=== PATIENT | male | born 1950 | race Caucasian/White ===

== ENCOUNTER 2017-06-01 19:22 | Inpatient (IN) | payer OTHER ==
[2017-06-01 19:39] VITALS: BMI 30.7
--- NOTE | 2017-06-01 19:58 | PDOC ---
History of Present Illness - General Chief Complaint: Respiratory Distress Stated Complaint: PCP SENT/PNEUMONIA Time Seen by Provider: 06/01/17 19:57 Past History - Past Medical History Allergies/Adverse Reactions: Allergies Allergy/AdvReac Type Severity Reaction Status Date / Time No Known Drug Allergies Allergy Verified 06/01/17 19:33 Home Medications: Ambulatory Orders Unobtainable [Unobtainable] 11/28/16 Anemia: No Asthma: No Cancer: No Cardiac Disorders: Yes (VT 10YRS AGO, 4 STENTS) CVA: No COPD: No CHF: No Dementia: No Diabetes: Yes Dialysis: Yes (m-w-f lt arm fistula) GI Disorders: No Disorders: No HTN: Yes Hypercholesterolemia: Yes Liver Disease: No Seizures: No Thyroid Disease: No Other medical history: Gout - Surgical History Abdominal Surgery: Yes (HERNIA X 2) Appendectomy: No Cardiac Surgery: Yes (STENTS X4) Cholecystectomy: No Lung Surgery: No Neurologic Surgery: No Orthopedic Surgery: Yes (LEFT KNEE ARTHOSCOPY) - Psycho/Social/Smoking Cessation Hx Anxiety: No Suicidal Ideation: No Smoking History: Former smoker Have you smoked in the past 12 months: No If you are a former smoker, when did you quit?: 10 years ago when he had the [place] Information on smoking cessation initiated: No Hx Alcohol Use: No Drug/Substance Use Hx: No Substance Use Type: None Hx Substance Use Treatment: No *Physical Exam - Vital Signs Last Vital Signs Temp Pulse Resp BP Pulse Ox 97.5 F L 69 20 161/122 91 L 06/01/17 19:34 06/01/17 19:34 06/01/17 19:34 06/01/17 19:34 06/01/17 19:34 *DC/Admit/Observation/Transfer - Attestations Physician Attestion: 06/01/17 19:57 I, Dr. Jorge Morales, attest that this document has been prepared under my direction and personally reviewed by me in its entirety. I further attest, that it accurately reflects all work, treatment, procedures and medical decision -making performed by me.
[2017-06-01] MEDS ORDERED: FUROSEMIDE 40 MG/4 ML INJECTABLE VIAL IVPUSH ONE (21:13)
--- NOTE | 2017-06-01 21:35 | PDOC ---
Attending Attestation - HPI HPI: 06/01/17 21:50 Patient is a 67 year old male with history of DM, hypertension, hyperlipidemia, diabetes, ESRD on MWF with LUE AV fistula, who presents to the ED sent in by PCP for pneumonia. Patient reports cough and fever. He also reports SOB. Patient is a poor historian. - Physicial Exam PE: 06/01/17 21:51 GENERAL: Awake, alert, and fully oriented, in no acute distress HEAD: No signs of trauma EYES: PERRLA, EOMI, sclera anicteric, conjunctiva clear ENT: Auricles normal inspection, hearing grossly normal, nares patent, oropharynx clear without exudates. Moist mucosa NECK: (+)JVD Normal ROM, supple, no lymphadenopathy, or masses LUNGS: (+)Rales. Breath sounds equal. No wheezes, and no crackles HEART: Regular rate and rhythm, normal S1 and S2, no murmurs, rubs or gallops ABDOMEN: Soft, nontender, normoactive bowel sounds. No guarding, no rebound. No masses EXTREMITIES: Normal range of motion, no edema. No clubbing or cyanosis. No cords, erythema, or tenderness NEUROLOGICAL: Cranial nerves II through XII grossly intact. Normal speech SKIN: Warm, Dry, normal turgor, no rashes or lesions noted. - Medical Decision Making 06/01/17 21:52 Plan -Labs -CXR -ECG -VS 06/02/17 00:[address] Bender's service was told that Dr. Vazquez is on called. Three pages were placed to Dr. Vazquez with 15 minute intervals for first two calls and last call was with a 30 minute interval. No call back received from Dr. Vazquez or anyone else in the group. Patient will be admitted under the Hospitalist service. Documentation prepared by ROBERT Vallejo, acting as medical technologist chemistry for Jorge Morales DO.
--- NOTE | 2017-06-01 21:35 | PDOC ---
History of Present Illness - General Chief Complaint: Respiratory Distress Stated Complaint: PCP SENT/PNEUMONIA Time Seen by Provider: 06/01/17 19:57 Past History - Past Medical History Allergies/Adverse Reactions: Allergies Allergy/AdvReac Type Severity Reaction Status Date / Time No Known Drug Allergies Allergy Verified 06/01/17 19:33 Home Medications: Ambulatory Orders Unobtainable [Unobtainable] 11/28/16 Anemia: No Asthma: No Cancer: No Cardiac Disorders: Yes (CT 10YRS AGO, 4 STENTS) CVA: No COPD: No CHF: No Dementia: No Diabetes: Yes Dialysis: Yes (m-w-f lt arm fistula) GI Disorders: No Disorders: No HTN: Yes Hypercholesterolemia: Yes Liver Disease: No Seizures: No Thyroid Disease: No Other medical history: Gout - Surgical History Abdominal Surgery: Yes (HERNIA X 2) Appendectomy: No Cardiac Surgery: Yes (STENTS X4) Cholecystectomy: No Lung Surgery: No Neurologic Surgery: No Orthopedic Surgery: Yes (LEFT KNEE ARTHOSCOPY) - Psycho/Social/Smoking Cessation Hx Anxiety: No Suicidal Ideation: No Smoking History: Former smoker Have you smoked in the past 12 months: No If you are a former smoker, when did you quit?: 10 years ago when he had the CT Information on smoking cessation initiated: No Hx Alcohol Use: No Drug/Substance Use Hx: No Substance Use Type: None Hx Substance Use Treatment: No *Physical Exam - Vital Signs Last Vital Signs Temp Pulse Resp BP Pulse Ox 97.5 F L 69 20 161/122 91 L 06/01/17 19:34 06/01/17 19:34 06/01/17 19:34 06/01/17 19:34 06/01/17 19:34
--- NOTE | 2017-06-01 21:38 | PDOC ---
History of Present Illness - General Chief Complaint: Respiratory Distress Stated Complaint: PCP SENT/PNEUMONIA Time Seen by Provider: 06/01/17 19:57 History Source: Patient Exam Limitations: Language Barrier (Automatic Clipper And Stripper used) - History of Present Illness Initial Comments: 06/01/17 21:29 67M with history of CKD on MWF dialysis, insulin dependant diabetes mellitus and TN 10 years ago s/p stents here today complaining of respiratory distress. He was sent to the ED today by his PCP for pneumonia. He states that he's been feeling unwell for the past month. He states that he's had a cough, shortness of breath, fevers, headaches, and decreased activity level. He also states that he's had orthopnea and chest pain. The chest pain is located substernally with no radiation. He's unsure of what makes it worse or better. Patient states that he does not remember what medications he takes, but has been taking them. He states that he's been able to go to his regular dialysis and that they take ~1L off per session. Past History - Past Medical History Allergies/Adverse Reactions: Allergies Allergy/AdvReac Type Severity Reaction Status Date / Time No Known Drug Allergies Allergy Verified 06/01/17 19:33 Home Medications: Ambulatory Orders Unobtainable [Unobtainable] 11/28/16 Anemia: No Asthma: No Cancer: No Cardiac Disorders: Yes (TN 10YRS AGO, 4 STENTS) CVA: No COPD: No CHF: No Dementia: No Diabetes: Yes Dialysis: Yes (m-w-f lt arm fistula) GI Disorders: No Disorders: No HTN: Yes Hypercholesterolemia: Yes Liver Disease: No Seizures: No Thyroid Disease: No Other medical history: Gout - Surgical History Abdominal Surgery: Yes (HERNIA X 2) Appendectomy: No Cardiac Surgery: Yes (STENTS X4) Cholecystectomy: No Lung Surgery: No Neurologic Surgery: No Orthopedic Surgery: Yes (LEFT KNEE ARTHOSCOPY) - Psycho/Social/Smoking Cessation Hx Anxiety: No Suicidal Ideation: No Smoking History: Former smoker Have you smoked in the past 12 months: No If you are a former smoker, when did you quit?: 10 years ago when he had the [place] Information on smoking cessation initiated: No Hx Alcohol Use: No Drug/Substance Use Hx: No Substance Use Type: None Hx Substance Use Treatment: No Review of Systems - Review of Systems Constitutional: Yes: Fever, Weakness. No: Chills HEENTM: Yes: Blurred Vision, Hearing Loss. No: Eye Pain, Recent change in vision Respiratory: Yes: Cough, Orthopnea, Shortness of Breath, SOB with Exertion, Productive cough Cardiac (ROS): Yes: Chest Pain. No: Edema ABD/GI: Yes: Constipated. No: Diarrhea, Nausea, Vomiting : No: Burning, Dysuria Musculoskeletal: Yes: Back Pain, Joint Pain Neurological: Yes: Headache. No: Weakness Endocrine: No: Increased Thirst, Increased Urine Hematologic/Lymphatic: No: Blood Clots, Easy Bleeding *Physical Exam - Vital Signs Last Vital Signs Temp Pulse Resp BP Pulse Ox 97.5 F L 69 20 161/122 91 L 06/01/17 19:34 06/01/17 19:34 06/01/17 19:34 06/01/17 19:34 06/01/17 19:34 - Physical Exam Comments: 06/01/17 21:40 Gen: Well nourished, obese, man in moderate distress HEENT: Atraumatic normocephalic CV: Regular rate and rhythm, no murmurs rubs or gallops, exam limited by rales from lung exam Lungs: Diffuse rales throughout both lung velasquez, coughing, tachypneic Abdomen: Soft, nontender, normal bowel sounds Ext: 1+ pitting edema to mid [place], 1+ pulses in lower extremities, dialysis site in left arm with thrill, nonerythematous, nontender Neuro: Alert, oriented, no focal neuro deficits Neck: Could not assess JVD secondary to patients neck girth ED Treatment Course - LABORATORY CBC & Chemistry Diagram: 06/01/17 21:41 06/01/17 21:41 - RADIOLOGY Radiology Studies Ordered: Category Date Time Status CHEST X-RAY PORTABLE* [RAD] Stat Radiology 06/01/17 20:51 Ordered Medical Decision Making - Medical Decision Making 06/01/17 21:50 Patient is a 67M with history of CKD on dialysis MWF, [place] 10 years ago s/p stents , and IDDM here today complaining of respiratory distress. Patient is hypertensive, other vital signs normal. PCP was concerned about pneumonia, phone call is out to Dr Vazquez ([phone]) to collect more patient history. Exam shows diffuse rales through out lung velasquez. Differential diagnosis includes, but is not limited to: CHF exacerbation, pneumonia, and ACS. Labs ordered, CBC, CMP, Lactate, Blood Cultures, BNP, Troponin, and CXR. Vanc/ zosyn, renally dosed, started empirically due to dialysis status. 06/01/17 22:16 CXR read as PNA vs CHF 06/02/17 00:35 CBC shows no white count, lactate normal. BNP at 20k, Troponin to 0.04. Dr Vazquez contacted three times over an hour plus with no response, looking for admission, but never heard back. Clonidine .2 mg given for HTN. Lasix 40 given to take off fluid, as patient reports making a small amount of urine. [facility]. *DC/Admit/Observation/Transfer Diagnosis at time of Disposition: CHF exacerbation Qualifiers: Congestive heart failure type: unspecified congestive heart failure type Qualified Code(s): I50.9 - Heart failure, unspecified - Discharge Dispostion Condition at time of disposition: Guarded Admit: Yes - Referrals Referrals: Brittany Bender MD [Primary Care Provider] - - Attestations Physician Attestion: 06/02/17 00:58 I, Dr. Zaheer Iniguez, attest that this document has been prepared under my direction and personally reviewed by me in its entirety. I further attest, that it accurately reflects all work, treatment, procedures and medical decision -making performed by me.
[2017-06-01 21:59] LABS: EOSINOPHIL 7.1 % (0-4.5); MCHC 32.4 g/dl (32.0-35.9); MEAN CELL VOLUME 89.6 fl (80-96); MEAN PLT VOLUME 6.9 fl (7.5-11.1); NEUTROPHILS 68.4 % (42.8-82.8); PLATELET COUNT 261 K/MM3 (134-434); RDW 15.3 % (11.9-15.9); WHITE BLOOD COUNT 5.5 K/mm3 (4.0-10.0)
[2017-06-01] MEDS ORDERED: PIPERACILLIN/TAZOB 2.25 GM 2.25 GM in DEXTROSE 5%-WATER - 50 ML IVPB SCH (22:00)
[2017-06-01] MEDS ORDERED: FUROSEMIDE 40 MG/4 ML INJECTABLE VIAL ONE (22:05)
[2017-06-01 22:12] LABS: INR 1.03 (0.82-1.09); PROTHROMBIN TIME (PATIENT) 11.3 SEC (9.98-11.88)
[2017-06-01 22:15] LABS: ACTIVATED PTT 28.8 SECONDS (26.9-34.4)
[2017-06-01 22:30] LABS: ALBUMIN 2.6 g/dl (3.4-5.0); ANION GAP 12 (8-16); BILIRUBIN,TOTAL 0.3 mg/dL (0.2-1.0); CALCIUM 9.1 mg/dL (8.5-10.1); CO2 25 mmol/L (21-32); GLUCOSE,RANDOM 139 mg/dL (74-106); SGOT/AST 16 U/L (15-37); SGPT/ALT 13 U/L (12-78); TOT PROT 5.7 g/dl (6.4-8.2)
[2017-06-01 22:36] LABS: ALK PHOS 124 U/L (45-117); TROPONIN I 0.04 ng/ml (0.00-0.05)
[2017-06-01 22:39] LABS: CREATININE 9.8 mg/dL (0.7-1.3)
[2017-06-01] MEDS ORDERED: cloNIDine HCL 0.1 MG TABLET PO ONE (22:57)
[2017-06-01] MEDS ORDERED: cloNIDine HCL 0.1 MG TABLET ONE (23:03)
[2017-06-02] MEDS ORDERED: hydrALAZINE HCL 20 MG/ML VIAL ONE (01:06)
[2017-06-02] MEDS ORDERED: ALBUTEROL SO4 2.5/IPRATROPIUM 0.5 INH SOL 3 ML VIAL.NEB. NEB ONE ×2 (01:07→01:16)
[2017-06-02] MEDS ORDERED: hydrALAZINE HCL 10 MG TABLET PO ONE (01:16)
--- NOTE | 2017-06-02 01:19 | HP ---
CHIEF COMPLAINT: SOB PCP: George-ED attempted to call, no response, so hospitalist service taking over admission Renal: Winter, Cardio: @ [facility] Endo: Jay HISTORY OF PRESENT ILLNESS: THis is a 67 year old male with a past medical history of HTN, DM, ESRD, HLD, [place] , gout who presented to the ED from his PCP office with report of SOB. PCP sent him to r/o pneumonia. Pt reports he has been sick for " a while." He reports cough, SOB, chest pain, fevers, headaches, and decreased exercise intolerance. Upon exam he was complaining of fluid leaking from his ear "again." He states taht this has been a problem for "years" ever since he had surgery on his ear. ER course was notable for: (1) BNP 20,732 PAST MEDICAL HISTORY: HTN CAD s/p OH in 2003 or 2004 HLD DM ESRD gout asthma PAST SURGICAL HISTORY: pt reports 5 stents at the time of his OH, prior chart documented 4 LUE fistula 06/04/15 L knee arthroscopy Social History: Smoking: Pt quit when he had OH, Prior smoker x 45 years Alcohol: pt denies Drugs: pt denies Family History: [place] Allergies No Known Drug Allergies Allergy (Verified 06/01/17 19:33) HOME MEDICATIONS: 3 Medication Instructions Recorded Unobtainable [Unobtainable] 11/28/16 REVIEW OF SYSTEMS CONSTITUTIONAL: Present: fever, chills Absent: diaphoresis, generalized weakness, malaise, loss of appetite, weight change HEENT: Absent: rhinorrhea, nasal congestion, throat pain, throat swelling, difficulty swallowing, mouth swelling, ear pain, eye pain, visual changes CARDIOVASCULAR: Present: chest pain Absent: syncope, palpitations, irregular heart rate, lightheadedness, peripheral edema RESPIRATORY: Present: cough, shortness of breath, dyspnea with exertion, orthopnea Absent: wheezing, stridor, hemoptysis GASTROINTESTINAL: Absent: abdominal pain, abdominal distension, nausea, vomiting, diarrhea, constipation, melena, hematochezia GENITOURINARY: Absent: dysuria, frequency, urgency, hesitancy, hematuria, flank pain, genital pain MUSCULOSKELETAL: Absent: myalgia, arthralgia, joint swelling, back pain, neck pain SKIN: Absent: rash, itching, pallor HEMATOLOGIC/IMMUNOLOGIC: Absent: easy bleeding, easy bruising, lymphadenopathy, frequent infections ENDOCRINE: Absent: unexplained weight gain, unexplained weight loss, heat intolerance, cold intolerance NEUROLOGIC: Absent: headache, focal weakness or paresthesias, dizziness, unsteady gait, seizure, mental status changes, bladder or bowel incontinence PSYCHIATRIC: Absent: anxiety, depression, suicidal or homicidal ideation, hallucinations. PHYSICAL EXAMINATION Vital Signs - 24 hr 3 06/01/17 06/01/17 06/01/17 06/02/17 19:34 22:00 23:07 01:08 Temperature 97.5 F L Pulse Rate 69 Pulse Rate [ 80 81 Apical] Respiratory 20 20 18 Rate Blood Pressure 161/122 Blood Pressure 194/86 195/93 [Right Arm] O2 Sat by Pulse 91 L 97 97 97 Oximetry (%) GENERAL: Awake, alert, and fully oriented, in no acute distress. HEAD: Normal with no signs of trauma. EYES: Pupils equal, round and reactive to light, extraocular movements intact, sclera anicteric, conjunctiva clear. No lid lag. EARS, NOSE, THROAT: Ears normal, nares patent, oropharynx clear without exudates. Moist mucous membranes. NECK: Normal range of motion, supple without lymphadenopathy, JVD, or masses. LUNGS: No accessory muscle use. + mild diffuse exp wheezing bilat, crackles bilat bases HEART: Regular rate and rhythm, normal S1 and S2 without murmur, rub or gallop. ABDOMEN: Soft, nontender, not distended, normoactive bowel sounds, no guarding, no rebound, no masses. No hepatomegaly or splenomegaly. MUSCULOSKELETAL: Normal range of motion at all joints. No bony deformities or tenderness. No CVA tenderness. UPPER EXTREMITIES: 2+ pulses, warm, well-perfused. No cyanosis. No clubbing. No peripheral edema. LOWER EXTREMITIES: 2+ pulses, warm, well-perfused. No calf tenderness. No peripheral edema. NEUROLOGICAL: Cranial nerves II-XII intact. Normal speech. Normal gait. PSYCHIATRIC: Cooperative. Good eye contact. Appropriate mood and affect. SKIN: Warm, dry, normal turgor, no rashes or lesions noted, normal capillary refill. Laboratory Results - last 24 hr 3 06/01/17 06/01/17 06/01/17 21:41 21:41 21:41 WBC 5.5 RBC 3.43 L Hgb 10.0 L Hct 30.7 L MCV 89.6 MCH 29.0 MCHC 32.4 RDW 15.3 Plt Count 261 D MPV 6.9 L Neutrophils % 68.4 Lymphocytes % 14.9 D Monocytes % 8.6 Eosinophils % 7.1 H Basophils % 1.0 INR 1.03 PTT (Actin FS) 28.8 Sodium 138 Potassium 4.9 Chloride 101 Carbon Dioxide 25 Anion Gap 12 BUN 60 H Creatinine 9.8 H* D Creat Clearance w eGFR 5.38 Random Glucose 139 H D Lactic Acid 1.2 Calcium 9.1 Total Bilirubin 0.3 AST 16 D ALT 13 Alkaline Phosphatase 124 H Creatine Kinase 58 Troponin I 0.04 D B-Natriuretic Peptide 69741.94 H Total Protein 5.7 L Albumin 2.6 L D ECG: NSR, vent rate 82, APCs QTC [address]/T wave changes Radiology Results: CHEST X-RAY PORTABLE* Chest pain. Rule out infiltrate. Portable chest x-ray AP sitting. Since prior chest x-ray dated 05/10/2015, the cardiac silhouette remains slightly to moderately enlarged with unfolding of the aortic arch. There is interval increased bilateral interstitial and patchy airspace opacities suggestive of pneumonic infiltrates versus pulmonary venous congestion. There is also likely small bilateral pleural effusion, left more the right. Mediastinum and visualized osseous structures appear intact Right internal jugular central line has been removed. Impression: [id number] cardiomegaly with bilateral interstitial and airspace opacities suggestive of pneumonia versus pulmonary venous congestion. Correlate clinically. Reported By: Salomon Carver MD 06/01/17 2200 ASSESSMENT/PLAN: 67yM with PMH HTN, [place], HLD, DM, ESRD, asthma, gout presented to the ED from his PCP office with SOB. He is being admitted for further management and treatment. Cardio 1. CHF - xray c/w CHF vs PNA, lasix 40 given IVP in ED, pt does make some urine - renal consult for dialysis in am - echo in am - BNP 20,732, likely so high due to renal disease 2. Chest pain - trend troponins but unlikely ACS as no ECG changes 3. HTN - will need to obtain medication list, pt goes to [facility], but is closed now - given clonidine 0.2 in ED but BP rising, will add hydralazine 10mg now 4. CAD/OH - was on imdur in 2014, will verify meds Pulm 1. Asthma - duoneb QID PRN - ox sat 88 with pat laying flat with neck in flexed position. Pt sat up and sat promptly to 97. ? sleep apnea component as well 2. Abnl CXR - ? PNA on xray, pt afebrile in ED, WBC 5.5, will hold on furhter ABT for now as SOB likely more R/T CHF Endo 1. DM - will need to obtain medications. Was on insulin pump in 2014, no pump noted - restart meds when known - BGM AC/HS with novolog SS - A1C Renal 1. ESRD - dialysis in AM - dr. Winter consulted DVT PPX - heparin 5000u SC TID FEN - defer IVF, pt overloaded - BMP in am - renal, diabetic, low sodium diet Dispo: Pt currently requires inpatient management of emergent medical conditions. Visit type - Emergency Visit Emergency Visit: Yes ED Registration Date: 06/01/17 Care time: The patient presented to the Emergency Department on the above date and was hospitalized for further evaluation of their emergent condition. - New Patient This patient is new to me today: Yes Date on this admission: 06/02/17 - Critical Care Critical Care patient: No
[2017-06-02] MEDS: HEPARIN NA (PORCINE) 5,000 UNITS/ML 1ML VIAL SQ SCH ×3 (06:27→21:47)
[2017-06-02] MEDS ORDERED: INSULIN SLIDING SCALE (NOVOLOG) 1 VIAL SQ SCH ×2 (07:00→22:00)
[2017-06-02 08:34] LABS: TROPONIN I 0.04 ng/ml (0.00-0.05)
--- NOTE | 2017-06-02 09:45 | PN ---
Progress Note (short form) - Note Progress Note: 3 week history of dypnea, cough nad congestion, reports occasional chills. Non smoker, no reported history of COPD no recent travel history denies chest pressure CBC, BMP 06/01/17 21:41 06/01/17 21:41 Vital Signs Period Temp Pulse Resp BP Sys/Blanca Pulse Ox Last 24 Hr 97.4 F-98.2 F 69-93 20-21 135-195/68-122 91-98 S1S2 RRR Lungs diffuse exp wheezing and rhonchi abd soft NT no edema aa0x3 nonfocal Imp 67 yo M admitted for CHF +- pneumonia ESRD on HD since 2014 IDDM CAD with stents-sees cardiology at [facility] HTN Gout OA Plan iv abx iv lasix HD nebulizer treatment cultures requested echo ordered continue home meds
[2017-06-02] MEDS ORDERED: VANCOMYCIN 2,000 MG in DEXTROSE 5%-WATER - 500 ML IVPB SCH (10:00)
[2017-06-02] MEDS ORDERED: PIPERACILLIN/TAZOB 2.25 GM/50 ML PRE-DOCKED BAG IVPB ONE (10:00)
[2017-06-02] MEDS ORDERED: PIPERACILLIN/TAZOB 2.25 GM 2.25 GM in DEXTROSE 5%-WATER - 50 ML IVPB SCH (10:00)
[2017-06-02] MEDS: CARVEDILOL 12.5 MG TABLET (FP) PO SCH ×2 (10:14→21:47)
[2017-06-02] MEDS: ASPIRIN COATED 81 MG TABLET.EC PO SCH (10:14)
[2017-06-02] MEDS: ISOSORBIDE MONONITRATE 30 MG TAB.SR.24H (FP) PO SCH (10:14)
[2017-06-02] MEDS: LISINOPRIL 20 MG TABLET (FP) PO SCH (10:14)
[2017-06-02] MEDS: CLOPIDOGREL BISULFATE 75 MG TABLET (FP) PO SCH (10:14)
--- NOTE | 2017-06-02 10:17 | EKG ---
Test Reason : Blood Pressure : / mmHG Vent. Rate : 082 BPM Atrial Rate : 082 BPM P-R Int : 168 ms QRS Dur : 088 ms QT Int : 370 ms P-R-T Axes : 025 024 051 degrees QTc Int : 432 ms SINUS RHYTHM WITH PREMATURE ATRIAL COMPLEXES IN A PATTERN OF BIGEMINY NONSPECIFIC ST ABNORMALITY OTHERWISE NORMAL ECG Confirmed by MD CHRIS, CARLA ([id number]) on 06/02/2017 10:17:09 AM Referred By: Confirmed By:CARLA PEREZ MD
--- NOTE | 2017-06-02 10:35 | CON.CARD ---
Cardiology Consult (text) - Consultation Consultation Note: cc: sent by pmd for pna hpi: 67 m hx esrd on hd, dm, cad s/p remote mi/pci (10+yrs ago), sent by pmd for possible pna. Pt has been having cough, sob, fevers at home past few days. Occasional cp with coughing. No anginal sxs. 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 Currently on abx for pna. pmh: per hpi psh: hernia repair, knee surgery social: ex tob fam: no premature cad ros: per hpi; no nvd, mejias, vision changes, gib, hematuria, dysuria, muscle pain meds: Home Medications Medication Instructions Recorded Unobtainable [Unobtainable] 11/28/16 pe: Vital Signs Period Temp Pulse Resp BP Sys/Blanca Pulse Ox Last 24 Hr 97 F-98.2 F 59-93 18-21 135-195/68-122 91-98 nad no jvd rrr s1s2 no mrg cta bl nl eff aaox3 no le e/c/c abd nt nd pos bs no jaundice diaphoresis pos dp pt no carotid bruits Laboratory Last Values WBC 5.5 K/mm3 (4.0-10.0) 06/01/17 21:41 RBC 3.43 M/mm3 (4.00-5.60) L 06/01/17 21:41 Hgb 10.0 GM/dL (11.7-16.9) L 06/01/17 21:41 Hct 30.7 % (35.4-49) L 06/01/17 21:41 MCV 89.6 fl (80-96) 06/01/17 21:41 MCH 29.0 pg (25.7-33.7) 06/01/17 21:41 MCHC 32.4 g/dl (32.0-35.9) 06/01/17 21:41 RDW 15.3 % (11.9-15.9) 06/01/17 21:41 Plt Count 261 K/MM3 (134-434) D 06/01/17 21:41 MPV 6.9 fl (7.5-11.1) L 06/01/17 21:41 Neutrophils % 68.4 % (42.8-82.8) 06/01/17 21:41 Lymphocytes % 14.9 % (8-40) D 06/01/17 21:41 Monocytes % 8.6 % (3.8-10.2) 06/01/17 21:41 Eosinophils % 7.1 % (0-4.5) H 06/01/17 21:41 Basophils % 1.0 % (0-2.0) 06/01/17 21:41 INR 1.03 (0.82-1.09) 06/01/17 21:41 PTT (Actin FS) 28.8 SECONDS (26.9-34.4) 06/01/17 21:41 Sodium 138 mmol/L (136-145) 06/01/17 21:41 Potassium 4.9 mmol/L (3.5-5.1) 06/01/17 21:41 Chloride 101 mmol/L (98-107) 06/01/17 21:41 Carbon Dioxide 25 mmol/L (21-32) 06/01/17 21:41 Anion Gap 12 (8-16) 06/01/17 21:41 BUN 60 mg/dL (7-18) H 06/01/17 21:41 Creatinine 9.8 mg/dL (0.7-1.3) H* D 06/01/17 21:41 Creat Clearance w eGFR 5.38 (>60) 06/01/17 21:41 POC Glucometer 126 UNITS (()) 06/02/17 06:23 Random Glucose 139 mg/dL (74-106) H D 06/01/17 21:41 Lactic Acid 1.2 mmol/L (0.4-2.0) 06/01/17 21:41 Calcium 9.1 mg/dL (8.5-10.1) 06/01/17 21:41 Total Bilirubin 0.3 mg/dL (0.2-1.0) 06/01/17 21:41 AST 16 U/L (15-37) D 06/01/17 21:41 ALT 13 U/L (12-78) 06/01/17 21:41 Alkaline Phosphatase 124 U/L (45-117) H 06/01/17 21:41 Creatine Kinase 47 IU/L (39-308) 06/02/17 06:36 Troponin I 0.04 ng/ml (0.00-0.05) 06/02/17 06:36 B-Natriuretic Peptide 96064.94 pg/ml (5-125) H 06/01/17 21:41 Total Protein 5.7 g/dl (6.4-8.2) L 06/01/17 21:41 Albumin 2.6 g/dl (3.4-5.0) L D 06/01/17 21:41 tele: sr, pacs mibi 10/2012: nl mpi cxr: pna vs chf ecg 06/01/17: sr, pacs, nl intervals, no ischemic changes a/p: 67 m hx esrd on hd, dm, cad s/p remote mi/pci (10+yrs ago), sent by pmd for possible pna. sob, cough, pna: -no signs acs or chf -check echo -cont abx per pmd/ID esrd: -cont HD per renal cp, cad s/p remote mi/pci: -cp atypical, possibly related to pna -no signs acs, ce's negx2, ecg w/o ischemic changes -prior mibi w/o ischemia -monitor cp while treating pna to see if resolves -cont home kylah, bb, imdur, dapt -check echo to see lvef
--- NOTE | 2017-06-02 10:51 | CON.NEP ---
Consult Consult Specialty:: Nephrology Reason for Consultation:: esrd - History of Present Illness Chief Complaint: dyspnea History of Present Illness: This is a 67 year old diabetic hypertensive man with a history of CAD and ESRD who presents with dyspnea on minimal exertion. He has had this for at least a month but has been getting worse. He has GARCIA on minimal exertion. Thjoughtit was asthma. Because of his strong cardiac history, he is here to evaluate his heart condition. He has not had chest pain or fever. But has been very uncomfortable and had a cough. No recent travel. Usually compliant with medical regimen - History Source History Provided By: Patient, Medical Record - Past Medical History Cardio/Vascular: Yes: CAD, HTN, SC Renal/: Yes: Renal Failure, Hemodialysis Rheumatology: Yes: Gout Endocrine: Yes: Diabetes Mellitus - Past Surgical History Past Surgical History: Yes: Arthrosocopy - Alcohol/Substance Use Hx Alcohol Use: No - Smoking History Smoking history: Former smoker Have you smoked in the past 12 months: No If you are a former smoker, when did you quit?: 10 years ago when he had the SC - Social History ADL: Independent Home Medications - Allergies Allergies/Adverse Reactions: Allergies Allergy/AdvReac Type Severity Reaction Status Date / Time No Known Drug Allergies Allergy Verified 06/01/17 19:33 - Home Medications Home Medications: Ambulatory Orders Unobtainable [Unobtainable] 11/28/16 Review of Systems - Review of Systems Constitutional: reports: Weakness Eyes: reports: No Symptoms HENT: reports: No Symptoms Neck: reports: No Symptoms Cardiovascular: reports: Shortness of Breath Respiratory: reports: Cough, SOB Gastrointestinal: reports: No Symptoms Genitourinary: reports: No Symptoms Breasts: reports: No Symptoms Reported Musculoskeletal: reports: No Symptoms Integumentary: reports: No Symptoms Neurological: reports: No Symptoms Endocrine: reports: No Symptoms Hematology/Lymphatic: reports: No Symptoms Psychiatric: reports: No Symptoms Nephrology Consult - Height Height: 5 ft 5 in - Weight Weight: 184 lb 9.6 oz - BMI Body Mass Index (BMI): 30.7 - Lab Results Anion Gap: Anion Gap Anion Gap 12 (8-16) 06/01/17 21:41 - Imaging Chest X-ray: Report Reviewed, Image Reviewed (bilateral interstitial markings , fluid in fissure) - Physical Examination Vital Signs: Vital Signs Temperature 97 F L 06/02/17 08:55 Pulse Rate 96 H 06/02/17 10:30 Respiratory Rate 18 06/02/17 10:30 Blood Pressure 174/100 06/02/17 10:30 O2 Sat by Pulse Oximetry (%) 98 06/02/17 03:22 Constitutional: Yes: Well Nourished, Moderate Distress Eyes: Yes: Conjunctiva Clear HENT: Yes: Atraumatic, Normocephalic Neck: Yes: Supple, Trachea Midline Cardiovascular: Yes: Regular Rate and Rhythm, Murmur Respiratory: Yes: Regular, CTA Bilaterally, Wheezes. No: Stridor Gastrointestinal: Yes: Normal Bowel Sounds Access for Hemodialysis: AV Graft Edema: Yes Edema: LLE: 1+, RLE: 1+ Neurological: Yes: Alert, Oriented Psychiatric: Yes: Alert, Oriented Assessment/Plan IMPRESSION esrd htn uncontrolled dm r/o ACS- troponins are normal r/o cardiac asthma BNP is elevated but it will likely always be elevated PLAN will dialyze. ALready spoke to nurse and dialysis was being initiated ECHO result reviewed- low normal EF no pericardial effusion, no significant cardiology eval would give steroids and antibiotics check phosphorus level ask pulmonary to see pt MV
--- NOTE | 2017-06-02 11:51 | PN ---
Progress Note (short form) - Note Progress Note: ID consult dictated 67 year old man esrd/HD on dialysis for last several years with one month history of SOB cough, subjective fevers he went to [facility] for a vacation for 20 days, was sick before he left- has white sputum production over 30 pound weight loss over the last several years no history of TB HIV status unknown +hypoxia currently on HD, able to lay flat pmh of DM, CAD s/p stents cxray cardiomegaly with bilateral interstitial/airspace opacities imp/reccd pneumonia versus chf ?infectious chest ct cultures-blood and sputum urinary antigens quant gold rocephin/zithromax LDH HIV esr/crp he has been using a supplement for the last 3 months to lose weight- ?pulmonary drug toxicity Problem List - Problems (1) Pneumonia Code(s): J18.9 - PNEUMONIA, UNSPECIFIED ORGANISM (2) CHF exacerbation Code(s): I50.9 - HEART FAILURE, UNSPECIFIED Qualifiers: Congestive heart failure type: unspecified congestive heart failure type Qualified Code(s): I50.9 - Heart failure, unspecified (3) ESRD (end stage renal disease) on dialysis Code(s): N18.6 - END STAGE RENAL DISEASE Z99.2 - DEPENDENCE ON RENAL DIALYSIS (4) Diabetes Code(s): E11.9 - TYPE 2 DIABETES MELLITUS WITHOUT COMPLICATIONS
[2017-06-02] MEDS ORDERED: AZITHROMYCIN IVPB 500 MG in DEXTROSE 5%-WATER - 250 ML IVPB SCH (12:00)
[2017-06-02] MEDS ORDERED: AZITHROMYCIN IVPB 250 ML IVPB ONE (12:15)
[2017-06-02 12:44] LABS: TROPONIN I 0.04 ng/ml (0.00-0.05)
[2017-06-02] MEDS: INSULIN (NOVOLOG) ASPART 100 UNITS/ML 10ML VIAL SQ SCH ×3 (13:18→21:48)
[2017-06-02] MEDS: SEVELAMER CARBONATE 800 MG TAB (FP) PO SCH ×2 (13:22→16:59)
[2017-06-02] MEDS: GABAPENTIN 100 MG CAPSULE (FP) PO SCH ×2 (13:22→21:47)
[2017-06-02] MEDS: cefTRIAXone 1 GM/50 ML BAG (PRE-DOCKED) IVPB SCH (13:23)
--- NOTE | 2017-06-02 17:25 | CONS ---
INFECTIOUS DISEASE CONSULTATION DATE OF CONSULTATION: 06/02/2017 REQUESTING PHYSICIAN: Brittany Bender MD HISTORY OF PRESENT ILLNESS: This is a 67-year-old man with a past medical history of end-stage renal disease and diabetes. He is on dialysis for the last 4-5 years. He was sent to the hospital from his PCP with complaints of shortness of breath and cough. The patient reports 1 month of cough, intermittently productive with white sputum. There is no hemoptysis. He has had subjective fever as well and shortness of breath. These symptoms all started about a month ago while he was here [place] the [place] He subsequently got on an airplane and went to [facility] where he was there for 20 days. He had 9 dialysis sessions there. His symptoms persisted, and after return here, he went to see his doctor who then sent him to the emergency room. He also notes he has had a weight loss he says of over 30 pounds, and he says this has been over the last several years. It is unclear why. He denies any diarrhea. He denies any nausea or vomiting. He has some chest discomfort with cough but otherwise has no chest complaints. PAST MEDICAL HISTORY: Notable for hypertension, coronary artery disease status post [place]. He has stents in place. He has a history of hyperlipidemia, diabetes, end-stage renal disease on dialysis, gout, and asthma. SURGICAL HISTORY: Notable for his left AV fistula done in 2014, and he has had left knee arthroscopy. FAMILY HISTORY: Noncontributory. SOCIAL HISTORY: He just recently returned from [facility] he reports 3 days ago. He was a former smoker, and he quit smoking in 2004. There is no history of any drug use. ALLERGIES: He has no known drug allergies. MEDICATIONS: His home medication list was not obtainable. REVIEW OF SYSTEMS: Notable for 1-month subjective complaints of shortness of breath, intermittent sputum production that is white, and subjective sensation of fevers and chills (he has not taken his temperature), and weight loss which has been, he reports, over several years. PHYSICAL EXAMINATION: Vital Signs: He has no fever. Temperature is 97.7. Pulse of 60, blood pressure 158/89, respiratory rate is 18. He is on 3 L nasal cannula, saturating 98%. On admission, his room air O2 saturation was 91%. HEENT: He is normocephalic. His eyes are anicteric. He has no thrush. Neck: Supple. Lungs: Have bibasilar crackles. Heart: Regular rate and rhythm. Abdomen: Soft, nontender. He has no palpable lymphadenopathy. Extremities: He has a left AV fistula, and his extremities are without edema. DIAGNOSTIC DATA: White count is 5.5, hemoglobin is 10, platelets are 261. His BUN and creatinine are 60 and 9.8 with an alkaline phosphatase of 124. His BNP was 20,000. Blood cultures have been sent. His chest x-ray is notable for cardiomegaly with bilateral interstitial and air-space opacities. He had an echocardiogram done that shows LV is mildly dilated, LV function is low normal, and he has no hemodynamically significant valvular disease. In summary, this is a 67-year-old man with a 1-month history of pulmonary symptoms, possible pneumonia, but unusual given the duration of illness, versus congestive heart failure. Not sure of the role of his trip as he reports having these symptoms prior to traveling. Could have been exacerbated by a recent pneumonia. Would obtain a chest CT for clarification. He has just completed dialysis. Would obtain a sputum culture. Blood cultures have been sent. Urinary antigens. He reports he still urinates. A QuantiFERON Gold, although he denies any history of TB whatsoever. We will treat him for community-acquired pneumonia with Rocephin and Zithromax. Would obtain an LDH and HIV test, a sedimentation rate, and a CRP, and further recommendations to follow based on these results. Elsie [id number]
[2017-06-03] MEDS: INSULIN (NOVOLOG) ASPART 100 UNITS/ML 10ML VIAL SQ SCH ×3 (06:17→16:46)
[2017-06-03] MEDS: HEPARIN NA (PORCINE) 5,000 UNITS/ML 1ML VIAL SQ SCH ×3 (06:17→21:36)
[2017-06-03] MEDS: GABAPENTIN 100 MG CAPSULE (FP) PO SCH ×3 (06:18→21:36)
[2017-06-03] MEDS: CLOPIDOGREL BISULFATE 75 MG TABLET (FP) PO SCH (09:34)
[2017-06-03] MEDS: SEVELAMER CARBONATE 800 MG TAB (FP) PO SCH ×3 (09:34→16:47)
[2017-06-03] MEDS: ASPIRIN COATED 81 MG TABLET.EC PO SCH (09:34)
[2017-06-03] MEDS: LISINOPRIL 20 MG TABLET (FP) PO SCH (09:34)
[2017-06-03] MEDS: CARVEDILOL 12.5 MG TABLET (FP) PO SCH ×2 (09:34→21:36)
[2017-06-03] MEDS: AZITHROMYCIN 250 MG TABLET (FP) PO SCH (09:34)
[2017-06-03] MEDS: ISOSORBIDE MONONITRATE 30 MG TAB.SR.24H (FP) PO SCH (09:34)
[2017-06-03 09:58] LABS: EOSINOPHIL 6.9 % (0-4.5); MCH 29.2 pg (25.7-33.7); MCHC 32.2 g/dl (32.0-35.9); MEAN CELL VOLUME 90.5 fl (80-96); MEAN PLT VOLUME 6.7 fl (7.5-11.1); NEUTROPHILS 70.6 % (42.8-82.8); PLATELET COUNT 216 K/MM3 (134-434); WHITE BLOOD COUNT 5.1 K/mm3 (4.0-10.0)
[2017-06-03 10:13] LABS: ANION GAP 10 (8-16); CALCIUM 7.7 mg/dL (8.5-10.1); CO2 29 mmol/L (21-32); GLUCOSE,RANDOM 168 mg/dL (74-106); MAGNESIUM 2.4 mg/dL (1.8-2.4); PHOSPHOROUS 6.2 mg/dL (2.5-4.9)
--- NOTE | 2017-06-03 10:16 | PN ---
Progress Note (short form) - Note Progress Note: RENAL Feels much better today Breathing better Last Vital Signs Temp Pulse Resp BP Pulse Ox 97.9 F 72 20 136/85 95 06/03/17 02:00 06/03/17 06:00 06/03/17 06:00 06/03/17 06:00 06/02/17 21:00 lungs crackles at bases cvs s1s2 rr abd soft ext no edema neuro a+ox3 CBC, BMP 06/03/17 09:25 Current Medications Generic Name Dose Route Start Last Admin Trade Name Freq PRN Reason Stop Dose Admin Albuterol/Ipratropium 1 amp 06/02/17 01:50 Duoneb - NEB Q6H PRN WHEEZING Aspirin 81 mg 06/02/17 10:00 06/03/17 09:34 Ecotrin - PO 81 mg DAILY SUNDEEP Administration Azithromycin 250 mg 06/03/17 10:00 06/03/17 09:34 Zithromax - PO 06/06/17 10:01 250 mg DAILY [facility]EP Administration Carvedilol 12.5 mg 06/02/17 10:00 06/03/17 09:34 Coreg - PO 12.5 mg BID SUNDEEP Administration Ceftriaxone Sodium 1 gm 06/02/17 13:00 06/02/17 13:23 Rocephin 1gm Ivpb (Pre-Docked) IVPB 1 gm DAILY [facility]DEEP Administration Protocol Clopidogrel Bisulfate 75 mg 06/02/17 10:00 06/03/17 09:34 Plavix - PO 75 mg DAILY [facility]EP Administration Gabapentin 100 mg 06/02/17 14:00 06/03/17 06:18 Neurontin - PO 100 mg TID SUNDEEP Administration Heparin Sodium (Porcine) 5,000 unit 06/02/17 06:00 06/03/17 06:17 Heparin - SQ 5,000 unit TID SUNDEEP Administration Insulin Aspart 1 units 06/02/17 11:00 06/03/17 06:17 Novolog Vial SQ Not Given ACHS [facility] Protocol Isosorbide Mononitrate 30 mg 06/02/17 10:00 06/03/17 09:34 Imdur - PO 30 mg DAILY [facility] Administration Lisinopril 20 mg 06/02/17 10:00 06/03/17 09:34 Prinivil PO 20 mg DAILY [facility] Administration Sevelamer Carbonate 1,600 mg 06/02/17 12:00 06/03/17 09:34 Renvela - PO 1,600 mg TIDCM [facility]DEEP Administration IMPRESSION ESRD stable Weight loss appears to be intentional since he is taking a supplement to lose weight pretransplant as he was told he needed to lose 170 lbs Pt was sick prior to travel to [facility] has a high ESR and high eosinophils- but did not get steroids and has improved PLAN would continue current plan would redialyze in two days can try lasix for now await work up MV
[2017-06-03 10:23] LABS: CREATININE 8.5 mg/dL (0.7-1.3)
[2017-06-03] MEDS: cefTRIAXone 1 GM/50 ML BAG (PRE-DOCKED) IVPB SCH (10:32)
--- NOTE | 2017-06-03 11:04 | PN ---
Progress Note, Physician History of Present Illness: No complaints No events - Current Medication List Current Medications: Active Medications Albuterol/Ipratropium (Duoneb -) 1 amp NEB Q6H PRN PRN Reason: WHEEZING Aspirin (Ecotrin -) 81 mg PO DAILY [facility] Last Admin: 06/03/17 09:34 Dose: 81 mg Azithromycin (Zithromax -) 250 mg PO DAILY [facility] Stop: 06/06/17 10:01 Last Admin: 06/03/17 09:34 Dose: 250 mg Carvedilol (Coreg -) 12.5 mg PO BID [facility] Last Admin: 06/03/17 09:34 Dose: 12.5 mg Ceftriaxone Sodium (Rocephin 1gm Ivpb (Pre-Docked)) 1 gm IVPB DAILY [facility] PRN Reason: Protocol Last Admin: 06/03/17 10:32 Dose: 1 gm Clopidogrel Bisulfate (Plavix -) 75 mg PO DAILY [facility] Last Admin: 06/03/17 09:34 Dose: 75 mg Gabapentin (Neurontin -) 100 mg PO TID [facility] Last Admin: 06/03/17 06:18 Dose: 100 mg Heparin Sodium (Porcine) (Heparin -) 5,000 unit SQ TID [facility] Last Admin: 06/03/17 06:17 Dose: 5,000 unit Insulin Aspart (Novolog Vial) 1 units SQ ACHS [facility] PRN Reason: Protocol Last Admin: 06/03/17 06:17 Dose: Not Given Isosorbide Mononitrate (Imdur -) 30 mg PO DAILY [facility] Last Admin: 06/03/17 09:34 Dose: 30 mg Lisinopril (Prinivil) 20 mg PO DAILY [facility] Last Admin: 06/03/17 09:34 Dose: 20 mg Sevelamer Carbonate (Renvela -) 1,600 mg PO TIDCM [facility] Last Admin: 06/03/17 09:34 Dose: 1,600 mg - Objective Vital Signs: Vital Signs Temperature 97.8 F 06/03/17 11:01 Pulse Rate 75 06/03/17 11:01 Respiratory Rate 20 06/03/17 11:01 Blood Pressure 150/66 06/03/17 11:01 O2 Sat by Pulse Oximetry (%) 95 06/02/17 21:00 Constitutional: Yes: No Distress, Calm Eyes: Yes: WNL HENT: Yes: WNL Neck: Yes: WNL Cardiovascular: Yes: Regular Rate and Rhythm, Murmur Respiratory: Yes: Other (Coarse breath sounds) Gastrointestinal: Yes: WNL, Normal Bowel Sounds Musculoskeletal: Yes: WNL Extremities: Yes: WNL Edema: No Labs: CBC, BMP 06/03/17 09:25 06/03/17 09:25 INR, PTT INR 1.03 (0.82-1.09) 06/01/17 21:41 Assessment/Plan a/p: 67 m hx esrd on hd, dm, cad s/p remote mi/pci (10+yrs ago), sent by pmd for possible pna. sob, cough, pna: -no signs acs or chf -check echo -cont abx per pmd/ID esrd: -cont HD per renal cp, cad s/p remote mi/pci: -cp atypical, possibly related to pna -no signs acs, ce's negx2, ecg w/o ischemic changes -prior mibi w/o ischemia -monitor cp while treating pna to see if resolves -cont home kylah, bb, imdur, dapt -Echo done 06/02 with normal LVEF (dilated LV), noted calcified AV (focal) without significant stenosis.
[2017-06-03 11:39] LABS: HIV 1 & 2 AB NEGATIVE; HIV 1 AGp24 NEGATIVE
--- NOTE | 2017-06-03 12:22 | PN ---
Progress Note, Physician History of Present Illness: Awake, alert No acute distress Breathing non -labored Afebrile - Current Medication List Current Medications: Active Medications Albuterol/Ipratropium (Duoneb -) 1 amp NEB Q6H PRN PRN Reason: WHEEZING Aspirin (Ecotrin -) 81 mg PO DAILY [facility] Last Admin: 06/03/17 09:34 Dose: 81 mg Azithromycin (Zithromax -) 250 mg PO DAILY [facility] Stop: 06/06/17 10:01 Last Admin: 06/03/17 09:34 Dose: 250 mg Carvedilol (Coreg -) 12.5 mg PO BID [facility] Last Admin: 06/03/17 09:34 Dose: 12.5 mg Ceftriaxone Sodium (Rocephin 1gm Ivpb (Pre-Docked)) 1 gm IVPB DAILY [facility] PRN Reason: Protocol Last Admin: 06/03/17 10:32 Dose: 1 gm Clopidogrel Bisulfate (Plavix -) 75 mg PO DAILY [facility] Last Admin: 06/03/17 09:34 Dose: 75 mg Gabapentin (Neurontin -) 100 mg PO TID [facility] Last Admin: 06/03/17 06:18 Dose: 100 mg Heparin Sodium (Porcine) (Heparin -) 5,000 unit SQ TID [facility] Last Admin: 06/03/17 06:17 Dose: 5,000 unit Insulin Aspart (Novolog Vial) 1 units SQ ACHS [facility] PRN Reason: Protocol Last Admin: 06/03/17 06:17 Dose: Not Given Isosorbide Mononitrate (Imdur -) 30 mg PO DAILY [facility] Last Admin: 06/03/17 09:34 Dose: 30 mg Lisinopril (Prinivil) 20 mg PO DAILY [facility] Last Admin: 06/03/17 09:34 Dose: 20 mg Sevelamer Carbonate (Renvela -) 1,600 mg PO TIDCM [facility] Last Admin: 06/03/17 09:34 Dose: 1,600 mg - Objective Vital Signs: Vital Signs Temperature 97.8 F 06/03/17 11:01 Pulse Rate 75 06/03/17 11:01 Respiratory Rate 20 06/03/17 11:01 Blood Pressure 150/66 06/03/17 11:01 O2 Sat by Pulse Oximetry (%) 95 06/02/17 21:00 Constitutional: Yes: No Distress Eyes: Yes: Conjunctiva Clear Cardiovascular: Yes: Regular Rate and Rhythm Respiratory: Yes: Diminished Gastrointestinal: Yes: Normal Bowel Sounds, Soft. No: Tenderness Labs: CBC, BMP 06/03/17 09:25 06/03/17 09:25 INR, PTT INR 1.03 (0.82-1.09) 06/01/17 21:41 Assessment/Plan CHF/pneumonia ESRD CT chest ordered Await c/s Continue zithromax/ ceftriaxone
--- NOTE | 2017-06-03 21:04 | PN ---
Progress Note (short form) - Note Progress Note: better seen by id nad nephro no fever or chills no fever or chills vs stable heent nad neck supple lungs daphne rales hear no chage \ pneumonia chf crf plan contiunue abx blood c/s neg oob
[2017-06-03] MEDS: INSULIN SLIDING SCALE (NOVOLOG) 1 VIAL SQ SCH (22:00)
[2017-06-04] MEDS: GABAPENTIN 100 MG CAPSULE (FP) PO SCH ×3 (05:58→22:09)
[2017-06-04] MEDS: HEPARIN NA (PORCINE) 5,000 UNITS/ML 1ML VIAL SQ SCH ×3 (05:58→22:09)
[2017-06-04] MEDS: INSULIN SLIDING SCALE (NOVOLOG) 1 VIAL SQ SCH ×4 (06:01→22:10)
[2017-06-04 07:12] LABS: HEP B SURFACE AB Reactive (.)
[2017-06-04] MEDS: CARVEDILOL 12.5 MG TABLET (FP) PO SCH ×2 (10:00→22:09)
[2017-06-04] MEDS: ISOSORBIDE MONONITRATE 30 MG TAB.SR.24H (FP) PO SCH (10:00)
[2017-06-04] MEDS: AZITHROMYCIN 250 MG TABLET (FP) PO SCH (10:00)
[2017-06-04] MEDS: ASPIRIN COATED 81 MG TABLET.EC PO SCH (10:00)
[2017-06-04] MEDS: cefTRIAXone 1 GM/50 ML BAG (PRE-DOCKED) IVPB SCH (10:00)
[2017-06-04] MEDS: CLOPIDOGREL BISULFATE 75 MG TABLET (FP) PO SCH (10:00)
[2017-06-04] MEDS: SEVELAMER CARBONATE 800 MG TAB (FP) PO SCH (10:00)
[2017-06-04] MEDS: LISINOPRIL 20 MG TABLET (FP) PO SCH (10:00)
--- NOTE | 2017-06-04 10:21 | PN ---
Progress Note (short form) - Note Progress Note: RENAL Feels much better today Breathing better Last Vital Signs Temp Pulse Resp BP Pulse Ox 98.3 F 81 18 153/84 92 L 06/04/17 05:30 06/04/17 05:30 06/04/17 05:30 06/04/17 05:30 06/03/17 22:00 lungs crackles at bases cvs s1s2 rr abd soft ext no edema neuro a+ox3 CBC, BMP 06/03/17 09:25 06/03/17 09:25 Current Medications Generic Name Dose Route Start Last Admin Trade Name Freq PRN Reason Stop Dose Admin Albuterol/Ipratropium 1 amp 06/02/17 01:50 Duoneb - NEB Q6H PRN WHEEZING Aspirin 81 mg 06/02/17 10:00 06/04/17 10:00 Ecotrin - PO 81 mg DAILY [facility] Administration Azithromycin 250 mg 06/03/17 10:00 06/04/17 10:00 Zithromax - PO 06/06/17 10:01 250 mg DAILY [facility] Administration Calcium Acetate 1,334 mg 06/04/17 12:00 Phoslo - PO TIDCM [facility] Carvedilol 12.5 mg 06/02/17 10:00 06/04/17 10:00 Coreg - PO 12.5 mg BID [facility] Administration Ceftriaxone Sodium 1 gm 06/02/17 13:00 06/04/17 10:00 Rocephin 1gm Ivpb (Pre-Docked) IVPB 1 gm DAILY [facility] Administration Protocol Clopidogrel Bisulfate 75 mg 06/02/17 10:00 06/04/17 10:00 Plavix - PO 75 mg DAILY [facility] Administration Gabapentin 100 mg 06/02/17 14:00 06/04/17 05:58 Neurontin - PO 100 mg TID [facility] Administration Heparin Sodium (Porcine) 5,000 unit 06/02/17 06:00 06/04/17 05:58 Heparin - SQ 5,000 unit TID [facility] Administration Insulin Aspart 1 vial 06/03/17 22:54 06/04/17 06:01 Novolog Vial Sliding Scale - SQ Not Given ACHS [facility] Protocol Isosorbide Mononitrate 30 mg 06/02/17 10:00 06/04/17 10:00 Imdur - PO 30 mg DAILY [facility] Administration Lisinopril 20 mg 06/02/17 10:00 06/04/17 10:00 Prinivil PO 20 mg DAILY [facility] Administration IMPRESSION ESRD stable Weight loss appears to be intentional since he is taking a supplement to lose weight pretransplant as he was told he needed to lose 170 lbs Pt was sick prior to travel to [facility] has a high ESR and high eosinophils- but did not get steroids and has improved has fluid overload hypocalcemia on renvela PLAN change renvela to calcium acetate would redialyze tomorrow will give lasix today await work up MV
--- NOTE | 2017-06-04 10:26 | PN ---
Progress Note, Physician History of Present Illness: Awake, alert Reports cough productive of whitish sputum No c/o chest pain/ dyspnea No c/o fever/ chills - Current Medication List Current Medications: Active Medications Albuterol/Ipratropium (Duoneb -) 1 amp NEB Q6H PRN PRN Reason: WHEEZING Aspirin (Ecotrin -) 81 mg PO DAILY [facility] Last Admin: 06/04/17 10:00 Dose: 81 mg Azithromycin (Zithromax -) 250 mg PO DAILY [facility] Stop: 06/06/17 10:01 Last Admin: 06/04/17 10:00 Dose: 250 mg Calcium Acetate (Phoslo -) 1,334 mg PO TIDCM [facility] Carvedilol (Coreg -) 12.5 mg PO BID [facility] Last Admin: 06/04/17 10:00 Dose: 12.5 mg Ceftriaxone Sodium (Rocephin 1gm Ivpb (Pre-Docked)) 1 gm IVPB DAILY [facility] [facility] PRN Reason: Protocol Last Admin: 06/04/17 10:00 Dose: 1 gm Clopidogrel Bisulfate (Plavix -) 75 mg PO DAILY [facility] Last Admin: 06/04/17 10:00 Dose: 75 mg Gabapentin (Neurontin -) 100 mg PO TID [facility] Last Admin: 06/04/17 05:58 Dose: 100 mg Heparin Sodium (Porcine) (Heparin -) 5,000 unit SQ TID [facility] Last Admin: 06/04/17 05:58 Dose: 5,000 unit Insulin Aspart (Novolog Vial Sliding Scale -) 1 vial SQ ACHS [facility] PRN Reason: Protocol Last Admin: 06/04/17 06:01 Dose: Not Given Isosorbide Mononitrate (Imdur -) 30 mg PO DAILY [facility] Last Admin: 06/04/17 10:00 Dose: 30 mg Lisinopril (Prinivil) 20 mg PO DAILY [facility] Last Admin: 06/04/17 10:00 Dose: 20 mg - Objective Vital Signs: Vital Signs Temperature 98.3 F 06/04/17 05:30 Pulse Rate 81 06/04/17 05:30 Respiratory Rate 18 06/04/17 05:30 Blood Pressure 153/84 06/04/17 05:30 O2 Sat by Pulse Oximetry (%) 92 L 06/03/17 22:00 Constitutional: Yes: No Distress Eyes: Yes: Conjunctiva Clear Cardiovascular: Yes: Regular Rate and Rhythm, S1, S2 Respiratory: Yes: Rhonchi Gastrointestinal: Yes: Normal Bowel Sounds, Soft. No: Tenderness Edema: Yes Labs: CBC, BMP 06/03/17 09:25 06/03/17 09:25 INR, PTT INR 1.03 (0.82-1.09) 06/01/17 21:41 Assessment/Plan CHF/pneumonia ESRD CT chest ordered Await c/s Continue zithromax/ ceftriaxone
--- NOTE | 2017-06-04 10:29 | PN ---
Progress Note (short form) - Note Progress Note: better seen by id nad nephro no fever or chills no fever or chills vs stable Vital Signs Period Temp Pulse Resp BP Sys/Blanca Pulse Ox Last 24 Hr 97.8 F-98.7 F 65-81 18-20 140-168/66-103 92-95 heent nad neck supple lungs daphne rales hear no chage \ CBC, BMP 06/03/17 09:25 06/03/17 09:25 pneumonia chf crf plan contiunue abx blood c/s neg oob
--- NOTE | 2017-06-04 12:27 | PN ---
Progress Note, Physician History of Present Illness: No complaints Tele NSR in 70s - Current Medication List Current Medications: Active Medications Albuterol/Ipratropium (Duoneb -) 1 amp NEB Q6H PRN PRN Reason: WHEEZING Aspirin (Ecotrin -) 81 mg PO DAILY [facility] Last Admin: 06/04/17 10:00 Dose: 81 mg Azithromycin (Zithromax -) 250 mg PO DAILY [facility] Stop: 06/06/17 10:01 Last Admin: 06/04/17 10:00 Dose: 250 mg Calcium Acetate (Phoslo -) 1,334 mg PO TIDCM [facility] Carvedilol (Coreg -) 12.5 mg PO BID [facility] Last Admin: 06/04/17 10:00 Dose: 12.5 mg Ceftriaxone Sodium (Rocephin 1gm Ivpb (Pre-Docked)) 1 gm IVPB DAILY [facility] PRN Reason: Protocol Last Admin: 06/04/17 10:00 Dose: 1 gm Clopidogrel Bisulfate (Plavix -) 75 mg PO DAILY [facility] Last Admin: 06/04/17 10:00 Dose: 75 mg Epoetin Ishan (Procrit -) 4,000 unit SQ ONCE ONE Stop: 06/04/17 10:24 Gabapentin (Neurontin -) 100 mg PO TID [facility] Last Admin: 06/04/17 05:58 Dose: 100 mg Heparin Sodium (Porcine) (Heparin -) 5,000 unit SQ TID [facility] Last Admin: 06/04/17 05:58 Dose: 5,000 unit Heparin Sodium (Porcine) (Heparin -) 1,000 unit IVPUSH ONCE ONE Stop: 06/04/17 10:24 Heparin Sodium (Porcine) (Heparin -) 500 unit IVPUSH Q1H [facility] Stop: 06/04/17 12:31 Insulin Aspart (Novolog Vial Sliding Scale -) 1 vial SQ ACHS [facility] PRN Reason: Protocol Last Admin: 06/04/17 11:21 Dose: Not Given Isosorbide Mononitrate (Imdur -) 30 mg PO DAILY [facility] Last Admin: 06/04/17 10:00 Dose: 30 mg Lisinopril (Prinivil) 20 mg PO DAILY [facility] Last Admin: 06/04/17 10:00 Dose: 20 mg - Objective Vital Signs: Vital Signs Temperature 97.4 F L 06/04/17 11:10 Pulse Rate 70 06/04/17 11:10 Respiratory Rate 20 06/04/17 11:10 Blood Pressure 176/95 06/04/17 11:10 O2 Sat by Pulse Oximetry (%) 97 06/04/17 09:00 Constitutional: Yes: Well Nourished, No Distress, Calm Eyes: Yes: WNL, Ptosis HENT: Yes: Atraumatic Neck: Yes: WNL, Supple Cardiovascular: Yes: Regular Rate and Rhythm, Murmur Respiratory: Yes: Rales, Rhonchi Gastrointestinal: Yes: Normal Bowel Sounds Extremities: Yes: WNL Edema: LLE: 1+, RLE: 1+ Labs: CBC, BMP 06/03/17 09:25 06/03/17 09:25 INR, PTT INR 1.03 (0.82-1.09) 06/01/17 21:41 Assessment/Plan a/p: 67 m hx esrd on hd, dm, cad s/p remote mi/pci (10+yrs ago), sent by pmd for possible pna. sob, cough, pna: -no signs acs or chf -check echo -cont abx per pmd/ID esrd: -cont fluid removal with HD cp, cad s/p remote mi/pci: -cp atypical, possibly related to pna -no signs acs, ce's negx2, ecg w/o ischemic changes -prior mibi w/o ischemia -monitor cp while treating pna to see if resolves -cont home kylah, bb, imdur, dapt -Echo done 06/02 with normal LVEF (dilated LV), noted calcified AV (focal) without significant stenosis.
[2017-06-04] MEDS: CALCIUM ACETATE 667 MG CAPSULE (FP) PO SCH ×2 (12:34→16:50)
[2017-06-05] MEDS: HEPARIN NA (PORCINE) 5,000 UNITS/ML 1ML VIAL SQ SCH ×3 (06:20→21:26)
[2017-06-05] MEDS: GABAPENTIN 100 MG CAPSULE (FP) PO SCH ×3 (06:21→21:26)
[2017-06-05] MEDS: INSULIN SLIDING SCALE (NOVOLOG) 1 VIAL SQ SCH ×4 (06:22→21:27)
[2017-06-05] MEDS: ALBUTEROL SO4 2.5/IPRATROPIUM 0.5 INH SOL 3 ML VIAL.NEB. NEB PRN (06:22)
[2017-06-05] MEDS ORDERED: HEPARIN NA (PORCINE) 5,000 UNITS/ML 1ML VIAL IVPUSH ONE (08:00)
[2017-06-05] MEDS ORDERED: EPOETIN ALFA 2,000 UNITS/1 ML VIAL SQ ONE (08:00)
--- NOTE | 2017-06-05 11:07 | PN ---
Progress Note, Physician History of Present Illness: Receiving hemodialysis + Cough; reports blood- streaked sputum No c/o chest pain/ dyspnea No fever/ chills Sputum c/s normal frankie Quantiferon pending - Current Medication List Current Medications: Active Medications Albuterol/Ipratropium (Duoneb -) 1 amp NEB Q6H PRN PRN Reason: WHEEZING Last Admin: 06/05/17 06:22 Dose: 1 amp Aspirin (Ecotrin -) 81 mg PO DAILY [facility] Last Admin: 06/04/17 10:00 Dose: 81 mg Azithromycin (Zithromax -) 250 mg PO DAILY [facility] Stop: 06/06/17 10:01 Last Admin: 06/04/17 10:00 Dose: 250 mg Calcium Acetate (Phoslo -) 1,334 mg PO TIDCM [facility] Last Admin: 06/04/17 16:50 Dose: 1,334 mg Carvedilol (Coreg -) 12.5 mg PO BID [facility] Last Admin: 06/04/17 22:09 Dose: 12.5 mg Ceftriaxone Sodium (Rocephin 1gm Ivpb (Pre-Docked)) 1 gm IVPB DAILY [facility] PRN Reason: Protocol Last Admin: 06/04/17 10:00 Dose: 1 gm Clopidogrel Bisulfate (Plavix -) 75 mg PO DAILY [facility] Last Admin: 06/04/17 10:00 Dose: 75 mg Gabapentin (Neurontin -) 100 mg PO TID [facility] Last Admin: 06/05/17 06:21 Dose: Not Given Heparin Sodium (Porcine) (Heparin -) 5,000 unit SQ TID [facility] Last Admin: 06/05/17 06:20 Dose: Not Given Insulin Aspart (Novolog Vial Sliding Scale -) 1 vial SQ ACHS [facility] PRN Reason: Protocol Last Admin: 06/05/17 06:22 Dose: Not Given Isosorbide Mononitrate (Imdur -) 30 mg PO DAILY [facility] Last Admin: 06/04/17 10:00 Dose: 30 mg Lisinopril (Prinivil) 20 mg PO DAILY [facility] Last Admin: 06/04/17 10:00 Dose: 20 mg - Objective Vital Signs: Vital Signs Temperature 98.4 F 06/05/17 06:55 Pulse Rate 62 06/05/17 10:53 Respiratory Rate 18 06/05/17 10:53 Blood Pressure 148/82 06/05/17 10:53 O2 Sat by Pulse Oximetry (%) 94 L 06/05/17 05:37 Constitutional: Yes: No Distress Eyes: Yes: Conjunctiva Clear Cardiovascular: Yes: Regular Rate and Rhythm, S1, S2 Respiratory: Yes: Rhonchi Gastrointestinal: Yes: Normal Bowel Sounds, Abdomen, Obese. No: Tenderness Labs: CBC, BMP 06/03/17 09:25 06/03/17 09:25 INR, PTT INR 1.03 (0.82-1.09) 06/01/17 21:41 Assessment/Plan CHF/pneumonia ESRD CT chest shows bilateral alevolar/ interstitial infiltrates Sputum c/s normal frankie Will isolate, collect sputum AFB Pulmonary evaluation Continue zithromax/ ceftriaxone Discussed with primary
[2017-06-05] MEDS: CALCIUM ACETATE 667 MG CAPSULE (FP) PO SCH ×3 (11:53→17:39)
[2017-06-05] MEDS: ISOSORBIDE MONONITRATE 30 MG TAB.SR.24H (FP) PO SCH (12:13)
[2017-06-05] MEDS: CLOPIDOGREL BISULFATE 75 MG TABLET (FP) PO SCH (12:13)
[2017-06-05] MEDS: AZITHROMYCIN 250 MG TABLET (FP) PO SCH (12:13)
[2017-06-05] MEDS: CARVEDILOL 12.5 MG TABLET (FP) PO SCH ×2 (12:14→21:26)
[2017-06-05] MEDS: LISINOPRIL 20 MG TABLET (FP) PO SCH (12:14)
[2017-06-05] MEDS: ASPIRIN COATED 81 MG TABLET.EC PO SCH (12:14)
[2017-06-05] MEDS: cefTRIAXone 1 GM/50 ML BAG (PRE-DOCKED) IVPB SCH (12:15)
--- NOTE | 2017-06-05 12:24 | PN ---
Progress Note, Physician History of Present Illness: Pt seen and examined at bedside. He is awake and alert. He tolerated HD this morning. He feels that his breathing is improving. - Current Medication List Current Medications: Active Medications Albuterol/Ipratropium (Duoneb -) 1 amp NEB Q6H PRN PRN Reason: WHEEZING Last Admin: 06/05/17 06:22 Dose: 1 amp Aspirin (Ecotrin -) 81 mg PO DAILY [facility] Last Admin: 06/05/17 12:14 Dose: 81 mg Azithromycin (Zithromax -) 250 mg PO DAILY [facility] Stop: 06/06/17 10:01 Last Admin: 06/05/17 12:13 Dose: 250 mg Calcium Acetate (Phoslo -) 1,334 mg PO TIDCM [facility] Last Admin: 06/05/17 12:14 Dose: 1,334 mg Carvedilol (Coreg -) 12.5 mg PO BID [facility] Last Admin: 06/05/17 12:14 Dose: 12.5 mg Ceftriaxone Sodium (Rocephin 1gm Ivpb (Pre-Docked)) 1 gm IVPB DAILY [facility] PRN Reason: Protocol Last Admin: 06/05/17 12:15 Dose: 1 gm Clopidogrel Bisulfate (Plavix -) 75 mg PO DAILY [facility] Last Admin: 06/05/17 12:13 Dose: 75 mg Gabapentin (Neurontin -) 100 mg PO TID [facility] Last Admin: 06/05/17 06:21 Dose: Not Given Heparin Sodium (Porcine) (Heparin -) 5,000 unit SQ TID [facility] Last Admin: 06/05/17 06:20 Dose: Not Given Insulin Aspart (Novolog Vial Sliding Scale -) 1 vial SQ ACHS [facility] PRN Reason: Protocol Last Admin: 06/05/17 12:14 Dose: 6 units Isosorbide Mononitrate (Imdur -) 30 mg PO DAILY [facility] Last Admin: 06/05/17 12:13 Dose: 30 mg Lisinopril (Prinivil) 20 mg PO DAILY [facility] Last Admin: 06/05/17 12:14 Dose: 20 mg - Objective Vital Signs: Vital Signs Temperature 98 F 06/05/17 12:11 Pulse Rate 88 06/05/17 12:11 Respiratory Rate 20 06/05/17 12:11 Blood Pressure 143/80 06/05/17 12:11 O2 Sat by Pulse Oximetry (%) 94 L 06/05/17 05:37 Constitutional: Yes: Calm Eyes: Yes: Conjunctiva Clear HENT: Yes: Atraumatic Neck: Yes: Supple Cardiovascular: Yes: S1, S2 Respiratory: Yes: On Nasal O2 Gastrointestinal: Yes: Soft, Abdomen, Obese Genitourinary: Yes: WNL Edema: Yes Edema: LLE: 1+, RLE: 1+ Neurological: Yes: Oriented Psychiatric: Yes: Oriented Labs: CBC, BMP 06/03/17 09:25 06/03/17 09:25 INR, PTT INR 1.03 (0.82-1.09) 06/01/17 21:41 Problem List - Problems (1) ESRD (end stage renal disease) on dialysis Code(s): N18.6 - END STAGE RENAL DISEASE Z99.2 - DEPENDENCE ON RENAL DIALYSIS Assessment/Plan Current Medications Generic Name Dose Route Start Last Admin Trade Name Freq PRN Reason Stop Dose Admin Albuterol/Ipratropium 1 amp 06/02/17 01:50 06/05/17 06:22 Duoneb - NEB 1 amp Q6H PRN Administration WHEEZING Aspirin 81 mg 06/02/17 10:00 06/05/17 12:14 Ecotrin - PO 81 mg DAILY [facility] Administration Azithromycin 250 mg 06/03/17 10:00 06/05/17 12:13 Zithromax - PO 06/06/17 10:01 250 mg DAILY [facility] Administration Calcium Acetate 1,334 mg 06/04/17 12:00 06/05/17 12:14 Phoslo - PO 1,334 mg TIDCM [facility] Administration Carvedilol 12.5 mg 06/02/17 10:00 06/05/17 12:14 Coreg - PO 12.5 mg BID [facility] Administration Ceftriaxone Sodium 1 gm 06/02/17 13:00 06/05/17 12:15 Rocephin 1gm Ivpb (Pre-Docked) IVPB 1 gm DAILY [facility] Administration Protocol Clopidogrel Bisulfate 75 mg 06/02/17 10:00 06/05/17 12:13 Plavix - PO 75 mg DAILY [facility] Administration Gabapentin 100 mg 06/02/17 14:00 06/05/17 06:21 Neurontin - PO Not Given TID [facility] Heparin Sodium (Porcine) 5,000 unit 06/02/17 06:00 06/05/17 06:20 Heparin - SQ Not Given TID [facility] Insulin Aspart 1 vial 06/03/17 22:54 06/05/17 12:14 Novolog Vial Sliding Scale - SQ 6 units ACHS [facility] Administration Protocol Isosorbide Mononitrate 30 mg 06/02/17 10:00 06/05/17 12:13 Imdur - PO 30 mg DAILY [facility] Administration Lisinopril 20 mg 06/02/17 10:00 06/05/17 12:14 Prinivil PO 20 mg DAILY [facility] Administration Impression 1. ESRD 2. fluid overload 3. HTN 4. DM Plan - HD today - check phos level - repeat cbc with diff - cont current meds - will hold off lasix today - will follow Dr Barbosa
--- NOTE | 2017-06-05 12:30 | PN ---
Progress Note, Physician Chief Complaint: sob History of Present Illness: +sob no palp, swelling, syncope - Current Medication List Current Medications: Active Medications Albuterol/Ipratropium (Duoneb -) 1 amp NEB Q6H PRN PRN Reason: WHEEZING Last Admin: 06/05/17 06:22 Dose: 1 amp Aspirin (Ecotrin -) 81 mg PO DAILY [facility] Last Admin: 06/05/17 12:14 Dose: 81 mg Azithromycin (Zithromax -) 250 mg PO DAILY [facility] Stop: 06/06/17 10:01 Last Admin: 06/05/17 12:13 Dose: 250 mg Calcium Acetate (Phoslo -) 1,334 mg PO TIDCM [facility] Last Admin: 06/05/17 12:14 Dose: 1,334 mg Carvedilol (Coreg -) 12.5 mg PO BID [facility] Last Admin: 06/05/17 12:14 Dose: 12.5 mg Ceftriaxone Sodium (Rocephin 1gm Ivpb (Pre-Docked)) 1 gm IVPB DAILY [facility] PRN Reason: Protocol Last Admin: 06/05/17 12:15 Dose: 1 gm Clopidogrel Bisulfate (Plavix -) 75 mg PO DAILY [facility] Last Admin: 06/05/17 12:13 Dose: 75 mg Gabapentin (Neurontin -) 100 mg PO TID [facility] Last Admin: 06/05/17 06:21 Dose: Not Given Heparin Sodium (Porcine) (Heparin -) 5,000 unit SQ TID [facility] Last Admin: 06/05/17 06:20 Dose: Not Given Insulin Aspart (Novolog Vial Sliding Scale -) 1 vial SQ ACHS [facility] PRN Reason: Protocol Last Admin: 06/05/17 12:14 Dose: 6 units Isosorbide Mononitrate (Imdur -) 30 mg PO DAILY [facility] Last Admin: 06/05/17 12:13 Dose: 30 mg Lisinopril (Prinivil) 20 mg PO DAILY [facility] Last Admin: 06/05/17 12:14 Dose: 20 mg - Objective Vital Signs: Vital Signs Temperature 98 F 06/05/17 12:11 Pulse Rate 88 06/05/17 12:11 Respiratory Rate 20 06/05/17 12:11 Blood Pressure 143/80 06/05/17 12:11 O2 Sat by Pulse Oximetry (%) 94 L 06/05/17 05:37 Constitutional: Yes: Well Nourished, No Distress, Calm Cardiovascular: Yes: Regular Rate and Rhythm, JVD (probable), S1, S2. No: Gallop, Murmur Respiratory: Yes: Regular, Diminished (L base). No: Accessory Muscle Use, Rales , Wheezes Extremities: No: Cold Edema: No Neurological: Yes: Alert, Oriented Psychiatric: No: Agitated Labs: CBC, BMP 06/03/17 09:25 06/03/17 09:25 INR, PTT INR 1.03 (0.82-1.09) 06/01/17 21:41 - ....Imaging EKG: Other (tele: NSR) Assessment/Plan Echo 05/29 (here): mild LVE, low-nl LVEF; nl RV; mild AI/MR/TR mibi 10/2012: nl mpi cxr: pna vs chf ecg 06/01/17: no ischemic changes a/p: 67 m hx esrd on hd, dm, cad s/p remote mi/pci (10+yrs ago), sent by pmd for possible pna. sob, pna, component of acute diast chf: -pt c/o sob, suspect vol overload (suspect JVD) -vol mgmt per renal (d/w'd dr ya today) -cont abx per pmd/ID esrd: -cont HD per renal cp, cad s/p remote mi/pci: -cp atypical, possibly related to pna -no signs acs, ce's negx2, ecg w/o ischemic changes -prior mibi w/o ischemia -monitor cp while treating pna to see if resolves -cont home kylah, bb, imdur, dapt
--- NOTE | 2017-06-05 15:30 | PN ---
Progress Note (short form) - Note Progress Note: developed bloody sputum over the weekend, appears more dyspneic CBC, BMP 06/03/17 09:25 06/03/17 09:25 Vital Signs Period Temp Pulse Resp BP Sys/Blanca Pulse Ox Last 24 Hr 98 F-99.4 F 60-88 18-20 130-185/70-118 94-98 S1S2 RRR Lungs decreased BS at bases with coarse crackles abd soft NT no edema aa0x3 nonfocal Imp 67 yo M admitted for dyspnea and cough chest CT reviewed with ILD vs. pna vs. TB ESRD on HD since 2014 IDDM CAD with stents-sees cardiology at [facility] HTN Gout OA Plan isolation pulmonary evaluation sputum AFBx3 iv abx HD nebulizer treatment cultures requested d/w pt via [facility]rac[facility]
[2017-06-05] MEDS: HEPARIN NA (PORCINE) 5,000 UNITS/ML 1ML VIAL IVPUSH SCH ×2 (16:48→16:49)
[2017-06-05] MEDS ORDERED: INSULIN (NOVOLOG) ASPART 100 UNITS/ML 10ML VIAL ONE (20:36)
[2017-06-06] MEDS: INSULIN SLIDING SCALE (NOVOLOG) 1 VIAL SQ SCH ×4 (06:17→21:17)
[2017-06-06] MEDS: HEPARIN NA (PORCINE) 5,000 UNITS/ML 1ML VIAL SQ SCH ×3 (06:17→21:16)
[2017-06-06] MEDS: GABAPENTIN 100 MG CAPSULE (FP) PO SCH ×3 (06:17→21:16)
--- NOTE | 2017-06-06 07:05 | PN ---
Progress Note (short form) - Note Progress Note: developed bloody sputum over the weekend, appears more dyspneic. Vital Signs Period Temp Pulse Resp BP Sys/Blanca Pulse Ox Last 24 Hr 97.2 F-99.4 F 60-88 18-20 130-185/70-118 94 S1S2 RRR Lungs decreased BS at bases with coarse crackles abd soft NT no edema aaox3 nonfocal Imp 67 yo M admitted for dyspnea and cough chest CT reviewed with ILD vs. pna vs. TB ESRD on HD since 2014 IDDM CAD with stents-sees cardiology at [facility] HTN Gout OA Plan isolation pulmonary evaluation sputum AFBx3 iv abx HD nebulizer treatment cultures requested d/w pt
[2017-06-06 07:56] LABS: ALBUMIN 2.4 g/dl (3.4-5.0); ANION GAP 13 (8-16); CO2 28 mmol/L (21-32); GLUCOSE,RANDOM 101 mg/dL (74-106)
[2017-06-06] MEDS: CALCIUM ACETATE 667 MG CAPSULE (FP) PO SCH ×3 (07:57→17:36)
[2017-06-06 08:05] LABS: BASOPHIL 0.8 % (0-2.0); MCH 29.7 pg (25.7-33.7); MCHC 33.2 g/dl (32.0-35.9); MEAN CELL VOLUME 89.6 fl (80-96); MEAN PLT VOLUME 7.4 fl (7.5-11.1); NEUTROPHILS 80.2 % (42.8-82.8); PLATELET COUNT 210 K/MM3 (134-434); RDW 15.3 % (11.9-15.9); WHITE BLOOD COUNT 7.7 K/mm3 (4.0-10.0)
[2017-06-06 08:10] LABS: ALK PHOS 97 U/L (45-117); BILIRUBIN,TOTAL 0.3 mg/dL (0.2-1.0); PHOSPHOROUS 6.4 mg/dL (2.5-4.9); SGOT/AST 19 U/L (15-37); SGPT/ALT 12 U/L (12-78); TOT PROT 5.6 g/dl (6.4-8.2)
[2017-06-06 08:45] LABS: CREATININE 8.9 mg/dL (0.7-1.3)
[2017-06-06] MEDS: cefTRIAXone 1 GM/50 ML BAG (PRE-DOCKED) IVPB SCH (09:56)
[2017-06-06] MEDS: ISOSORBIDE MONONITRATE 30 MG TAB.SR.24H (FP) PO SCH (09:57)
[2017-06-06] MEDS: CARVEDILOL 12.5 MG TABLET (FP) PO SCH ×2 (09:57→21:16)
[2017-06-06] MEDS: LISINOPRIL 20 MG TABLET (FP) PO SCH (09:57)
[2017-06-06] MEDS: ASPIRIN COATED 81 MG TABLET.EC PO SCH (09:57)
[2017-06-06] MEDS: AZITHROMYCIN 250 MG TABLET (FP) PO SCH (09:57)
[2017-06-06] MEDS: CLOPIDOGREL BISULFATE 75 MG TABLET (FP) PO SCH (09:57)
[2017-06-06] MEDS ORDERED: INSULIN (NOVOLOG) ASPART 100 UNITS/ML 10ML VIAL ONE ×2 (11:42→20:50)
--- NOTE | 2017-06-06 12:13 | PN ---
Progress Note (short form) - Note Progress Note: Progress Note, Physician Chief Complaint: sob History of Present Illness: +sob/productive cough no palp, swelling, syncope, cp - Current Medication List Current Medications Generic Name Dose Route Start Last Admin Trade Name Freq PRN Reason Stop Dose Admin Albuterol/Ipratropium 1 amp 06/02/17 01:50 06/05/17 06:22 Duoneb - NEB 1 amp Q6H PRN Administration WHEEZING Aspirin 81 mg 06/02/17 10:00 06/06/17 09:57 Ecotrin - PO 81 mg DAILY [facility] Administration Calcium Acetate 1,334 mg 06/04/17 12:00 06/06/17 11:37 Phoslo - PO 1,334 mg TIDCM [facility] Administration Carvedilol 12.5 mg 06/02/17 10:00 06/06/17 09:57 Coreg - PO 12.5 mg BID [facility] Administration Ceftriaxone Sodium 1 gm 06/02/17 13:00 06/06/17 09:56 Rocephin 1gm Ivpb (Pre-Docked) IVPB 1 gm DAILY [facility] Administration Protocol Clopidogrel Bisulfate 75 mg 06/02/17 10:00 06/06/17 09:57 Plavix - PO 75 mg DAILY [facility] Administration Gabapentin 100 mg 06/02/17 14:00 06/06/17 06:17 Neurontin - PO 100 mg TID [facility] Administration Heparin Sodium (Porcine) 5,000 unit 06/02/17 06:00 06/06/17 06:17 Heparin - SQ 5,000 unit TID [facility] Administration Insulin Aspart 1 vial 06/03/17 22:54 06/06/17 11:43 Novolog Vial Sliding Scale - SQ 6 units ACHS [facility] Administration Protocol Isosorbide Mononitrate 30 mg 06/02/17 10:00 06/06/17 09:57 Imdur - PO 30 mg DAILY [facility] Administration Lisinopril 20 mg 06/02/17 10:00 06/06/17 09:57 Prinivil PO 20 mg DAILY [facility] Administration - Objective Vital Signs: Vital Signs Period Temp Pulse Resp BP Sys/Blanca Pulse Ox Last 24 Hr 97.2 F-99.4 F 74-88 18-20 130-150/70-88 94-95 Constitutional: Yes: Well Nourished, No Distress, Calm Cardiovascular: Yes: Regular Rate and Rhythm, JVD (probable), S1, S2. No: Gallop, Murmur Respiratory: Yes: Regular, Diminished (L base). No: Accessory Muscle Use, Rales , Wheezes Extremities: No: Cold Edema: No Neurological: Yes: Alert, Oriented Psychiatric: No: Agitated no jaundice diaphoresis Labs: CBC, BMP 06/06/17 05:35 06/06/17 05:35 Echo 05/29 (here): mild LVE, low-nl LVEF; nl RV; mild AI/MR/TR mibi 10/2012: nl mpi cxr: pna vs chf ecg 06/01/17: no ischemic changes a/p: 67 m hx esrd on hd, dm, cad s/p remote mi/pci (10+yrs ago), sent by pmd for possible pna. 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
--- NOTE | 2017-06-06 14:05 | CON.PULM ---
Consult Consult Specialty:: PULM/CCM Referred by:: JOSE Reason for Consultation:: SOB / hemoptysis - History of Present Illness Chief Complaint: SOB History of Present Illness: 67 M, HTN, DM, ESRD on HD, HLD, GA, and gout. Admitted via the ER due to SOB. He presented to his PCPs office and was to r/o pneumonia. Patient reports generalized fatigue and malaise for weeks (?). Symptoms included cough, SOB, pleuritic type chest discomfort, and fevers. He denies significant travel history or sick contacts. Over the past few days has developed hemoptysis. CT : diffuse interstitial and alveolar infiltrates with associated bilateral effusions Right > Left. 1.5 cm subpleural nodule with non-specific mild mediastinal adenopathy. CXR from [address] [facility] was relatively normal - History Source History Provided By: Patient, Medical Record Limitations to Obtaining History: Language Barrier - Past Medical History Cardio/Vascular: Yes: CAD, HTN, GA Renal/: Yes: Renal Failure, Hemodialysis Rheumatology: Yes: Gout Endocrine: Yes: Diabetes Mellitus - Past Surgical History Past Surgical History: Yes: Arthrosocopy - Alcohol/Substance Use Hx Alcohol Use: No - Smoking History Smoking history: Former smoker Have you smoked in the past 12 months: No If you are a former smoker, when did you quit?: 10 years ago when he had the GA - Social History ADL: Independent Home Medications - Allergies Allergies/Adverse Reactions: Allergies Allergy/AdvReac Type Severity Reaction Status Date / Time No Known Drug Allergies Allergy Verified 06/01/17 19:33 - Home Medications Home Medications: Ambulatory Orders Unobtainable [Unobtainable] 11/28/16 Review of Systems - Review of Systems Constitutional: reports: Chills, Diaphoresis, Fever, Lethargy, Malaise, Weakness. denies: Night Sweats Eyes: reports: No Symptoms HENT: reports: No Symptoms Neck: reports: No Symptoms Cardiovascular: reports: Chest Pain, Shortness of Breath. denies: Edema, Palpitations Respiratory: reports: Cough, Exercise Intolerance, Hemoptysis, SOB, SOB on Exertion, Wheezing Gastrointestinal: reports: No Symptoms Genitourinary: reports: No Symptoms Breasts: reports: No Symptoms Reported Musculoskeletal: reports: No Symptoms Integumentary: reports: No Symptoms Neurological: reports: No Symptoms Endocrine: reports: No Symptoms Hematology/Lymphatic: reports: No Symptoms Psychiatric: reports: No Symptoms Physical Exam Vital Sings: Vital Signs Temperature 98.0 F 06/06/17 08:15 Pulse Rate 74 06/06/17 08:15 Respiratory Rate 18 06/06/17 08:17 Blood Pressure 147/80 06/06/17 08:15 O2 Sat by Pulse Oximetry (%) 95 06/06/17 08:17 Constitutional: Yes: No Distress Eyes: Yes: Conjunctiva Clear, EOM Intact HENT: Yes: Atraumatic, Normocephalic Neck: Yes: Supple, Trachea Midline Cardiovascular: Yes: Regular Rate and Rhythm Respiratory: Yes: Cough, Diminished, On Nasal O2, Rhonchi, SOB, Tachypnea, Wheezes. No: Accessory Muscle Use, Stridor ...Inspection: Yes: WNL ...Clubbing: No Gastrointestinal: Yes: Normal Bowel Sounds, Soft, Abdomen, Obese Musculoskeletal: Yes: WNL Extremities: Yes: WNL Edema: No Peripheral Pulses WNL: Yes Integumentary: Yes: WNL Neurological: Yes: WNL, Alert, Oriented ...Motor Strength: WNL Psychiatric: Yes: WNL, Alert, Oriented Labs: CBC, BMP 06/06/17 05:35 06/06/17 05:35 Imaging - Results Chest X-ray: Report Reviewed, Image Reviewed Cat Scan: Report Reviewed, Image Reviewed Problem List - Problems (1) CHF exacerbation Code(s): I50.9 - HEART FAILURE, UNSPECIFIED Qualifiers: Congestive heart failure type: unspecified congestive heart failure type Qualified Code(s): I50.9 - Heart failure, unspecified (2) Diabetes Code(s): E11.9 - TYPE 2 DIABETES MELLITUS WITHOUT COMPLICATIONS (3) Pneumonia Code(s): J18.9 - PNEUMONIA, UNSPECIFIED ORGANISM (4) ESRD (end stage renal disease) on dialysis Code(s): N18.6 - END STAGE RENAL DISEASE Z99.2 - DEPENDENCE ON RENAL DIALYSIS (5) Hypertension Code(s): I10 - ESSENTIAL (PRIMARY) HYPERTENSION (6) Hemoptysis Code(s): R04.2 - HEMOPTYSIS Assessment/Plan Agree with ID to isolate and check AFB O2 as needed Daily Medrol for CAP BD TX Check sputum culture Change SQ Heparin to BID Will likely need repeat imaging after discharge No smoking counseled HD per Renal -> may be a component of Pulmonary vascular congestion Will follow Thank you Dr Lucero
[2017-06-06] MEDS: methylPREDNISolone NA SUCC 40 MG/1 ML VIAL IVPB SCH (14:37)
--- NOTE | 2017-06-06 15:05 | PN ---
Progress Note, Physician History of Present Illness: Pt seen and examined at bedside. He is awake and alert. He feels that his breathing is improved today compare to yesterday. - Current Medication List Current Medications: Active Medications Albuterol/Ipratropium (Duoneb -) 1 amp NEB Q6H PRN PRN Reason: WHEEZING Last Admin: 06/05/17 06:22 Dose: 1 amp Arformoterol Tartrate (Brovana (Restricted To Pulmonology/Resp) -) 1 amp NEB BID [facility] Aspirin (Ecotrin -) 81 mg PO DAILY [facility] Last Admin: 06/06/17 09:57 Dose: 81 mg Calcium Acetate (Phoslo -) 1,334 mg PO TIDCM [facility] Last Admin: 06/06/17 11:37 Dose: 1,334 mg Carvedilol (Coreg -) 12.5 mg PO BID [facility] Last Admin: 06/06/17 09:57 Dose: 12.5 mg Ceftriaxone Sodium (Rocephin 1gm Ivpb (Pre-Docked)) 1 gm IVPB DAILY [facility] PRN Reason: Protocol Last Admin: 06/06/17 09:56 Dose: 1 gm Clopidogrel Bisulfate (Plavix -) 75 mg PO DAILY [facility] Last Admin: 06/06/17 09:57 Dose: 75 mg Gabapentin (Neurontin -) 100 mg PO TID [facility] Last Admin: 06/06/17 13:51 Dose: 100 mg Heparin Sodium (Porcine) (Heparin -) 5,000 unit SQ TID [facility] Last Admin: 06/06/17 13:51 Dose: 5,000 unit Insulin Aspart (Novolog Vial Sliding Scale -) 1 vial SQ ACHS [facility] PRN Reason: Protocol Last Admin: 06/06/17 11:43 Dose: 6 units Isosorbide Mononitrate (Imdur -) 30 mg PO DAILY [facility] Last Admin: 06/06/17 09:57 Dose: 30 mg Lisinopril (Prinivil) 20 mg PO DAILY [facility] Last Admin: 06/06/17 09:57 Dose: 20 mg Methylprednisolone Sodium Succinate (Solu-Medrol -) 40 mg IVPB DAILY [facility] - Objective Vital Signs: Vital Signs Temperature 99.8 F H 06/06/17 14:35 Pulse Rate 92 H 06/06/17 14:35 Respiratory Rate 18 06/06/17 14:35 Blood Pressure 153/65 06/06/17 14:35 O2 Sat by Pulse Oximetry (%) 95 06/06/17 08:17 Constitutional: Yes: Calm Eyes: Yes: Conjunctiva Clear HENT: Yes: Atraumatic Cardiovascular: Yes: S1, S2 Respiratory: Yes: On Nasal O2, Rhonchi Gastrointestinal: Yes: Soft Genitourinary: Yes: WNL Musculoskeletal: Yes: WNL Edema: No Neurological: Yes: Oriented Psychiatric: Yes: Oriented Labs: CBC, BMP 06/06/17 05:35 06/06/17 05:35 INR, PTT INR 1.03 (0.82-1.09) 06/01/17 21:41 Problem List - Problems (1) ESRD (end stage renal disease) on dialysis Code(s): N18.6 - END STAGE RENAL DISEASE Z99.2 - DEPENDENCE ON RENAL DIALYSIS Assessment/Plan Current Medications Generic Name Dose Route Start Last Admin Trade Name Freq PRN Reason Stop Dose Admin Albuterol/Ipratropium 1 amp 06/02/17 01:50 06/05/17 06:22 Duoneb - NEB 1 amp Q6H PRN Administration WHEEZING Arformoterol Tartrate 1 amp 06/06/17 22:00 Brovana (Restricted To Pulmonology/Resp) - NEB BID [facility] Aspirin 81 mg 06/02/17 10:00 06/06/17 09:57 Ecotrin - PO 81 mg DAILY [facility] Administration Calcium Acetate 1,334 mg 06/04/17 12:00 06/06/17 11:37 Phoslo - PO 1,334 mg TIDCM [facility] Administration Carvedilol 12.5 mg 06/02/17 10:00 06/06/17 09:57 Coreg - PO 12.5 mg BID [facility] Administration Ceftriaxone Sodium 1 gm 06/02/17 13:00 06/06/17 09:56 Rocephin 1gm Ivpb (Pre-Docked) IVPB 1 gm DAILY [facility] Administration Protocol Clopidogrel Bisulfate 75 mg 06/02/17 10:00 06/06/17 09:57 Plavix - PO 75 mg DAILY [facility] Administration Gabapentin 100 mg 06/02/17 14:00 06/06/17 13:51 Neurontin - PO 100 mg TID [facility] Administration Heparin Sodium (Porcine) 5,000 unit 06/02/17 06:00 06/06/17 13:51 Heparin - SQ 5,000 unit TID [facility] Administration Insulin Aspart 1 vial 06/03/17 22:54 06/06/17 11:43 Novolog Vial Sliding Scale - SQ 6 units ACHS [facility] Administration Protocol Isosorbide Mononitrate 30 mg 06/02/17 10:00 06/06/17 09:57 Imdur - PO 30 mg DAILY [facility] Administration Lisinopril 20 mg 06/02/17 10:00 06/06/17 09:57 Prinivil PO 20 mg DAILY [facility] Administration Methylprednisolone Sodium Succinate 40 mg 06/06/17 14:15 Solu-Medrol - IVPB DAILY [facility] Laboratory Tests 06/02/17 06/03/17 06/06/17 12:15 07:40 05:35 Phosphorus 6.4 H Hep Bs Antigen Negative Hep Bs Antibody Reactive Hep B Core Total Ab Negative Hepatitis C Antibody <0.1 HIV 1&2 Antibody Screen Negative HIV P24 Antigen Negative Laboratory Tests 06/06/17 05:35 Hgb 9.6 L Basophils % 0.8 Impression 1. ESRD 2. fluid overload 3. HTN 4. DM 5. anemia Plan - will give a dose of lasix today - will arrange for HD in am - will add sevelemer - labs reviewed - will UF more volume tomorrow - pulmonary input appreciated - will follow Dr Barbosa
[2017-06-06] MEDS ORDERED: FUROSEMIDE 40 MG/4 ML INJECTABLE VIAL IVPB ONE (15:07)
--- NOTE | 2017-06-06 15:45 | PN ---
Physical Exam: SUBJECTIVE: Patient seen and examined by me this PM - Denies any further episode of hemoptysis. - Endorses continual productive cough and mild fever/chills. States his breathing is moderately improved. - No WBC elevation. Afebrile overnight. - Endorse recent trip to [facility] this month, where he received multiple rounds of dialysis. No other trips. Denies any contact w/ other health care centers or prisons. Other updates: - Hep A Ab + - Quant gold pending - Sputum sample obtained. Mycobacteria PCR pending - blood cultures neg, urine pneumo/legionella Ag neg - Vasculitis panel pending OBJECTIVE: Vital Signs Period Temp Pulse Resp BP Sys/Blanca Pulse Ox Last 24 Hr 97.2 F-99.8 F 74-92 18-18 141-153/65-88 94-95 GENERAL: The patient is awake, alert, and fully oriented, in no acute distress. HEAD: Normal with no signs of trauma. EYES: PERRL, sclera anicteric, conjunctiva clear. No ptosis. ENT: Ears normal, nares patent, oropharynx clear without exudates, moist mucous membranes. NECK: Trachea midline, full range of motion, supple. LUNGS: Diffuse crackles BL across all lung velasquez with scattered rhonchi. Mild expiratory wheeze. Cough with mild tachypnea on exam. HEART: Regular rate and rhythm, S1, S2 without murmur, rub or gallop. ABDOMEN: Soft, nontender, nondistended, normoactive bowel sounds, no guarding, no rebound, no hepatosplenomegaly, no masses. EXTREMITIES: 2+ pulses, warm, well-perfused, no edema. NEUROLOGICAL: Cranial nerves II through XII grossly intact. Normal speech, gait not observed. PSYCH: Normal mood, normal affect. SKIN: Warm, dry, normal turgor, no rashes or lesions noted Laboratory Results - last 24 hr CBC, BMP 06/06/17 05:35 06/06/17 05:35 06/05/17 06/05/17 06/06/17 16:42 20:47 05:35 WBC 7.7 D RBC 3.22 L Hgb 9.6 L Hct 28.9 L MCV 89.6 MCH 29.7 MCHC 33.2 RDW 15.3 Plt Count 210 MPV 7.4 L D Neutrophils % 80.2 Lymphocytes % 11.3 D Monocytes % 5.7 Eosinophils % 2.0 Basophils % 0.8 Sodium Potassium Chloride Carbon Dioxide Anion Gap BUN Creatinine Creat Clearance w eGFR POC Glucometer 186 247 Random Glucose Calcium Phosphorus Total Bilirubin AST ALT Alkaline Phosphatase Total Protein Albumin 06/06/17 06/06/17 06/06/17 05:35 05:57 11:39 WBC RBC Hgb Hct MCV MCH MCHC RDW Plt Count MPV Neutrophils % Lymphocytes % Monocytes % Eosinophils % Basophils % Sodium 140 Potassium 4.3 Chloride 99 Carbon Dioxide 28 Anion Gap 13 BUN 53 H Creatinine 8.9 H* Creat Clearance w eGFR 6.10 POC Glucometer 106 216 Random Glucose 101 D Calcium 8.0 L Phosphorus 6.4 H Total Bilirubin 0.3 AST 19 ALT 12 Alkaline Phosphatase 97 D Total Protein 5.6 L Albumin 2.4 L Microbiology 06/01/17 21:43 Blood - Peripheral Venous Blood Culture - Preliminary NO GROWTH OBTAINED AFTER 96 HOURS, INCUBATION TO CONTINUE FOR 1 DAYS. 06/01/17 21:41 Blood - Peripheral Venous Blood Culture - Preliminary NO GROWTH OBTAINED AFTER 96 HOURS, INCUBATION TO CONTINUE FOR 1 DAYS. 06/03/17 07:40 Blood - Peripheral Venous TB Test (QFT) (VASILE) - Preliminary 06/02/17 22:10 Sputum - Expectorated Gram Stain - Final 06/02/17 22:10 Sputum - Expectorated Sputum Culture - Final NORMAL RESPIRATORY KATHARINE 06/02/17 22:10 Urine For Antigen Detection Legionella Antigen - Final 06/02/17 22:10 Urine For Antigen Detection Streptococcus pneumoniae Antigen (M - Final Active Medications Generic Name Dose Route Start Last Admin Trade Name Freq PRN Reason Stop Dose Admin Albuterol/Ipratropium 1 amp 06/02/17 01:50 06/05/17 06:22 Duoneb - NEB 1 amp Q6H PRN Administration WHEEZING Arformoterol Tartrate 1 amp 06/06/17 22:00 Brovana (Restricted To Pulmonology/Resp) - NEB BID SUNDEEP Aspirin 81 mg 06/02/17 10:00 06/06/17 09:57 Ecotrin - PO 81 mg DAILY SUNDEEP Administration Calcium Acetate 1,334 mg 06/04/17 12:00 06/06/17 11:37 Phoslo - PO 1,334 mg TIDCM SUNDEEP Administration Carvedilol 12.5 mg 06/02/17 10:00 06/06/17 09:57 Coreg - PO 12.5 mg BID SUNDEEP Administration Ceftriaxone Sodium 1 gm 06/02/17 13:00 06/06/17 09:56 Rocephin 1gm Ivpb (Pre-Docked) IVPB 1 gm DAILY SUNDEEP Administration Protocol Clopidogrel Bisulfate 75 mg 06/02/17 10:00 06/06/17 09:57 Plavix - PO 75 mg DAILY SUNDEEP Administration Epoetin Ishan 4,000 units 06/07/17 15:05 Epogen - IVPUSH 06/07/17 15:06 ONCE ONE Furosemide 40 mg 06/06/17 15:07 Lasix Injection - IVPB 06/06/17 15:08 ONCE ONE Gabapentin 100 mg 06/02/17 14:00 06/06/17 13:51 Neurontin - PO 100 mg TID SUNDEEP Administration Heparin Sodium (Porcine) 5,000 unit 06/02/17 06:00 06/06/17 13:51 Heparin - SQ 5,000 unit TID SUNDEEP Administration Heparin Sodium (Porcine) 1,000 unit 06/07/17 15:05 Heparin - IVPUSH 06/07/17 15:06 ONCE ONE Insulin Aspart 1 vial 06/03/17 22:54 06/06/17 11:43 Novolog Vial Sliding Scale - SQ 6 units ACHS SUNDEEP Administration Protocol Isosorbide Mononitrate 30 mg 06/02/17 10:00 06/06/17 09:57 Imdur - PO 30 mg DAILY SUNDEEP Administration Lisinopril 20 mg 06/02/17 10:00 06/06/17 09:57 Prinivil PO 20 mg DAILY SUNDEEP Administration Methylprednisolone Sodium Succinate 40 mg 06/06/17 14:15 Solu-Medrol - IVPB DAILY SUNDEEP Sevelamer Carbonate 800 mg 06/06/17 17:30 Renvela - PO TIDCM SUNDEEP ASSESSMENT/PLAN: Assessment: 67 yo man w/ pmh of ESRD on HD, HTN, CAD and gout who was admitted in the ED due to acute SOB, currently being followed by the ID team for r/o unspecified PNA/TB, now with multiple episodes of hemoptysis. Pt is currently afebrile, w/ no WBC or shift, improving slowly w/ recent episode of hemoptysis. Given travel hx, imaging findings and clinical presentation, will require r/o TB. Pt currently on airborne isolation. Recent chest CT significant for BL upper and lower lobe opacities w/ suspicion for infiltrates vs. vascular congestion, in addition to multiple BL apical cavitations/emphysema. PE notable for diffuse lung crackles and recent BNP (06/01) significant for ~20,000. Respiratory status likely due to vascular congestion from acute CHF and/or underlying active infectious/inflammatory pulmonary process. Recommend workup for TB and pulmonary vasculidities, in addition to PNA vs. CHF. Quant gold, sputum AFB PCR pending. Current tx plan includes CAP coverage w/ Rocephin/zithromax. Plan: #Acute respiratory failure - F/u vasculitis panel - Consider ECHO - BNP ~20,000 (06/01) - F/u CT-chest on d/c - O2 support as needed #Suspected PNA - Airbone isolation for suspected TB - f/u quant gold, AFB sputum PCR - Abx for CAP coverage - Rocephin 1g IV BID - Zithromax 250mg IV daily - Serial CXRs - Daily Wts, CBCs - Trend fever curve, WBC - Monitor respiratory status - Pulm consult appreciated - Consider fungal source if TB negative Tommy Vasquez MD, PGY1 Plan discussed with attending, Dr. Horner Problem List - Problems (1) CHF exacerbation Code(s): I50.9 - HEART FAILURE, UNSPECIFIED Qualifiers: Congestive heart failure type: unspecified congestive heart failure type Qualified Code(s): I50.9 - Heart failure, unspecified (2) Hemoptysis Code(s): R04.2 - HEMOPTYSIS (3) Pneumonia Code(s): J18.9 - PNEUMONIA, UNSPECIFIED ORGANISM (4) ESRD (end stage renal disease) on dialysis Code(s): N18.6 - END STAGE RENAL DISEASE Z99.2 - DEPENDENCE ON RENAL DIALYSIS Visit type - Emergency Visit Emergency Visit: No - New Patient This patient is new to me today: Yes Date on this admission: 06/06/17 - Critical Care Critical Care patient: No
--- NOTE | 2017-06-06 17:18 | PN ---
Teaching Attending Note Name of Resident: Tommy Vasquez ATTENDING PHYSICIAN STATEMENT I saw and evaluated the patient. I reviewed the resident's note and discussed the case with the resident. I agree with the resident's findings and plan as documented. SUBJECTIVE: Feeling better Still with cough No further hemoptysis No c/o chest pain/ dyspnea OBJECTIVE: Cor S1S2 + rhonchi/ crepitations bilaterally abdo soft, non tender no edema ASSESSMENT AND PLAN: Bilateral pneumonia ? etiology CHF ESRD Await sputum AFB, Quantiferon, serologies Continue zithromax/ ceftriaxone
[2017-06-06] MEDS: SEVELAMER CARBONATE 800 MG TAB (FP) PO SCH (17:37)
[2017-06-06] MEDS: ALBUTEROL SO4 2.5/IPRATROPIUM 0.5 INH SOL 3 ML VIAL.NEB. NEB PRN (22:00)
[2017-06-06] MEDS: ARFORMOTEROL TARTRATE 15 MCG/2 ML VIAL NEB SCH (23:00)
[2017-06-07] MEDS: GABAPENTIN 100 MG CAPSULE (FP) PO SCH ×3 (06:17→21:57)
[2017-06-07] MEDS: HEPARIN NA (PORCINE) 5,000 UNITS/ML 1ML VIAL SQ SCH ×3 (06:17→21:57)
[2017-06-07] MEDS: INSULIN SLIDING SCALE (NOVOLOG) 1 VIAL SQ SCH ×4 (06:18→22:05)
--- NOTE | 2017-06-07 07:07 | PN ---
Progress Note (short form) - Note Progress Note: CBC, BMP 06/06/17 05:35 06/06/17 05:35 Vital Signs Period Temp Pulse Resp BP Sys/Blanca Pulse Ox Last 24 Hr 97.9 F-99.8 F 69-92 18-18 147-158/65-94 93-95 No new complaints, no further hemoptysis, thick yellow sputum S1S2 RRR Lungs scattered rhonchi abd soft NT no edema aaox3 nonfocal Imp 67 yo M admitted for dyspnea and cough Pneumonia ESRD on HD since 2014 IDDM CAD with stents HTN Gout OA Plan isolation pulmonary evaluation sputum AFBx3 iv abx HD nebulizer treatment d/w pt
[2017-06-07] MEDS ORDERED: ALBUTEROL SO4 0.083% IH SOL 2.5 MG/3 ML VIAL.NEB. NEB PRN (07:10)
[2017-06-07] MEDS ORDERED: guaiFENesin/D-M SUGAR-FREE/ACLHOL-FREE 118 ML BOTTLE PO PRN (07:11)
[2017-06-07 08:17] LABS: BASOPHIL 0.2 % (0-2.0); MCH 29.6 pg (25.7-33.7); MCHC 33.1 g/dl (32.0-35.9); MEAN CELL VOLUME 89.6 fl (80-96); MEAN PLT VOLUME 7.6 fl (7.5-11.1); NEUTROPHILS 90.6 % (42.8-82.8); PLATELET COUNT 210 K/MM3 (134-434); RDW 15.4 % (11.9-15.9); WHITE BLOOD COUNT 6.4 K/mm3 (4.0-10.0)
[2017-06-07] MEDS: CALCIUM ACETATE 667 MG CAPSULE (FP) PO SCH ×3 (08:23→16:58)
[2017-06-07] MEDS: SEVELAMER CARBONATE 800 MG TAB (FP) PO SCH ×3 (08:23→16:58)
[2017-06-07 09:14] LABS: ANION GAP 14 (8-16); CALCIUM 8.4 mg/dL (8.5-10.1); CO2 26 mmol/L (21-32); GLUCOSE,RANDOM 229 mg/dL (74-106); PHOSPHOROUS 6.1 mg/dL (2.5-4.9)
[2017-06-07] MEDS: methylPREDNISolone NA SUCC 40 MG/1 ML VIAL IVPB SCH (09:48)
[2017-06-07] MEDS: ISOSORBIDE MONONITRATE 30 MG TAB.SR.24H (FP) PO SCH (09:49)
[2017-06-07] MEDS: ASPIRIN COATED 81 MG TABLET.EC PO SCH (09:49)
[2017-06-07] MEDS: CLOPIDOGREL BISULFATE 75 MG TABLET (FP) PO SCH (09:49)
[2017-06-07] MEDS: LISINOPRIL 20 MG TABLET (FP) PO SCH (09:49)
[2017-06-07] MEDS: CARVEDILOL 12.5 MG TABLET (FP) PO SCH ×2 (09:49→21:57)
[2017-06-07] MEDS: cefTRIAXone 1 GM/50 ML BAG (PRE-DOCKED) IVPB SCH (09:49)
[2017-06-07] MEDS: INSULIN DETEMIR 100 UNITS/ML MDV SQ SCH (09:54)
[2017-06-07] MEDS: ARFORMOTEROL TARTRATE 15 MCG/2 ML VIAL NEB SCH ×2 (10:05→22:38)
[2017-06-07 10:19] LABS: CREATININE 10.5 mg/dL (0.7-1.3)
--- NOTE | 2017-06-07 11:37 | PN ---
Progress Note (short form) - Note Progress Note: Progress Note, Physician Chief Complaint: sob History of Present Illness: +productive cough, no sob no palp, swelling, syncope, cp - Current Medication List Current Medications Generic Name Dose Route Start Last Admin Trade Name Freq PRN Reason Stop Dose Admin Albuterol Sulfate 1 amp 06/07/17 07:10 Ventolin 0.083% Nebulizer Soln - NEB Q6H PRN SHORT OF BREATH/WHEEZING Arformoterol Tartrate 1 amp 06/06/17 22:00 06/07/17 10:05 Brovana (Restricted To Pulmonology/Resp) - NEB 1 amp BID SUNDEEP Administration Aspirin 81 mg 06/02/17 10:00 06/07/17 09:49 Ecotrin - PO 81 mg DAILY SUNDEEP Administration Calcium Acetate 1,334 mg 06/04/17 12:00 06/07/17 08:23 Phoslo - PO 1,334 mg TIDCM SUNDEEP Administration Carvedilol 12.5 mg 06/02/17 10:00 06/07/17 09:49 Coreg - PO 12.5 mg BID SUNDEEP Administration Ceftriaxone Sodium 1 gm 06/02/17 13:00 06/07/17 09:49 Rocephin 1gm Ivpb (Pre-Docked) IVPB 1 gm DAILY SUNDEEP Administration Protocol Clopidogrel Bisulfate 75 mg 06/02/17 10:00 06/07/17 09:49 Plavix - PO 75 mg DAILY SUNDEEP Administration Gabapentin 100 mg 06/02/17 14:00 06/07/17 06:17 Neurontin - PO 100 mg TID SUNDEEP Administration Guaifenesin 10 ml 06/07/17 07:11 Diabetic Tussin Dm - PO Q6H PRN COUGH Heparin Sodium (Porcine) 5,000 unit 06/07/17 10:00 06/07/17 09:55 Heparin - SQ Not Given BID [facility] Insulin Aspart 1 vial 06/07/17 07:10 Novolog Vial Sliding Scale - SQ ACHS [facility] Protocol Insulin Detemir 10 units 06/07/17 10:00 06/07/17 09:54 Levemir Vial SQ 10 units DAILY SUNDEEP Administration Isosorbide Mononitrate 30 mg 06/02/17 10:00 06/07/17 09:49 Imdur - PO 30 mg DAILY SUNDEEP Administration Lisinopril 20 mg 06/02/17 10:00 06/07/17 09:49 Prinivil PO 20 mg DAILY SUNDEEP Administration Methylprednisolone Sodium Succinate 40 mg 06/06/17 14:15 06/07/17 09:48 Solu-Medrol - IVPB 40 mg DAILY SUNDEEP Administration Sevelamer Carbonate 800 mg 06/06/17 17:30 06/07/17 08:23 Renvela - PO 800 mg TIDCM SUNDEEP Administration - Objective Vital Signs: Vital Signs Period Temp Pulse Resp BP Sys/Blanca Pulse Ox Last 24 Hr 97.9 F-99.8 F 69-92 18-18 149-183/65-108 89-94 Constitutional: Yes: Well Nourished, No Distress, Calm Cardiovascular: Yes: Regular Rate and Rhythm, JVD (probable), S1, S2. No: Gallop, Murmur Respiratory: Yes: Regular, Diminished (L base). No: Accessory Muscle Use, Rales , Wheezes Extremities: No: Cold Edema: No Neurological: Yes: Alert, Oriented Psychiatric: No: Agitated no jaundice diaphoresis Labs: CBC, BMP 06/07/17 05:40 06/07/17 05:40 Echo 05/29 (here): mild LVE, low-nl LVEF; nl RV; mild AI/MR/TR mibi 10/2012: nl mpi cxr: pna vs chf ecg 06/01/17: no ischemic changes a/p: 67 m hx esrd on hd, dm, cad s/p remote mi/pci (10+yrs ago), sent by pmd for possible pna. sob, pna, component of acute diast chf: -pt c/o sob, possible chf component -vol mgmt per renal with HD -cont abx per pmd/ID -sob improving esrd: -cont HD per renal cp, cad s/p remote mi/pci: -cp atypical, possibly related to pna/coughing -no signs acs, ce's negx2, ecg w/o ischemic changes -prior mibi w/o ischemia -monitor cp while treating pna to see if resolves, improving so far -cont home kylah, bb, imdur, dapt -not on statin, h/o CAD--defer to outpt recreation coordinator
--- NOTE | 2017-06-07 11:38 | PN ---
Progress Note (short form) - Note Progress Note: PULMONARY AWAKE/HD UNDERWAY AFEBRILE/183/108 NO FURTHER BLOOD STREAKED SPUTUM OR CP SPO2 89% ON 4L/M O2 ANICTERIC RHONCHI B/L S1S2 RSR BS+ LESS EDEMA LOWER EXT LABS/MEDS/NOTES/IMAGING/MEDS/MICRO REVIEWED (1) CHF exacerbation Code(s): I50.9 - HEART FAILURE, UNSPECIFIED Qualifiers: Congestive heart failure type: unspecified congestive heart failure type Qualified Code(s): I50.9 - Heart failure, unspecified (2) Diabetes Code(s): E11.9 - TYPE 2 DIABETES MELLITUS WITHOUT COMPLICATIONS (3) Pneumonia Code(s): J18.9 - PNEUMONIA, UNSPECIFIED ORGANISM (4) ESRD (end stage renal disease) on dialysis Code(s): N18.6 - END STAGE RENAL DISEASE Z99.2 - DEPENDENCE ON RENAL DIALYSIS (5) Hypertension Code(s): I10 - ESSENTIAL (PRIMARY) HYPERTENSION (6) Hemoptysis Code(s): R04.2 - HEMOPTYSIS Assessment/Plan Agree with ID to isolate and check AFB O2 to keep sat greater than 90% Daily Medrol for CAP BD TX Change SQ Heparin to BID Will likely need repeat imaging after discharge No smoking counseled HD per Renal -> may be a component of Pulmonary vascular congestion Will follow Yoni GALLEGO MD
--- NOTE | 2017-06-07 11:50 | PN ---
Physical Exam: SUBJECTIVE: Patient seen by me this AM - HTN episode this AM - Improving cough, no further hemoptysis Other updates: - Afb smear negative - mycoplasma, legionella serum ag pending - No WBC elevation. Left shift (90%). OBJECTIVE: Vital Signs Period Temp Pulse Resp BP Sys/Blanca Pulse Ox Last 24 Hr 97.9 F-99.8 F 69-92 18-18 149-183/65-108 89-94 GENERAL: The patient is awake, alert, and fully oriented, in no acute distress. HEAD: Normal with no signs of trauma. EYES: PERRL, sclera anicteric, conjunctiva clear. No ptosis. ENT: Ears normal, nares patent, oropharynx clear without exudates, moist mucous membranes. NECK: Trachea midline, full range of motion, supple. LUNGS: Diffuse crackles BL across all lung velasquez with scattered rhonchi. Mild expiratory wheeze. Cough with mild tachypnea on exam. HEART: Regular rate and rhythm, S1, S2 without murmur, rub or gallop. ABDOMEN: Soft, nontender, nondistended, normoactive bowel sounds, no guarding, no rebound, no hepatosplenomegaly, no masses. EXTREMITIES: 2+ pulses, warm, well-perfused, no edema. NEUROLOGICAL: Cranial nerves II through XII grossly intact. Normal speech, gait not observed. PSYCH: Normal mood, normal affect. SKIN: Warm, dry, normal turgor, no rashes or lesions noted Laboratory Results - last 24 hr CBC, BMP 06/07/17 05:40 06/07/17 05:40 06/06/17 06/06/17 06/06/17 11:39 16:53 20:46 WBC RBC Hgb Hct MCV MCH MCHC RDW Plt Count MPV Neutrophils % Lymphocytes % Monocytes % Eosinophils % Basophils % Sodium Potassium Chloride Carbon Dioxide Anion Gap BUN Creatinine POC Glucometer 216 124 375 Random Glucose Calcium Phosphorus 06/07/17 06/07/17 06/07/17 05:20 05:40 05:40 WBC 6.4 RBC 3.19 L Hgb 9.5 L Hct 28.6 L MCV 89.6 MCH 29.6 MCHC 33.1 RDW 15.4 Plt Count 210 MPV 7.6 Neutrophils % 90.6 H Lymphocytes % 6.7 L D Monocytes % 2.5 L Eosinophils % 0.0 D Basophils % 0.2 Sodium 134 L Potassium 5.5 H D Chloride 94 L Carbon Dioxide 26 Anion Gap 14 BUN 78 H D Creatinine 10.5 H* POC Glucometer 218 Random Glucose 229 H D Calcium 8.4 L Phosphorus 6.1 H Microbiology 06/06/17 15:42 Sputum - Expectorated AFB Smear Concentration - Preliminary 06/06/17 15:42 Sputum - Expectorated Mycobacterial Culture - Preliminary 06/01/17 21:43 Blood - Peripheral Venous Blood Culture - Final NO GROWTH AFTER 5 DAYS INCUBATION 06/01/17 21:41 Blood - Peripheral Venous Blood Culture - Final NO GROWTH AFTER 5 DAYS INCUBATION 06/03/17 07:40 Blood - Peripheral Venous TB Test (QFT) (VASILE) - Preliminary 06/02/17 22:10 Sputum - Expectorated Gram Stain - Final 06/02/17 22:10 Sputum - Expectorated Sputum Culture - Final NORMAL RESPIRATORY KATHARINE 06/02/17 22:10 Urine For Antigen Detection Legionella Antigen - Final 06/02/17 22:10 Urine For Antigen Detection Streptococcus pneumoniae Antigen (M - Final Active Medications Generic Name Dose Route Start Last Admin Trade Name Freq PRN Reason Stop Dose Admin Albuterol Sulfate 1 amp 06/07/17 07:10 Ventolin 0.083% Nebulizer Soln - NEB Q6H PRN SHORT OF BREATH/WHEEZING Arformoterol Tartrate 1 amp 06/06/17 22:00 06/07/17 10:05 Brovana (Restricted To Pulmonology/Resp) - NEB 1 amp BID SUNDEEP Administration Aspirin 81 mg 06/02/17 10:00 06/07/17 09:49 Ecotrin - PO 81 mg DAILY SUNDEEP Administration Calcium Acetate 1,334 mg 06/04/17 12:00 06/07/17 08:23 Phoslo - PO 1,334 mg TIDCM SUNDEEP Administration Carvedilol 12.5 mg 06/02/17 10:00 06/07/17 09:49 Coreg - PO 12.5 mg BID SUNDEEP Administration Ceftriaxone Sodium 1 gm 06/02/17 13:00 06/07/17 09:49 Rocephin 1gm Ivpb (Pre-Docked) IVPB 1 gm DAILY SUNDEEP Administration Protocol Clopidogrel Bisulfate 75 mg 06/02/17 10:00 06/07/17 09:49 Plavix - PO 75 mg DAILY SUNDEEP Administration Gabapentin 100 mg 06/02/17 14:00 06/07/17 06:17 Neurontin - PO 100 mg TID SUNDEEP Administration Guaifenesin 10 ml 06/07/17 07:11 Diabetic Tussin Dm - PO Q6H PRN COUGH Heparin Sodium (Porcine) 5,000 unit 06/07/17 10:00 06/07/17 09:55 Heparin - SQ Not Given BID SUNDEEP Insulin Aspart 1 vial 06/07/17 07:10 Novolog Vial Sliding Scale - SQ ACHS [facility] Protocol Insulin Detemir 10 units 06/07/17 10:00 06/07/17 09:54 Levemir Vial SQ 10 units DAILY SUNDEEP Administration Isosorbide Mononitrate 30 mg 06/02/17 10:00 06/07/17 09:49 Imdur - PO 30 mg DAILY SUNDEEP Administration Lisinopril 20 mg 06/02/17 10:00 06/07/17 09:49 Prinivil PO 20 mg DAILY SUNDEEP Administration Methylprednisolone Sodium Succinate 40 mg 06/06/17 14:15 06/07/17 09:48 Solu-Medrol - IVPB 40 mg DAILY SUNDEEP Administration Sevelamer Carbonate 800 mg 06/06/17 17:30 06/07/17 08:23 Renvela - PO 800 mg TIDCM SUNDEEP Administration ASSESSMENT/PLAN: Assessment: 67 yo man w/ pmh of ESRD on HD, HTN, CAD and gout who was admitted in the ED due to acute SOB, currently being followed by the ID team for r/o unspecified PNA/TB, now with multiple episodes of hemoptysis. Pt is currently afebrile, w/ no WBC or shift, improving slowly w/ recent episode of hemoptysis. Given travel hx, imaging findings and clinical presentation, will require r/o TB. Pt currently on airborne isolation. Recent chest CT significant for BL upper and lower lobe opacities w/ suspicion for infiltrates vs. vascular congestion, in addition to multiple BL apical cavitations/emphysema. PE notable for diffuse lung crackles and recent BNP (06/01) significant for ~20,000. Respiratory status likely due to vascular congestion from acute CHF and/or underlying active infectious/inflammatory pulmonary process. Recommend workup for TB and pulmonary vasculidities, in addition to PNA vs. CHF. Quant gold, sputum AFB PCR pending. Current tx plan includes CAP coverage w/ Rocephin/zithromax. Plan: Please see attending note for plan (Dr. Horner) #Acute respiratory failure - F/u vasculitis panel - Consider ECHO - BNP ~20,000 (06/01) - F/u CT-chest on d/c - O2 support as needed #Suspected PNA - Airbone isolation for suspected TB - f/u quant gold, AFB sputum PCR - Abx for CAP coverage - Rocephin 1g IV BID - Zithromax 250mg IV daily - Serial CXRs - Daily Wts, CBCs - Trend fever curve, WBC - Monitor respiratory status - Pulm consult appreciated - Consider fungal source if TB negative Tommy Vasquez MD, PGY1 Plan discussed with attending Problem List - Problems (1) CHF exacerbation Code(s): I50.9 - HEART FAILURE, UNSPECIFIED Qualifiers: Congestive heart failure type: unspecified congestive heart failure type Qualified Code(s): I50.9 - Heart failure, unspecified (2) Hemoptysis Code(s): R04.2 - HEMOPTYSIS (3) Pneumonia Code(s): J18.9 - PNEUMONIA, UNSPECIFIED ORGANISM (4) ESRD (end stage renal disease) on dialysis Code(s): N18.6 - END STAGE RENAL DISEASE Z99.2 - DEPENDENCE ON RENAL DIALYSIS Visit type - Emergency Visit Emergency Visit: No - New Patient This patient is new to me today: No - Critical Care Critical Care patient: No
--- NOTE | 2017-06-07 12:38 | PN ---
Progress Note, Physician History of Present Illness: Pt seen and examined at bedside. He is awake and alert. He is currently getting HD. He feels that his breathing is improving. - Current Medication List Current Medications: Active Medications Albuterol Sulfate (Ventolin 0.083% Nebulizer Soln -) 1 amp NEB Q6H PRN PRN Reason: SHORT OF BREATH/WHEEZING Arformoterol Tartrate (Brovana (Restricted To Pulmonology/Resp) -) 1 amp NEB BID [facility] Last Admin: 06/07/17 10:05 Dose: 1 amp Aspirin (Ecotrin -) 81 mg PO DAILY [facility] Last Admin: 06/07/17 09:49 Dose: 81 mg Calcium Acetate (Phoslo -) 1,334 mg PO TIDCM [facility] Last Admin: 06/07/17 12:06 Dose: 1,334 mg Carvedilol (Coreg -) 12.5 mg PO BID [facility] Last Admin: 06/07/17 09:49 Dose: 12.5 mg Ceftriaxone Sodium (Rocephin 1gm Ivpb (Pre-Docked)) 1 gm IVPB DAILY [facility] PRN Reason: Protocol Last Admin: 06/07/17 09:49 Dose: 1 gm Clopidogrel Bisulfate (Plavix -) 75 mg PO DAILY [facility] Last Admin: 06/07/17 09:49 Dose: 75 mg Gabapentin (Neurontin -) 100 mg PO TID [facility] Last Admin: 06/07/17 06:17 Dose: 100 mg Guaifenesin (Diabetic Tussin Dm -) 10 ml PO Q6H PRN PRN Reason: COUGH Heparin Sodium (Porcine) (Heparin -) 5,000 unit SQ BID [facility] Last Admin: 06/07/17 09:55 Dose: Not Given Insulin Aspart (Novolog Vial Sliding Scale -) 1 vial SQ ACHS [facility] PRN Reason: Protocol Last Admin: 06/07/17 12:04 Dose: 4 units Insulin Detemir (Levemir Vial) 10 units SQ DAILY [facility] Last Admin: 06/07/17 09:54 Dose: 10 units Isosorbide Mononitrate (Imdur -) 30 mg PO DAILY [facility] Last Admin: 06/07/17 09:49 Dose: 30 mg Lisinopril (Prinivil) 20 mg PO DAILY [facility] Last Admin: 06/07/17 09:49 Dose: 20 mg Methylprednisolone Sodium Succinate (Solu-Medrol -) 40 mg IVPB DAILY [facility] Last Admin: 06/07/17 09:48 Dose: 40 mg Sevelamer Carbonate (Renvela -) 800 mg PO TIDCM [facility] Last Admin: 06/07/17 12:06 Dose: 800 mg - Objective Vital Signs: Vital Signs Temperature 98.0 F 06/07/17 07:32 Pulse Rate 80 06/07/17 12:10 Respiratory Rate 18 06/07/17 12:10 Blood Pressure 190/107 06/07/17 12:10 O2 Sat by Pulse Oximetry (%) 89 L 06/07/17 10:00 Constitutional: Yes: Calm Eyes: Yes: Conjunctiva Clear HENT: Yes: Atraumatic Neck: Yes: Supple Cardiovascular: Yes: S1, S2 Respiratory: Yes: CTA Bilaterally, On Nasal O2 Gastrointestinal: Yes: Soft Genitourinary: Yes: WNL Musculoskeletal: Yes: WNL Edema: No Neurological: Yes: Oriented Psychiatric: Yes: Oriented Labs: CBC, BMP 06/07/17 05:40 06/07/17 05:40 INR, PTT INR 1.03 (0.82-1.09) 06/01/17 21:41 Problem List - Problems (1) ESRD (end stage renal disease) on dialysis Code(s): N18.6 - END STAGE RENAL DISEASE Z99.2 - DEPENDENCE ON RENAL DIALYSIS Assessment/Plan Current Medications Generic Name Dose Route Start Last Admin Trade Name Freq PRN Reason Stop Dose Admin Albuterol Sulfate 1 amp 06/07/17 07:10 Ventolin 0.083% Nebulizer Soln - NEB Q6H PRN SHORT OF BREATH/WHEEZING Arformoterol Tartrate 1 amp 06/06/17 22:00 06/07/17 10:05 Brovana (Restricted To Pulmonology/Resp) - NEB 1 amp BID [facility] Administration Aspirin 81 mg 06/02/17 10:00 06/07/17 09:49 Ecotrin - PO 81 mg DAILY [facility] Administration Calcium Acetate 1,334 mg 06/04/17 12:00 06/07/17 12:06 Phoslo - PO 1,334 mg TIDCM [facility] Administration Carvedilol 12.5 mg 06/02/17 10:00 06/07/17 09:49 Coreg - PO 12.5 mg BID [facility] Administration Ceftriaxone Sodium 1 gm 06/02/17 13:00 06/07/17 09:49 Rocephin 1gm Ivpb (Pre-Docked) IVPB 1 gm DAILY [facility] Administration Protocol Clopidogrel Bisulfate 75 mg 06/02/17 10:00 06/07/17 09:49 Plavix - PO 75 mg DAILY [facility] Administration Gabapentin 100 mg 06/02/17 14:00 06/07/17 06:17 Neurontin - PO 100 mg TID [facility] Administration Guaifenesin 10 ml 06/07/17 07:11 Diabetic Tussin Dm - PO Q6H PRN COUGH Heparin Sodium (Porcine) 5,000 unit 06/07/17 10:00 06/07/17 09:55 Heparin - SQ Not Given BID [facility] Insulin Aspart 1 vial 06/07/17 07:10 06/07/17 12:04 Novolog Vial Sliding Scale - SQ 4 units ACHS [facility] Administration Protocol Insulin Detemir 10 units 06/07/17 10:00 06/07/17 09:54 Levemir Vial SQ 10 units DAILY [facility] Administration Isosorbide Mononitrate 30 mg 06/02/17 10:00 06/07/17 09:49 Imdur - PO 30 mg DAILY [facility] Administration Lisinopril 20 mg 06/02/17 10:00 06/07/17 09:49 Prinivil PO 20 mg DAILY [facility] Administration Methylprednisolone Sodium Succinate 40 mg 06/06/17 14:15 06/07/17 09:48 Solu-Medrol - IVPB 40 mg DAILY [facility] Administration Sevelamer Carbonate 800 mg 06/06/17 17:30 06/07/17 12:06 Renvela - PO 800 mg TIDCM [facility] Administration Impression 1. ESRD 2. fluid overload 3. HTN 4. DM 5. anemia 6. hemoptysis Plan - HD today, will UF 3 liters - pts volume status is improved - discussed with pulmonary - will evaluate for lasix in am - pulmonary input appreciated - cont current meds - will follow Dr Barbosa
--- NOTE | 2017-06-07 12:41 | PN ---
Teaching Attending Note Name of Resident: Tommy Vasquez ATTENDING PHYSICIAN STATEMENT I saw and evaluated the patient. I reviewed the resident's note and discussed the case with the resident. I agree with the resident's findings and plan as documented. SUBJECTIVE: No focal complaint Appears slightly dyspneic at rest Occasional cough No c/o chest pain No hemoptysis OBJECTIVE: Anicteric Cor S1S2 Lungs clear Abdomen soft, non tender No edema ASSESSMENT AND PLAN: Bilateral pneumonia ESRD Await sputum AFB Continue zithromax/ ceftriaxone
[2017-06-07] MEDS ORDERED: INSULIN DETEMIR 100 UNITS/ML MDV SQ ONE (13:51)
[2017-06-07] MEDS: AZITHROMYCIN IVPB 250 ML IVPB SCH (14:22)
[2017-06-07] MEDS ORDERED: HEPARIN NA (PORCINE) 5,000 UNITS/ML 1ML VIAL IVPUSH ONE (15:05)
[2017-06-07] MEDS ORDERED: EPOETIN ALFA 2,000 UNITS/1 ML VIAL IVPUSH ONE (15:05)
[2017-06-07] MEDS ORDERED: INSULIN (NOVOLOG) ASPART 100 UNITS/ML 10ML VIAL ONE (16:52)
[2017-06-08] MEDS: GABAPENTIN 100 MG CAPSULE (FP) PO SCH ×3 (06:06→22:57)
[2017-06-08] MEDS: INSULIN SLIDING SCALE (NOVOLOG) 1 VIAL SQ SCH ×4 (06:09→22:58)
--- NOTE | 2017-06-08 07:40 | PN ---
Progress Note (short form) - Note Progress Note: No new complaints, no further hemoptysis, thick yellow sputum, and dizziness while coughing. CBC, BMP 06/07/17 05:40 06/07/17 05:40 Vital Signs Period Temp Pulse Resp BP Sys/Blanca Pulse Ox Last 24 Hr 97.4 F-98.2 F 75-88 18-18 158-196/87-113 89-89 S1S2 RRR Lungs faint crackles this am abd soft NT no edema aaox3 nonfocal Imp 67 yo M admitted for dyspnea and cough Pneumonia/interstitial infiltrates. ESRD on HD since 2014 IDDM CAD with stents HTN Gout OA Plan isolation r/o TB vasculitis panel pending iv steroid iv abx HD nebulizer treatment d/w pt
[2017-06-08] MEDS: ARFORMOTEROL TARTRATE 15 MCG/2 ML VIAL NEB SCH ×2 (10:00→22:36)
[2017-06-08] MEDS: guaiFENesin/D-M SUGAR-FREE/ACLHOL-FREE 118 ML BOTTLE PO SCH ×6 (10:08→22:57)
--- NOTE | 2017-06-08 10:25 | PN ---
Progress Note, Physician History of Present Illness: PULMONARY ALERT,LESS CONGESTED,+ COUGH CLEAR SPUTUM,-HEME - Current Medication List Current Medications: Active Medications Albuterol Sulfate (Ventolin 0.083% Nebulizer Soln -) 1 amp NEB Q6H PRN PRN Reason: SHORT OF BREATH/WHEEZING Arformoterol Tartrate (Brovana (Restricted To Pulmonology/Resp) -) 1 amp NEB BID [facility] Last Admin: 06/07/17 22:38 Dose: 1 amp Aspirin (Ecotrin -) 81 mg PO DAILY [facility] Last Admin: 06/07/17 09:49 Dose: 81 mg Calcium Acetate (Phoslo -) 1,334 mg PO TIDCM [facility] Last Admin: 06/07/17 16:58 Dose: 1,334 mg Carvedilol (Coreg -) 12.5 mg PO BID [facility] Last Admin: 06/07/17 21:57 Dose: 12.5 mg Ceftriaxone Sodium (Rocephin 1gm Ivpb (Pre-Docked)) 1 gm IVPB DAILY [facility] PRN Reason: Protocol Last Admin: 06/07/17 09:49 Dose: 1 gm Clopidogrel Bisulfate (Plavix -) 75 mg PO DAILY [facility] Last Admin: 06/07/17 09:49 Dose: 75 mg Gabapentin (Neurontin -) 100 mg PO TID [facility] Last Admin: 06/08/17 06:06 Dose: 100 mg Guaifenesin (Diabetic Tussin Dm -) 10 ml PO QID [facility] Heparin Sodium (Porcine) (Heparin -) 5,000 unit SQ BID [facility] Last Admin: 06/07/17 21:57 Dose: 5,000 unit Azithromycin (Zithromax 500mg Ivpb (Pre-Docked)) 250 mls @ 250 mls/hr IVPB DAILY [facility] Last Admin: 06/07/17 14:22 Dose: 250 mls/hr Insulin Aspart (Novolog Vial Sliding Scale -) 1 vial SQ ACHS [facility] PRN Reason: Protocol Last Admin: 06/08/17 06:09 Dose: 2 units Insulin Detemir (Levemir Vial) 10 units SQ DAILY [facility] Last Admin: 06/07/17 09:54 Dose: 10 units Isosorbide Mononitrate (Imdur -) 30 mg PO DAILY [facility] Last Admin: 06/07/17 09:49 Dose: 30 mg Lisinopril (Prinivil) 20 mg PO DAILY [facility] Last Admin: 06/07/17 09:49 Dose: 20 mg Methylprednisolone Sodium Succinate (Solu-Medrol -) 40 mg IVPB DAILY [facility] Last Admin: 06/07/17 09:48 Dose: 40 mg Sevelamer Carbonate (Renvela -) 800 mg PO TIDCM [facility] Last Admin: 06/07/17 16:58 Dose: 800 mg - Objective Vital Signs: Vital Signs Temperature 97.8 F 06/07/17 22:00 Pulse Rate 83 06/07/17 22:00 Respiratory Rate 18 06/07/17 22:00 Blood Pressure 168/89 06/07/17 22:00 O2 Sat by Pulse Oximetry (%) 89 L 06/07/17 22:00 Constitutional: Yes: Well Nourished, Calm Eyes: Yes: WNL HENT: Yes: WNL Neck: Yes: WNL Cardiovascular: Yes: Regular Rate and Rhythm, S1, S2 Respiratory: Yes: Rales (BILATERAL RALES) Gastrointestinal: Yes: Normal Bowel Sounds, Soft Extremities: Yes: WNL Edema: No Labs: CBC, BMP INR 1.03 (0.82-1.09) 06/01/17 21:41 Assessment/Plan (1) CHF exacerbation Code(s): I50.9 - HEART FAILURE, UNSPECIFIED Qualifiers: Congestive heart failure type: unspecified congestive heart failure type Qualified Code(s): I50.9 - Heart failure, unspecified (2) Diabetes Code(s): E11.9 - TYPE 2 DIABETES MELLITUS WITHOUT COMPLICATIONS (3) Pneumonia Code(s): J18.9 - PNEUMONIA, UNSPECIFIED ORGANISM (4) ESRD (end stage renal disease) on dialysis Code(s): N18.6 - END STAGE RENAL DISEASE Z99.2 - DEPENDENCE ON RENAL DIALYSIS (5) Hypertension Code(s): I10 - ESSENTIAL (PRIMARY) HYPERTENSION (6) Hemoptysis Code(s): R04.2 - HEMOPTYSIS Assessment/Plan Sputum AFB O2 to keep sat greater than 90% Medrol for CAP BD TX No smoking counseled HD per Renal Chest x-ray today DR THOMAS
[2017-06-08] MEDS: cefTRIAXone 1 GM/50 ML BAG (PRE-DOCKED) IVPB SCH (11:04)
[2017-06-08] MEDS: AZITHROMYCIN IVPB 250 ML IVPB SCH (11:04)
[2017-06-08] MEDS: SEVELAMER CARBONATE 800 MG TAB (FP) PO SCH ×4 (11:04→17:40)
[2017-06-08] MEDS: ISOSORBIDE MONONITRATE 30 MG TAB.SR.24H (FP) PO SCH (11:05)
[2017-06-08] MEDS: LISINOPRIL 20 MG TABLET (FP) PO SCH (11:05)
[2017-06-08] MEDS: ASPIRIN COATED 81 MG TABLET.EC PO SCH (11:05)
[2017-06-08] MEDS: CARVEDILOL 12.5 MG TABLET (FP) PO SCH ×2 (11:05→22:57)
[2017-06-08] MEDS: CALCIUM ACETATE 667 MG CAPSULE (FP) PO SCH ×4 (11:05→17:40)
[2017-06-08] MEDS: CLOPIDOGREL BISULFATE 75 MG TABLET (FP) PO SCH (11:05)
[2017-06-08] MEDS: methylPREDNISolone NA SUCC 40 MG/1 ML VIAL IVPB SCH (11:06)
[2017-06-08] MEDS: INSULIN DETEMIR 100 UNITS/ML MDV SQ SCH (11:06)
[2017-06-08] MEDS: HEPARIN NA (PORCINE) 5,000 UNITS/ML 1ML VIAL SQ SCH ×2 (11:07→22:57)
--- NOTE | 2017-06-08 11:07 | PN ---
Progress Note (short form) - Note Progress Note: Progress Note, Physician Chief Complaint: sob History of Present Illness: +productive cough, no sob no palp, swelling, syncope, cp - Current Medication List Current Medications Generic Name Dose Route Start Last Admin Trade Name Freq PRN Reason Stop Dose Admin Albuterol Sulfate 1 amp 06/07/17 07:10 Ventolin 0.083% Nebulizer Soln - NEB Q6H PRN SHORT OF BREATH/WHEEZING Arformoterol Tartrate 1 amp 06/06/17 22:00 06/08/17 10:00 Brovana (Restricted To Pulmonology/Resp) - NEB 1 amp BID [facility] Administration Aspirin 81 mg 06/02/17 10:00 06/07/17 09:49 Ecotrin - PO 81 mg DAILY [facility] Administration Calcium Acetate 1,334 mg 06/04/17 12:00 06/07/17 16:58 Phoslo - PO 1,334 mg TIDCM [facility] Administration Carvedilol 12.5 mg 06/02/17 10:00 06/07/17 21:57 Coreg - PO 12.5 mg BID [facility] Administration Ceftriaxone Sodium 1 gm 06/02/17 13:00 06/07/17 09:49 Rocephin 1gm Ivpb (Pre-Docked) IVPB 1 gm DAILY [facility] Administration Protocol Clopidogrel Bisulfate 75 mg 06/02/17 10:00 06/07/17 09:49 Plavix - PO 75 mg DAILY [facility] Administration Gabapentin 100 mg 06/02/17 14:00 06/08/17 06:06 Neurontin - PO 100 mg TID [facility] Administration Guaifenesin 10 ml 06/08/17 07:45 Diabetic Tussin Dm - PO QID [facility] Heparin Sodium (Porcine) 5,000 unit 06/07/17 10:00 06/07/17 21:57 Heparin - SQ 5,000 unit BID [facility] Administration Azithromycin 250 mls @ 250 mls/hr 06/07/17 12:45 06/07/17 14:22 Zithromax 500mg Ivpb (Pre-Docked) IVPB 250 mls/hr DAILY [facility] Administration Insulin Aspart 1 vial 06/07/17 07:10 06/08/17 06:09 Novolog Vial Sliding Scale - SQ 2 units ACHS [facility] Administration Protocol Insulin Detemir 10 units 06/07/17 10:00 06/07/17 09:54 Levemir Vial SQ 10 units DAILY [facility] Administration Isosorbide Mononitrate 30 mg 06/02/17 10:00 06/07/17 09:49 Imdur - PO 30 mg DAILY [facility] Administration Lisinopril 20 mg 06/02/17 10:00 06/07/17 09:49 Prinivil PO 20 mg DAILY [facility] Administration Methylprednisolone Sodium Succinate 40 mg 06/06/17 14:15 06/07/17 09:48 Solu-Medrol - IVPB 40 mg DAILY [facility] Administration Sevelamer Carbonate 800 mg 06/06/17 17:30 06/07/17 16:58 Renvela - PO 800 mg TIDCM [facility] Administration - Objective Vital Signs: Vital Signs Period Temp Pulse Resp BP Sys/Blanca Pulse Ox Last 24 Hr 97.4 F-98.0 F 79-86 18-18 158-196/87-109 89-89 Constitutional: Yes: Well Nourished, No Distress, Calm Cardiovascular: Yes: Regular Rate and Rhythm, JVD (probable), S1, S2. No: Gallop, Murmur Respiratory: Yes: Regular, Diminished (L base). No: Accessory Muscle Use, Rales , Wheezes Extremities: No: Cold Edema: No Neurological: Yes: Alert, Oriented Psychiatric: No: Agitated no jaundice diaphoresis Labs: CBC, BMP 06/07/17 05:40 06/07/17 05:40 Echo 05/29 (here): mild LVE, low-nl LVEF; nl RV; mild AI/MR/TR mibi 10/2012: nl mpi ecg 06/01/17: no ischemic changes a/p: 67 m hx esrd on hd, dm, cad s/p remote mi/pci (10+yrs ago), sent by pmd for possible pna. sob, pna, component of acute diast chf: -pt c/o sob, possible chf component -vol mgmt per renal with HD -cont abx per pmd/ID -sob improving esrd: -cont HD per renal cp, cad s/p remote mi/pci: -cp atypical, possibly related to pna/coughing -no signs acs, ce's negx2, ecg w/o ischemic changes -prior mibi w/o ischemia -monitor cp while treating pna to see if resolves, improving so far -cont home kylah, bb, imdur, dapt -not on statin, h/o CAD--defer to outpt cup setter lockstitch
--- NOTE | 2017-06-08 14:14 | PN ---
Progress Note, Physician History of Present Illness: Pt seen and examined at bedside. He is awake and alert. He denies chest pain. - Current Medication List Current Medications: Active Medications Albuterol Sulfate (Ventolin 0.083% Nebulizer Soln -) 1 amp NEB Q6H PRN PRN Reason: SHORT OF BREATH/WHEEZING Arformoterol Tartrate (Brovana (Restricted To Pulmonology/Resp) -) 1 amp NEB BID [facility] Last Admin: 06/08/17 10:00 Dose: 1 amp Aspirin (Ecotrin -) 81 mg PO DAILY [facility] Last Admin: 06/08/17 11:05 Dose: 81 mg Calcium Acetate (Phoslo -) 1,334 mg PO TIDCM [facility] Last Admin: 06/08/17 12:00 Dose: 1,334 mg Carvedilol (Coreg -) 12.5 mg PO BID [facility] Last Admin: 06/08/17 11:05 Dose: 12.5 mg Ceftriaxone Sodium (Rocephin 1gm Ivpb (Pre-Docked)) 1 gm IVPB DAILY [facility] PRN Reason: Protocol Last Admin: 06/08/17 11:04 Dose: 1 gm Clopidogrel Bisulfate (Plavix -) 75 mg PO DAILY [facility] Last Admin: 06/08/17 11:05 Dose: 75 mg Gabapentin (Neurontin -) 100 mg PO TID [facility] Last Admin: 06/08/17 06:06 Dose: 100 mg Guaifenesin (Diabetic Tussin Dm -) 10 ml PO QID [facility] Last Admin: 06/08/17 12:06 Dose: 10 ml Heparin Sodium (Porcine) (Heparin -) 5,000 unit SQ BID [facility] Last Admin: 06/08/17 11:07 Dose: 5,000 unit Azithromycin (Zithromax 500mg Ivpb (Pre-Docked)) 250 mls @ 250 mls/hr IVPB DAILY [facility] Last Admin: 06/08/17 11:04 Dose: 250 mls/hr Insulin Aspart (Novolog Vial Sliding Scale -) 1 vial SQ ACHS [facility] PRN Reason: Protocol Last Admin: 06/08/17 06:09 Dose: 2 units Insulin Detemir (Levemir Vial) 10 units SQ DAILY [facility] Last Admin: 06/08/17 11:06 Dose: 10 units Isosorbide Mononitrate (Imdur -) 30 mg PO DAILY [facility] Last Admin: 06/08/17 11:05 Dose: 30 mg Lisinopril (Prinivil) 20 mg PO DAILY [facility] Last Admin: 06/08/17 11:05 Dose: 20 mg Methylprednisolone Sodium Succinate (Solu-Medrol -) 40 mg IVPB DAILY [facility] Last Admin: 06/08/17 11:06 Dose: 40 mg Sevelamer Carbonate (Renvela -) 800 mg PO TIDCM [facility] Last Admin: 06/08/17 12:00 Dose: 800 mg - Objective Vital Signs: Vital Signs Temperature 97.8 F 06/07/17 22:00 Pulse Rate 83 06/07/17 22:00 Respiratory Rate 18 06/07/17 22:00 Blood Pressure 168/89 06/07/17 22:00 O2 Sat by Pulse Oximetry (%) 89 L 06/07/17 22:00 Constitutional: Yes: Calm Eyes: Yes: Conjunctiva Clear HENT: Yes: Atraumatic Cardiovascular: Yes: S1, S2 Respiratory: Yes: On Nasal O2, Rhonchi Gastrointestinal: Yes: Soft Genitourinary: Yes: WNL Musculoskeletal: Yes: WNL Edema: No Neurological: Yes: Oriented Psychiatric: Yes: Oriented Labs: CBC, BMP 06/07/17 05:40 06/07/17 05:40 INR, PTT INR 1.03 (0.82-1.09) 06/01/17 21:41 Problem List - Problems (1) ESRD (end stage renal disease) on dialysis Code(s): N18.6 - END STAGE RENAL DISEASE Z99.2 - DEPENDENCE ON RENAL DIALYSIS Assessment/Plan Current Medications Generic Name Dose Route Start Last Admin Trade Name Jose L PRN Reason Stop Dose Admin Albuterol Sulfate 1 amp 06/07/17 07:10 Ventolin 0.083% Nebulizer Soln - NEB Q6H PRN SHORT OF BREATH/WHEEZING Arformoterol Tartrate 1 amp 06/06/17 22:00 06/08/17 10:00 Brovana (Restricted To Pulmonology/Resp) - NEB 1 amp BID [facility] Administration Aspirin 81 mg 06/02/17 10:00 06/08/17 11:05 Ecotrin - PO 81 mg DAILY [facility] Administration Calcium Acetate 1,334 mg 06/04/17 12:00 06/08/17 12:00 Phoslo - PO 1,334 mg TIDCM [facility] Administration Carvedilol 12.5 mg 06/02/17 10:00 06/08/17 11:05 Coreg - PO 12.5 mg BID [facility] Administration Ceftriaxone Sodium 1 gm 06/02/17 13:00 06/08/17 11:04 Rocephin 1gm Ivpb (Pre-Docked) IVPB 1 gm DAILY [facility] Administration Protocol Clopidogrel Bisulfate 75 mg 06/02/17 10:00 06/08/17 11:05 Plavix - PO 75 mg DAILY [facility] Administration Gabapentin 100 mg 06/02/17 14:00 06/08/17 06:06 Neurontin - PO 100 mg TID [facility] Administration Guaifenesin 10 ml 06/08/17 07:45 06/08/17 12:06 Diabetic Tussin Dm - PO 10 ml QID [facility] Administration Heparin Sodium (Porcine) 5,000 unit 06/07/17 10:00 06/08/17 11:07 Heparin - SQ 5,000 unit BID [facility] Administration Azithromycin 250 mls @ 250 mls/hr 06/07/17 12:45 06/08/17 11:04 Zithromax 500mg Ivpb (Pre-Docked) IVPB 250 mls/hr DAILY [facility] Administration Insulin Aspart 1 vial 06/07/17 07:10 06/08/17 06:09 Novolog Vial Sliding Scale - SQ 2 units ACHS [facility] Administration Protocol Insulin Detemir 10 units 06/07/17 10:00 06/08/17 11:06 Levemir Vial SQ 10 units DAILY [facility] Administration Isosorbide Mononitrate 30 mg 06/02/17 10:00 06/08/17 11:05 Imdur - PO 30 mg DAILY [facility] Administration Lisinopril 20 mg 06/02/17 10:00 06/08/17 11:05 Prinivil PO 20 mg DAILY [facility] Administration Methylprednisolone Sodium Succinate 40 mg 06/06/17 14:15 06/08/17 11:06 Solu-Medrol - IVPB 40 mg DAILY [facility] Administration Sevelamer Carbonate 800 mg 06/06/17 17:30 06/08/17 12:00 Renvela - PO 800 mg TIDCM [facility] Administration Impression 1. ESRD 2. fluid overload 3. HTN 4. DM 5. anemia 6. hemoptysis Plan - will give a dose of lasix today - HD in am - renal diet and fluid restriction - cxr reviewed - cardio input appreciated - cont current meds - will follow Dr Barbosa
[2017-06-08] MEDS ORDERED: FUROSEMIDE 40 MG/4 ML INJECTABLE VIAL IVPUSH ONE (14:30)
--- NOTE | 2017-06-08 15:51 | PN ---
Teaching Attending Note Name of Resident: Tommy Vasquez ATTENDING PHYSICIAN STATEMENT I saw and evaluated the patient. I reviewed the resident's note and discussed the case with the resident. I agree with the resident's findings and plan as documented. SUBJECTIVE: Reports occasional cough No longer bloody No c/o chest pain/ dyspnea No fever/ chills OBJECTIVE: cor S1S2 + rales at bases bilaterally; scatterred rhonchi abdo soft, non tender no edema ASSESSMENT AND PLAN: Bilateral pneumonitis ESRD Sputum AFB (-) x2 Quantiferon (-) Await 3rd AFB Continue zithromax/ ceftriaxone
[2017-06-09] MEDS: GABAPENTIN 100 MG CAPSULE (FP) PO SCH ×3 (06:41→22:25)
[2017-06-09] MEDS ORDERED: HEPARIN NA (PORCINE) 5,000 UNITS/ML 1ML VIAL IVPUSH ONE (06:45)
[2017-06-09] MEDS: INSULIN SLIDING SCALE (NOVOLOG) 1 VIAL SQ SCH ×4 (06:46→22:26)
--- NOTE | 2017-06-09 07:10 | PN ---
Progress Note (short form) - Note Progress Note: No new complaints, mostly dry cough at this point. CBC, BMP 06/07/17 05:40 06/07/17 05:40 Vital Signs Period Temp Pulse Resp BP Sys/Blanca Pulse Ox Last 24 Hr 97.6 F-98.4 F 75-102 18-20 140-169/74-93 88-96 S1S2 RRR Lungs scattered rhonchi abd soft NT no edema aaox3 nonfocal Imp 67 yo M admitted for dyspnea and cough Pneumonia/interstitial infiltrates. ESRD on HD since 2014 IDDM CAD with stents HTN Gout OA Plan isolation r/o TB-three sputums have been collected-2 smear negative so far vasculitis panel pending iv steroid iv abx HD today nebulizer treatment O2 increase insulin d/w pt
[2017-06-09] MEDS ORDERED: INSULIN DETEMIR 100 UNITS/ML MDV SQ SCH (07:30)
[2017-06-09] MEDS ORDERED: EPOETIN ALFA 2,000 UNIT, EPOETIN ALFA 3,000 UNIT IVPUSH ONE (08:00)
[2017-06-09 09:23] LABS: MCH 29.1 pg (25.7-33.7); MCHC 32.6 g/dl (32.0-35.9); MEAN CELL VOLUME 89.2 fl (80-96); MEAN PLT VOLUME 7.8 fl (7.5-11.1); PLATELET COUNT 332 K/MM3 (134-434); RDW 15.2 % (11.9-15.9); WHITE BLOOD COUNT 10.1 K/mm3 (4.0-10.0)
[2017-06-09] MEDS: ARFORMOTEROL TARTRATE 15 MCG/2 ML VIAL NEB SCH ×2 (09:45→22:10)
[2017-06-09] MEDS: guaiFENesin/D-M SUGAR-FREE/ACLHOL-FREE 118 ML BOTTLE PO SCH ×4 (10:44→22:25)
[2017-06-09] MEDS: CALCIUM ACETATE 667 MG CAPSULE (FP) PO SCH ×3 (10:45→16:38)
[2017-06-09] MEDS: CARVEDILOL 12.5 MG TABLET (FP) PO SCH ×3 (10:45→22:25)
[2017-06-09] MEDS: ASPIRIN COATED 81 MG TABLET.EC PO SCH ×2 (10:45→14:55)
[2017-06-09] MEDS: SEVELAMER CARBONATE 800 MG TAB (FP) PO SCH ×3 (10:45→16:37)
[2017-06-09] MEDS: ISOSORBIDE MONONITRATE 30 MG TAB.SR.24H (FP) PO SCH ×2 (10:46→14:53)
[2017-06-09] MEDS: HEPARIN NA (PORCINE) 5,000 UNITS/ML 1ML VIAL SQ SCH ×2 (10:46→22:25)
[2017-06-09] MEDS: cefTRIAXone 1 GM/50 ML BAG (PRE-DOCKED) IVPB SCH (10:47)
[2017-06-09] MEDS: LISINOPRIL 20 MG TABLET (FP) PO SCH (10:48)
[2017-06-09] MEDS: methylPREDNISolone NA SUCC 40 MG/1 ML VIAL IVPB SCH ×2 (10:52→14:13)
[2017-06-09] MEDS: CLOPIDOGREL BISULFATE 75 MG TABLET (FP) PO SCH ×2 (10:52→14:54)
[2017-06-09] MEDS: AZITHROMYCIN IVPB 250 ML IVPB SCH (10:55)
--- NOTE | 2017-06-09 11:00 | PN ---
Progress Note (short form) - Note Progress Note: PULMONARY AWAKE/HD UNDERWAY AFEBRILE/162/90 NO FURTHER BLOOD STREAKED SPUTUM OR CP SPO2 93% ON 4L/M O2 ANICTERIC RHONCHI B/L S1S2 RSR BS+ LESS EDEMA LOWER EXT LABS/MEDS/NOTES/IMAGING/MEDS/MICRO REVIEWED (1) CHF exacerbation Code(s): I50.9 - HEART FAILURE, UNSPECIFIED Qualifiers: Congestive heart failure type: unspecified congestive heart failure type Qualified Code(s): I50.9 - Heart failure, unspecified (2) Diabetes Code(s): E11.9 - TYPE 2 DIABETES MELLITUS WITHOUT COMPLICATIONS (3) Pneumonia Code(s): J18.9 - PNEUMONIA, UNSPECIFIED ORGANISM (4) ESRD (end stage renal disease) on dialysis Code(s): N18.6 - END STAGE RENAL DISEASE Z99.2 - DEPENDENCE ON RENAL DIALYSIS (5) Hypertension Code(s): I10 - ESSENTIAL (PRIMARY) HYPERTENSION (6) Hemoptysis Code(s): R04.2 - HEMOPTYSIS Assessment/Plan Agree with ID to isolate and check 3RD AFB O2 to keep sat greater than 90% Daily Medrol for CAP BD TX Will likely need repeat imaging after discharge No smoking counseled HD per Renal -> may be a component of Pulmonary vascular congestion Will follow Yoni GALLEGO MD
[2017-06-09] MEDS ORDERED: EPOETIN ALFA 2,000 UNITS/1 ML VIAL IVPUSH ONE (14:15)
[2017-06-09 14:56] LABS: ANION GAP 11 (8-16); CALCIUM 8.2 mg/dL (8.5-10.1); CO2 30 mmol/L (21-32); CREATININE 5.2 mg/dL (0.7-1.3)
--- NOTE | 2017-06-09 15:17 | PN ---
Progress Note, Physician History of Present Illness: Reports less cough No hemoptysis No c/o chest pain/ dyspnea No fever/ chills - Current Medication List Current Medications: Active Medications Albuterol Sulfate (Ventolin 0.083% Nebulizer Soln -) 1 amp NEB Q6H PRN PRN Reason: SHORT OF BREATH/WHEEZING Arformoterol Tartrate (Brovana (Restricted To Pulmonology/Resp) -) 1 amp NEB BID [facility] Last Admin: 06/09/17 09:45 Dose: 1 amp Aspirin (Ecotrin -) 81 mg PO DAILY [facility] Last Admin: 06/09/17 14:55 Dose: 81 mg Calcium Acetate (Phoslo -) 1,334 mg PO TIDCM [facility] Last Admin: 06/09/17 14:55 Dose: 1,334 mg Carvedilol (Coreg -) 12.5 mg PO BID [facility] Last Admin: 06/09/17 14:54 Dose: 12.5 mg Ceftriaxone Sodium (Rocephin 1gm Ivpb (Pre-Docked)) 1 gm IVPB DAILY [facility] PRN Reason: Protocol Last Admin: 06/09/17 10:47 Dose: 1 gm Clopidogrel Bisulfate (Plavix -) 75 mg PO DAILY [facility] Last Admin: 06/09/17 14:54 Dose: 75 mg Gabapentin (Neurontin -) 100 mg PO TID [facility] Last Admin: 06/09/17 14:55 Dose: 100 mg Guaifenesin (Diabetic Tussin Dm -) 10 ml PO QID [facility] Last Admin: 06/09/17 14:55 Dose: 10 ml Heparin Sodium (Porcine) (Heparin -) 5,000 unit SQ BID [facility] Last Admin: 06/09/17 10:46 Dose: Not Given Azithromycin (Zithromax 500mg Ivpb (Pre-Docked)) 250 mls @ 250 mls/hr IVPB DAILY [facility] Last Admin: 06/09/17 10:55 Dose: 250 mls/hr Insulin Aspart (Novolog Vial Sliding Scale -) 1 vial SQ ACHS [facility] PRN Reason: Protocol Last Admin: 06/09/17 11:00 Dose: Not Given Insulin Detemir (Levemir Vial) 15 units SQ DAILY@0700 [facility] Last Admin: 06/09/17 10:52 Dose: Not Given Isosorbide Mononitrate (Imdur -) 30 mg PO DAILY [facility] Last Admin: 06/09/17 14:53 Dose: 30 mg Lisinopril (Prinivil) 20 mg PO DAILY [facility] Last Admin: 06/09/17 10:48 Dose: Not Given Methylprednisolone Sodium Succinate (Solu-Medrol -) 40 mg IVPB DAILY [facility] Last Admin: 06/09/17 10:52 Dose: Not Given Sevelamer Carbonate (Renvela -) 800 mg PO TIDCM [facility] Last Admin: 06/09/17 14:53 Dose: 800 mg - Objective Vital Signs: Vital Signs Temperature 98.2 F 06/09/17 14:00 Pulse Rate 74 06/09/17 14:00 Respiratory Rate 20 06/09/17 14:00 Blood Pressure 139/63 06/09/17 14:00 O2 Sat by Pulse Oximetry (%) 93 L 06/09/17 07:00 Constitutional: Yes: No Distress Eyes: Yes: Conjunctiva Clear Cardiovascular: Yes: Regular Rate and Rhythm, S1, S2 Respiratory: Yes: Other (+ crepitations at bases) Gastrointestinal: Yes: Normal Bowel Sounds, Soft. No: Tenderness Edema: No Labs: CBC, BMP 06/09/17 07:00 INR, PTT INR 1.03 (0.82-1.09) 06/01/17 21:41 Assessment/Plan CHF Bilateral pneumonia ESRD Sputum AFB (-) x2 Continue zithromax/ ceftriaxone
[2017-06-09 15:24] LABS: GLUCOSE,RANDOM 347 mg/dL (74-106)
[2017-06-09 16:27] LABS: C-ANCA <1:20 titer (Neg:<1:20); MYELOPEROXIDASE ANTIBODY <9.0 U/mL (0.0-9.0); P-ANCA <1:20 titer (Neg:<1:20); PROTEINASE-3 ANTIBODY <3.5 U/mL (0.0-3.5)
[2017-06-09] MEDS ORDERED: INSULIN (NOVOLOG) ASPART 100 UNITS/ML 10ML VIAL ONE (16:45)
--- NOTE | 2017-06-09 17:12 | PN ---
Progress Note, Physician History of Present Illness: Pt seen and examined at bedside. He is awake and appears comfortable. He tolerated HD today. - Current Medication List Current Medications: Active Medications Albuterol Sulfate (Ventolin 0.083% Nebulizer Soln -) 1 amp NEB Q6H PRN PRN Reason: SHORT OF BREATH/WHEEZING Arformoterol Tartrate (Brovana (Restricted To Pulmonology/Resp) -) 1 amp NEB BID [facility] Last Admin: 06/09/17 09:45 Dose: 1 amp Aspirin (Ecotrin -) 81 mg PO DAILY [facility] Last Admin: 06/09/17 14:55 Dose: 81 mg Calcium Acetate (Phoslo -) 1,334 mg PO TIDCM [facility] Last Admin: 06/09/17 16:38 Dose: 1,334 mg Carvedilol (Coreg -) 12.5 mg PO BID [facility] Last Admin: 06/09/17 14:54 Dose: 12.5 mg Ceftriaxone Sodium (Rocephin 1gm Ivpb (Pre-Docked)) 1 gm IVPB DAILY [facility] PRN Reason: Protocol Last Admin: 06/09/17 10:47 Dose: 1 gm Clopidogrel Bisulfate (Plavix -) 75 mg PO DAILY [facility] Last Admin: 06/09/17 14:54 Dose: 75 mg Gabapentin (Neurontin -) 100 mg PO TID [facility] Last Admin: 06/09/17 14:55 Dose: 100 mg Guaifenesin (Diabetic Tussin Dm -) 10 ml PO QID [facility] Last Admin: 06/09/17 17:05 Dose: 10 ml Heparin Sodium (Porcine) (Heparin -) 5,000 unit SQ BID [facility] Last Admin: 06/09/17 10:46 Dose: Not Given Azithromycin (Zithromax 500mg Ivpb (Pre-Docked)) 250 mls @ 250 mls/hr IVPB DAILY [facility] Last Admin: 06/09/17 10:55 Dose: 250 mls/hr Insulin Aspart (Novolog Vial Sliding Scale -) 1 vial SQ ACHS [facility] PRN Reason: Protocol Last Admin: 06/09/17 17:04 Dose: 8 units Insulin Detemir (Levemir Vial) 15 units SQ DAILY@0700 [facility] Last Admin: 06/09/17 10:52 Dose: Not Given Isosorbide Mononitrate (Imdur -) 30 mg PO DAILY [facility] Last Admin: 06/09/17 14:53 Dose: 30 mg Lisinopril (Prinivil) 20 mg PO DAILY [facility] Last Admin: 06/09/17 10:48 Dose: Not Given Methylprednisolone Sodium Succinate (Solu-Medrol -) 40 mg IVPB DAILY [facility] Last Admin: 06/09/17 10:52 Dose: Not Given Sevelamer Carbonate (Renvela -) 800 mg PO TIDCM [facility] Last Admin: 06/09/17 16:37 Dose: 800 mg - Objective Vital Signs: Vital Signs Temperature 98.2 F 06/09/17 14:00 Pulse Rate 74 06/09/17 14:00 Respiratory Rate 20 06/09/17 14:00 Blood Pressure 139/63 06/09/17 14:00 O2 Sat by Pulse Oximetry (%) 93 L 06/09/17 07:00 Constitutional: Yes: Calm Eyes: Yes: Conjunctiva Clear Cardiovascular: Yes: JVD, S1, S2 Respiratory: Yes: On Nasal O2 Gastrointestinal: Yes: Soft Genitourinary: Yes: WNL Musculoskeletal: Yes: WNL Extremities: Yes: WNL Edema: No Neurological: Yes: Oriented Psychiatric: Yes: Oriented Labs: CBC, BMP 06/09/17 07:00 06/09/17 07:00 INR, PTT INR 1.03 (0.82-1.09) 06/01/17 21:41 Problem List - Problems (1) ESRD (end stage renal disease) on dialysis Code(s): N18.6 - END STAGE RENAL DISEASE Z99.2 - DEPENDENCE ON RENAL DIALYSIS Assessment/Plan Current Medications Generic Name Dose Route Start Last Admin Trade Name Jose L PRN Reason Stop Dose Admin Albuterol Sulfate 1 amp 06/07/17 07:10 Ventolin 0.083% Nebulizer Soln - NEB Q6H PRN SHORT OF BREATH/WHEEZING Arformoterol Tartrate 1 amp 06/06/17 22:00 06/09/17 09:45 Brovana (Restricted To Pulmonology/Resp) - NEB 1 amp BID [facility] Administration Aspirin 81 mg 06/02/17 10:00 06/09/17 14:55 Ecotrin - PO 81 mg DAILY [facility] Administration Calcium Acetate 1,334 mg 06/04/17 12:00 06/09/17 16:38 Phoslo - PO 1,334 mg TIDCM [facility] Administration Carvedilol 12.5 mg 06/02/17 10:00 06/09/17 14:54 Coreg - PO 12.5 mg BID [facility] Administration Ceftriaxone Sodium 1 gm 06/02/17 13:00 06/09/17 10:47 Rocephin 1gm Ivpb (Pre-Docked) IVPB 1 gm DAILY [facility] Administration Protocol Clopidogrel Bisulfate 75 mg 06/02/17 10:00 06/09/17 14:54 Plavix - PO 75 mg DAILY [facility] Administration Gabapentin 100 mg 06/02/17 14:00 06/09/17 14:55 Neurontin - PO 100 mg TID [facility] Administration Guaifenesin 10 ml 06/08/17 07:45 06/09/17 17:05 Diabetic Tussin Dm - PO 10 ml QID [facility] Administration Heparin Sodium (Porcine) 5,000 unit 06/07/17 10:00 06/09/17 10:46 Heparin - SQ Not Given BID [facility] Azithromycin 250 mls @ 250 mls/hr 06/07/17 12:45 06/09/17 10:55 Zithromax 500mg Ivpb (Pre-Docked) IVPB 250 mls/hr DAILY [facility] Administration Insulin Aspart 1 vial 06/07/17 07:10 06/09/17 17:04 Novolog Vial Sliding Scale - SQ 8 units ACHS [facility] Administration Protocol Insulin Detemir 15 units 06/09/17 07:30 06/09/17 10:52 Levemir Vial SQ Not Given DAILY@0700 [facility] Isosorbide Mononitrate 30 mg 06/02/17 10:00 06/09/17 14:53 Imdur - PO 30 mg DAILY [facility] Administration Lisinopril 20 mg 06/02/17 10:00 06/09/17 10:48 Prinivil PO Not Given DAILY [facility] Methylprednisolone Sodium Succinate 40 mg 06/06/17 14:15 06/09/17 10:52 Solu-Medrol - IVPB Not Given DAILY [facility] Sevelamer Carbonate 800 mg 06/06/17 17:30 06/09/17 16:37 Renvela - PO 800 mg TIDCM [facility] Administration Impression 1. ESRD 2. fluid overload 3. HTN 4. DM 5. anemia 6. hemoptysis Plan - pt tolerated HD today - will asses for lasix tomorrow - renal diet and fluid restriction - cardio input appreciated - cont current meds - will follow Dr Barbosa
[2017-06-09] MEDS: INSULIN DETEMIR 100 UNITS/ML MDV SQ SCH (22:25)
[2017-06-10] MEDS: INSULIN SLIDING SCALE (NOVOLOG) 1 VIAL SQ SCH ×4 (06:19→21:57)
[2017-06-10] MEDS: GABAPENTIN 100 MG CAPSULE (FP) PO SCH ×3 (06:19→21:57)
[2017-06-10] MEDS: SEVELAMER CARBONATE 800 MG TAB (FP) PO SCH ×3 (08:48→17:29)
[2017-06-10] MEDS: CALCIUM ACETATE 667 MG CAPSULE (FP) PO SCH ×3 (08:49→17:29)
--- NOTE | 2017-06-10 08:52 | PN ---
Progress Note, Physician Chief Complaint: sob History of Present Illness: sob resolved he says. still coughing lots of phlegm no cp, palpit, leg swelling - Current Medication List Current Medications: Active Medications Albuterol Sulfate (Ventolin 0.083% Nebulizer Soln -) 1 amp NEB Q6H PRN PRN Reason: SHORT OF BREATH/WHEEZING Arformoterol Tartrate (Brovana (Restricted To Pulmonology/Resp) -) 1 amp NEB BID [facility] Last Admin: 06/09/17 22:10 Dose: 1 amp Aspirin (Ecotrin -) 81 mg PO DAILY [facility] Last Admin: 06/09/17 14:55 Dose: 81 mg Calcium Acetate (Phoslo -) 1,334 mg PO TIDCM [facility] Last Admin: 06/09/17 16:38 Dose: 1,334 mg Carvedilol (Coreg -) 12.5 mg PO BID [facility] Last Admin: 06/09/17 22:25 Dose: 12.5 mg Ceftriaxone Sodium (Rocephin 1gm Ivpb (Pre-Docked)) 1 gm IVPB DAILY [facility] PRN Reason: Protocol Last Admin: 06/09/17 10:47 Dose: 1 gm Clopidogrel Bisulfate (Plavix -) 75 mg PO DAILY [facility] Last Admin: 06/09/17 14:54 Dose: 75 mg Gabapentin (Neurontin -) 100 mg PO TID [facility] Last Admin: 06/10/17 06:19 Dose: 100 mg Guaifenesin (Diabetic Tussin Dm -) 10 ml PO QID [facility] Last Admin: 06/09/17 22:25 Dose: 10 ml Heparin Sodium (Porcine) (Heparin -) 5,000 unit SQ BID [facility] Last Admin: 06/09/17 22:25 Dose: 5,000 unit Azithromycin (Zithromax 500mg Ivpb (Pre-Docked)) 250 mls @ 250 mls/hr IVPB DAILY [facility] Last Admin: 06/09/17 10:55 Dose: 250 mls/hr Insulin Aspart (Novolog Vial Sliding Scale -) 1 vial SQ ACHS [facility] PRN Reason: Protocol Last Admin: 06/10/17 06:19 Dose: Not Given Insulin Detemir (Levemir Vial) 30 units SQ HS [facility] Last Admin: 06/09/17 22:25 Dose: 30 units Isosorbide Mononitrate (Imdur -) 30 mg PO DAILY [facility] Last Admin: 06/09/17 14:53 Dose: 30 mg Lisinopril (Prinivil) 20 mg PO DAILY [facility] Last Admin: 06/09/17 10:48 Dose: Not Given Methylprednisolone Sodium Succinate (Solu-Medrol -) 40 mg IVPB DAILY [facility] Last Admin: 06/09/17 14:13 Dose: 40 mg Sevelamer Carbonate (Renvela -) 800 mg PO TIDCM [facility] Last Admin: 06/09/17 16:37 Dose: 800 mg - Objective Vital Signs: Vital Signs Temperature 98.1 F 06/10/17 06:41 Pulse Rate 74 06/10/17 06:41 Respiratory Rate 20 06/10/17 06:41 Blood Pressure 186/98 06/10/17 06:41 O2 Sat by Pulse Oximetry (%) 94 L 06/09/17 22:00 Constitutional: Yes: Well Nourished, No Distress, Calm Cardiovascular: Yes: Regular Rate and Rhythm, S1, S2. No: Gallop, Murmur Respiratory: Yes: Regular, Rales (faint rales bases). No: Accessory Muscle Use , Wheezes Extremities: No: Cold Edema: No Neurological: Yes: Alert, Oriented Psychiatric: No: Agitated Labs: CBC, BMP 06/09/17 07:00 06/09/17 07:00 INR, PTT INR 1.03 (0.82-1.09) 06/01/17 21:41 Assessment/Plan Echo 05/29 (here): mild LVE, low-nl LVEF; nl RV; mild AI/MR/TR mibi 2011: nl mpi ecg 06/01/17: no ischemic changes a/p: 67 m hx esrd on hd, dm, cad s/p remote mi/pci (10+yrs ago), sent by pmd for possible pna. sob, pna, component of acute diast chf: -pt c/o sob, possible chf component -vol mgmt per renal with HD -interstitial component to infiltrates--w/u underway per pulmonary/pmd -cont abx per pmd/ID -sob improving HTN: -bp not well controlled -cont carvedilol, isosorbide, lisinopril -add amlodipine--defer to renal re: adjustments if bp dropping at dialysis esrd: -cont HD per renal cp, cad s/p remote mi/pci: -atypical cp on admit, possibly related to pna/coughing--cp has resolved -no signs acs, ce's negx2, ecg w/o ischemic changes -mibi here 2011 w/o ischemia -cont home kylah, bb, imdur, dapt -not on statin, h/o CAD--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
[2017-06-10] MEDS: ARFORMOTEROL TARTRATE 15 MCG/2 ML VIAL NEB SCH ×2 (10:01→21:50)
--- NOTE | 2017-06-10 10:18 | PN ---
Progress Note (short form) - Note Progress Note: PULMONARY AWAKE/HD UNDERWAY AFEBRILE/186/98 NO FURTHER BLOOD STREAKED SPUTUM SPO2 93% ON 4L/M O2 ANICTERIC RHONCHI B/L S1S2 RSR BS+ LESS EDEMA LOWER EXT LABS/MEDS/NOTES/IMAGING/MEDS/MICRO REVIEWED (1) CHF exacerbation Code(s): I50.9 - HEART FAILURE, UNSPECIFIED Qualifiers: Congestive heart failure type: unspecified congestive heart failure type Qualified Code(s): I50.9 - Heart failure, unspecified (2) Diabetes Code(s): E11.9 - TYPE 2 DIABETES MELLITUS WITHOUT COMPLICATIONS (3) Pneumonia Code(s): J18.9 - PNEUMONIA, UNSPECIFIED ORGANISM (4) ESRD (end stage renal disease) on dialysis Code(s): N18.6 - END STAGE RENAL DISEASE Z99.2 - DEPENDENCE ON RENAL DIALYSIS (5) Hypertension Code(s): I10 - ESSENTIAL (PRIMARY) HYPERTENSION (6) Hemoptysis Code(s): R04.2 - HEMOPTYSIS Assessment/Plan Agree with ID to isolate and check 3RD AFB which is pending Have ordered repeat ct chest May ultimately need a bronchoscopy to determine etiology of bilateral diffuse infiltrates O2 to keep sat greater than 90% Daily Medrol for CAP BD TX No smoking counseled HD per Renal -> may be a component of Pulmonary vascular congestion Will follow Yoni GALLEGO MD
[2017-06-10] MEDS: HEPARIN NA (PORCINE) 5,000 UNITS/ML 1ML VIAL SQ SCH ×2 (10:43→21:56)
[2017-06-10] MEDS: methylPREDNISolone NA SUCC 40 MG/1 ML VIAL IVPB SCH (10:43)
[2017-06-10] MEDS: cefTRIAXone 1 GM/50 ML BAG (PRE-DOCKED) IVPB SCH (10:51)
[2017-06-10] MEDS: CARVEDILOL 12.5 MG TABLET (FP) PO SCH ×2 (11:49→21:57)
[2017-06-10] MEDS: amLODIPine BESYLATE 5 MG TABLET (FP) PO SCH (11:49)
[2017-06-10] MEDS: LISINOPRIL 20 MG TABLET (FP) PO SCH (11:50)
[2017-06-10] MEDS: ASPIRIN COATED 81 MG TABLET.EC PO SCH (11:50)
[2017-06-10] MEDS: ISOSORBIDE MONONITRATE 30 MG TAB.SR.24H (FP) PO SCH (11:50)
[2017-06-10] MEDS: CLOPIDOGREL BISULFATE 75 MG TABLET (FP) PO SCH (11:50)
[2017-06-10] MEDS: AZITHROMYCIN IVPB 250 ML IVPB SCH (11:51)
[2017-06-10] MEDS: guaiFENesin/D-M SUGAR-FREE/ACLHOL-FREE 118 ML BOTTLE PO SCH ×4 (11:53→22:50)
--- NOTE | 2017-06-10 16:43 | PN ---
Progress Note, Physician Chief Complaint: No new complaints - Current Medication List Current Medications: Active Medications Albuterol Sulfate (Ventolin 0.083% Nebulizer Soln -) 1 amp NEB Q6H PRN PRN Reason: SHORT OF BREATH/WHEEZING Amlodipine Besylate (Norvasc -) 5 mg PO DAILY [facility] Last Admin: 06/10/17 11:49 Dose: 5 mg Arformoterol Tartrate (Brovana (Restricted To Pulmonology/Resp) -) 1 amp NEB BID [facility] Last Admin: 06/10/17 10:01 Dose: 1 amp Aspirin (Ecotrin -) 81 mg PO DAILY [facility] Last Admin: 06/10/17 11:50 Dose: 81 mg Calcium Acetate (Phoslo -) 1,334 mg PO TIDCM [facility] Last Admin: 06/10/17 11:49 Dose: 1,334 mg Carvedilol (Coreg -) 12.5 mg PO BID [facility] Last Admin: 06/10/17 11:49 Dose: 12.5 mg Ceftriaxone Sodium (Rocephin 1gm Ivpb (Pre-Docked)) 1 gm IVPB DAILY [facility] PRN Reason: Protocol Last Admin: 06/10/17 10:51 Dose: 1 gm Clopidogrel Bisulfate (Plavix -) 75 mg PO DAILY [facility] Last Admin: 06/10/17 11:50 Dose: 75 mg Gabapentin (Neurontin -) 100 mg PO TID [facility] Last Admin: 06/10/17 15:13 Dose: 100 mg Guaifenesin (Diabetic Tussin Dm -) 10 ml PO QID [facility] Last Admin: 06/10/17 15:13 Dose: 10 ml Heparin Sodium (Porcine) (Heparin -) 5,000 unit SQ BID [facility] Last Admin: 06/10/17 10:43 Dose: 5,000 unit Azithromycin (Zithromax 500mg Ivpb (Pre-Docked)) 250 mls @ 250 mls/hr IVPB DAILY [facility] Last Admin: 06/10/17 11:51 Dose: 250 mls/hr Insulin Aspart (Novolog Vial Sliding Scale -) 1 vial SQ ACHS [facility] PRN Reason: Protocol Last Admin: 06/10/17 11:47 Dose: 2 units Insulin Detemir (Levemir Vial) 30 units SQ HS [facility] Last Admin: 06/09/17 22:25 Dose: 30 units Isosorbide Mononitrate (Imdur -) 30 mg PO DAILY [facility] Last Admin: 06/10/17 11:50 Dose: 30 mg Lisinopril (Prinivil) 20 mg PO DAILY [facility] Last Admin: 06/10/17 11:50 Dose: 20 mg Methylprednisolone Sodium Succinate (Solu-Medrol -) 40 mg IVPB DAILY [facility] Last Admin: 06/10/17 10:43 Dose: 40 mg Sevelamer Carbonate (Renvela -) 800 mg PO TIDCM [facility] Last Admin: 06/10/17 11:48 Dose: 800 mg - Objective Vital Signs: Vital Signs Temperature 97.9 F 06/10/17 15:00 Pulse Rate 90 06/10/17 15:00 Respiratory Rate 18 06/10/17 15:00 Blood Pressure 144/74 06/10/17 15:00 O2 Sat by Pulse Oximetry (%) 94 L 06/09/17 22:00 Constitutional: Yes: No Distress Neck: Yes: Supple Respiratory: Yes: Regular, Other (scttered crackles). No: Accessory Muscle Use Gastrointestinal: Yes: Normal Bowel Sounds, Soft Neurological: Yes: Alert, Oriented. No: Loss of Sensation ...Motor Strength: WNL Labs: CBC, BMP 06/09/17 07:00 06/09/17 07:00 INR, PTT INR 1.03 (0.82-1.09) 06/01/17 21:41 Problem List - Problems (1) Pneumonia Assessment/Plan: 3rd sputum for AFB pending, possible bronchoscopy as per pulmonary Code(s): J18.9 - PNEUMONIA, UNSPECIFIED ORGANISM (2) Type 2 diabetes mellitus with diabetic chronic kidney disease Assessment/Plan: Elevated glucose values, will get endocrine evaluation Code(s): E11.22 - TYPE 2 DIABETES MELLITUS W DIABETIC CHRONIC KIDNEY DISEASE (3) ESRD (end stage renal disease) on dialysis Assessment/Plan: HD as per renal Code(s): N18.6 - END STAGE RENAL DISEASE Z99.2 - DEPENDENCE ON RENAL DIALYSIS
[2017-06-10] MEDS ORDERED: PT OWN MED DRAWER 7, Y5N ONE (17:40)
[2017-06-10] MEDS ORDERED: FUROSEMIDE 100 MG/10 ML INJECTABLE VIAL IVPB ONE (18:03)
--- NOTE | 2017-06-10 18:03 | PN ---
Progress Note, Physician History of Present Illness: Pt seen and examined at bedside. He is awake and alert. - Current Medication List Current Medications: Active Medications Albuterol Sulfate (Ventolin 0.083% Nebulizer Soln -) 1 amp NEB Q6H PRN PRN Reason: SHORT OF BREATH/WHEEZING Amlodipine Besylate (Norvasc -) 5 mg PO DAILY [facility] Last Admin: 06/10/17 11:49 Dose: 5 mg Arformoterol Tartrate (Brovana (Restricted To Pulmonology/Resp) -) 1 amp NEB BID [facility] Last Admin: 06/10/17 10:01 Dose: 1 amp Aspirin (Ecotrin -) 81 mg PO DAILY [facility] Last Admin: 06/10/17 11:50 Dose: 81 mg Calcium Acetate (Phoslo -) 1,334 mg PO TIDCM [facility] Last Admin: 06/10/17 17:29 Dose: 1,334 mg Carvedilol (Coreg -) 12.5 mg PO BID [facility] Last Admin: 06/10/17 11:49 Dose: 12.5 mg Ceftriaxone Sodium (Rocephin 1gm Ivpb (Pre-Docked)) 1 gm IVPB DAILY [facility] PRN Reason: Protocol Last Admin: 06/10/17 10:51 Dose: 1 gm Clopidogrel Bisulfate (Plavix -) 75 mg PO DAILY [facility] Last Admin: 06/10/17 11:50 Dose: 75 mg Gabapentin (Neurontin -) 100 mg PO TID [facility] Last Admin: 06/10/17 15:13 Dose: 100 mg Guaifenesin (Diabetic Tussin Dm -) 10 ml PO QID [facility] Last Admin: 06/10/17 17:29 Dose: 10 ml Heparin Sodium (Porcine) (Heparin -) 5,000 unit SQ BID [facility] Last Admin: 06/10/17 10:43 Dose: 5,000 unit Azithromycin (Zithromax 500mg Ivpb (Pre-Docked)) 250 mls @ 250 mls/hr IVPB DAILY [facility] Last Admin: 06/10/17 11:51 Dose: 250 mls/hr Insulin Aspart (Novolog Vial Sliding Scale -) 1 vial SQ ACHS [facility] PRN Reason: Protocol Last Admin: 06/10/17 17:28 Dose: 10 units Insulin Detemir (Levemir Vial) 30 units SQ HS [facility] Last Admin: 06/09/17 22:25 Dose: 30 units Isosorbide Mononitrate (Imdur -) 30 mg PO DAILY [facility] Last Admin: 06/10/17 11:50 Dose: 30 mg Lisinopril (Prinivil) 20 mg PO DAILY [facility] Last Admin: 06/10/17 11:50 Dose: 20 mg Methylprednisolone Sodium Succinate (Solu-Medrol -) 40 mg IVPB DAILY [facility] Last Admin: 06/10/17 10:43 Dose: 40 mg Sevelamer Carbonate (Renvela -) 800 mg PO TIDCM [facility] Last Admin: 06/10/17 17:29 Dose: 800 mg - Objective Vital Signs: Vital Signs Temperature 97.9 F 06/10/17 15:00 Pulse Rate 90 06/10/17 15:00 Respiratory Rate 18 06/10/17 15:00 Blood Pressure 144/74 06/10/17 15:00 O2 Sat by Pulse Oximetry (%) 94 L 06/09/17 22:00 Constitutional: Yes: Calm Eyes: Yes: Conjunctiva Clear HENT: Yes: Atraumatic Cardiovascular: Yes: JVD, S1, S2 Respiratory: Yes: On Nasal O2 Gastrointestinal: Yes: Soft Genitourinary: Yes: WNL Edema: No Neurological: Yes: Oriented Psychiatric: Yes: Oriented Labs: CBC, BMP 06/09/17 07:00 06/09/17 07:00 INR, PTT INR 1.03 (0.82-1.09) 06/01/17 21:41 Problem List - Problems (1) ESRD (end stage renal disease) on dialysis Code(s): N18.6 - END STAGE RENAL DISEASE Z99.2 - DEPENDENCE ON RENAL DIALYSIS Assessment/Plan Current Medications Generic Name Dose Route Start Last Admin Trade Name Freq PRN Reason Stop Dose Admin Albuterol Sulfate 1 amp 06/07/17 07:10 Ventolin 0.083% Nebulizer Soln - NEB Q6H PRN SHORT OF BREATH/WHEEZING Amlodipine Besylate 5 mg 06/10/17 10:00 06/10/17 11:49 Norvasc - PO 5 mg DAILY [facility] Administration Arformoterol Tartrate 1 amp 06/06/17 22:00 06/10/17 10:01 Brovana (Restricted To Pulmonology/Resp) - NEB 1 amp BID [facility] Administration Aspirin 81 mg 06/02/17 10:00 06/10/17 11:50 Ecotrin - PO 81 mg DAILY [facility] Administration Calcium Acetate 1,334 mg 06/04/17 12:00 06/10/17 17:29 Phoslo - PO 1,334 mg TIDCM [facility] Administration Carvedilol 12.5 mg 06/02/17 10:00 06/10/17 11:49 Coreg - PO 12.5 mg BID [facility] Administration Ceftriaxone Sodium 1 gm 06/02/17 13:00 06/10/17 10:51 Rocephin 1gm Ivpb (Pre-Docked) IVPB 1 gm DAILY [facility] Administration Protocol Clopidogrel Bisulfate 75 mg 06/02/17 10:00 06/10/17 11:50 Plavix - PO 75 mg DAILY [facility] Administration Gabapentin 100 mg 06/02/17 14:00 06/10/17 15:13 Neurontin - PO 100 mg TID [facility] Administration Guaifenesin 10 ml 06/08/17 07:45 06/10/17 17:29 Diabetic Tussin Dm - PO 10 ml QID [facility] Administration Heparin Sodium (Porcine) 5,000 unit 06/07/17 10:00 06/10/17 10:43 Heparin - SQ 5,000 unit BID [facility] Administration Azithromycin 250 mls @ 250 mls/hr 06/07/17 12:45 06/10/17 11:51 Zithromax 500mg Ivpb (Pre-Docked) IVPB 250 mls/hr DAILY [facility] Administration Insulin Aspart 1 vial 06/07/17 07:10 06/10/17 17:28 Novolog Vial Sliding Scale - SQ 10 units ACHS [facility] Administration Protocol Insulin Detemir 30 units 06/09/17 22:00 06/09/17 22:25 Levemir Vial SQ 30 units HS [facility] Administration Isosorbide Mononitrate 30 mg 06/02/17 10:00 06/10/17 11:50 Imdur - PO 30 mg DAILY [facility] Administration Lisinopril 20 mg 06/02/17 10:00 06/10/17 11:50 Prinivil PO 20 mg DAILY [facility] Administration Methylprednisolone Sodium Succinate 40 mg 06/06/17 14:15 06/10/17 10:43 Solu-Medrol - IVPB 40 mg DAILY [facility] Administration Sevelamer Carbonate 800 mg 06/06/17 17:30 06/10/17 17:29 Renvela - PO 800 mg TIDCM [facility] Administration Impression 1. ESRD 2. fluid overload 3. HTN 4. DM 5. anemia 6. hemoptysis Plan - will give dose of lasix today - pt tolerated HD yesterday - renal diet and fluid restriction - cardio input appreciated - cont current meds - will follow Dr Barbosa
[2017-06-10] MEDS: INSULIN DETEMIR 100 UNITS/ML MDV SQ SCH (21:57)
--- NOTE | 2017-06-10 23:40 | CONSULT ---
Consult Consult Specialty:: endocrine Referred by:: pcp Reason for Consultation:: diabetes mellitus - History of Present Illness Chief Complaint: weakness and cough,higher sugars History of Present Illness: Patient is a 67 year old male with history of DM, hypertension, hyperlipidemia, diabetes, ESRD on MWF with LUE AV fistula, who presents to the ED sent in by PCP for pneumonia. Patient reports cough and fever. He also reports SOB. He has elevated bs,frequent boughts of headache and blurred vision,he denies low sugars ,nausea or vomiting. - History Source History Provided By: Patient - Past Medical History Cardio/Vascular: Yes: CAD, HTN, ID Renal/: Yes: Renal Failure, Hemodialysis Rheumatology: Yes: Gout Endocrine: Yes: Diabetes Mellitus - Past Surgical History Past Surgical History: Yes: Arthrosocopy - Alcohol/Substance Use Hx Alcohol Use: No - Smoking History Smoking history: Former smoker Have you smoked in the past 12 months: No If you are a former smoker, when did you quit?: 10 years ago when he had the ID - Social History ADL: Independent Home Medications - Allergies Allergies/Adverse Reactions: Allergies Allergy/AdvReac Type Severity Reaction Status Date / Time No Known Drug Allergies Allergy Verified 06/01/17 19:33 - Home Medications Home Medications: Ambulatory Orders Unobtainable [Unobtainable] 11/28/16 Review of Systems - Review of Systems Constitutional: reports: Loss of Appetite Eyes: reports: Blurred Vision HENT: reports: No Symptoms Cardiovascular: reports: Shortness of Breath Respiratory: reports: Cough, Exercise Intolerance, Orthopnea, SOB, SOB on Exertion Gastrointestinal: reports: Bloating, Constipation Breasts: reports: No Symptoms Reported Musculoskeletal: reports: Extremity Pain, Muscle Pain, Muscle Cramps, Muscle Weakness Integumentary: reports: Pruritis Neurological: reports: Weakness Endocrine: reports: Unexplained Weight Gain Physical Exam Vital Signs: Vital Signs Temperature 97.6 F 06/10/17 18:00 Pulse Rate 78 06/10/17 18:00 Respiratory Rate 18 06/10/17 20:27 Blood Pressure 145/86 06/10/17 18:00 O2 Sat by Pulse Oximetry (%) 94 L 06/09/17 22:00 Constitutional: Yes: Anxious Eyes: Yes: EOM Intact HENT: Yes: Normocephalic Neck: Yes: Trachea Midline Cardiovascular: Yes: Regular Rate and Rhythm Respiratory: Yes: On Nasal O2, Rhonchi, SOB Gastrointestinal: Yes: Abdomen, Obese ...Rectal Exam: Yes: Deferred Breast(s): Yes: WNL Musculoskeletal: Yes: Muscle Weakness Edema: Yes Edema: LLE: 1+, RLE: 1+ Peripheral Pulses WNL: Yes Neurological: Yes: Alert, Oriented Labs: CBC, BMP 06/09/17 07:00 Problem List - Problems (1) CHF exacerbation Code(s): I50.9 - HEART FAILURE, UNSPECIFIED Qualifiers: Congestive heart failure type: unspecified congestive heart failure type Qualified Code(s): I50.9 - Heart failure, unspecified (2) Pneumonia Code(s): J18.9 - PNEUMONIA, UNSPECIFIED ORGANISM (3) Chronic renal insufficiency Code(s): N18.9 - CHRONIC KIDNEY DISEASE, UNSPECIFIED (4) ESRD (end stage renal disease) on dialysis Code(s): N18.6 - END STAGE RENAL DISEASE Z99.2 - DEPENDENCE ON RENAL DIALYSIS (5) End stage renal disease Code(s): N18.6 - END STAGE RENAL DISEASE (6) Type 2 diabetes mellitus with diabetic chronic kidney disease Code(s): E11.22 - TYPE 2 DIABETES MELLITUS W DIABETIC CHRONIC KIDNEY DISEASE Assessment/Plan Current Active Problems CHF exacerbation (Acute) Diabetes (Acute) Hemoptysis (Acute) Pneumonia (Acute) esrd,ckd iddm uncontrolled hyperglycemia diabetic neuropathy Laboratory Results - last 24 hr 06/10/17 06/10/17 06/10/17 06:17 11:39 17:27 POC Glucometer 197 181 387 06/10/17 21:54 POC Glucometer 430 Laboratory Tests 06/03/17 06/09/17 06/09/17 09:25 07:00 17:01 Sodium 137 Potassium 3.8 D Chloride 96 L Carbon Dioxide 30 Anion Gap 11 BUN 46 H D Creatinine 5.2 H D POC Glucometer 316 Random Glucose 347 H* D Hemoglobin A1c % 9.7 H 06/09/17 06/10/17 21:17 06:17 Sodium Potassium Chloride Carbon Dioxide Anion Gap BUN Creatinine POC Glucometer 375 197 Random Glucose Hemoglobin A1c % plan:levemir dose titrate while on steroids higher resistance levemir 35 units am levemir 30 units hs novolog insulin dose achs
[2017-06-11] MEDS: INSULIN SLIDING SCALE (NOVOLOG) 1 VIAL SQ SCH ×4 (07:03→22:23)
[2017-06-11] MEDS: GABAPENTIN 100 MG CAPSULE (FP) PO SCH ×3 (07:03→22:15)
[2017-06-11] MEDS ORDERED: PT OWN MED DRAWER 7, Y5N ONE (08:35)
[2017-06-11] MEDS: CALCIUM ACETATE 667 MG CAPSULE (FP) PO SCH ×3 (08:39→17:16)
[2017-06-11] MEDS: SEVELAMER CARBONATE 800 MG TAB (FP) PO SCH ×3 (08:40→17:17)
[2017-06-11] MEDS: INSULIN DETEMIR 100 UNITS/ML MDV SQ SCH ×2 (08:41→22:22)
[2017-06-11] MEDS: guaiFENesin/D-M SUGAR-FREE/ACLHOL-FREE 118 ML BOTTLE PO SCH ×4 (09:37→22:23)
[2017-06-11] MEDS: cefTRIAXone 1 GM/50 ML BAG (PRE-DOCKED) IVPB SCH (09:38)
[2017-06-11] MEDS: methylPREDNISolone NA SUCC 40 MG/1 ML VIAL IVPB SCH (09:39)
[2017-06-11] MEDS: AZITHROMYCIN IVPB 250 ML IVPB SCH (09:39)
[2017-06-11] MEDS: HEPARIN NA (PORCINE) 5,000 UNITS/ML 1ML VIAL SQ SCH ×2 (09:39→22:15)
[2017-06-11] MEDS: ASPIRIN COATED 81 MG TABLET.EC PO SCH (09:40)
[2017-06-11] MEDS: CLOPIDOGREL BISULFATE 75 MG TABLET (FP) PO SCH (09:40)
[2017-06-11] MEDS: amLODIPine BESYLATE 5 MG TABLET (FP) PO SCH (09:40)
[2017-06-11] MEDS: ISOSORBIDE MONONITRATE 30 MG TAB.SR.24H (FP) PO SCH (09:40)
[2017-06-11] MEDS: CARVEDILOL 12.5 MG TABLET (FP) PO SCH ×2 (09:40→22:15)
[2017-06-11] MEDS: LISINOPRIL 20 MG TABLET (FP) PO SCH (09:40)
[2017-06-11] MEDS: ARFORMOTEROL TARTRATE 15 MCG/2 ML VIAL NEB SCH ×2 (10:52→22:10)
--- NOTE | 2017-06-11 11:25 | PN ---
Progress Note (short form) - Note Progress Note: Progress Note, Physician Chief Complaint: sob History of Present Illness: +productive cough, no sob no palp, swelling, syncope, cp - Current Medication List Current Medications Generic Name Dose Route Start Last Admin Trade Name Freq PRN Reason Stop Dose Admin Albuterol Sulfate 1 amp 06/07/17 07:10 Ventolin 0.083% Nebulizer Soln - NEB Q6H PRN SHORT OF BREATH/WHEEZING Amlodipine Besylate 5 mg 06/10/17 10:00 06/11/17 09:40 Norvasc - PO 5 mg DAILY [facility] Administration Arformoterol Tartrate 1 amp 06/06/17 22:00 06/10/17 21:50 Brovana (Restricted To Pulmonology/Resp) - NEB 1 amp BID [facility] Administration Aspirin 81 mg 06/02/17 10:00 06/11/17 09:40 Ecotrin - PO 81 mg DAILY [facility] Administration Calcium Acetate 1,334 mg 06/04/17 12:00 06/11/17 08:39 Phoslo - PO 1,334 mg TIDCM [facility] Administration Carvedilol 12.5 mg 06/02/17 10:00 06/11/17 09:40 Coreg - PO 12.5 mg BID [facility] Administration Ceftriaxone Sodium 1 gm 06/02/17 13:00 06/11/17 09:38 Rocephin 1gm Ivpb (Pre-Docked) IVPB 1 gm DAILY [facility] Administration Protocol Clopidogrel Bisulfate 75 mg 06/02/17 10:00 06/11/17 09:40 Plavix - PO 75 mg DAILY [facility] Administration Gabapentin 100 mg 06/02/17 14:00 06/11/17 07:03 Neurontin - PO 100 mg TID [facility] Administration Guaifenesin 10 ml 06/08/17 07:45 06/11/17 09:37 Diabetic Tussin Dm - PO 10 ml QID [facility] Administration Heparin Sodium (Porcine) 5,000 unit 06/07/17 10:00 06/11/17 09:39 Heparin - SQ 5,000 unit BID [facility] Administration Azithromycin 250 mls @ 250 mls/hr 06/07/17 12:45 06/11/17 09:39 Zithromax 500mg Ivpb (Pre-Docked) IVPB 250 mls/hr DAILY [facility] Administration Insulin Aspart 1 vial 06/10/17 23:44 06/11/17 07:03 Novolog Vial Sliding Scale - SQ Not Given ACHS COUNT INCLUDES [facility] Protocol Insulin Detemir 35 units 06/11/17 07:00 06/11/17 08:41 Levemir Vial SQ 35 units AM [facility] Administration Insulin Detemir 30 units 06/10/17 23:43 Levemir Vial SQ HS [facility] Isosorbide Mononitrate 30 mg 06/02/17 10:00 06/11/17 09:40 Imdur - PO 30 mg DAILY [facility] Administration Lisinopril 20 mg 06/02/17 10:00 06/11/17 09:40 Prinivil PO 20 mg DAILY [facility] Administration Methylprednisolone Sodium Succinate 40 mg 06/06/17 14:15 06/11/17 09:39 Solu-Medrol - IVPB 40 mg DAILY [facility] Administration Sevelamer Carbonate 800 mg 06/06/17 17:30 06/11/17 08:40 Renvela - PO 800 mg TIDCM [facility] Administration - Objective Vital Signs: Vital Signs Period Temp Pulse Resp BP Sys/Blanca Pulse Ox Last 24 Hr 97.6 F-98.2 F 62-90 18-19 142-153/74-89 92-96 Constitutional: Yes: Well Nourished, No Distress, Calm Cardiovascular: Yes: Regular Rate and Rhythm, JVD (probable), S1, S2. No: Gallop, Murmur Respiratory: Yes: Regular, ctabl. No: Accessory Muscle Use, Rales, Wheezes Extremities: No: Cold Edema: No Neurological: Yes: Alert, Oriented Psychiatric: No: Agitated no jaundice diaphoresis Labs: CBC, BMP 06/09/17 07:00 06/10/17 22:30 Echo 05/29 (here): mild LVE, low-nl LVEF; nl RV; mild AI/MR/TR mibi 10/2012: nl mpi ecg 06/01/17: no ischemic changes a/p: 67 m hx esrd on hd, dm, cad s/p remote mi/pci (10+yrs ago), sent by pmd for possible pna. 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
--- NOTE | 2017-06-11 12:06 | PN ---
Progress Note, Physician Chief Complaint: No new complaints - Current Medication List Current Medications: Active Medications Albuterol Sulfate (Ventolin 0.083% Nebulizer Soln -) 1 amp NEB Q6H PRN PRN Reason: SHORT OF BREATH/WHEEZING Amlodipine Besylate (Norvasc -) 5 mg PO DAILY [facility] Last Admin: 06/11/17 09:40 Dose: 5 mg Arformoterol Tartrate (Brovana (Restricted To Pulmonology/Resp) -) 1 amp NEB BID [facility] Last Admin: 06/10/17 21:50 Dose: 1 amp Aspirin (Ecotrin -) 81 mg PO DAILY [facility] Last Admin: 06/11/17 09:40 Dose: 81 mg Calcium Acetate (Phoslo -) 1,334 mg PO TIDCM [facility] Last Admin: 06/11/17 11:50 Dose: 1,334 mg Carvedilol (Coreg -) 12.5 mg PO BID [facility] Last Admin: 06/11/17 09:40 Dose: 12.5 mg Ceftriaxone Sodium (Rocephin 1gm Ivpb (Pre-Docked)) 1 gm IVPB DAILY [facility] PRN Reason: Protocol Last Admin: 06/11/17 09:38 Dose: 1 gm Clopidogrel Bisulfate (Plavix -) 75 mg PO DAILY [facility] Last Admin: 06/11/17 09:40 Dose: 75 mg Gabapentin (Neurontin -) 100 mg PO TID [facility] Last Admin: 06/11/17 07:03 Dose: 100 mg Guaifenesin (Diabetic Tussin Dm -) 10 ml PO QID [facility] Last Admin: 06/11/17 09:37 Dose: 10 ml Heparin Sodium (Porcine) (Heparin -) 5,000 unit SQ BID [facility] Last Admin: 06/11/17 09:39 Dose: 5,000 unit Azithromycin (Zithromax 500mg Ivpb (Pre-Docked)) 250 mls @ 250 mls/hr IVPB DAILY [facility] Last Admin: 06/11/17 09:39 Dose: 250 mls/hr Insulin Aspart (Novolog Vial Sliding Scale -) 1 vial SQ ACHS [facility] PRN Reason: Protocol Last Admin: 06/11/17 11:55 Dose: Not Given Insulin Detemir (Levemir Vial) 35 units SQ AM [facility] Last Admin: 06/11/17 08:41 Dose: 35 units Insulin Detemir (Levemir Vial) 30 units SQ HS [facility] Isosorbide Mononitrate (Imdur -) 30 mg PO DAILY [facility] Last Admin: 06/11/17 09:40 Dose: 30 mg Lisinopril (Prinivil) 20 mg PO DAILY [facility] Last Admin: 06/11/17 09:40 Dose: 20 mg Methylprednisolone Sodium Succinate (Solu-Medrol -) 40 mg IVPB DAILY [facility] Last Admin: 06/11/17 09:39 Dose: 40 mg Sevelamer Carbonate (Renvela -) 800 mg PO TIDCM [facility] Last Admin: 06/11/17 11:50 Dose: 800 mg - Objective Vital Signs: Vital Signs Temperature 98.2 F 06/11/17 08:16 Pulse Rate 67 06/11/17 08:16 Respiratory Rate 19 06/11/17 08:21 Blood Pressure 145/80 06/11/17 08:16 O2 Sat by Pulse Oximetry (%) 96 06/11/17 08:21 Constitutional: Yes: No Distress Neck: Yes: Supple Cardiovascular: Yes: Regular Rate and Rhythm, S1, S2 Respiratory: Yes: CTA Bilaterally Gastrointestinal: Yes: Normal Bowel Sounds, Soft Neurological: Yes: Alert, Oriented. No: Loss of Sensation ...Motor Strength: WNL Labs: CBC, BMP 06/09/17 07:00 06/10/17 22:30 INR, PTT INR 1.03 (0.82-1.09) 06/01/17 21:41 Problem List - Problems (1) Pneumonia Assessment/Plan: AFB negative X3 Code(s): J18.9 - PNEUMONIA, UNSPECIFIED ORGANISM (2) Type 2 diabetes mellitus with diabetic chronic kidney disease Assessment/Plan: Monitor Code(s): E11.22 - TYPE 2 DIABETES MELLITUS W DIABETIC CHRONIC KIDNEY DISEASE (3) ESRD (end stage renal disease) on dialysis Assessment/Plan: HD as per renal Code(s): N18.6 - END STAGE RENAL DISEASE Z99.2 - DEPENDENCE ON RENAL DIALYSIS
--- NOTE | 2017-06-11 13:00 | PN ---
Progress Note (short form) - Note Progress Note: PULMONARY AFEBRILE/140/80 NO FURTHER BLOOD STREAKED SPUTUM 3 SPUTUMS ARE NEGATIVE FOR AFB ANICTERIC RHONCHI B/L S1S2 RSR BS+ LESS EDEMA LOWER EXT LABS/MEDS/NOTES/IMAGING/MEDS/MICRO REVIEWED (1) CHF exacerbation Code(s): I50.9 - HEART FAILURE, UNSPECIFIED Qualifiers: Congestive heart failure type: unspecified congestive heart failure type Qualified Code(s): I50.9 - Heart failure, unspecified (2) Diabetes Code(s): E11.9 - TYPE 2 DIABETES MELLITUS WITHOUT COMPLICATIONS (3) Pneumonia Code(s): J18.9 - PNEUMONIA, UNSPECIFIED ORGANISM (4) ESRD (end stage renal disease) on dialysis Code(s): N18.6 - END STAGE RENAL DISEASE Z99.2 - DEPENDENCE ON RENAL DIALYSIS (5) Hypertension Code(s): I10 - ESSENTIAL (PRIMARY) HYPERTENSION (6) Hemoptysis Code(s): R04.2 - HEMOPTYSIS Assessment/Plan Will eval need for bronchoscopy to determine etiology of bilateral diffuse infiltrates O2 to keep sat greater than 90% Daily Medrol for CAP BD TX No smoking counseled HD per Renal -> may be a component of Pulmonary vascular congestion Will ask Dr. Sims to see patient for possible broncho. Yoni GALLEGO MD
[2017-06-11 15:08] LABS: MCH 29.3 pg (25.7-33.7); MCHC 32.6 g/dl (32.0-35.9); MEAN CELL VOLUME 89.9 fl (80-96); MEAN PLT VOLUME 7.1 fl (7.5-11.1); PLATELET COUNT 313 K/MM3 (134-434); RDW 15.3 % (11.9-15.9); WHITE BLOOD COUNT 10.8 K/mm3 (4.0-10.0)
--- NOTE | 2017-06-11 17:01 | PN ---
Progress Note, Physician History of Present Illness: Pt seen and examined at bedside. He is awake and alert. He feels that his breathing is comfortable today. - Current Medication List Current Medications: Active Medications Albuterol Sulfate (Ventolin 0.083% Nebulizer Soln -) 1 amp NEB Q6H PRN PRN Reason: SHORT OF BREATH/WHEEZING Amlodipine Besylate (Norvasc -) 5 mg PO DAILY [facility] Last Admin: 06/11/17 09:40 Dose: 5 mg Arformoterol Tartrate (Brovana (Restricted To Pulmonology/Resp) -) 1 amp NEB BID [facility] Last Admin: 06/11/17 10:52 Dose: 1 amp Aspirin (Ecotrin -) 81 mg PO DAILY [facility] Last Admin: 06/11/17 09:40 Dose: 81 mg Calcium Acetate (Phoslo -) 1,334 mg PO TIDCM [facility] Last Admin: 06/11/17 11:50 Dose: 1,334 mg Carvedilol (Coreg -) 12.5 mg PO BID [facility] Last Admin: 06/11/17 09:40 Dose: 12.5 mg Ceftriaxone Sodium (Rocephin 1gm Ivpb (Pre-Docked)) 1 gm IVPB DAILY [facility] PRN Reason: Protocol Last Admin: 06/11/17 09:38 Dose: 1 gm Clopidogrel Bisulfate (Plavix -) 75 mg PO DAILY [facility] Last Admin: 06/11/17 09:40 Dose: 75 mg Gabapentin (Neurontin -) 100 mg PO TID [facility] Last Admin: 06/11/17 13:45 Dose: 100 mg Guaifenesin (Diabetic Tussin Dm -) 10 ml PO QID [facility] Last Admin: 06/11/17 09:37 Dose: 10 ml Heparin Sodium (Porcine) (Heparin -) 5,000 unit SQ BID [facility] Last Admin: 06/11/17 09:39 Dose: 5,000 unit Azithromycin (Zithromax 500mg Ivpb (Pre-Docked)) 250 mls @ 250 mls/hr IVPB DAILY [facility] Last Admin: 06/11/17 09:39 Dose: 250 mls/hr Insulin Aspart (Novolog Vial Sliding Scale -) 1 vial SQ ACHS [facility] PRN Reason: Protocol Last Admin: 06/11/17 11:55 Dose: Not Given Insulin Detemir (Levemir Vial) 35 units SQ AM [facility] Last Admin: 06/11/17 08:41 Dose: 35 units Insulin Detemir (Levemir Vial) 30 units SQ HS [facility] Isosorbide Mononitrate (Imdur -) 30 mg PO DAILY [facility] Last Admin: 06/11/17 09:40 Dose: 30 mg Lisinopril (Prinivil) 20 mg PO DAILY [facility] Last Admin: 06/11/17 09:40 Dose: 20 mg Methylprednisolone Sodium Succinate (Solu-Medrol -) 40 mg IVPB DAILY [facility] Last Admin: 06/11/17 09:39 Dose: 40 mg Sevelamer Carbonate (Renvela -) 800 mg PO TIDCM [facility] Last Admin: 06/11/17 11:50 Dose: 800 mg - Objective Vital Signs: Vital Signs Temperature 97.5 F L 06/11/17 15:57 Pulse Rate 92 H 06/11/17 15:57 Respiratory Rate 18 06/11/17 15:57 Blood Pressure 147/76 06/11/17 15:57 O2 Sat by Pulse Oximetry (%) 96 06/11/17 08:21 Constitutional: Yes: Calm Eyes: Yes: Conjunctiva Clear HENT: Yes: Atraumatic Cardiovascular: Yes: JVD, S1, S2 Respiratory: Yes: On Nasal O2 Gastrointestinal: Yes: Soft Genitourinary: Yes: WNL Musculoskeletal: Yes: WNL Edema: No Neurological: Yes: Oriented Psychiatric: Yes: Oriented Labs: CBC, BMP 06/11/17 14:50 INR, PTT INR 1.03 (0.82-1.09) 06/01/17 21:41 Problem List - Problems (1) ESRD (end stage renal disease) on dialysis Code(s): N18.6 - END STAGE RENAL DISEASE Z99.2 - DEPENDENCE ON RENAL DIALYSIS Assessment/Plan Current Medications Generic Name Dose Route Start Last Admin Trade Name Freq PRN Reason Stop Dose Admin Albuterol Sulfate 1 amp 06/07/17 07:10 Ventolin 0.083% Nebulizer Soln - NEB Q6H PRN SHORT OF BREATH/WHEEZING Amlodipine Besylate 5 mg 06/10/17 10:00 06/11/17 09:40 Norvasc - PO 5 mg DAILY [facility] Administration Arformoterol Tartrate 1 amp 06/06/17 22:00 06/11/17 10:52 Brovana (Restricted To Pulmonology/Resp) - NEB 1 amp BID [facility] Administration Aspirin 81 mg 06/02/17 10:00 06/11/17 09:40 Ecotrin - PO 81 mg DAILY [facility] Administration Calcium Acetate 1,334 mg 06/04/17 12:00 06/11/17 11:50 Phoslo - PO 1,334 mg TIDCM [facility] Administration Carvedilol 12.5 mg 06/02/17 10:00 06/11/17 09:40 Coreg - PO 12.5 mg BID [facility] Administration Ceftriaxone Sodium 1 gm 06/02/17 13:00 06/11/17 09:38 Rocephin 1gm Ivpb (Pre-Docked) IVPB 1 gm DAILY [facility] Administration Protocol Clopidogrel Bisulfate 75 mg 06/02/17 10:00 06/11/17 09:40 Plavix - PO 75 mg DAILY [facility] Administration Gabapentin 100 mg 06/02/17 14:00 06/11/17 13:45 Neurontin - PO 100 mg TID [facility] Administration Guaifenesin 10 ml 06/08/17 07:45 06/11/17 09:37 Diabetic Tussin Dm - PO 10 ml QID [facility] Administration Heparin Sodium (Porcine) 5,000 unit 06/07/17 10:00 06/11/17 09:39 Heparin - SQ 5,000 unit BID [facility] Administration Azithromycin 250 mls @ 250 mls/hr 06/07/17 12:45 06/11/17 09:39 Zithromax 500mg Ivpb (Pre-Docked) IVPB 250 mls/hr DAILY [facility] Administration Insulin Aspart 1 vial 06/10/17 23:44 06/11/17 11:55 Novolog Vial Sliding Scale - SQ Not Given ACHS [facility] Protocol Insulin Detemir 35 units 06/11/17 07:00 06/11/17 08:41 Levemir Vial SQ 35 units AM [facility] Administration Insulin Detemir 30 units 06/10/17 23:43 Levemir Vial SQ HS [facility] Isosorbide Mononitrate 30 mg 06/02/17 10:00 06/11/17 09:40 Imdur - PO 30 mg DAILY [facility] Administration Lisinopril 20 mg 06/02/17 10:00 06/11/17 09:40 Prinivil PO 20 mg DAILY [facility] Administration Methylprednisolone Sodium Succinate 40 mg 06/06/17 14:15 06/11/17 09:39 Solu-Medrol - IVPB 40 mg DAILY [facility] Administration Sevelamer Carbonate 800 mg 06/06/17 17:30 06/11/17 11:50 Renvela - PO 800 mg TIDCM [facility] Administration Impression 1. ESRD 2. fluid overload 3. HTN 4. DM 5. anemia 6. hemoptysis Plan - will arrange for HD in am - will UF volume tomorrow - may give an extra HD treatment this week if volume status not not improve - renal diet and fluid restriction - cardio input appreciated - cont current meds - will follow Dr Barbosa
[2017-06-11] MEDS ORDERED: INSULIN (NOVOLOG) ASPART 100 UNITS/ML 10ML VIAL ONE (17:12)
[2017-06-11 17:25] LABS: ALBUMIN 2.3 g/dl (3.4-5.0); ANION GAP 14 (8-16); BILIRUBIN,TOTAL 0.4 mg/dL (0.2-1.0); CALCIUM 8.9 mg/dL (8.5-10.1); CO2 27 mmol/L (21-32); GLUCOSE,RANDOM 193 mg/dL (74-106); SGOT/AST 10 U/L (15-37); SGPT/ALT 14 U/L (12-78); TOT PROT 5.2 g/dl (6.4-8.2)
[2017-06-11] MEDS ORDERED: INSULIN DETEMIR 100 UNITS/ML MDV SQ ONE (17:28)
[2017-06-11 17:31] LABS: ALK PHOS 109 U/L (45-117)
[2017-06-11 17:36] LABS: CREATININE 10.1 mg/dL (0.7-1.3)
[2017-06-11] MEDS ORDERED: FUROSEMIDE 100 MG/10 ML INJECTABLE VIAL IVPB ONE ×2 (17:52→20:30)
[2017-06-12] MEDS: GABAPENTIN 100 MG CAPSULE (FP) PO SCH ×3 (06:26→22:25)
[2017-06-12] MEDS: INSULIN DETEMIR 100 UNITS/ML MDV SQ SCH ×2 (06:26→22:27)
[2017-06-12] MEDS: INSULIN SLIDING SCALE (NOVOLOG) 1 VIAL SQ SCH ×4 (06:27→22:27)
[2017-06-12] MEDS ORDERED: PT OWN MED DRAWER 7, Y5N ONE ×2 (07:43→16:39)
[2017-06-12] MEDS: CALCIUM ACETATE 667 MG CAPSULE (FP) PO SCH ×3 (08:20→17:31)
[2017-06-12] MEDS: SEVELAMER CARBONATE 800 MG TAB (FP) PO SCH ×3 (08:20→17:31)
--- NOTE | 2017-06-12 08:46 | PN ---
Progress Note, Physician Chief Complaint: sob History of Present Illness: cough much improved; no more cp no sob today no palpit - Current Medication List Current Medications: Active Medications Amlodipine Besylate (Norvasc -) 5 mg PO DAILY [facility] Last Admin: 06/11/17 09:40 Dose: 5 mg Arformoterol Tartrate (Brovana (Restricted To Pulmonology/Resp) -) 1 amp NEB BID [facility] Last Admin: 06/11/17 22:10 Dose: 1 amp Aspirin (Ecotrin -) 81 mg PO DAILY [facility] Last Admin: 06/11/17 09:40 Dose: 81 mg Calcium Acetate (Phoslo -) 1,334 mg PO TIDCM [facility] Last Admin: 06/12/17 08:20 Dose: 1,334 mg Carvedilol (Coreg -) 12.5 mg PO BID [facility] Last Admin: 06/11/17 22:15 Dose: 12.5 mg Ceftriaxone Sodium (Rocephin 1gm Ivpb (Pre-Docked)) 1 gm IVPB DAILY [facility] PRN Reason: Protocol Last Admin: 06/11/17 09:38 Dose: 1 gm Clopidogrel Bisulfate (Plavix -) 75 mg PO DAILY [facility] Last Admin: 06/11/17 09:40 Dose: 75 mg Epoetin Ishan (Epogen -) 4,000 units IVPUSH ONCE ONE Stop: 06/12/17 17:03 Gabapentin (Neurontin -) 100 mg PO TID [facility] Last Admin: 06/12/17 06:26 Dose: 100 mg Guaifenesin (Diabetic Tussin Dm -) 10 ml PO QID [facility] Last Admin: 06/11/17 22:23 Dose: 10 ml Heparin Sodium (Porcine) (Heparin -) 5,000 unit SQ BID [facility] Last Admin: 06/11/17 22:15 Dose: 5,000 unit Heparin Sodium (Porcine) (Heparin -) 1,000 unit IVPUSH ONCE ONE Stop: 06/12/17 17:03 Azithromycin (Zithromax 500mg Ivpb (Pre-Docked)) 250 mls @ 250 mls/hr IVPB DAILY [facility] Last Admin: 06/11/17 09:39 Dose: 250 mls/hr Insulin Aspart (Novolog Vial Sliding Scale -) 1 vial SQ ACHS [facility] PRN Reason: Protocol Last Admin: 06/12/17 06:27 Dose: 5 units Insulin Detemir (Levemir Vial) 35 units SQ AM [facility] Last Admin: 06/12/17 06:26 Dose: 35 units Insulin Detemir (Levemir Vial) 30 units SQ HS [facility] Last Admin: 06/11/17 22:22 Dose: 30 units Isosorbide Mononitrate (Imdur -) 30 mg PO DAILY [facility] Last Admin: 06/11/17 09:40 Dose: 30 mg Lisinopril (Prinivil) 20 mg PO DAILY [facility] Last Admin: 06/11/17 09:40 Dose: 20 mg Methylprednisolone Sodium Succinate (Solu-Medrol -) 40 mg IVPB DAILY [facility] Last Admin: 06/11/17 09:39 Dose: 40 mg Sevelamer Carbonate (Renvela -) 800 mg PO TIDCM [facility] Last Admin: 06/12/17 08:20 Dose: 800 mg - Objective Vital Signs: Vital Signs Temperature 97.8 F 06/12/17 07:32 Pulse Rate 74 06/12/17 07:32 Respiratory Rate 20 06/12/17 07:32 Blood Pressure 143/78 06/12/17 07:32 O2 Sat by Pulse Oximetry (%) 97 06/12/17 07:32 Constitutional: Yes: No Distress, Calm, Obese Cardiovascular: Yes: Regular Rate and Rhythm, S1, S2. No: Gallop, Murmur Respiratory: Yes: Regular, CTA Bilaterally, Rales (faint rales R base), Wheezes. No: Accessory Muscle Use Extremities: No: Cold Edema: No Neurological: Yes: Alert, Oriented Psychiatric: No: Agitated Labs: CBC, BMP 06/11/17 14:50 06/11/17 16:30 INR, PTT INR 1.03 (0.82-1.09) 06/01/17 21:41 Assessment/Plan Echo 05/29 (here): mild LVE, low-nl LVEF; nl RV; mild AI/MR/TR mibi 10/2012: nl mpi ecg 06/01/17: no ischemic changes a/p: 67 m hx esrd on hd, dm, cad s/p remote mi/pci (10+yrs ago), sent by pmd for possible pna. 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
[2017-06-12] MEDS: AZITHROMYCIN IVPB 250 ML IVPB SCH (09:33)
[2017-06-12] MEDS: cefTRIAXone 1 GM/50 ML BAG (PRE-DOCKED) IVPB SCH (09:33)
[2017-06-12] MEDS: methylPREDNISolone NA SUCC 40 MG/1 ML VIAL IVPB SCH (09:34)
[2017-06-12] MEDS: CLOPIDOGREL BISULFATE 75 MG TABLET (FP) PO SCH (09:34)
[2017-06-12] MEDS: HEPARIN NA (PORCINE) 5,000 UNITS/ML 1ML VIAL SQ SCH ×2 (09:34→22:26)
[2017-06-12] MEDS: amLODIPine BESYLATE 5 MG TABLET (FP) PO SCH (09:34)
[2017-06-12] MEDS: ISOSORBIDE MONONITRATE 30 MG TAB.SR.24H (FP) PO SCH (09:34)
[2017-06-12] MEDS: LISINOPRIL 20 MG TABLET (FP) PO SCH (09:35)
[2017-06-12] MEDS: guaiFENesin/D-M SUGAR-FREE/ACLHOL-FREE 118 ML BOTTLE PO SCH ×4 (09:35→22:52)
[2017-06-12] MEDS: CARVEDILOL 12.5 MG TABLET (FP) PO SCH ×2 (09:35→22:25)
[2017-06-12] MEDS: ASPIRIN COATED 81 MG TABLET.EC PO SCH (09:35)
[2017-06-12] MEDS: ARFORMOTEROL TARTRATE 15 MCG/2 ML VIAL NEB SCH ×2 (10:25→23:08)
[2017-06-12] MEDS ORDERED: INSULIN (NOVOLOG) ASPART 100 UNITS/ML 10ML VIAL ONE ×4 (11:25→20:58)
--- NOTE | 2017-06-12 11:48 | PN ---
Progress Note, Physician History of Present Illness: PULMONARY ALERT,STILL C/O COUGH YELLOW SPUTUM,LESS DYSPNEIC - Current Medication List Current Medications: Active Medications Amlodipine Besylate (Norvasc -) 5 mg PO DAILY [facility] Last Admin: 06/12/17 09:34 Dose: 5 mg Arformoterol Tartrate (Brovana (Restricted To Pulmonology/Resp) -) 1 amp NEB BID [facility] Last Admin: 06/12/17 10:25 Dose: 1 amp Aspirin (Ecotrin -) 81 mg PO DAILY [facility] Last Admin: 06/12/17 09:35 Dose: 81 mg Calcium Acetate (Phoslo -) 1,334 mg PO TIDCM [facility] Last Admin: 06/12/17 11:34 Dose: 1,334 mg Carvedilol (Coreg -) 12.5 mg PO BID [facility] Last Admin: 06/12/17 09:35 Dose: 12.5 mg Ceftriaxone Sodium (Rocephin 1gm Ivpb (Pre-Docked)) 1 gm IVPB DAILY [facility] PRN Reason: Protocol Last Admin: 06/12/17 09:33 Dose: 1 gm Clopidogrel Bisulfate (Plavix -) 75 mg PO DAILY [facility] Last Admin: 06/12/17 09:34 Dose: 75 mg Epoetin Ishan (Epogen -) 4,000 units IVPUSH ONCE ONE Stop: 06/12/17 17:03 Gabapentin (Neurontin -) 100 mg PO TID [facility] Last Admin: 06/12/17 06:26 Dose: 100 mg Guaifenesin (Diabetic Tussin Dm -) 10 ml PO QID [facility] Last Admin: 06/12/17 09:35 Dose: 10 ml Heparin Sodium (Porcine) (Heparin -) 5,000 unit SQ BID [facility] Last Admin: 06/12/17 09:34 Dose: 5,000 unit Heparin Sodium (Porcine) (Heparin -) 1,000 unit IVPUSH ONCE ONE Stop: 06/12/17 17:03 Azithromycin (Zithromax 500mg Ivpb (Pre-Docked)) 250 mls @ 250 mls/hr IVPB DAILY [facility] Last Admin: 06/12/17 09:33 Dose: 250 mls/hr Insulin Aspart (Novolog Vial Sliding Scale -) 1 vial SQ ACHS [facility] PRN Reason: Protocol Last Admin: 06/12/17 11:34 Dose: 8 units Insulin Detemir (Levemir Vial) 35 units SQ AM [facility] Last Admin: 06/12/17 06:26 Dose: 35 units Insulin Detemir (Levemir Vial) 30 units SQ HS [facility] Last Admin: 06/11/17 22:22 Dose: 30 units Isosorbide Mononitrate (Imdur -) 30 mg PO DAILY [facility] Last Admin: 06/12/17 09:34 Dose: 30 mg Lisinopril (Prinivil) 20 mg PO DAILY [facility] Last Admin: 06/12/17 09:35 Dose: 20 mg Methylprednisolone Sodium Succinate (Solu-Medrol -) 40 mg IVPB DAILY [facility] Last Admin: 06/12/17 09:34 Dose: 40 mg Sevelamer Carbonate (Renvela -) 800 mg PO TIDCM [facility] Last Admin: 06/12/17 11:34 Dose: 800 mg - Objective Vital Signs: Vital Signs Temperature 97.8 F 06/12/17 07:32 Pulse Rate 66 06/12/17 10:25 Respiratory Rate 20 06/12/17 07:32 Blood Pressure 143/78 06/12/17 07:32 O2 Sat by Pulse Oximetry (%) 97 06/12/17 10:25 Constitutional: Yes: Well Nourished, Calm Eyes: Yes: WNL HENT: Yes: WNL Neck: Yes: WNL Cardiovascular: Yes: Regular Rate and Rhythm, S1, S2 Respiratory: Yes: Rales, Rhonchi (FEW SCATTERED RHONCHI,BBILATERAL CRACKLES) Gastrointestinal: Yes: Normal Bowel Sounds, Soft Extremities: Yes: WNL Edema: No Labs: CBC, BMP 06/11/17 14:50 06/11/17 16:30 INR, PTT INR 1.03 (0.82-1.09) 06/01/17 21:41 Assessment/Plan (1) CHF exacerbation Code(s): I50.9 - HEART FAILURE, UNSPECIFIED Qualifiers: Congestive heart failure type: unspecified congestive heart failure type Qualified Code(s): I50.9 - Heart failure, unspecified (2) Diabetes Code(s): E11.9 - TYPE 2 DIABETES MELLITUS WITHOUT COMPLICATIONS (3) Pneumonia Code(s): J18.9 - PNEUMONIA, UNSPECIFIED ORGANISM (4) ESRD (end stage renal disease) on dialysis Code(s): N18.6 - END STAGE RENAL DISEASE Z99.2 - DEPENDENCE ON RENAL DIALYSIS (5) Hypertension Code(s): I10 - ESSENTIAL (PRIMARY) HYPERTENSION (6) Hemoptysis Code(s): R04.2 - HEMOPTYSIS Assessment/Plan Sputum AFB O2 to keep sat greater than 90% Medrol for CAP BD TX No smoking counseled HD per Renal ? Bronch DR THOMAS
--- NOTE | 2017-06-12 12:39 | PN ---
Progress Note, Physician Chief Complaint: Feels better - Current Medication List Current Medications: Active Medications Amlodipine Besylate (Norvasc -) 5 mg PO DAILY [facility] Last Admin: 06/12/17 09:34 Dose: 5 mg Arformoterol Tartrate (Brovana (Restricted To Pulmonology/Resp) -) 1 amp NEB BID [facility] Last Admin: 06/12/17 10:25 Dose: 1 amp Aspirin (Ecotrin -) 81 mg PO DAILY [facility] Last Admin: 06/12/17 09:35 Dose: 81 mg Calcium Acetate (Phoslo -) 1,334 mg PO TIDCM [facility] Last Admin: 06/12/17 11:34 Dose: 1,334 mg Carvedilol (Coreg -) 12.5 mg PO BID [facility] Last Admin: 06/12/17 09:35 Dose: 12.5 mg Ceftriaxone Sodium (Rocephin 1gm Ivpb (Pre-Docked)) 1 gm IVPB DAILY [facility] PRN Reason: Protocol Last Admin: 06/12/17 09:33 Dose: 1 gm Clopidogrel Bisulfate (Plavix -) 75 mg PO DAILY [facility] Last Admin: 06/12/17 09:34 Dose: 75 mg Epoetin Ishan (Epogen -) 4,000 units IVPUSH ONCE ONE Stop: 06/12/17 17:03 Gabapentin (Neurontin -) 100 mg PO TID [facility] Last Admin: 06/12/17 06:26 Dose: 100 mg Guaifenesin (Diabetic Tussin Dm -) 10 ml PO QID [facility] Last Admin: 06/12/17 09:35 Dose: 10 ml Heparin Sodium (Porcine) (Heparin -) 5,000 unit SQ BID [facility] Last Admin: 06/12/17 09:34 Dose: 5,000 unit Heparin Sodium (Porcine) (Heparin -) 1,000 unit IVPUSH ONCE ONE Stop: 06/12/17 17:03 Azithromycin (Zithromax 500mg Ivpb (Pre-Docked)) 250 mls @ 250 mls/hr IVPB DAILY [facility] Last Admin: 06/12/17 09:33 Dose: 250 mls/hr Insulin Aspart (Novolog Vial Sliding Scale -) 1 vial SQ ACHS [facility] PRN Reason: Protocol Last Admin: 06/12/17 11:34 Dose: 8 units Insulin Detemir (Levemir Vial) 35 units SQ AM [facility] Last Admin: 06/12/17 06:26 Dose: 35 units Insulin Detemir (Levemir Vial) 30 units SQ HS [facility] Last Admin: 06/11/17 22:22 Dose: 30 units Isosorbide Mononitrate (Imdur -) 30 mg PO DAILY [facility] Last Admin: 06/12/17 09:34 Dose: 30 mg Lisinopril (Prinivil) 20 mg PO DAILY [facility] Last Admin: 06/12/17 09:35 Dose: 20 mg Methylprednisolone Sodium Succinate (Solu-Medrol -) 40 mg IVPB DAILY [facility] Last Admin: 06/12/17 09:34 Dose: 40 mg Sevelamer Carbonate (Renvela -) 800 mg PO TIDCM [facility] Last Admin: 06/12/17 11:34 Dose: 800 mg - Objective Vital Signs: Vital Signs Temperature 97.8 F 06/12/17 07:32 Pulse Rate 66 06/12/17 10:25 Respiratory Rate 20 06/12/17 07:32 Blood Pressure 143/78 06/12/17 07:32 O2 Sat by Pulse Oximetry (%) 97 06/12/17 10:25 Constitutional: Yes: No Distress Neck: Yes: Supple Cardiovascular: Yes: Regular Rate and Rhythm, S1, S2 Respiratory: Yes: Regular, CTA Bilaterally Gastrointestinal: Yes: Normal Bowel Sounds, Soft Neurological: Yes: Alert, Oriented Labs: CBC, BMP 06/11/17 14:50 06/11/17 16:30 INR, PTT INR 1.03 (0.82-1.09) 06/01/17 21:41 Problem List - Problems (1) Pneumonia Assessment/Plan: AFB negative X3 Code(s): J18.9 - PNEUMONIA, UNSPECIFIED ORGANISM (2) Type 2 diabetes mellitus with diabetic chronic kidney disease Assessment/Plan: Monitor Code(s): E11.22 - TYPE 2 DIABETES MELLITUS W DIABETIC CHRONIC KIDNEY DISEASE (3) ESRD (end stage renal disease) on dialysis Assessment/Plan: HD today Code(s): N18.6 - END STAGE RENAL DISEASE Z99.2 - DEPENDENCE ON RENAL DIALYSIS
--- NOTE | 2017-06-12 13:09 | PN ---
Progress Note, Physician History of Present Illness: OOB in chair Reports occasional cough productive of white sputum No c/o chest pain/ dyspnea No fever/ chills - Current Medication List Current Medications: Active Medications Amlodipine Besylate (Norvasc -) 5 mg PO DAILY [facility] Last Admin: 06/12/17 09:34 Dose: 5 mg Arformoterol Tartrate (Brovana (Restricted To Pulmonology/Resp) -) 1 amp NEB BID [facility] Last Admin: 06/12/17 10:25 Dose: 1 amp Aspirin (Ecotrin -) 81 mg PO DAILY [facility] Last Admin: 06/12/17 09:35 Dose: 81 mg Calcium Acetate (Phoslo -) 1,334 mg PO TIDCM [facility] Last Admin: 06/12/17 11:34 Dose: 1,334 mg Carvedilol (Coreg -) 12.5 mg PO BID [facility] Last Admin: 06/12/17 09:35 Dose: 12.5 mg Clopidogrel Bisulfate (Plavix -) 75 mg PO DAILY [facility] Last Admin: 06/12/17 09:34 Dose: 75 mg Epoetin Ishan (Epogen -) 4,000 units IVPUSH ONCE ONE Stop: 06/12/17 17:03 Gabapentin (Neurontin -) 100 mg PO TID [facility] Last Admin: 06/12/17 06:26 Dose: 100 mg Guaifenesin (Diabetic Tussin Dm -) 10 ml PO QID [facility] Last Admin: 06/12/17 09:35 Dose: 10 ml Heparin Sodium (Porcine) (Heparin -) 5,000 unit SQ BID [facility] Last Admin: 06/12/17 09:34 Dose: 5,000 unit Heparin Sodium (Porcine) (Heparin -) 1,000 unit IVPUSH ONCE ONE Stop: 06/12/17 17:03 Insulin Aspart (Novolog Vial Sliding Scale -) 1 vial SQ ACHS [facility] PRN Reason: Protocol Last Admin: 06/12/17 11:34 Dose: 8 units Insulin Detemir (Levemir Vial) 35 units SQ AM [facility] Last Admin: 06/12/17 06:26 Dose: 35 units Insulin Detemir (Levemir Vial) 30 units SQ HS [facility] Last Admin: 06/11/17 22:22 Dose: 30 units Isosorbide Mononitrate (Imdur -) 30 mg PO DAILY [facility] Last Admin: 06/12/17 09:34 Dose: 30 mg Lisinopril (Prinivil) 20 mg PO DAILY [facility] Last Admin: 06/12/17 09:35 Dose: 20 mg Methylprednisolone Sodium Succinate (Solu-Medrol -) 40 mg IVPB DAILY [facility] Last Admin: 06/12/17 09:34 Dose: 40 mg Sevelamer Carbonate (Renvela -) 800 mg PO TIDCM [facility] Last Admin: 06/12/17 11:34 Dose: 800 mg - Objective Vital Signs: Vital Signs Temperature 97.8 F 06/12/17 07:32 Pulse Rate 66 06/12/17 10:25 Respiratory Rate 20 06/12/17 07:32 Blood Pressure 143/78 06/12/17 07:32 O2 Sat by Pulse Oximetry (%) 97 06/12/17 10:25 Constitutional: Yes: No Distress Eyes: Yes: Conjunctiva Clear Cardiovascular: Yes: Regular Rate and Rhythm, S1, S2 Respiratory: Yes: Other (+ crepitations at bases) Gastrointestinal: Yes: Normal Bowel Sounds, Soft. No: Tenderness Edema: No Labs: CBC, BMP 06/11/17 14:50 06/11/17 16:30 INR, PTT INR 1.03 (0.82-1.09) 06/01/17 21:41 Assessment/Plan CHF Bilateral pneumonia ESRD Follow up CT reviewed with radiologist- chronic lung disease with improvement, superimposed infiltrates Sputum AFB (-) x 3. Quantiferon negative. D/C isolation Day #10 zithromax/ ceftriaxone. D/C , observe off
[2017-06-12] MEDS ORDERED: EPOETIN ALFA 2,000 UNITS/1 ML VIAL IVPUSH ONE (14:30)
--- NOTE | 2017-06-12 14:38 | PN ---
Progress Note, Physician History of Present Illness: Pt seen and examined at bedside. He is awake and alert. He is due for HD today. - Current Medication List Current Medications: Active Medications Amlodipine Besylate (Norvasc -) 5 mg PO DAILY [facility] Last Admin: 06/12/17 09:34 Dose: 5 mg Arformoterol Tartrate (Brovana (Restricted To Pulmonology/Resp) -) 1 amp NEB BID [facility] Last Admin: 06/12/17 10:25 Dose: 1 amp Aspirin (Ecotrin -) 81 mg PO DAILY [facility] Last Admin: 06/12/17 09:35 Dose: 81 mg Calcium Acetate (Phoslo -) 1,334 mg PO TIDCM [facility] Last Admin: 06/12/17 11:34 Dose: 1,334 mg Carvedilol (Coreg -) 12.5 mg PO BID [facility] Last Admin: 06/12/17 09:35 Dose: 12.5 mg Clopidogrel Bisulfate (Plavix -) 75 mg PO DAILY [facility] Last Admin: 06/12/17 09:34 Dose: 75 mg Gabapentin (Neurontin -) 100 mg PO TID [facility] Last Admin: 06/12/17 13:51 Dose: 100 mg Guaifenesin (Diabetic Tussin Dm -) 10 ml PO QID [facility] Last Admin: 06/12/17 09:35 Dose: 10 ml Heparin Sodium (Porcine) (Heparin -) 5,000 unit SQ BID [facility] Last Admin: 06/12/17 09:34 Dose: 5,000 unit Heparin Sodium (Porcine) (Heparin -) 1,000 unit IVPUSH ONCE ONE Stop: 06/12/17 17:03 Insulin Aspart (Novolog Vial Sliding Scale -) 1 vial SQ [facility] PRN Reason: Protocol Last Admin: 06/12/17 11:34 Dose: 8 units Insulin Detemir (Levemir Vial) 35 units SQ AM [facility] Last Admin: 06/12/17 06:26 Dose: 35 units Insulin Detemir (Levemir Vial) 30 units SQ HS [facility] Last Admin: 06/11/17 22:22 Dose: 30 units Isosorbide Mononitrate (Imdur -) 30 mg PO DAILY [facility] Last Admin: 06/12/17 09:34 Dose: 30 mg Lisinopril (Prinivil) 20 mg PO DAILY [facility] Last Admin: 06/12/17 09:35 Dose: 20 mg Methylprednisolone Sodium Succinate (Solu-Medrol -) 40 mg IVPB DAILY [facility] Last Admin: 06/12/17 09:34 Dose: 40 mg Sevelamer Carbonate (Renvela -) 800 mg PO TIDCM [facility] Last Admin: 06/12/17 11:34 Dose: 800 mg - Objective Vital Signs: Vital Signs Temperature 97.8 F 06/12/17 07:32 Pulse Rate 66 06/12/17 10:25 Respiratory Rate 20 06/12/17 07:32 Blood Pressure 143/78 06/12/17 07:32 O2 Sat by Pulse Oximetry (%) 97 06/12/17 10:25 Constitutional: Yes: Calm Eyes: Yes: Conjunctiva Clear HENT: Yes: Atraumatic Neck: Yes: Supple Cardiovascular: Yes: S1, S2 Respiratory: Yes: On Nasal O2 Gastrointestinal: Yes: Soft Genitourinary: Yes: WNL Musculoskeletal: Yes: WNL Edema: No Neurological: Yes: Oriented Psychiatric: Yes: Oriented Labs: CBC, BMP 06/11/17 14:50 06/11/17 16:30 INR, PTT INR 1.03 (0.82-1.09) 06/01/17 21:41 Problem List - Problems (1) ESRD (end stage renal disease) on dialysis Code(s): N18.6 - END STAGE RENAL DISEASE Z99.2 - DEPENDENCE ON RENAL DIALYSIS Assessment/Plan Current Medications Generic Name Dose Route Start Last Admin Trade Name Travisq PRN Reason Stop Dose Admin Amlodipine Besylate 5 mg 06/10/17 10:00 06/12/17 09:34 Norvasc - PO 5 mg DAILY [facility] Administration Arformoterol Tartrate 1 amp 06/06/17 22:00 06/12/17 10:25 Brovana (Restricted To Pulmonology/Resp) - NEB 1 amp BID [facility] Administration Aspirin 81 mg 06/02/17 10:00 06/12/17 09:35 Ecotrin - PO 81 mg DAILY [facility] Administration Calcium Acetate 1,334 mg 06/04/17 12:00 06/12/17 11:34 Phoslo - PO 1,334 mg TIDCM [facility] Administration Carvedilol 12.5 mg 06/02/17 10:00 06/12/17 09:35 Coreg - PO 12.5 mg BID [facility] Administration Clopidogrel Bisulfate 75 mg 06/02/17 10:00 06/12/17 09:34 Plavix - PO 75 mg DAILY [facility] Administration Gabapentin 100 mg 06/02/17 14:00 06/12/17 13:51 Neurontin - PO 100 mg TID [facility] Administration Guaifenesin 10 ml 06/08/17 07:45 06/12/17 09:35 Diabetic Tussin Dm - PO 10 ml QID [facility] Administration Heparin Sodium (Porcine) 5,000 unit 06/07/17 10:00 06/12/17 09:34 Heparin - SQ 5,000 unit BID [facility] Administration Heparin Sodium (Porcine) 1,000 unit 06/12/17 17:02 Heparin - IVPUSH 06/12/17 17:03 ONCE ONE Insulin Aspart 1 vial 06/10/17 23:44 06/12/17 11:34 Novolog Vial Sliding Scale - SQ 8 units ACHS [facility] Administration Protocol Insulin Detemir 35 units 06/11/17 07:00 06/12/17 06:26 Levemir Vial SQ 35 units AM [facility] Administration Insulin Detemir 30 units 06/10/17 23:43 06/11/17 22:22 Levemir Vial SQ 30 units HS [facility] Administration Isosorbide Mononitrate 30 mg 06/02/17 10:00 06/12/17 09:34 Imdur - PO 30 mg DAILY [facility] Administration Lisinopril 20 mg 06/02/17 10:00 06/12/17 09:35 Prinivil PO 20 mg DAILY [facility] Administration Methylprednisolone Sodium Succinate 40 mg 06/06/17 14:15 06/12/17 09:34 Solu-Medrol - IVPB 40 mg DAILY [facility] Administration Sevelamer Carbonate 800 mg 06/06/17 17:30 06/12/17 11:34 Renvela - PO 800 mg TIDCM [facility] Administration Impression 1. ESRD 2. fluid overload 3. HTN 4. DM 5. anemia 6. hemoptysis Plan - HD today - will order cxr for post HD - may give an extra HD treatment this week if volume status not not improve - renal diet and fluid restriction - cont current meds - will follow Dr Barbosa
[2017-06-12] MEDS ORDERED: HEPARIN NA (PORCINE) 5,000 UNITS/ML 1ML VIAL IVPUSH ONE (17:02)
[2017-06-13] MEDS: GABAPENTIN 100 MG CAPSULE (FP) PO SCH ×3 (07:22→21:13)
[2017-06-13] MEDS: INSULIN DETEMIR 100 UNITS/ML MDV SQ SCH ×2 (07:23→21:11)
[2017-06-13] MEDS: INSULIN SLIDING SCALE (NOVOLOG) 1 VIAL SQ SCH ×4 (07:23→21:12)
[2017-06-13] MEDS: SEVELAMER CARBONATE 800 MG TAB (FP) PO SCH ×3 (07:53→17:35)
[2017-06-13] MEDS: CALCIUM ACETATE 667 MG CAPSULE (FP) PO SCH ×3 (08:52→17:35)
[2017-06-13] MEDS: guaiFENesin/D-M SUGAR-FREE/ACLHOL-FREE 118 ML BOTTLE PO SCH ×4 (09:49→22:14)
[2017-06-13] MEDS: LISINOPRIL 20 MG TABLET (FP) PO SCH (09:52)
[2017-06-13] MEDS: ISOSORBIDE MONONITRATE 30 MG TAB.SR.24H (FP) PO SCH (09:53)
[2017-06-13] MEDS: amLODIPine BESYLATE 5 MG TABLET (FP) PO SCH (09:53)
[2017-06-13] MEDS: CLOPIDOGREL BISULFATE 75 MG TABLET (FP) PO SCH (09:53)
[2017-06-13] MEDS: CARVEDILOL 12.5 MG TABLET (FP) PO SCH ×2 (09:53→21:14)
[2017-06-13] MEDS: ASPIRIN COATED 81 MG TABLET.EC PO SCH (09:53)
[2017-06-13] MEDS: methylPREDNISolone NA SUCC 40 MG/1 ML VIAL IVPB SCH ×2 (10:01→17:36)
[2017-06-13] MEDS: HEPARIN NA (PORCINE) 5,000 UNITS/ML 1ML VIAL SQ SCH ×2 (10:01→21:14)
--- NOTE | 2017-06-13 10:45 | PN ---
Progress Note (short form) - Note Progress Note: PULMONARY States breathing slowly improving. No significant cough. No fevers or chills. Last Vital Signs Temp Pulse Resp BP Pulse Ox 98.4 F 60 20 142/76 97 06/13/17 02:00 06/13/17 02:00 06/13/17 02:00 06/13/17 02:00 06/12/17 22:00 Gen: NAD at rest Heart: RRR Lung: bibasilar rales Abd: soft, nontender Ext: no edema CBC, BMP 06/11/17 14:50 06/13/17 06:15 Active Medications Amlodipine Besylate (Norvasc -) 5 mg PO DAILY [facility] Last Admin: 06/13/17 09:53 Dose: 5 mg Arformoterol Tartrate (Brovana (Restricted To Pulmonology/Resp) -) 1 amp NEB BID [facility] Last Admin: 06/12/17 23:08 Dose: 1 amp Aspirin (Ecotrin -) 81 mg PO DAILY [facility] Last Admin: 06/13/17 09:53 Dose: 81 mg Calcium Acetate (Phoslo -) 1,334 mg PO TIDCM [facility] Last Admin: 06/13/17 08:52 Dose: 1,334 mg Carvedilol (Coreg -) 12.5 mg PO BID [facility] Last Admin: 06/13/17 09:53 Dose: 12.5 mg Clopidogrel Bisulfate (Plavix -) 75 mg PO DAILY [facility] Last Admin: 06/13/17 09:53 Dose: 75 mg Gabapentin (Neurontin -) 100 mg PO TID [facility] Last Admin: 06/13/17 07:22 Dose: 100 mg Guaifenesin (Diabetic Tussin Dm -) 10 ml PO QID [facility] Last Admin: 06/13/17 09:49 Dose: 10 ml Heparin Sodium (Porcine) (Heparin -) 5,000 unit SQ BID [facility] Last Admin: 06/13/17 10:01 Dose: 5,000 unit Insulin Aspart (Novolog Vial Sliding Scale -) 1 vial SQ [facility] PRN Reason: Protocol Last Admin: 06/13/17 07:23 Dose: Not Given Insulin Detemir (Levemir Vial) 35 units SQ AM [facility] Last Admin: 06/13/17 07:23 Dose: 35 units Insulin Detemir (Levemir Vial) 30 units SQ HS [facility] Last Admin: 06/12/17 22:27 Dose: 30 units Isosorbide Mononitrate (Imdur -) 30 mg PO DAILY [facility] Last Admin: 06/13/17 09:53 Dose: 30 mg Lisinopril (Prinivil) 20 mg PO DAILY [facility] Last Admin: 06/13/17 09:52 Dose: 20 mg Methylprednisolone Sodium Succinate (Solu-Medrol -) 40 mg IVPB DAILY [facility] Last Admin: 06/13/17 10:01 Dose: 40 mg Sevelamer Carbonate (Renvela -) 800 mg PO TIDCM [facility] Last Admin: 06/13/17 07:53 Dose: 800 mg A/P Acute Hypoxic Respiratory Failure Bilateral Interstitial Infiltrates LV Diastolic Dysfunction ESRD on HD CAD HTN DM - bilateral infiltrates more likely acute pneumonitis but may also have component of diastolic dysfunction, ESRD - will increase steroids for now - continue empiric antibiotics - HD per renal - glucose control while on systemic steroids - O2 to keep SpO2 >90% - DVT prophylaxis - repeat CXR in 2-3 days
[2017-06-13] MEDS: ARFORMOTEROL TARTRATE 15 MCG/2 ML VIAL NEB SCH ×2 (10:58→21:30)
--- NOTE | 2017-06-13 15:53 | PN ---
Progress Note, Physician History of Present Illness: Pt seen and examined at bedside. He does not feel much of a change in breathing. - Current Medication List Current Medications: Active Medications Amlodipine Besylate (Norvasc -) 5 mg PO DAILY [facility] Last Admin: 06/13/17 09:53 Dose: 5 mg Arformoterol Tartrate (Brovana (Restricted To Pulmonology/Resp) -) 1 amp NEB BID [facility] Last Admin: 06/13/17 10:58 Dose: 1 amp Aspirin (Ecotrin -) 81 mg PO DAILY [facility] Last Admin: 06/13/17 09:53 Dose: 81 mg Calcium Acetate (Phoslo -) 1,334 mg PO TIDCM [facility] Last Admin: 06/13/17 12:40 Dose: 1,334 mg Carvedilol (Coreg -) 12.5 mg PO BID [facility] Last Admin: 06/13/17 09:53 Dose: 12.5 mg Clopidogrel Bisulfate (Plavix -) 75 mg PO DAILY [facility] Last Admin: 06/13/17 09:53 Dose: 75 mg Gabapentin (Neurontin -) 100 mg PO TID [facility] Last Admin: 06/13/17 13:37 Dose: 100 mg Guaifenesin (Diabetic Tussin Dm -) 10 ml PO QID [facility] Last Admin: 06/13/17 13:37 Dose: Not Given Heparin Sodium (Porcine) (Heparin -) 5,000 unit SQ BID [facility] Last Admin: 06/13/17 10:01 Dose: 5,000 unit Insulin Aspart (Novolog Vial Sliding Scale -) 1 vial SQ ACHS [facility] PRN Reason: Protocol Last Admin: 06/13/17 12:44 Dose: 5 units Insulin Detemir (Levemir Vial) 35 units SQ AM [facility] Last Admin: 06/13/17 07:23 Dose: 35 units Insulin Detemir (Levemir Vial) 30 units SQ HS [facility] Last Admin: 06/12/17 22:27 Dose: 30 units Isosorbide Mononitrate (Imdur -) 30 mg PO DAILY [facility] Last Admin: 06/13/17 09:53 Dose: 30 mg Lisinopril (Prinivil) 20 mg PO DAILY [facility] Last Admin: 06/13/17 09:52 Dose: 20 mg Methylprednisolone Sodium Succinate (Solu-Medrol -) 40 mg IVPB Q8H-IV [facility] Sevelamer Carbonate (Renvela -) 800 mg PO TIDCM [facility] Last Admin: 06/13/17 12:40 Dose: 800 mg - Objective Vital Signs: Vital Signs Temperature 98.0 F 06/13/17 14:57 Pulse Rate 60 06/13/17 14:57 Respiratory Rate 20 06/13/17 14:57 Blood Pressure 131/69 06/13/17 14:57 O2 Sat by Pulse Oximetry (%) 94 L 06/13/17 10:00 Constitutional: Yes: Calm Eyes: Yes: Conjunctiva Clear HENT: Yes: Atraumatic Neck: Yes: Supple Cardiovascular: Yes: S1, S2 Respiratory: Yes: CTA Bilaterally Gastrointestinal: Yes: Normal Bowel Sounds, Soft Genitourinary: Yes: WNL Musculoskeletal: Yes: WNL Edema: No Neurological: Yes: Oriented Psychiatric: Yes: Oriented Labs: CBC, BMP 06/11/17 14:50 06/13/17 06:15 INR, PTT INR 1.03 (0.82-1.09) 06/01/17 21:41 Problem List - Problems (1) ESRD (end stage renal disease) on dialysis Code(s): N18.6 - END STAGE RENAL DISEASE Z99.2 - DEPENDENCE ON RENAL DIALYSIS Assessment/Plan Current Medications Generic Name Dose Route Start Last Admin Trade Name Freq PRN Reason Stop Dose Admin Amlodipine Besylate 5 mg 06/10/17 10:00 06/13/17 09:53 Norvasc - PO 5 mg DAILY [facility] Administration Arformoterol Tartrate 1 amp 06/06/17 22:00 06/13/17 10:58 Brovana (Restricted To Pulmonology/Resp) - NEB 1 amp BID [facility] Administration Aspirin 81 mg 06/02/17 10:00 06/13/17 09:53 Ecotrin - PO 81 mg DAILY [facility] Administration Calcium Acetate 1,334 mg 06/04/17 12:00 06/13/17 12:40 Phoslo - PO 1,334 mg TIDCM [facility] Administration Carvedilol 12.5 mg 06/02/17 10:00 06/13/17 09:53 Coreg - PO 12.5 mg BID [facility] Administration Clopidogrel Bisulfate 75 mg 06/02/17 10:00 06/13/17 09:53 Plavix - PO 75 mg DAILY [facility] Administration Gabapentin 100 mg 06/02/17 14:00 06/13/17 13:37 Neurontin - PO 100 mg TID [facility] Administration Guaifenesin 10 ml 06/08/17 07:45 06/13/17 13:37 Diabetic Tussin Dm - PO Not Given QID [facility] Heparin Sodium (Porcine) 5,000 unit 06/07/17 10:00 06/13/17 10:01 Heparin - SQ 5,000 unit BID [facility] Administration Insulin Aspart 1 vial 06/10/17 23:44 06/13/17 12:44 Novolog Vial Sliding Scale - SQ 5 units ACHS [facility] Administration Protocol Insulin Detemir 35 units 06/11/17 07:00 06/13/17 07:23 Levemir Vial SQ 35 units AM SUNDEEP Administration Insulin Detemir 30 units 06/10/17 23:43 06/12/17 22:27 Levemir Vial SQ 30 units HS SUNDEEP Administration Isosorbide Mononitrate 30 mg 06/02/17 10:00 06/13/17 09:53 Imdur - PO 30 mg DAILY SUNDEEP Administration Lisinopril 20 mg 06/02/17 10:00 06/13/17 09:52 Prinivil PO 20 mg DAILY SUNDEEP Administration Methylprednisolone Sodium Succinate 40 mg 06/13/17 18:00 Solu-Medrol - IVPB Q8H-IV SUNDEEP Sevelamer Carbonate 800 mg 06/06/17 17:30 06/13/17 12:40 Renvela - PO 800 mg TIDCM SUNDEEP Administration Impression 1. ESRD 2. fluid overload 3. HTN 4. DM 5. anemia 6. hemoptysis Plan - HD in am - pulm input appreciated - will give a dose of lasix today - steroids per pulmonary - renal diet and fluid restriction - cont current meds - will follow Dr Barbosa
[2017-06-13] MEDS ORDERED: FUROSEMIDE 40 MG/4 ML INJECTABLE VIAL IVPB ONE (16:30)
--- NOTE | 2017-06-13 17:54 | PN ---
Progress Note, Physician Chief Complaint: More dyspnea today - Current Medication List Current Medications: Active Medications Amlodipine Besylate (Norvasc -) 5 mg PO DAILY [facility] Last Admin: 06/13/17 09:53 Dose: 5 mg Arformoterol Tartrate (Brovana (Restricted To Pulmonology/Resp) -) 1 amp NEB BID [facility] Last Admin: 06/13/17 10:58 Dose: 1 amp Aspirin (Ecotrin -) 81 mg PO DAILY [facility] Last Admin: 06/13/17 09:53 Dose: 81 mg Calcium Acetate (Phoslo -) 1,334 mg PO TIDCM [facility] Last Admin: 06/13/17 17:35 Dose: 1,334 mg Carvedilol (Coreg -) 12.5 mg PO BID [facility] Last Admin: 06/13/17 09:53 Dose: 12.5 mg Clopidogrel Bisulfate (Plavix -) 75 mg PO DAILY [facility] Last Admin: 06/13/17 09:53 Dose: 75 mg Epoetin Ishan (Epogen -) 5,000 units IVPUSH ONCE ONE Stop: 06/14/17 15:56 Gabapentin (Neurontin -) 100 mg PO TID [facility] Last Admin: 06/13/17 13:37 Dose: 100 mg Guaifenesin (Diabetic Tussin Dm -) 10 ml PO QID [facility] Last Admin: 06/13/17 13:37 Dose: Not Given Heparin Sodium (Porcine) (Heparin -) 5,000 unit SQ BID [facility] Last Admin: 06/13/17 10:01 Dose: 5,000 unit Heparin Sodium (Porcine) (Heparin -) 1,000 unit IVPUSH ONCE ONE Stop: 06/14/17 15:56 Insulin Aspart (Novolog Vial Sliding Scale -) 1 vial SQ [facility] PRN Reason: Protocol Last Admin: 06/13/17 12:44 Dose: 5 units Insulin Detemir (Levemir Vial) 35 units SQ AM [facility] Last Admin: 06/13/17 07:23 Dose: 35 units Insulin Detemir (Levemir Vial) 30 units SQ HS [facility] Last Admin: 06/12/17 22:27 Dose: 30 units Isosorbide Mononitrate (Imdur -) 30 mg PO DAILY [facility] Last Admin: 06/13/17 09:53 Dose: 30 mg Lisinopril (Prinivil) 20 mg PO DAILY [facility] Last Admin: 06/13/17 09:52 Dose: 20 mg Methylprednisolone Sodium Succinate (Solu-Medrol -) 40 mg IVPB Q8H-IV [facility] Last Admin: 06/13/17 17:36 Dose: 40 mg Sevelamer Carbonate (Renvela -) 800 mg PO TIDCM [facility] Last Admin: 06/13/17 17:35 Dose: 800 mg - Objective Vital Signs: Vital Signs Temperature 98.0 F 06/13/17 14:57 Pulse Rate 60 06/13/17 14:57 Respiratory Rate 20 06/13/17 14:57 Blood Pressure 131/69 06/13/17 14:57 O2 Sat by Pulse Oximetry (%) 94 L 06/13/17 10:00 Constitutional: Yes: No Distress Neck: Yes: Supple Cardiovascular: Yes: Regular Rate and Rhythm, S1, S2 Respiratory: Yes: Regular, CTA Bilaterally Gastrointestinal: Yes: Normal Bowel Sounds, Soft Neurological: Yes: Alert, Oriented. No: Loss of Sensation ...Motor Strength: WNL Labs: CBC, BMP 06/11/17 14:50 06/13/17 06:15 INR, PTT INR 1.03 (0.82-1.09) 06/01/17 21:41 Problem List - Problems (1) Pneumonia Assessment/Plan: Abx. Steroids increased today Code(s): J18.9 - PNEUMONIA, UNSPECIFIED ORGANISM (2) Type 2 diabetes mellitus with diabetic chronic kidney disease Assessment/Plan: One low glucose reading today, otherwise good control Code(s): E11.22 - TYPE 2 DIABETES MELLITUS W DIABETIC CHRONIC KIDNEY DISEASE (3) ESRD (end stage renal disease) on dialysis Assessment/Plan: HD as per renal Code(s): N18.6 - END STAGE RENAL DISEASE Z99.2 - DEPENDENCE ON RENAL DIALYSIS
[2017-06-13] MEDS ORDERED: INSULIN (NOVOLOG) ASPART 100 UNITS/ML 10ML VIAL ONE (21:06)
[2017-06-14] MEDS: methylPREDNISolone NA SUCC 40 MG/1 ML VIAL IVPB SCH ×3 (02:38→18:40)
[2017-06-14] MEDS: GABAPENTIN 100 MG CAPSULE (FP) PO SCH ×3 (06:25→21:15)
[2017-06-14] MEDS: INSULIN SLIDING SCALE (NOVOLOG) 1 VIAL SQ SCH ×4 (06:39→21:15)
[2017-06-14] MEDS: INSULIN DETEMIR 100 UNITS/ML MDV SQ SCH ×2 (06:39→21:15)
[2017-06-14] MEDS: CALCIUM ACETATE 667 MG CAPSULE (FP) PO SCH ×3 (07:59→17:13)
[2017-06-14] MEDS: SEVELAMER CARBONATE 800 MG TAB (FP) PO SCH ×3 (07:59→17:13)
[2017-06-14] MEDS ORDERED: HEPARIN NA (PORCINE) 5,000 UNITS/ML 1ML VIAL IVPUSH ONE (08:30)
[2017-06-14] MEDS ORDERED: EPOETIN ALFA 2,000 UNITS/1 ML VIAL IVPUSH ONE (08:30)
[2017-06-14 08:44] LABS: MCH 29.8 pg (25.7-33.7); MCHC 33.3 g/dl (32.0-35.9); MEAN CELL VOLUME 89.7 fl (80-96); PLATELET COUNT 367 K/MM3 (134-434); RDW 15.8 % (11.9-15.9); WHITE BLOOD COUNT 12.5 K/mm3 (4.0-10.0)
[2017-06-14 09:02] LABS: ANION GAP 9 (8-16); CO2 27 mmol/L (21-32)
[2017-06-14 09:31] LABS: GLUCOSE,RANDOM 339 mg/dL (74-106)
[2017-06-14 09:32] LABS: CREATININE 8.6 mg/dL (0.7-1.3)
[2017-06-14] MEDS: ARFORMOTEROL TARTRATE 15 MCG/2 ML VIAL NEB SCH ×2 (10:13→22:30)
[2017-06-14] MEDS: HEPARIN NA (PORCINE) 5,000 UNITS/ML 1ML VIAL SQ SCH (10:38)
[2017-06-14] MEDS: amLODIPine BESYLATE 5 MG TABLET (FP) PO SCH (13:07)
[2017-06-14] MEDS: CARVEDILOL 12.5 MG TABLET (FP) PO SCH ×2 (13:07→21:15)
[2017-06-14] MEDS: CLOPIDOGREL BISULFATE 75 MG TABLET (FP) PO SCH (13:07)
[2017-06-14] MEDS: LISINOPRIL 20 MG TABLET (FP) PO SCH (13:08)
[2017-06-14] MEDS: ISOSORBIDE MONONITRATE 30 MG TAB.SR.24H (FP) PO SCH (13:08)
[2017-06-14] MEDS: ASPIRIN COATED 81 MG TABLET.EC PO SCH (13:08)
--- NOTE | 2017-06-14 13:18 | PN ---
Progress Note, Physician History of Present Illness: Pt seen and examined at bedside. He tolerated HD today. - Current Medication List Current Medications: Active Medications Amlodipine Besylate (Norvasc -) 5 mg PO DAILY [facility] Last Admin: 06/14/17 13:07 Dose: 5 mg Arformoterol Tartrate (Brovana (Restricted To Pulmonology/Resp) -) 1 amp NEB BID [facility] Last Admin: 06/14/17 10:13 Dose: Not Given Aspirin (Ecotrin -) 81 mg PO DAILY [facility] Last Admin: 06/14/17 13:08 Dose: 81 mg Calcium Acetate (Phoslo -) 1,334 mg PO TIDCM [facility] Last Admin: 06/14/17 13:08 Dose: 1,334 mg Carvedilol (Coreg -) 12.5 mg PO BID [facility] Last Admin: 06/14/17 13:07 Dose: 12.5 mg Clopidogrel Bisulfate (Plavix -) 75 mg PO DAILY [facility] Last Admin: 06/14/17 13:07 Dose: 75 mg Gabapentin (Neurontin -) 100 mg PO TID [facility] Last Admin: 06/14/17 06:25 Dose: 100 mg Guaifenesin (Diabetic Tussin Dm -) 10 ml PO QID [facility] Last Admin: 06/13/17 22:14 Dose: 10 ml Insulin Aspart (Novolog Vial Sliding Scale -) [address] [facility] PRN Reason: Protocol Last Admin: 06/14/17 11:00 Dose: Not Given Insulin Detemir (Levemir Vial) 35 units SQ AM [facility] Last Admin: 06/14/17 06:39 Dose: 35 units Insulin Detemir (Levemir Vial) 30 units SQ HS [facility] Last Admin: 06/13/17 21:11 Dose: 30 units Isosorbide Mononitrate (Imdur -) 30 mg PO DAILY [facility] Last Admin: 06/14/17 13:08 Dose: 30 mg Lisinopril (Prinivil) 20 mg PO DAILY [facility] Last Admin: 06/14/17 13:08 Dose: 20 mg Methylprednisolone Sodium Succinate (Solu-Medrol -) 40 mg IVPB Q8H-IV [facility] Last Admin: 06/14/17 13:08 Dose: 40 mg Sevelamer Carbonate (Renvela -) 800 mg PO TIDCM [facility] Last Admin: 06/14/17 13:08 Dose: 800 mg - Objective Vital Signs: Vital Signs Temperature 98 F 06/14/17 13:10 Pulse Rate 87 06/14/17 13:10 Respiratory Rate 20 06/14/17 13:10 Blood Pressure 151/97 06/14/17 13:10 O2 Sat by Pulse Oximetry (%) 94 L 06/13/17 22:00 Constitutional: Yes: Calm Eyes: Yes: Conjunctiva Clear HENT: Yes: Atraumatic Neck: Yes: Supple Cardiovascular: Yes: S1, S2 Respiratory: Yes: On Nasal O2 Gastrointestinal: Yes: Soft Genitourinary: Yes: WNL Edema: No Neurological: Yes: Oriented Psychiatric: Yes: Oriented Labs: CBC, BMP 06/14/17 08:10 06/14/17 08:10 INR, PTT INR 1.03 (0.82-1.09) 06/01/17 21:41 Problem List - Problems (1) ESRD (end stage renal disease) on dialysis Code(s): N18.6 - END STAGE RENAL DISEASE Z99.2 - DEPENDENCE ON RENAL DIALYSIS Assessment/Plan Current Medications Generic Name Dose Route Start Last Admin Trade Name Freq PRN Reason Stop Dose Admin Amlodipine Besylate 5 mg 06/10/17 10:00 06/14/17 13:07 Norvasc - PO 5 mg DAILY [facility] Administration Arformoterol Tartrate 1 amp 06/06/17 22:00 06/14/17 10:13 Brovana (Restricted To Pulmonology/Resp) - NEB Not Given BID [facility] Aspirin 81 mg 06/02/17 10:00 06/14/17 13:08 Ecotrin - PO 81 mg DAILY [facility] Administration Calcium Acetate 1,334 mg 06/04/17 12:00 06/14/17 13:08 Phoslo - PO 1,334 mg TIDCM [facility] Administration Carvedilol 12.5 mg 06/02/17 10:00 06/14/17 13:07 Coreg - PO 12.5 mg BID [facility] Administration Clopidogrel Bisulfate 75 mg 06/02/17 10:00 06/14/17 13:07 Plavix - PO 75 mg DAILY [facility] Administration Gabapentin 100 mg 06/02/17 14:00 06/14/17 06:25 Neurontin - PO 100 mg TID [facility] Administration Guaifenesin 10 ml 06/08/17 07:45 06/13/17 22:14 Diabetic Tussin Dm - PO 10 ml QID [facility] Administration Insulin Aspart 1 vial 06/10/17 23:44 06/14/17 11:00 Novolog Vial Sliding Scale - SQ Not Given ACHS [facility] Protocol Insulin Detemir 35 units 06/11/17 07:00 06/14/17 06:39 Levemir Vial SQ 35 units AM [facility] Administration Insulin Detemir 30 units 06/10/17 23:43 06/13/17 21:11 Levemir Vial SQ 30 units HS [facility] Administration Isosorbide Mononitrate 30 mg 06/02/17 10:00 06/14/17 13:08 Imdur - PO 30 mg DAILY [facility] Administration Lisinopril 20 mg 06/02/17 10:00 06/14/17 13:08 Prinivil PO 20 mg DAILY [facility] Administration Methylprednisolone Sodium Succinate 40 mg 06/13/17 18:00 06/14/17 13:08 Solu-Medrol - IVPB 40 mg Q8H-IV [facility] Administration Sevelamer Carbonate 800 mg 06/06/17 17:30 06/14/17 13:08 Renvela - PO 800 mg TIDCM [facility] Administration Impression 1. ESRD 2. fluid overload 3. HTN 4. DM 5. anemia 6. hemoptysis Plan - HD today - 3.5 liters UF - cont current meds - will evaluate for HD in am - steroids per pulmonary - renal diet and fluid restriction - cont current meds - will follow Dr Barbosa
[2017-06-14] MEDS: guaiFENesin/D-M SUGAR-FREE/ACLHOL-FREE 118 ML BOTTLE PO SCH ×4 (13:38→21:15)
[2017-06-14] MEDS ORDERED: PT OWN MED DRAWER 7, Y5N ONE ×3 (14:35→20:48)
--- NOTE | 2017-06-14 15:11 | PN ---
Progress Note, Physician History of Present Illness: PULMONARY ALERT,FEELING BETTER,LESS DYSPNEIC,+ COUGH - Current Medication List Current Medications: Active Medications Amlodipine Besylate (Norvasc -) 5 mg PO DAILY [facility] Last Admin: 06/14/17 13:07 Dose: 5 mg Arformoterol Tartrate (Brovana (Restricted To Pulmonology/Resp) -) 1 amp NEB BID [facility] Last Admin: 06/14/17 10:13 Dose: Not Given Aspirin (Ecotrin -) 81 mg PO DAILY [facility] Last Admin: 06/14/17 13:08 Dose: 81 mg Calcium Acetate (Phoslo -) 1,334 mg PO TIDCM [facility] Last Admin: 06/14/17 13:08 Dose: 1,334 mg Carvedilol (Coreg -) 12.5 mg PO BID [facility] Last Admin: 06/14/17 13:07 Dose: 12.5 mg Clopidogrel Bisulfate (Plavix -) 75 mg PO DAILY [facility] Last Admin: 06/14/17 13:07 Dose: 75 mg Gabapentin (Neurontin -) 100 mg PO TID [facility] Last Admin: 06/14/17 14:44 Dose: 100 mg Guaifenesin (Diabetic Tussin Dm -) 10 ml PO QID [facility] Last Admin: 06/14/17 14:44 Dose: 10 ml Insulin Aspart (Novolog Vial Sliding Scale -) 1 vial SQ [facility] PRN Reason: Protocol Last Admin: 06/14/17 11:00 Dose: Not Given Insulin Detemir (Levemir Vial) 35 units SQ AM [facility] Last Admin: 06/14/17 06:39 Dose: 35 units Insulin Detemir (Levemir Vial) 30 units SQ HS [facility] Last Admin: 06/13/17 21:11 Dose: 30 units Isosorbide Mononitrate (Imdur -) 30 mg PO DAILY [facility] Last Admin: 06/14/17 13:08 Dose: 30 mg Lisinopril (Prinivil) 20 mg PO DAILY [facility] Last Admin: 06/14/17 13:08 Dose: 20 mg Methylprednisolone Sodium Succinate (Solu-Medrol -) 40 mg IVPB Q8H-IV [facility] Last Admin: 06/14/17 13:08 Dose: 40 mg Sevelamer Carbonate (Renvela -) 800 mg PO TIDCM [facility] Last Admin: 06/14/17 13:08 Dose: 800 mg - Objective Vital Signs: Vital Signs Temperature 98.7 F 06/14/17 14:27 Pulse Rate 75 06/14/17 14:27 Respiratory Rate 20 06/14/17 13:54 Blood Pressure 165/92 06/14/17 14:27 O2 Sat by Pulse Oximetry (%) 94 L 06/13/17 22:00 Constitutional: Yes: Well Nourished, Calm Eyes: Yes: WNL HENT: Yes: WNL Neck: Yes: WNL Cardiovascular: Yes: Regular Rate and Rhythm, S1, S2 Respiratory: Yes: Rales Gastrointestinal: Yes: Normal Bowel Sounds, Soft Extremities: Yes: WNL Edema: No Labs: CBC, BMP 06/14/17 08:10 06/14/17 08:10 INR, PTT INR 1.03 (0.82-1.09) 06/01/17 21:41 Assessment/Plan A/P Acute Hypoxic Respiratory Failure Bilateral Interstitial Infiltrates LV Diastolic Dysfunction ESRD on HD CAD HTN DM - steroids - HD per renal - glucose control while on systemic steroids - O2 to keep SpO2 >90% - DVT prophylaxis - repeat CXR in am DR THOMAS
[2017-06-14] MEDS ORDERED: INSULIN (NOVOLOG) ASPART 100 UNITS/ML 10ML VIAL ONE ×2 (16:25→21:11)
--- NOTE | 2017-06-15 01:15 | PN ---
Progress Note (short form) - Note Progress Note: Chief Complaint: sob History of Present Illness: cough improved, but persists. associated with dizziness and chest tightness. Also with chest tightness on inspiration (improving) sob improving, no palps BP elevated today. Had HD today. - Current Medication List Current Medications: Active Medications Amlodipine Besylate (Norvasc -) 5 mg PO DAILY [facility] Last Admin: 06/11/17 09:40 Dose: 5 mg Arformoterol Tartrate (Brovana (Restricted To Pulmonology/Resp) -) 1 amp NEB BID [facility] Last Admin: 06/11/17 22:10 Dose: 1 amp Aspirin (Ecotrin -) 81 mg PO DAILY [facility] Last Admin: 06/11/17 09:40 Dose: 81 mg Calcium Acetate (Phoslo -) 1,334 mg PO TIDCM [facility] Last Admin: 06/12/17 08:20 Dose: 1,334 mg Carvedilol (Coreg -) 12.5 mg PO BID [facility] Last Admin: 06/11/17 22:15 Dose: 12.5 mg Ceftriaxone Sodium (Rocephin 1gm Ivpb (Pre-Docked)) 1 gm IVPB DAILY [facility] PRN Reason: Protocol Last Admin: 06/11/17 09:38 Dose: 1 gm Clopidogrel Bisulfate (Plavix -) 75 mg PO DAILY [facility] Last Admin: 06/11/17 09:40 Dose: 75 mg Epoetin Ishan (Epogen -) 4,000 units IVPUSH ONCE ONE Stop: 06/12/17 17:03 Gabapentin (Neurontin -) 100 mg PO TID [facility] Last Admin: 06/12/17 06:26 Dose: 100 mg Guaifenesin (Diabetic Tussin Dm -) 10 ml PO QID [facility] Last Admin: 06/11/17 22:23 Dose: 10 ml Heparin Sodium (Porcine) (Heparin -) 5,000 unit SQ BID [facility] Last Admin: 06/11/17 22:15 Dose: 5,000 unit Heparin Sodium (Porcine) (Heparin -) 1,000 unit IVPUSH ONCE ONE Stop: 06/12/17 17:03 Azithromycin (Zithromax 500mg Ivpb (Pre-Docked)) 250 mls @ 250 mls/hr IVPB DAILY [facility] Last Admin: 06/11/17 09:39 Dose: 250 mls/hr Insulin Aspart (Novolog Vial Sliding Scale -) 1 vial SQ ACHS [facility] PRN Reason: Protocol Last Admin: 06/12/17 06:27 Dose: 5 units Insulin Detemir (Levemir Vial) 35 units SQ AM [facility] Last Admin: 06/12/17 06:26 Dose: 35 units Insulin Detemir (Levemir Vial) 30 units SQ HS [facility] Last Admin: 06/11/17 22:22 Dose: 30 units Isosorbide Mononitrate (Imdur -) 30 mg PO DAILY [facility] Last Admin: 06/11/17 09:40 Dose: 30 mg Lisinopril (Prinivil) 20 mg PO DAILY [facility] Last Admin: 06/11/17 09:40 Dose: 20 mg Methylprednisolone Sodium Succinate (Solu-Medrol -) 40 mg IVPB DAILY [facility] Last Admin: 06/11/17 09:39 Dose: 40 mg Sevelamer Carbonate (Renvela -) 800 mg PO TIDCM [facility] Last Admin: 06/12/17 08:20 Dose: 800 mg - Objective Vital Signs: Vital Signs - 24 hr 06/14/17 06/14/17 06/14/17 06:00 08:00 08:05 Temperature 97.5 F L 97.4 F L Pulse Rate 68 78 78 Respiratory 20 18 18 Rate Blood Pressure 142/91 164/88 163/95 06/14/17 06/14/17 06/14/17 08:35 09:05 09:35 Temperature Pulse Rate 91 H 96 H 91 H Respiratory 18 18 18 Rate Blood Pressure 187/105 168/100 167/105 06/14/17 06/14/17 06/14/17 10:05 10:35 11:05 Temperature Pulse Rate 94 H 87 91 H Respiratory 18 18 18 Rate Blood Pressure 176/103 175/98 163/106 06/14/17 06/14/17 06/14/17 11:35 11:50 12:00 Temperature Pulse Rate 88 88 89 Respiratory 18 18 18 Rate Blood Pressure 171/101 173/101 172/103 06/14/17 06/14/17 06/14/17 13:10 13:54 14:27 Temperature 98 F 98.7 F Pulse Rate 87 75 Respiratory 20 20 Rate Blood Pressure 151/97 165/92 Constitutional: Yes: No Distress, Calm, Obese Cardiovascular: Yes: Regular Rate and Rhythm, S1, S2. No: Gallop, Murmur Respiratory: Yes: Regular, bibasilar rales. nl effort. no Wheezes. No: Accessory Muscle Use Extremities: No: Cold Edema: No Neurological: Yes: Alert, Oriented Psychiatric: No: Agitated Labs: Laboratory Tests 06/14/17 06/14/17 08:10 08:10 WBC 12.5 H Hgb 9.6 L Sodium 133 L Potassium 5.2 H Assessment/Plan Echo 05/29 (here): mild LVE, low-nl LVEF; nl RV; mild AI/MR/TR mibi 10/2012: nl mpi ecg 06/01/17: no ischemic changes a/p: 67 m hx esrd on hd, dm, cad s/p remote mi/pci (10+yrs ago), sent by pmd for possible pna. 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 will uptitrate norvasc
[2017-06-15] MEDS: methylPREDNISolone NA SUCC 40 MG/1 ML VIAL IVPB SCH ×3 (02:40→17:40)
[2017-06-15] MEDS: GABAPENTIN 100 MG CAPSULE (FP) PO SCH ×3 (06:22→21:34)
[2017-06-15] MEDS: INSULIN DETEMIR 100 UNITS/ML MDV SQ SCH ×3 (06:43→22:27)
[2017-06-15] MEDS: INSULIN SLIDING SCALE (NOVOLOG) 1 VIAL SQ SCH ×4 (06:43→21:35)
[2017-06-15] MEDS: SEVELAMER CARBONATE 800 MG TAB (FP) PO SCH ×3 (08:07→17:40)
[2017-06-15] MEDS: CALCIUM ACETATE 667 MG CAPSULE (FP) PO SCH ×3 (08:07→17:39)
[2017-06-15] MEDS ORDERED: PT OWN MED DRAWER 7, Y5N ONE ×4 (09:15→21:21)
[2017-06-15] MEDS: ISOSORBIDE MONONITRATE 30 MG TAB.SR.24H (FP) PO SCH (09:18)
[2017-06-15] MEDS: CLOPIDOGREL BISULFATE 75 MG TABLET (FP) PO SCH (09:18)
[2017-06-15] MEDS: CARVEDILOL 12.5 MG TABLET (FP) PO SCH ×2 (09:18→21:34)
[2017-06-15] MEDS: amLODIPine BESYLATE 10 MG TABLET (FP) PO SCH (09:18)
[2017-06-15] MEDS: ASPIRIN COATED 81 MG TABLET.EC PO SCH (09:18)
[2017-06-15] MEDS: guaiFENesin/D-M SUGAR-FREE/ACLHOL-FREE 118 ML BOTTLE PO SCH ×4 (09:18→21:34)
[2017-06-15] MEDS: LISINOPRIL 20 MG TABLET (FP) PO SCH (09:18)
[2017-06-15] MEDS: ARFORMOTEROL TARTRATE 15 MCG/2 ML VIAL NEB SCH ×2 (09:45→22:34)
--- NOTE | 2017-06-15 10:08 | PN ---
Progress Note (short form) - Note Progress Note: PULMONARY States breathing slowly improving.+nonproductive cough. No fevers or chills. CXR this AM about the same as prior. Last Vital Signs Temp Pulse Resp BP Pulse Ox 97.8 F 74 20 158/96 94 L 06/15/17 08:20 06/15/17 08:20 06/15/17 08:20 06/15/17 08:20 06/13/17 22:00 Gen: NAD at rest Heart: RRR Lung: bibasilar rales Abd: soft, nontender Ext: no edema CBC, BMP 06/14/17 08:10 06/14/17 08:10 Active Medications Amlodipine Besylate (Norvasc -) 10 mg PO DAILY [facility] Last Admin: 06/15/17 09:18 Dose: 10 mg Arformoterol Tartrate (Brovana (Restricted To Pulmonology/Resp) -) 1 amp NEB BID [facility] Last Admin: 06/14/17 22:30 Dose: 1 amp Aspirin (Ecotrin -) 81 mg PO DAILY [facility] Last Admin: 06/15/17 09:18 Dose: 81 mg Calcium Acetate (Phoslo -) 1,334 mg PO TIDCM [facility] Last Admin: 06/15/17 08:07 Dose: 1,334 mg Carvedilol (Coreg -) 12.5 mg PO BID [facility] Last Admin: 06/15/17 09:18 Dose: 12.5 mg Clopidogrel Bisulfate (Plavix -) 75 mg PO DAILY [facility] Last Admin: 06/15/17 09:18 Dose: 75 mg Gabapentin (Neurontin -) 100 mg PO TID [facility] Last Admin: 06/15/17 06:22 Dose: 100 mg Guaifenesin (Diabetic Tussin Dm -) 10 ml PO QID [facility] Last Admin: 06/15/17 09:18 Dose: 10 ml Insulin Aspart (Novolog Vial Sliding Scale -) 1 vial SQ ACHS [facility] PRN Reason: Protocol Last Admin: 06/15/17 06:43 Dose: 6 units Insulin Detemir (Levemir Vial) 35 units SQ AM [facility] Last Admin: 06/15/17 06:43 Dose: 35 units Insulin Detemir (Levemir Vial) 30 units SQ HS [facility] Last Admin: 06/14/17 21:15 Dose: 30 units Isosorbide Mononitrate (Imdur -) 30 mg PO DAILY [facility] Last Admin: 06/15/17 09:18 Dose: 30 mg Lisinopril (Prinivil) 20 mg PO DAILY [facility] Last Admin: 06/15/17 09:18 Dose: 20 mg Methylprednisolone Sodium Succinate (Solu-Medrol -) 40 mg IVPB Q8H-IV [facility] Last Admin: 06/15/17 09:18 Dose: 40 mg Sevelamer Carbonate (Renvela -) 800 mg PO TIDCM [facility] Last Admin: 06/15/17 08:07 Dose: 800 mg A/P Acute Hypoxic Respiratory Failure Bilateral Interstitial Infiltrates LV Diastolic Dysfunction ESRD on HD CAD HTN DM - bilateral infiltrates more likely acute pneumonitis but may also have component of diastolic dysfunction, ESRD - continue medrol at current dose - completed empiric antibiotics - HD per renal - glucose control while on systemic steroids - O2 to keep SpO2 >90% - DVT prophylaxis - repeat CXR again in 2-3 days
[2017-06-15] MEDS ORDERED: INSULIN (NOVOLOG) ASPART 100 UNITS/ML 10ML VIAL ONE ×2 (12:49→21:21)
--- NOTE | 2017-06-15 14:22 | PN ---
Progress Note, Physician Chief Complaint: Feels better - Current Medication List Current Medications: Active Medications Amlodipine Besylate (Norvasc -) 10 mg PO DAILY [facility] Last Admin: 06/15/17 09:18 Dose: 10 mg Arformoterol Tartrate (Brovana (Restricted To Pulmonology/Resp) -) 1 amp NEB BID [facility] Last Admin: 06/15/17 09:45 Dose: 1 amp Aspirin (Ecotrin -) 81 mg PO DAILY [facility] Last Admin: 06/15/17 09:18 Dose: 81 mg Calcium Acetate (Phoslo -) 1,334 mg PO TIDCM [facility] Last Admin: 06/15/17 11:41 Dose: 1,334 mg Carvedilol (Coreg -) 12.5 mg PO BID [facility] Last Admin: 06/15/17 09:18 Dose: 12.5 mg Clopidogrel Bisulfate (Plavix -) 75 mg PO DAILY [facility] Last Admin: 06/15/17 09:18 Dose: 75 mg Gabapentin (Neurontin -) 100 mg PO TID [facility] Last Admin: 06/15/17 14:16 Dose: 100 mg Guaifenesin (Diabetic Tussin Dm -) 10 ml PO QID [facility] Last Admin: 06/15/17 14:18 Dose: 10 ml Insulin Aspart (Novolog Vial Sliding Scale -) 1 vial SQ ACHS [facility] PRN Reason: Protocol Last Admin: 06/15/17 12:37 Dose: 8 units Insulin Detemir (Levemir Vial) 35 units SQ AM [facility] Last Admin: 06/15/17 06:43 Dose: 35 units Insulin Detemir (Levemir Vial) 30 units SQ HS [facility] Last Admin: 06/14/17 21:15 Dose: 30 units Isosorbide Mononitrate (Imdur -) 30 mg PO DAILY [facility] Last Admin: 06/15/17 09:18 Dose: 30 mg Lisinopril (Prinivil) 20 mg PO DAILY [facility] Last Admin: 06/15/17 09:18 Dose: 20 mg Methylprednisolone Sodium Succinate (Solu-Medrol -) 40 mg IVPB Q8H-IV [facility] Last Admin: 06/15/17 09:18 Dose: 40 mg Sevelamer Carbonate (Renvela -) 800 mg PO TIDCM [facility] Last Admin: 06/15/17 11:40 Dose: 800 mg - Objective Vital Signs: Vital Signs Temperature 97.8 F 06/15/17 08:20 Pulse Rate 76 06/15/17 09:45 Respiratory Rate 20 06/15/17 08:20 Blood Pressure 158/96 06/15/17 08:20 O2 Sat by Pulse Oximetry (%) 94 L 06/15/17 10:00 Constitutional: Yes: No Distress Neck: Yes: Supple Respiratory: Yes: CTA Bilaterally. No: Accessory Muscle Use Gastrointestinal: Yes: Normal Bowel Sounds, Soft Neurological: Yes: Alert, Oriented. No: Loss of Sensation ...Motor Strength: WNL Labs: CBC, BMP 06/14/17 08:10 06/14/17 08:10 INR, PTT INR 1.03 (0.82-1.09) 06/01/17 21:41 Problem List - Problems (1) Pneumonia Assessment/Plan: Abx. Steroids Code(s): J18.9 - PNEUMONIA, UNSPECIFIED ORGANISM (2) Type 2 diabetes mellitus with diabetic chronic kidney disease Assessment/Plan: One low glucose reading today, otherwise good control Code(s): E11.22 - TYPE 2 DIABETES MELLITUS W DIABETIC CHRONIC KIDNEY DISEASE (3) ESRD (end stage renal disease) on dialysis Assessment/Plan: HD as per renal Code(s): N18.6 - END STAGE RENAL DISEASE Z99.2 - DEPENDENCE ON RENAL DIALYSIS
[2017-06-15] MEDS ORDERED: FUROSEMIDE 40 MG/4 ML INJECTABLE VIAL IVPUSH ONE (17:26)
--- NOTE | 2017-06-15 17:26 | PN ---
Progress Note, Physician History of Present Illness: Pt seen and examined at bedside. He feels that his breathing is improved. - Current Medication List Current Medications: Active Medications Amlodipine Besylate (Norvasc -) 10 mg PO DAILY [facility] Last Admin: 06/15/17 09:18 Dose: 10 mg Arformoterol Tartrate (Brovana (Restricted To Pulmonology/Resp) -) 1 amp NEB BID [facility] Last Admin: 06/15/17 09:45 Dose: 1 amp Aspirin (Ecotrin -) 81 mg PO DAILY [facility] Last Admin: 06/15/17 09:18 Dose: 81 mg Calcium Acetate (Phoslo -) 1,334 mg PO TIDCM [facility] Last Admin: 06/15/17 11:41 Dose: 1,334 mg Carvedilol (Coreg -) 12.5 mg PO BID [facility] Last Admin: 06/15/17 09:18 Dose: 12.5 mg Clopidogrel Bisulfate (Plavix -) 75 mg PO DAILY [facility] Last Admin: 06/15/17 09:18 Dose: 75 mg Gabapentin (Neurontin -) 100 mg PO TID [facility] Last Admin: 06/15/17 14:16 Dose: 100 mg Guaifenesin (Diabetic Tussin Dm -) 10 ml PO QID [facility] Last Admin: 06/15/17 14:18 Dose: 10 ml Insulin Aspart (Novolog Vial Sliding Scale -) 1 vial SQ ACHS [facility] PRN Reason: Protocol Last Admin: 06/15/17 12:37 Dose: 8 units Insulin Detemir (Levemir Vial) 35 units SQ AM [facility] Last Admin: 06/15/17 06:43 Dose: 35 units Insulin Detemir (Levemir Vial) 30 units SQ HS [facility] Last Admin: 06/14/17 21:15 Dose: 30 units Isosorbide Mononitrate (Imdur -) 30 mg PO DAILY [facility] Last Admin: 06/15/17 09:18 Dose: 30 mg Lisinopril (Prinivil) 20 mg PO DAILY [facility] Last Admin: 06/15/17 09:18 Dose: 20 mg Methylprednisolone Sodium Succinate (Solu-Medrol -) 40 mg IVPB Q8H-IV [facility] Last Admin: 06/15/17 09:18 Dose: 40 mg Sevelamer Carbonate (Renvela -) 800 mg PO TIDCM [facility] Last Admin: 06/15/17 11:40 Dose: 800 mg - Objective Vital Signs: Vital Signs Temperature 98.5 F 06/15/17 14:44 Pulse Rate 84 06/15/17 14:44 Respiratory Rate 20 06/15/17 08:20 Blood Pressure 152/84 06/15/17 14:44 O2 Sat by Pulse Oximetry (%) 94 L 06/15/17 10:00 Constitutional: Yes: Calm Eyes: Yes: Conjunctiva Clear HENT: Yes: Atraumatic Cardiovascular: Yes: S1, S2 Respiratory: Yes: On Nasal O2, Wheezes Gastrointestinal: Yes: Normal Bowel Sounds, Soft Musculoskeletal: Yes: WNL Edema: No Neurological: Yes: Oriented Psychiatric: Yes: Oriented Labs: CBC, BMP 06/14/17 08:10 06/14/17 08:10 INR, PTT INR 1.03 (0.82-1.09) 06/01/17 21:41 Problem List - Problems (1) ESRD (end stage renal disease) on dialysis Code(s): N18.6 - END STAGE RENAL DISEASE Z99.2 - DEPENDENCE ON RENAL DIALYSIS Assessment/Plan Current Medications Generic Name Dose Route Start Last Admin Trade Name Freq PRN Reason Stop Dose Admin Amlodipine Besylate 10 mg 06/15/17 10:00 06/15/17 09:18 Norvasc - PO 10 mg DAILY [facility] Administration Arformoterol Tartrate 1 amp 06/06/17 22:00 06/15/17 09:45 Brovana (Restricted To Pulmonology/Resp) - NEB 1 amp BID [facility] Administration Aspirin 81 mg 06/02/17 10:00 06/15/17 09:18 Ecotrin - PO 81 mg DAILY [facility] Administration Calcium Acetate 1,334 mg 06/04/17 12:00 06/15/17 11:41 Phoslo - PO 1,334 mg TIDCM [facility] Administration Carvedilol 12.5 mg 06/02/17 10:00 06/15/17 09:18 Coreg - PO 12.5 mg BID [facility] Administration Clopidogrel Bisulfate 75 mg 06/02/17 10:00 06/15/17 09:18 Plavix - PO 75 mg DAILY [facility] Administration Gabapentin 100 mg 06/02/17 14:00 06/15/17 14:16 Neurontin - PO 100 mg TID [facility] Administration Guaifenesin 10 ml 06/08/17 07:45 06/15/17 14:18 Diabetic Tussin Dm - PO 10 ml QID [facility] Administration Insulin Aspart 1 vial 06/10/17 23:44 06/15/17 12:37 Novolog Vial Sliding Scale - SQ 8 units ACHS [facility] Administration Protocol Insulin Detemir 35 units 06/11/17 07:00 06/15/17 06:43 Levemir Vial SQ 35 units AM [facility] Administration Insulin Detemir 30 units 06/10/17 23:43 06/14/17 21:15 Levemir Vial SQ 30 units HS [facility] Administration Isosorbide Mononitrate 30 mg 06/02/17 10:00 06/15/17 09:18 Imdur - PO 30 mg DAILY [facility] Administration Lisinopril 20 mg 06/02/17 10:00 06/15/17 09:18 Prinivil PO 20 mg DAILY [facility] Administration Methylprednisolone Sodium Succinate 40 mg 06/13/17 18:00 06/15/17 09:18 Solu-Medrol - IVPB 40 mg Q8H-IV [facility] Administration Sevelamer Carbonate 800 mg 06/06/17 17:30 06/15/17 11:40 Renvela - PO 800 mg TIDCM [facility] Administration Impression 1. ESRD 2. fluid overload 3. HTN 4. DM 5. anemia 6. hemoptysis Plan - HD in am - will give dose of lasix - cont current meds - steroids per pulmonary - cont current meds - will follow Dr Barbosa
[2017-06-16] MEDS: methylPREDNISolone NA SUCC 40 MG/1 ML VIAL IVPB SCH ×3 (01:07→17:06)
[2017-06-16] MEDS: GABAPENTIN 100 MG CAPSULE (FP) PO SCH ×3 (06:32→21:39)
[2017-06-16] MEDS: INSULIN SLIDING SCALE (NOVOLOG) 1 VIAL SQ SCH ×4 (06:33→21:41)
[2017-06-16] MEDS: INSULIN DETEMIR 100 UNITS/ML MDV SQ SCH ×2 (06:33→21:40)
[2017-06-16] MEDS ORDERED: INSULIN (NOVOLOG) ASPART 100 UNITS/ML 10ML VIAL ONE (06:47)
[2017-06-16] MEDS: CALCIUM ACETATE 667 MG CAPSULE (FP) PO SCH ×3 (08:40→16:59)
[2017-06-16] MEDS: SEVELAMER CARBONATE 800 MG TAB (FP) PO SCH ×3 (08:40→16:59)
[2017-06-16] MEDS: guaiFENesin/D-M SUGAR-FREE/ACLHOL-FREE 118 ML BOTTLE PO SCH ×5 (10:00→21:39)
[2017-06-16] MEDS ORDERED: EPOETIN ALFA 2,000 UNITS/1 ML VIAL IVPUSH ONE (11:00)
[2017-06-16] MEDS ORDERED: HEPARIN NA (PORCINE) 5,000 UNITS/ML 1ML VIAL IVPUSH ONE (11:00)
[2017-06-16 11:19] LABS: MCH 29.2 pg (25.7-33.7); MCHC 31.9 g/dl (32.0-35.9); MEAN CELL VOLUME 91.7 fl (80-96); MEAN PLT VOLUME 7.2 fl (7.5-11.1); PLATELET COUNT 372 K/MM3 (134-434); RDW 16.6 % (11.9-15.9)
[2017-06-16] MEDS: ARFORMOTEROL TARTRATE 15 MCG/2 ML VIAL NEB SCH ×2 (11:20→21:43)
[2017-06-16 11:54] LABS: ALBUMIN 2.6 g/dl (3.4-5.0); ANION GAP 13 (8-16); CALCIUM 8.7 mg/dL (8.5-10.1); CO2 23 mmol/L (21-32); GLUCOSE,RANDOM 231 mg/dL (74-106); SGOT/AST 14 U/L (15-37); SGPT/ALT 21 U/L (12-78)
[2017-06-16 12:01] LABS: ALK PHOS 113 U/L (45-117); BILIRUBIN,TOTAL 0.2 mg/dL (0.2-1.0); TOT PROT 5.3 g/dl (6.4-8.2)
[2017-06-16 12:13] LABS: CREATININE 8.1 mg/dL (0.7-1.3)
[2017-06-16] MEDS ORDERED: PT OWN MED DRAWER 7, Y5N ONE ×3 (14:17→21:34)
[2017-06-16] MEDS: CLOPIDOGREL BISULFATE 75 MG TABLET (FP) PO SCH (14:19)
[2017-06-16] MEDS: amLODIPine BESYLATE 10 MG TABLET (FP) PO SCH (14:19)
[2017-06-16] MEDS: CARVEDILOL 12.5 MG TABLET (FP) PO SCH (14:20)
[2017-06-16] MEDS: LISINOPRIL 20 MG TABLET (FP) PO SCH (14:20)
[2017-06-16] MEDS: ASPIRIN COATED 81 MG TABLET.EC PO SCH (14:20)
[2017-06-16] MEDS: ISOSORBIDE MONONITRATE 30 MG TAB.SR.24H (FP) PO SCH (14:20)
[2017-06-16 14:31] LABS: CREATININE 3.1 mg/dL (0.7-1.3)
--- NOTE | 2017-06-16 15:45 | PN ---
Progress Note, Physician Chief Complaint: Feels better - Current Medication List Current Medications: Active Medications Amlodipine Besylate (Norvasc -) 10 mg PO DAILY [facility] Last Admin: 06/16/17 14:19 Dose: 10 mg Arformoterol Tartrate (Brovana (Restricted To Pulmonology/Resp) -) 1 amp NEB BID [facility] Last Admin: 06/16/17 11:20 Dose: Not Given Aspirin (Ecotrin -) 81 mg PO DAILY [facility] Last Admin: 06/16/17 14:20 Dose: 81 mg Calcium Acetate (Phoslo -) 1,334 mg PO TIDCM [facility] Last Admin: 06/16/17 14:19 Dose: 1,334 mg Carvedilol (Coreg -) 12.5 mg PO BID [facility] Last Admin: 06/16/17 14:20 Dose: 12.5 mg Clopidogrel Bisulfate (Plavix -) 75 mg PO DAILY [facility] Last Admin: 06/16/17 14:19 Dose: 75 mg Gabapentin (Neurontin -) 100 mg PO TID [facility] Last Admin: 06/16/17 14:19 Dose: 100 mg Guaifenesin (Diabetic Tussin Dm -) 10 ml PO QID [facility] Last Admin: 06/16/17 14:25 Dose: Not Given Insulin Aspart (Novolog Vial Sliding Scale -) 1 vial SQ ACHS [facility] PRN Reason: Protocol Last Admin: 06/16/17 14:19 Dose: 6 units Insulin Detemir (Levemir Vial) 40 units SQ AM [facility] Last Admin: 06/16/17 06:33 Dose: 40 units Insulin Detemir (Levemir Vial) 20 units SQ HS [facility] Last Admin: 06/15/17 22:27 Dose: Not Given Isosorbide Mononitrate (Imdur -) 30 mg PO DAILY [facility] Last Admin: 06/16/17 14:20 Dose: 30 mg Lisinopril (Prinivil) 20 mg PO DAILY [facility] Last Admin: 06/16/17 14:20 Dose: 20 mg Methylprednisolone Sodium Succinate (Solu-Medrol -) 40 mg IVPB Q8H-IV [facility] Last Admin: 06/16/17 09:03 Dose: 40 mg Sevelamer Carbonate (Renvela -) 800 mg PO TIDCM [facility] Last Admin: 06/16/17 14:20 Dose: 800 mg - Objective Vital Signs: Vital Signs Temperature 98.4 F 06/16/17 14:02 Pulse Rate 87 06/16/17 14:02 Respiratory Rate 18 06/16/17 14:02 Blood Pressure 158/84 06/16/17 14:02 O2 Sat by Pulse Oximetry (%) 95 06/16/17 09:00 Constitutional: Yes: No Distress Neck: Yes: Supple Cardiovascular: Yes: Regular Rate and Rhythm, S1, S2 Respiratory: Yes: CTA Bilaterally Gastrointestinal: Yes: Normal Bowel Sounds, Soft Neurological: Yes: Alert, Oriented. No: Loss of Sensation ...Motor Strength: WNL Labs: CBC, BMP 06/16/17 09:20 06/16/17 13:05 INR, PTT INR 1.03 (0.82-1.09) 06/01/17 21:41 Problem List - Problems (1) Pneumonia Assessment/Plan: Abx. Steroids Code(s): J18.9 - PNEUMONIA, UNSPECIFIED ORGANISM (2) Type 2 diabetes mellitus with diabetic chronic kidney disease Assessment/Plan: Glucose control acceptable Code(s): E11.22 - TYPE 2 DIABETES MELLITUS W DIABETIC CHRONIC KIDNEY DISEASE (3) ESRD (end stage renal disease) on dialysis Code(s): N18.6 - END STAGE RENAL DISEASE Z99.2 - DEPENDENCE ON RENAL DIALYSIS
--- NOTE | 2017-06-16 16:02 | PN ---
Progress Note, Physician History of Present Illness: pulmonary alert,feeling better,less dyspneic ,cough improving - Current Medication List Current Medications: Active Medications Amlodipine Besylate (Norvasc -) 10 mg PO DAILY [facility] Last Admin: 06/16/17 14:19 Dose: 10 mg Arformoterol Tartrate (Brovana (Restricted To Pulmonology/Resp) -) 1 amp NEB BID [facility] Last Admin: 06/16/17 11:20 Dose: Not Given Aspirin (Ecotrin -) 81 mg PO DAILY [facility] Last Admin: 06/16/17 14:20 Dose: 81 mg Calcium Acetate (Phoslo -) 1,334 mg PO TIDCM [facility] Last Admin: 06/16/17 14:19 Dose: 1,334 mg Carvedilol (Coreg -) 12.5 mg PO BID [facility] Last Admin: 06/16/17 14:20 Dose: 12.5 mg Clopidogrel Bisulfate (Plavix -) 75 mg PO DAILY [facility] Last Admin: 06/16/17 14:19 Dose: 75 mg Gabapentin (Neurontin -) 100 mg PO TID [facility] Last Admin: 06/16/17 14:19 Dose: 100 mg Guaifenesin (Diabetic Tussin Dm -) 10 ml PO QID [facility] Last Admin: 06/16/17 14:25 Dose: Not Given Insulin Aspart (Novolog Vial Sliding Scale -) 1 vial SQ [facility] PRN Reason: Protocol Last Admin: 06/16/17 14:19 Dose: 6 units Insulin Detemir (Levemir Vial) 40 units SQ AM [facility] Last Admin: 06/16/17 06:33 Dose: 40 units Insulin Detemir (Levemir Vial) 20 units SQ HS [facility] Last Admin: 06/15/17 22:27 Dose: Not Given Isosorbide Mononitrate (Imdur -) 30 mg PO DAILY [facility] Last Admin: 06/16/17 14:20 Dose: 30 mg Lisinopril (Prinivil) 20 mg PO DAILY [facility] Last Admin: 06/16/17 14:20 Dose: 20 mg Methylprednisolone Sodium Succinate (Solu-Medrol -) 40 mg IVPB Q8H-IV [facility] Last Admin: 06/16/17 09:03 Dose: 40 mg Sevelamer Carbonate (Renvela -) 800 mg PO TIDCM [facility] Last Admin: 08/04/17 14:20 Dose: 800 mg - Objective Vital Signs: Vital Signs Temperature 98.0 F 06/16/17 15:42 Pulse Rate 85 06/16/17 15:42 Respiratory Rate 18 06/16/17 15:42 Blood Pressure 156/80 06/16/17 15:42 O2 Sat by Pulse Oximetry (%) 95 06/16/17 09:00 Constitutional: Yes: Well Nourished, Calm Eyes: Yes: WNL HENT: Yes: WNL Neck: Yes: WNL Cardiovascular: Yes: Regular Rate and Rhythm, S1, S2 Respiratory: Yes: Rales (scattered daphne wheezes,crackles) Gastrointestinal: Yes: Normal Bowel Sounds, Soft Extremities: Yes: WNL Edema: No Labs: CBC, BMP 06/16/17 09:20 06/16/17 13:05 INR, PTT INR 1.03 (0.82-1.09) 06/01/17 21:41 Assessment/Plan A/P Acute Hypoxic Respiratory Failure Bilateral Interstitial Infiltrates LV Diastolic Dysfunction ESRD on HD CAD HTN DM - steroids - HD per renal - glucose control while on systemic steroids - O2 to keep SpO2 >90% - DVT prophylaxis DR THOMAS
--- NOTE | 2017-06-16 17:33 | PN ---
Progress Note, Physician History of Present Illness: Pt seen and examined at bedside. He tolerated HD today. He denies chest pain or palpitations. He does not feel that his breathing is changed much from yesterday. - Current Medication List Current Medications: Active Medications Amlodipine Besylate (Norvasc -) 10 mg PO DAILY [facility] Last Admin: 06/16/17 14:19 Dose: 10 mg Arformoterol Tartrate (Brovana (Restricted To Pulmonology/Resp) -) 1 amp NEB BID [facility] Last Admin: 06/16/17 11:20 Dose: Not Given Aspirin (Ecotrin -) 81 mg PO DAILY [facility] Last Admin: 06/16/17 14:20 Dose: 81 mg Calcium Acetate (Phoslo -) 1,334 mg PO TIDCM [facility] Last Admin: 06/16/17 16:59 Dose: 1,334 mg Carvedilol (Coreg -) 12.5 mg PO BID [facility] Last Admin: 06/16/17 14:20 Dose: 12.5 mg Clopidogrel Bisulfate (Plavix -) 75 mg PO DAILY [facility] Last Admin: 06/16/17 14:19 Dose: 75 mg Gabapentin (Neurontin -) 100 mg PO TID [facility] Last Admin: 06/16/17 14:19 Dose: 100 mg Guaifenesin (Diabetic Tussin Dm -) 10 ml PO QID [facility] Last Admin: 06/16/17 17:02 Dose: 10 ml Insulin Aspart (Novolog Vial Sliding Scale -) 1 vial SQ ACHS [facility] PRN Reason: Protocol Last Admin: 06/16/17 16:59 Dose: 6 units Insulin Detemir (Levemir Vial) 40 units SQ AM [facility] Last Admin: 06/16/17 06:33 Dose: 40 units Insulin Detemir (Levemir Vial) 20 units SQ HS [facility] Last Admin: 06/15/17 22:27 Dose: Not Given Isosorbide Mononitrate (Imdur -) 30 mg PO DAILY [facility] Last Admin: 06/16/17 14:20 Dose: 30 mg Lisinopril (Prinivil) 20 mg PO DAILY [facility] Last Admin: 06/16/17 14:20 Dose: 20 mg Methylprednisolone Sodium Succinate (Solu-Medrol -) 40 mg IVPB Q8H-IV [facility] Last Admin: 06/16/17 17:06 Dose: 40 mg Sevelamer Carbonate (Renvela -) 800 mg PO TIDCM [facility] Last Admin: 06/16/17 16:59 Dose: 800 mg - Objective Vital Signs: Vital Signs Temperature 98.0 F 06/16/17 15:42 Pulse Rate 85 06/16/17 15:42 Respiratory Rate 18 06/16/17 15:42 Blood Pressure 156/80 06/16/17 15:42 O2 Sat by Pulse Oximetry (%) 95 06/16/17 09:00 Constitutional: Yes: Calm Eyes: Yes: Conjunctiva Clear HENT: Yes: Atraumatic Neck: Yes: Supple Cardiovascular: Yes: S1, S2 Respiratory: Yes: CTA Bilaterally Gastrointestinal: Yes: Normal Bowel Sounds, Soft Genitourinary: Yes: WNL Musculoskeletal: Yes: WNL Edema: No Neurological: Yes: Oriented Psychiatric: Yes: Oriented Labs: CBC, BMP 06/16/17 09:20 06/16/17 13:05 INR, PTT INR 1.03 (0.82-1.09) 06/01/17 21:41 Problem List - Problems (1) ESRD (end stage renal disease) on dialysis Code(s): N18.6 - END STAGE RENAL DISEASE Z99.2 - DEPENDENCE ON RENAL DIALYSIS Assessment/Plan Current Medications Generic Name Dose Route Start Last Admin Trade Name Travisq PRN Reason Stop Dose Admin Amlodipine Besylate 10 mg 06/15/17 10:00 06/16/17 14:19 Norvasc - PO 10 mg DAILY [facility] Administration Arformoterol Tartrate 1 amp 06/06/17 22:00 06/16/17 11:20 Brovana (Restricted To Pulmonology/Resp) - NEB Not Given BID [facility] Aspirin 81 mg 06/02/17 10:00 06/16/17 14:20 Ecotrin - PO 81 mg DAILY [facility] Administration Calcium Acetate 1,334 mg 06/04/17 12:00 06/16/17 16:59 Phoslo - PO 1,334 mg TIDCM [facility] Administration Carvedilol 12.5 mg 06/02/17 10:00 06/16/17 14:20 Coreg - PO 12.5 mg BID [facility] Administration Clopidogrel Bisulfate 75 mg 06/02/17 10:00 06/16/17 14:19 Plavix - PO 75 mg DAILY [facility] Administration Gabapentin 100 mg 06/02/17 14:00 06/16/17 14:19 Neurontin - PO 100 mg TID [facility] Administration Guaifenesin 10 ml 06/08/17 07:45 06/16/17 17:02 Diabetic Tussin Dm - PO 10 ml QID [facility] Administration Insulin Aspart 1 vial 06/10/17 23:44 06/16/17 16:59 Novolog Vial Sliding Scale - SQ 6 units ACHS [facility] Administration Protocol Insulin Detemir 40 units 06/16/17 07:00 06/16/17 06:33 Levemir Vial SQ 40 units AM [facility] Administration Insulin Detemir 20 units 06/15/17 22:15 06/15/17 22:27 Levemir Vial SQ Not Given HS [facility] Isosorbide Mononitrate 30 mg 06/02/17 10:00 06/16/17 14:20 Imdur - PO 30 mg DAILY [facility] Administration Lisinopril 20 mg 06/02/17 10:00 06/16/17 14:20 Prinivil PO 20 mg DAILY [facility] Administration Methylprednisolone Sodium Succinate 40 mg 06/13/17 18:00 06/16/17 17:06 Solu-Medrol - IVPB 40 mg Q8H-IV [facility] Administration Sevelamer Carbonate 800 mg 06/06/17 17:30 06/16/17 16:59 Renvela - PO 800 mg TIDCM [facility] Administration Impression 1. ESRD 2. fluid overload 3. HTN 4. DM 5. anemia 6. hemoptysis Plan - pt tolerated HD - cont current meds - evaluate for lasix on am - pulmonary follow up - steroids per pulmonary - cont current meds - will follow Dr Barbosa
--- NOTE | 2017-06-16 17:51 | PN ---
Progress Note (short form) - Note Progress Note: Chief Complaint: sob History of Present Illness: sob/cough improving, no palps BP elevated today. Had HD today. Current Medications Amlodipine Besylate (Norvasc -) 10 mg PO DAILY [facility] Last Admin: 06/16/17 14:19 Dose: 10 mg Arformoterol Tartrate (Brovana (Restricted To Pulmonology/Resp) -) 1 amp NEB BID [facility] Last Admin: 06/16/17 11:20 Dose: Not Given Aspirin (Ecotrin -) 81 mg PO DAILY [facility] Last Admin: 06/16/17 14:20 Dose: 81 mg Calcium Acetate (Phoslo -) 1,334 mg PO TIDCM [facility] Last Admin: 06/16/17 16:59 Dose: 1,334 mg Carvedilol (Coreg -) 12.5 mg PO BID [facility] Last Admin: 06/16/17 14:20 Dose: 12.5 mg Clopidogrel Bisulfate (Plavix -) 75 mg PO DAILY [facility] Last Admin: 06/16/17 14:19 Dose: 75 mg Gabapentin (Neurontin -) 100 mg PO TID [facility] Last Admin: 06/16/17 14:19 Dose: 100 mg Guaifenesin (Diabetic Tussin Dm -) 10 ml PO QID [facility] Last Admin: 06/16/17 17:02 Dose: 10 ml Insulin Aspart (Novolog Vial Sliding Scale -) 1 vial SQ ACHS [facility] PRN Reason: Protocol Last Admin: 06/16/17 16:59 Dose: 6 units Insulin Detemir (Levemir Vial) 40 units SQ AM [facility] Last Admin: 06/16/17 06:33 Dose: 40 units Insulin Detemir (Levemir Vial) 20 units SQ HS [facility] Last Admin: 06/15/17 22:27 Dose: Not Given Isosorbide Mononitrate (Imdur -) 30 mg PO DAILY [facility] Last Admin: 06/16/17 14:20 Dose: 30 mg Lisinopril (Prinivil) 20 mg PO DAILY [facility] Last Admin: 06/16/17 14:20 Dose: 20 mg Methylprednisolone Sodium Succinate (Solu-Medrol -) 40 mg IVPB Q8H-IV [facility] Last Admin: 06/16/17 17:06 Dose: 40 mg Sevelamer Carbonate (Renvela -) 800 mg PO TIDCM [facility] Last Admin: 06/16/17 16:59 Dose: 800 mg Vital Signs - 24 hr 06/15/17 06/15/17 06/16/17 20:53 22:00 06:00 Temperature 98.0 F 97.8 F Pulse Rate 83 73 66 Respiratory 20 20 Rate Blood Pressure 163/93 143/80 146/88 O2 Sat by Pulse 96 Oximetry (%) 06/16/17 06/16/17 06/16/17 07:57 08:33 09:00 Temperature 98.2 F Pulse Rate 64 Respiratory 18 Rate Blood Pressure 152/82 O2 Sat by Pulse 95 95 Oximetry (%) 06/16/17 06/16/17 06/16/17 09:15 09:20 09:50 Temperature 98.1 F Pulse Rate 67 81 78 Respiratory 18 18 18 Rate Blood Pressure 138/80 148/86 143/84 O2 Sat by Pulse Oximetry (%) 06/16/17 06/16/17 06/16/17 10:20 10:50 11:20 Temperature Pulse Rate 79 78 79 Respiratory 18 18 18 Rate Blood Pressure 135/82 148/89 147/86 O2 Sat by Pulse Oximetry (%) 06/16/17 06/16/17 06/16/17 11:50 12:20 12:50 Temperature Pulse Rate 80 80 80 Respiratory 18 18 18 Rate Blood Pressure 154/83 161/84 150/95 O2 Sat by Pulse Oximetry (%) 06/16/17 06/16/17 06/16/17 13:05 13:14 14:02 Temperature 98.4 F Pulse Rate 83 78 87 Respiratory 18 18 18 Rate Blood Pressure 148/96 143/92 158/84 O2 Sat by Pulse Oximetry (%) 06/16/17 15:42 Temperature 98.0 F Pulse Rate 85 Respiratory 18 Rate Blood Pressure 156/80 O2 Sat by Pulse Oximetry (%) Intake & Output 06/14/17 06/15/17 06/16/17 06/17/17 07:59 07:59 07:59 07:59 Intake Total 775 112 4934 300 Output Total 0 Balance 795 556 0549 300 Weight 185 lb 7 oz 182 lb 5 oz 192 lb Constitutional: Yes: No Distress, Calm, Obese Cardiovascular: Yes: Regular Rate and Rhythm, S1, S2. No: Gallop, Murmur Respiratory: Yes: Regular, bibasilar rales. nl effort. no Wheezes. No: Accessory Muscle Use Extremities: No: Cold Edema: No Neurological: Yes: Alert, Oriented Psychiatric: No: Agitated Labs: CBC, BMP 06/16/17 09:20 06/16/17 13:05 Assessment/Plan Echo 05/29 (here): mild LVE, low-nl LVEF; nl RV; mild AI/MR/TR mibi 10/2012: nl mpi ecg 06/01/17: no ischemic changes a/p: 67 m hx esrd on hd, dm, cad s/p remote mi/pci (10+yrs ago), sent by pmd for possible pna. 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 will uptitrate norvasc - 06/16: bp still above goal, discussed with renal will uptitrate coreg.
[2017-06-16] MEDS: CARVEDILOL 25 MG TABLET (FP) PO SCH (21:39)
[2017-06-17] MEDS: methylPREDNISolone NA SUCC 40 MG/1 ML VIAL IVPB SCH ×3 (01:29→18:26)
[2017-06-17] MEDS: INSULIN SLIDING SCALE (NOVOLOG) 1 VIAL SQ SCH ×4 (06:39→21:21)
[2017-06-17] MEDS: GABAPENTIN 100 MG CAPSULE (FP) PO SCH ×3 (06:39→21:22)
[2017-06-17] MEDS: INSULIN DETEMIR 100 UNITS/ML MDV SQ SCH ×2 (06:40→21:21)
[2017-06-17] MEDS ORDERED: INSULIN (NOVOLOG) ASPART 100 UNITS/ML 10ML VIAL ONE ×3 (06:44→21:14)
[2017-06-17] MEDS ORDERED: PT OWN MED DRAWER 7, Y5N ONE ×5 (06:45→21:14)
[2017-06-17] MEDS: SEVELAMER CARBONATE 800 MG TAB (FP) PO SCH ×3 (07:58→17:07)
[2017-06-17] MEDS: CALCIUM ACETATE 667 MG CAPSULE (FP) PO SCH ×3 (07:58→17:07)
[2017-06-17] MEDS: CLOPIDOGREL BISULFATE 75 MG TABLET (FP) PO SCH (09:52)
[2017-06-17] MEDS: ASPIRIN COATED 81 MG TABLET.EC PO SCH (09:52)
[2017-06-17] MEDS: amLODIPine BESYLATE 10 MG TABLET (FP) PO SCH (09:52)
[2017-06-17] MEDS: CARVEDILOL 25 MG TABLET (FP) PO SCH ×2 (09:52→21:22)
[2017-06-17] MEDS: ISOSORBIDE MONONITRATE 30 MG TAB.SR.24H (FP) PO SCH (09:52)
[2017-06-17] MEDS: LISINOPRIL 20 MG TABLET (FP) PO SCH (09:52)
[2017-06-17] MEDS: guaiFENesin/D-M SUGAR-FREE/ACLHOL-FREE 118 ML BOTTLE PO SCH ×4 (09:52→21:22)
[2017-06-17] MEDS: ARFORMOTEROL TARTRATE 15 MCG/2 ML VIAL NEB SCH ×2 (10:10→21:39)
--- NOTE | 2017-06-17 10:26 | PN ---
Progress Note (short form) - Note Progress Note: better seen by id nad nephro no fever or chills no fever or chills vs stable Vital Signs Period Temp Pulse Resp BP Sys/Blanca Pulse Ox Last 24 Hr 97.6 F-98.4 F 70-89 18-20 140-161/80-96 93-96 heent nad neck supple lungs daphne rales hear no chage CBC, BMP 06/16/17 09:20 06/16/17 13:05 pneumonia chf crf plan contiunue abx steroids d/w pulmonary
--- NOTE | 2017-06-17 12:23 | PN ---
Progress Note, Physician History of Present Illness: pulmonary alert,nad,feeling better,less dyspneic,remains hypoxic on ra sat 81% - Current Medication List Current Medications: Active Medications Amlodipine Besylate (Norvasc -) 10 mg PO DAILY [facility] Last Admin: 06/17/17 09:52 Dose: 10 mg Arformoterol Tartrate (Brovana (Restricted To Pulmonology/Resp) -) 1 amp NEB BID [facility] Last Admin: 06/17/17 10:10 Dose: 1 amp Aspirin (Ecotrin -) 81 mg PO DAILY [facility] Last Admin: 06/17/17 09:52 Dose: 81 mg Calcium Acetate (Phoslo -) 1,334 mg PO TIDCM [facility] Last Admin: 06/17/17 11:51 Dose: 1,334 mg Carvedilol (Coreg -) 25 mg PO BID [facility] Last Admin: 06/17/17 09:52 Dose: 25 mg Clopidogrel Bisulfate (Plavix -) 75 mg PO DAILY [facility] Last Admin: 06/17/17 09:52 Dose: 75 mg Gabapentin (Neurontin -) 100 mg PO TID [facility] Last Admin: 06/17/17 06:39 Dose: 100 mg Guaifenesin (Diabetic Tussin Dm -) 10 ml PO QID [facility] Last Admin: 06/17/17 09:52 Dose: Not Given Insulin Aspart (Novolog Vial Sliding Scale -) 1 vial SQ ACHS [facility] PRN Reason: Protocol Last Admin: 06/17/17 11:27 Dose: 8 units Insulin Detemir (Levemir Vial) 40 units SQ AM [facility] Last Admin: 06/17/17 06:40 Dose: 40 units Insulin Detemir (Levemir Vial) 20 units SQ HS [facility] Last Admin: 06/16/17 21:40 Dose: 20 units Isosorbide Mononitrate (Imdur -) 30 mg PO DAILY [facility] Last Admin: 06/17/17 09:52 Dose: 30 mg Lisinopril (Prinivil) 20 mg PO DAILY [facility] Last Admin: 06/17/17 09:52 Dose: 20 mg Methylprednisolone Sodium Succinate (Solu-Medrol -) 40 mg IVPB Q8H-IV [facility] Last Admin: 06/17/17 09:52 Dose: 40 mg Sevelamer Carbonate (Renvela -) 800 mg PO TIDCM [facility] Last Admin: 06/17/17 11:51 Dose: 800 mg - Objective Vital Signs: Vital Signs Temperature 97.7 F 06/17/17 08:00 Pulse Rate 79 06/17/17 10:10 Respiratory Rate 18 06/17/17 08:00 Blood Pressure 148/88 06/17/17 08:00 O2 Sat by Pulse Oximetry (%) 93 L 06/17/17 10:10 Constitutional: Yes: Well Nourished, Calm Eyes: Yes: WNL HENT: Yes: WNL Neck: Yes: WNL, Supple Cardiovascular: Yes: Regular Rate and Rhythm, S1, S2 Respiratory: Yes: Rales (daphne crackles) Gastrointestinal: Yes: Normal Bowel Sounds, Soft Extremities: Yes: WNL Edema: No Edema: RUE: Trace, LLE: Trace, RLE: Trace Labs: CBC, BMP 06/16/17 09:20 06/16/17 13:05 INR, PTT INR 1.03 (0.82-1.09) 06/01/17 21:41 Assessment/Plan A/P Acute Hypoxic Respiratory Failure clinically improving Bilateral Interstitial Infiltrates LV Diastolic Dysfunction ESRD on HD CAD HTN DM - continue steroids - HD per renal - glucose control while on systemic steroids - O2 to keep SpO2 >90% - DVT prophylaxis DR THOMAS
--- NOTE | 2017-06-17 13:18 | PN ---
Progress Note (short form) - Note Progress Note: All Active Problems CHF exacerbation (Acute) Diabetes (Acute) Hemoptysis (Acute) Pneumonia (Acute) Type 2 diabetes mellitus with diabetic chronic kidney disease (Acute) Chronic renal insufficiency (Acute) ESRD (end stage renal disease) on dialysis (Acute) End stage renal disease (Acute) Hemorrhage of arteriovenous fistula (Acute) Hyperkalemia (Acute) Hypertension (Acute) Rash (Acute) Active Medications Amlodipine Besylate (Norvasc -) 10 mg PO DAILY [facility] Last Admin: 06/17/17 09:52 Dose: 10 mg Arformoterol Tartrate (Brovana (Restricted To Pulmonology/Resp) -) 1 amp NEB BID [facility] Last Admin: 06/17/17 10:10 Dose: 1 amp Aspirin (Ecotrin -) 81 mg PO DAILY [facility] Last Admin: 06/17/17 09:52 Dose: 81 mg Calcium Acetate (Phoslo -) 1,334 mg PO TIDCM [facility] Last Admin: 06/17/17 11:51 Dose: 1,334 mg Carvedilol (Coreg -) 25 mg PO BID [facility] Last Admin: 06/17/17 09:52 Dose: 25 mg Clopidogrel Bisulfate (Plavix -) 75 mg PO DAILY [facility] Last Admin: 06/17/17 09:52 Dose: 75 mg Gabapentin (Neurontin -) 100 mg PO TID [facility] Last Admin: 06/17/17 06:39 Dose: 100 mg Guaifenesin (Diabetic Tussin Dm -) 10 ml PO QID [facility] Last Admin: 06/17/17 09:52 Dose: Not Given Insulin Aspart (Novolog Vial Sliding Scale -) 1 vial SQ [facility] PRN Reason: Protocol Last Admin: 06/17/17 11:27 Dose: 8 units Insulin Detemir (Levemir Vial) 40 units SQ AM [facility] Last Admin: 06/17/17 06:40 Dose: 40 units Insulin Detemir (Levemir Vial) 20 units SQ HS [facility] Last Admin: 06/16/17 21:40 Dose: 20 units Isosorbide Mononitrate (Imdur -) 30 mg PO DAILY [facility] Last Admin: 06/17/17 09:52 Dose: 30 mg Lisinopril (Prinivil) 20 mg PO DAILY [facility] Last Admin: 06/17/17 09:52 Dose: 20 mg Methylprednisolone Sodium Succinate (Solu-Medrol -) 40 mg IVPB Q8H-IV [facility] Last Admin: 06/17/17 09:52 Dose: 40 mg Sevelamer Carbonate (Renvela -) 800 mg PO TIDCM [facility] Last Admin: 06/17/17 11:51 Dose: 800 mg Last Vital Signs Temp Pulse Resp BP Pulse Ox 97.7 F 79 18 148/88 93 L 06/17/17 08:00 06/17/17 10:10 06/17/17 08:00 06/17/17 08:00 06/17/17 10:10 Lungs- rhonchi rales left lung velasquez Heart- reg Abd - soft nontender Ext no edema CBC, BMP 06/16/17 09:20 06/16/17 13:05 IMP- Pneumonitis leukocytosis partly due to steroids? clinically improving Plan- HD on Monday
[2017-06-18] MEDS: methylPREDNISolone NA SUCC 40 MG/1 ML VIAL IVPB SCH ×3 (02:38→18:19)
[2017-06-18] MEDS: INSULIN DETEMIR 100 UNITS/ML MDV SQ SCH ×2 (06:20→22:14)
[2017-06-18] MEDS: INSULIN SLIDING SCALE (NOVOLOG) 1 VIAL SQ SCH ×4 (06:20→22:14)
[2017-06-18] MEDS: GABAPENTIN 100 MG CAPSULE (FP) PO SCH ×3 (06:20→22:14)
[2017-06-18] MEDS: SEVELAMER CARBONATE 800 MG TAB (FP) PO SCH ×3 (07:52→17:05)
[2017-06-18] MEDS: CALCIUM ACETATE 667 MG CAPSULE (FP) PO SCH ×3 (07:52→17:05)
[2017-06-18] MEDS ORDERED: PT OWN MED DRAWER 7, Y5N ONE ×2 (09:31→14:10)
[2017-06-18] MEDS: CLOPIDOGREL BISULFATE 75 MG TABLET (FP) PO SCH (09:36)
[2017-06-18] MEDS: ASPIRIN COATED 81 MG TABLET.EC PO SCH (09:36)
[2017-06-18] MEDS: ISOSORBIDE MONONITRATE 30 MG TAB.SR.24H (FP) PO SCH (09:36)
[2017-06-18] MEDS: amLODIPine BESYLATE 10 MG TABLET (FP) PO SCH (09:36)
[2017-06-18] MEDS: LISINOPRIL 20 MG TABLET (FP) PO SCH (09:36)
[2017-06-18] MEDS: guaiFENesin/D-M SUGAR-FREE/ACLHOL-FREE 118 ML BOTTLE PO SCH ×4 (09:36→22:14)
[2017-06-18] MEDS: CARVEDILOL 25 MG TABLET (FP) PO SCH ×2 (09:36→22:14)
[2017-06-18] MEDS: ARFORMOTEROL TARTRATE 15 MCG/2 ML VIAL NEB SCH ×2 (10:15→22:29)
[2017-06-18] MEDS ORDERED: INSULIN (NOVOLOG) ASPART 100 UNITS/ML 10ML VIAL ONE ×2 (11:13→22:23)
--- NOTE | 2017-06-18 11:26 | PN ---
Progress Note, Physician History of Present Illness: pulmonary alert,comfortable ,less dyspneic - Current Medication List Current Medications: Active Medications Amlodipine Besylate (Norvasc -) 10 mg PO DAILY [facility] Last Admin: 06/18/17 09:36 Dose: 10 mg Arformoterol Tartrate (Brovana (Restricted To Pulmonology/Resp) -) 1 amp NEB BID [facility] Last Admin: 06/18/17 10:15 Dose: 1 amp Aspirin (Ecotrin -) 81 mg PO DAILY [facility] Last Admin: 06/18/17 09:36 Dose: 81 mg Calcium Acetate (Phoslo -) 1,334 mg PO TIDCM [facility] Last Admin: 06/18/17 07:52 Dose: 1,334 mg Carvedilol (Coreg -) 25 mg PO BID [facility] Last Admin: 06/18/17 09:36 Dose: 25 mg Clopidogrel Bisulfate (Plavix -) 75 mg PO DAILY [facility] Last Admin: 06/18/17 09:36 Dose: 75 mg Gabapentin (Neurontin -) 100 mg PO TID [facility] Last Admin: 06/18/17 06:20 Dose: 100 mg Guaifenesin (Diabetic Tussin Dm -) 10 ml PO QID [facility] Last Admin: 06/18/17 09:36 Dose: 10 ml Insulin Aspart (Novolog Vial Sliding Scale -) 1 vial SQ [facility] PRN Reason: Protocol Last Admin: 06/18/17 06:20 Dose: 6 units Insulin Detemir (Levemir Vial) 40 units SQ AM [facility] Last Admin: 06/18/17 06:20 Dose: 40 units Insulin Detemir (Levemir Vial) 20 units SQ HS [facility] Last Admin: 06/17/17 21:21 Dose: 20 units Isosorbide Mononitrate (Imdur -) 30 mg PO DAILY [facility] Last Admin: 06/18/17 09:36 Dose: 30 mg Lisinopril (Prinivil) 20 mg PO DAILY [facility] Last Admin: 06/18/17 09:36 Dose: 20 mg Methylprednisolone Sodium Succinate (Solu-Medrol -) 40 mg IVPB Q8H-IV [facility] Last Admin: 06/18/17 09:37 Dose: 40 mg Sevelamer Carbonate (Renvela -) 800 mg PO TIDCM [facility] Last Admin: 06/18/17 07:52 Dose: 800 mg - Objective Vital Signs: Vital Signs Temperature 97.9 F 06/18/17 08:00 Pulse Rate 72 06/18/17 10:15 Respiratory Rate 18 06/18/17 08:00 Blood Pressure 148/86 06/18/17 08:00 O2 Sat by Pulse Oximetry (%) 98 06/18/17 10:15 Constitutional: Yes: Well Nourished, Calm Eyes: Yes: WNL HENT: Yes: WNL Neck: Yes: WNL Cardiovascular: Yes: Regular Rate and Rhythm, S1, S2 Respiratory: Yes: Rales (bilateral crackles) Gastrointestinal: Yes: Normal Bowel Sounds, Soft Extremities: Yes: WNL Edema: No Labs: Assessment/Plan A/P Acute Hypoxic Respiratory Failure clinically improving Bilateral Interstitial Infiltrates LV Diastolic Dysfunction ESRD on HD CAD HTN DM - continue steroids - HD per renal - glucose control while on systemic steroids - O2 to keep SpO2 >90% - DVT prophylaxis DR THOMAS
--- NOTE | 2017-06-18 16:32 | PN ---
Progress Note (short form) - Note Progress Note: All Active Problems CHF exacerbation (Acute) Diabetes (Acute) Hemoptysis (Acute) Pneumonia (Acute) Type 2 diabetes mellitus with diabetic chronic kidney disease (Acute) Chronic renal insufficiency (Acute) ESRD (end stage renal disease) on dialysis (Acute) End stage renal disease (Acute) Hemorrhage of arteriovenous fistula (Acute) Hyperkalemia (Acute) Hypertension (Acute) Rash (Acute) Active Medications Amlodipine Besylate (Norvasc -) 10 mg PO DAILY [facility] Last Admin: 06/17/17 09:52 Dose: 10 mg Arformoterol Tartrate (Brovana (Restricted To Pulmonology/Resp) -) 1 amp NEB BID [facility] Last Admin: 06/17/17 10:10 Dose: 1 amp Aspirin (Ecotrin -) 81 mg PO DAILY [facility] Last Admin: 06/17/17 09:52 Dose: 81 mg Calcium Acetate (Phoslo -) 1,334 mg PO TIDCM [facility] Last Admin: 06/17/17 11:51 Dose: 1,334 mg Carvedilol (Coreg -) 25 mg PO BID [facility] Last Admin: 06/17/17 09:52 Dose: 25 mg Clopidogrel Bisulfate (Plavix -) 75 mg PO DAILY [facility] Last Admin: 06/17/17 09:52 Dose: 75 mg Gabapentin (Neurontin -) 100 mg PO TID [facility] Last Admin: 06/17/17 06:39 Dose: 100 mg Guaifenesin (Diabetic Tussin Dm -) 10 ml PO QID [facility] Last Admin: 06/17/17 09:52 Dose: Not Given Insulin Aspart (Novolog Vial Sliding Scale -) 1 vial SQ [facility] PRN Reason: Protocol Last Admin: 06/17/17 11:27 Dose: 8 units Insulin Detemir (Levemir Vial) 40 units SQ AM [facility] Last Admin: 06/17/17 06:40 Dose: 40 units Insulin Detemir (Levemir Vial) 20 units SQ HS [facility] Last Admin: 06/16/17 21:40 Dose: 20 units Isosorbide Mononitrate (Imdur -) 30 mg PO DAILY [facility] Last Admin: 06/17/17 09:52 Dose: 30 mg Lisinopril (Prinivil) 20 mg PO DAILY [facility] Last Admin: 06/17/17 09:52 Dose: 20 mg Methylprednisolone Sodium Succinate (Solu-Medrol -) 40 mg IVPB Q8H-IV [facility] Last Admin: 06/17/17 09:52 Dose: 40 mg Sevelamer Carbonate (Renvela -) 800 mg PO TIDCM [facility] Last Admin: 06/17/17 11:51 Dose: 800 mg Last Vital Signs Temp Pulse Resp BP Pulse Ox 97.7 F 79 18 148/88 93 L 06/17/17 08:00 06/17/17 10:10 06/17/17 08:00 06/17/17 08:00 06/17/17 10:10 Lungs- clearing , air exchange in both lungs Heart- reg Abd - soft nontender Ext no edema CBC, BMP 06/16/17 09:20 06/16/17 13:05 IMP- Pneumonitis leukocytosis partly due to steroids? clinically improving Plan- HD tomorrow
[2017-06-19] MEDS: methylPREDNISolone NA SUCC 40 MG/1 ML VIAL IVPB SCH ×3 (01:14→21:35)
[2017-06-19] MEDS ORDERED: INSULIN (NOVOLOG) ASPART 100 UNITS/ML 10ML VIAL ONE ×2 (06:27→21:27)
[2017-06-19] MEDS: INSULIN DETEMIR 100 UNITS/ML MDV SQ SCH ×2 (06:27→21:34)
[2017-06-19] MEDS: GABAPENTIN 100 MG CAPSULE (FP) PO SCH ×3 (06:27→21:34)
[2017-06-19] MEDS: INSULIN SLIDING SCALE (NOVOLOG) 1 VIAL SQ SCH ×4 (06:28→21:33)
[2017-06-19] MEDS: CALCIUM ACETATE 667 MG CAPSULE (FP) PO SCH ×3 (07:58→17:15)
[2017-06-19] MEDS: SEVELAMER CARBONATE 800 MG TAB (FP) PO SCH ×3 (07:59→17:15)
[2017-06-19] MEDS: ARFORMOTEROL TARTRATE 15 MCG/2 ML VIAL NEB SCH ×2 (10:09→22:05)
[2017-06-19] MEDS: LISINOPRIL 20 MG TABLET (FP) PO SCH (12:29)
[2017-06-19] MEDS: amLODIPine BESYLATE 10 MG TABLET (FP) PO SCH (12:29)
[2017-06-19] MEDS: ASPIRIN COATED 81 MG TABLET.EC PO SCH (12:29)
[2017-06-19] MEDS: CARVEDILOL 25 MG TABLET (FP) PO SCH ×2 (12:29→21:34)
[2017-06-19] MEDS: CLOPIDOGREL BISULFATE 75 MG TABLET (FP) PO SCH (12:29)
[2017-06-19] MEDS: ISOSORBIDE MONONITRATE 30 MG TAB.SR.24H (FP) PO SCH (12:29)
[2017-06-19] MEDS: guaiFENesin/D-M SUGAR-FREE/ACLHOL-FREE 118 ML BOTTLE PO SCH ×4 (12:30→21:35)
--- NOTE | 2017-06-19 12:45 | PN ---
Progress Note, Physician History of Present Illness: Pt seen and examined at bedside. He is currently getting HD. He denies chest pain. He feels that his shortness of breath is improving. - Current Medication List Current Medications: Active Medications Amlodipine Besylate (Norvasc -) 10 mg PO DAILY [facility] Last Admin: 06/19/17 12:29 Dose: 10 mg Arformoterol Tartrate (Brovana (Restricted To Pulmonology/Resp) -) 1 amp NEB BID [facility] Last Admin: 06/19/17 10:09 Dose: 1 amp Aspirin (Ecotrin -) 81 mg PO DAILY [facility] Last Admin: 06/19/17 12:29 Dose: 81 mg Calcium Acetate (Phoslo -) 1,334 mg PO TIDCM [facility] Last Admin: 06/19/17 12:28 Dose: 1,334 mg Carvedilol (Coreg -) 25 mg PO BID [facility] Last Admin: 06/19/17 12:29 Dose: 25 mg Clopidogrel Bisulfate (Plavix -) 75 mg PO DAILY [facility] Last Admin: 06/19/17 12:29 Dose: 75 mg Gabapentin (Neurontin -) 100 mg PO TID [facility] Last Admin: 06/19/17 06:27 Dose: 100 mg Guaifenesin (Diabetic Tussin Dm -) 10 ml PO QID [facility] Last Admin: 06/19/17 12:30 Dose: Not Given Insulin Aspart (Novolog Vial Sliding Scale -) 1 vial SQ ACHS [facility] PRN Reason: Protocol Last Admin: 06/19/17 12:35 Dose: 5 units Insulin Detemir (Levemir Vial) 20 units SQ HS [facility] Last Admin: 06/18/17 22:14 Dose: 20 units Insulin Detemir (Levemir Vial) 50 units SQ AM [facility] Last Admin: 06/19/17 06:27 Dose: 50 units Isosorbide Mononitrate (Imdur -) 30 mg PO DAILY [facility] Last Admin: 06/19/17 12:29 Dose: 30 mg Lisinopril (Prinivil) 20 mg PO DAILY [facility] Last Admin: 06/19/17 12:29 Dose: 20 mg Methylprednisolone Sodium Succinate (Solu-Medrol -) 40 mg IVPB Q8H-IV [facility] Last Admin: 06/19/17 12:29 Dose: 40 mg Sevelamer Carbonate (Renvela -) 800 mg PO TIDCM [facility] Last Admin: 06/19/17 12:29 Dose: 800 mg - Objective Vital Signs: Vital Signs Temperature 97.8 F 06/19/17 07:40 Pulse Rate 85 06/19/17 11:35 Respiratory Rate 18 06/19/17 11:35 Blood Pressure 141/83 06/19/17 11:35 O2 Sat by Pulse Oximetry (%) 94 L 06/19/17 09:00 Constitutional: Yes: Calm Eyes: Yes: Conjunctiva Clear HENT: Yes: Atraumatic Cardiovascular: Yes: S1, S2 Respiratory: Yes: On Nasal O2 Gastrointestinal: Yes: Normal Bowel Sounds, Soft Genitourinary: Yes: WNL Musculoskeletal: Yes: WNL Edema: No Neurological: Yes: Oriented Psychiatric: Yes: Oriented Labs: CBC, BMP 06/16/17 09:20 06/17/17 21:45 INR, PTT INR 1.03 (0.82-1.09) 06/01/17 21:41 Problem List - Problems (1) ESRD (end stage renal disease) on dialysis Code(s): N18.6 - END STAGE RENAL DISEASE Z99.2 - DEPENDENCE ON RENAL DIALYSIS Assessment/Plan Current Medications Generic Name Dose Route Start Last Admin Trade Name Freq PRN Reason Stop Dose Admin Amlodipine Besylate 10 mg 06/15/17 10:00 06/19/17 12:29 Norvasc - PO 10 mg DAILY [facility] Administration Arformoterol Tartrate 1 amp 06/06/17 22:00 06/19/17 10:09 Brovana (Restricted To Pulmonology/Resp) - NEB 1 amp BID [facility] Administration Aspirin 81 mg 06/02/17 10:00 06/19/17 12:29 Ecotrin - PO 81 mg DAILY [facility] Administration Calcium Acetate 1,334 mg 06/04/17 12:00 06/19/17 12:28 Phoslo - PO 1,334 mg TIDCM [facility] Administration Carvedilol 25 mg 06/16/17 22:00 06/19/17 12:29 Coreg - PO 25 mg BID [facility] Administration Clopidogrel Bisulfate 75 mg 06/02/17 10:00 06/19/17 12:29 Plavix - PO 75 mg DAILY [facility] Administration Gabapentin 100 mg 06/02/17 14:00 06/19/17 06:27 Neurontin - PO 100 mg TID [facility] Administration Guaifenesin 10 ml 06/08/17 07:45 06/19/17 12:30 Diabetic Tussin Dm - PO Not Given QID [facility] Insulin Aspart 1 vial 06/10/17 23:44 06/19/17 12:35 Novolog Vial Sliding Scale - SQ 5 units ACHS [facility] Administration Protocol Insulin Detemir 20 units 06/15/17 22:15 06/18/17 22:14 Levemir Vial SQ 20 units HS [facility] Administration Insulin Detemir 50 units 06/18/17 13:27 06/19/17 06:27 Levemir Vial SQ 50 units AM [facility] Administration Isosorbide Mononitrate 30 mg 06/02/17 10:00 06/19/17 12:29 Imdur - PO 30 mg DAILY [facility] Administration Lisinopril 20 mg 06/02/17 10:00 06/19/17 12:29 Prinivil PO 20 mg DAILY [facility] Administration Methylprednisolone Sodium Succinate 40 mg 06/13/17 18:00 06/19/17 12:29 Solu-Medrol - IVPB 40 mg Q8H-IV [facility] Administration Sevelamer Carbonate 800 mg 06/06/17 17:30 06/19/17 12:29 Renvela - PO 800 mg TIDCM [facility] Administration Impression 1. ESRD 2. fluid overload 3. HTN 4. DM 5. anemia 6. hemoptysis 7. pneumonitis Plan - HD today - pulmonary follow up - steroids per pulmonary - evaluate for lasix on am - cont current meds - will follow Dr Barbosa
--- NOTE | 2017-06-19 12:45 | PN ---
Progress Note, Physician History of Present Illness: pulmonary alert,feeling better,less sob,less cough - Current Medication List Current Medications: Active Medications Amlodipine Besylate (Norvasc -) 10 mg PO DAILY [facility] Last Admin: 06/19/17 12:29 Dose: 10 mg Arformoterol Tartrate (Brovana (Restricted To Pulmonology/Resp) -) 1 amp NEB BID [facility] Last Admin: 06/19/17 10:09 Dose: 1 amp Aspirin (Ecotrin -) 81 mg PO DAILY [facility] Last Admin: 06/19/17 12:29 Dose: 81 mg Calcium Acetate (Phoslo -) 1,334 mg PO TIDCM [facility] Last Admin: 06/19/17 12:28 Dose: 1,334 mg Carvedilol (Coreg -) 25 mg PO BID [facility] Last Admin: 06/19/17 12:29 Dose: 25 mg Clopidogrel Bisulfate (Plavix -) 75 mg PO DAILY [facility] Last Admin: 06/19/17 12:29 Dose: 75 mg Gabapentin (Neurontin -) 100 mg PO TID [facility] Last Admin: 06/19/17 06:27 Dose: 100 mg Guaifenesin (Diabetic Tussin Dm -) 10 ml PO QID [facility] Last Admin: 06/19/17 12:30 Dose: Not Given Insulin Aspart (Novolog Vial Sliding Scale -) [address] [facility] PRN Reason: Protocol Last Admin: 06/19/17 12:35 Dose: 5 units Insulin Detemir (Levemir Vial) 20 units SQ HS [facility] Last Admin: 06/18/17 22:14 Dose: 20 units Insulin Detemir (Levemir Vial) 50 units SQ AM [facility] Last Admin: 06/19/17 06:27 Dose: 50 units Isosorbide Mononitrate (Imdur -) 30 mg PO DAILY [facility] Last Admin: 06/19/17 12:29 Dose: 30 mg Lisinopril (Prinivil) 20 mg PO DAILY [facility] Last Admin: 06/19/17 12:29 Dose: 20 mg Methylprednisolone Sodium Succinate (Solu-Medrol -) 40 mg IVPB Q8H-IV [facility] Last Admin: 06/19/17 12:29 Dose: 40 mg Sevelamer Carbonate (Renvela -) 800 mg PO TIDCM [facility] Last Admin: 06/19/17 12:29 Dose: 800 mg - Objective Vital Signs: Vital Signs Temperature 97.8 F 06/19/17 07:40 Pulse Rate 85 06/19/17 11:35 Respiratory Rate 18 06/19/17 11:35 Blood Pressure 141/83 06/19/17 11:35 O2 Sat by Pulse Oximetry (%) 94 L 06/19/17 09:00 Constitutional: Yes: Well Nourished, Calm Eyes: Yes: WNL HENT: Yes: WNL Neck: Yes: WNL Cardiovascular: Yes: Regular Rate and Rhythm, S1, S2 Respiratory: Yes: Rales (bilateral rales 1/3 up) Gastrointestinal: Yes: Normal Bowel Sounds, Soft Extremities: Yes: WNL Edema: No Labs: CBC, BMP Assessment/Plan A/P Acute Hypoxic Respiratory Failure clinically improving Bilateral Interstitial Infiltrates LV Diastolic Dysfunction ESRD on HD CAD HTN DM - steroid taper - HD per renal - glucose control while on systemic steroids - O2 to keep SpO2 >90% - DVT prophylaxis - chest x-ray DR THOMAS
[2017-06-19] MEDS ORDERED: PT OWN MED DRAWER 7, Y5N ONE ×2 (14:10→21:26)
--- NOTE | 2017-06-19 18:09 | PN ---
Progress Note, Physician Chief Complaint: Improving - Current Medication List Current Medications: Active Medications Amlodipine Besylate (Norvasc -) 10 mg PO DAILY [facility] Last Admin: 06/19/17 12:29 Dose: 10 mg Arformoterol Tartrate (Brovana (Restricted To Pulmonology/Resp) -) 1 amp NEB BID [facility] Last Admin: 06/19/17 10:09 Dose: 1 amp Aspirin (Ecotrin -) 81 mg PO DAILY [facility] Last Admin: 06/19/17 12:29 Dose: 81 mg Calcium Acetate (Phoslo -) 1,334 mg PO TIDCM [facility] Last Admin: 06/19/17 17:15 Dose: 1,334 mg Carvedilol (Coreg -) 25 mg PO BID [facility] Last Admin: 06/19/17 12:29 Dose: 25 mg Clopidogrel Bisulfate (Plavix -) 75 mg PO DAILY [facility] Last Admin: 06/19/17 12:29 Dose: 75 mg Gabapentin (Neurontin -) 100 mg PO TID [facility] Last Admin: 06/19/17 14:23 Dose: 100 mg Guaifenesin (Diabetic Tussin Dm -) 10 ml PO QID [facility] Last Admin: 06/19/17 17:16 Dose: 10 ml Insulin Aspart (Novolog Vial Sliding Scale -) 1 vial SQ [facility] PRN Reason: Protocol Last Admin: 06/19/17 17:17 Dose: 12 units Insulin Detemir (Levemir Vial) 20 units SQ HS [facility] Last Admin: 06/18/17 22:14 Dose: 20 units Insulin Detemir (Levemir Vial) 50 units SQ AM [facility] Last Admin: 06/19/17 06:27 Dose: 50 units Isosorbide Mononitrate (Imdur -) 30 mg PO DAILY [facility] Last Admin: 06/19/17 12:29 Dose: 30 mg Lisinopril (Prinivil) 20 mg PO DAILY [facility] Last Admin: 06/19/17 12:29 Dose: 20 mg Methylprednisolone Sodium Succinate (Solu-Medrol -) 40 mg IVPB BID [facility] Sevelamer Carbonate (Renvela -) 800 mg PO TIDCM [facility] Last Admin: 06/19/17 17:15 Dose: 800 mg - Objective Vital Signs: Vital Signs Temperature 97.9 F 06/19/17 14:00 Pulse Rate 90 06/19/17 14:00 Respiratory Rate 21 06/19/17 14:00 Blood Pressure 139/81 06/19/17 14:00 O2 Sat by Pulse Oximetry (%) 95 06/19/17 10:00 Constitutional: Yes: No Distress Neck: Yes: Supple Cardiovascular: Yes: Regular Rate and Rhythm, S1, S2 Respiratory: Yes: CTA Bilaterally Gastrointestinal: Yes: Normal Bowel Sounds, Soft Neurological: Yes: Alert, Oriented. No: Loss of Sensation ...Motor Strength: WNL Labs: CBC, BMP 06/16/17 09:20 06/17/17 21:45 INR, PTT INR 1.03 (0.82-1.09) 06/01/17 21:41 Problem List - Problems (1) Pneumonia Assessment/Plan: Abx. Steroids Code(s): J18.9 - PNEUMONIA, UNSPECIFIED ORGANISM (2) Type 2 diabetes mellitus with diabetic chronic kidney disease Assessment/Plan: Glucose control acceptable Code(s): E11.22 - TYPE 2 DIABETES MELLITUS W DIABETIC CHRONIC KIDNEY DISEASE (3) ESRD (end stage renal disease) on dialysis Assessment/Plan: HD as per renal Code(s): N18.6 - END STAGE RENAL DISEASE Z99.2 - DEPENDENCE ON RENAL DIALYSIS
[2017-06-20] MEDS: GABAPENTIN 100 MG CAPSULE (FP) PO SCH ×3 (06:25→22:09)
[2017-06-20] MEDS: INSULIN DETEMIR 100 UNITS/ML MDV SQ SCH ×2 (06:28→22:09)
[2017-06-20] MEDS: INSULIN SLIDING SCALE (NOVOLOG) 1 VIAL SQ SCH ×4 (06:29→22:09)
[2017-06-20] MEDS: CALCIUM ACETATE 667 MG CAPSULE (FP) PO SCH ×3 (07:47→17:10)
[2017-06-20] MEDS: SEVELAMER CARBONATE 800 MG TAB (FP) PO SCH ×3 (07:47→17:10)
[2017-06-20] MEDS: ARFORMOTEROL TARTRATE 15 MCG/2 ML VIAL NEB SCH ×2 (09:49→21:14)
[2017-06-20] MEDS: guaiFENesin/D-M SUGAR-FREE/ACLHOL-FREE 118 ML BOTTLE PO SCH ×4 (10:06→22:09)
[2017-06-20] MEDS: CARVEDILOL 25 MG TABLET (FP) PO SCH ×2 (10:06→22:10)
[2017-06-20] MEDS: ASPIRIN COATED 81 MG TABLET.EC PO SCH (10:06)
[2017-06-20] MEDS: CLOPIDOGREL BISULFATE 75 MG TABLET (FP) PO SCH (10:07)
[2017-06-20] MEDS: methylPREDNISolone NA SUCC 40 MG/1 ML VIAL IVPB SCH ×2 (10:07→22:09)
[2017-06-20] MEDS: amLODIPine BESYLATE 10 MG TABLET (FP) PO SCH (10:07)
[2017-06-20] MEDS: LISINOPRIL 20 MG TABLET (FP) PO SCH (10:07)
[2017-06-20] MEDS: ISOSORBIDE MONONITRATE 30 MG TAB.SR.24H (FP) PO SCH (10:07)
--- NOTE | 2017-06-20 12:10 | PN ---
Progress Note, Physician Chief Complaint: sugar is improving as well as appetite History of Present Illness: Patient is a 67 year old male with history of DM, hypertension, hyperlipidemia, diabetes, ESRD on MWF with LUE AV fistula, who presents to the ED sent in by PCP for pneumonia. He also reports SOB. He has elevated bs,with yet improving appetite - Current Medication List Current Medications: Active Medications Amlodipine Besylate (Norvasc -) 10 mg PO DAILY [facility] Last Admin: 06/20/17 10:07 Dose: 10 mg Arformoterol Tartrate (Brovana (Restricted To Pulmonology/Resp) -) 1 amp NEB BID [facility] Last Admin: 06/20/17 09:49 Dose: 1 amp Aspirin (Ecotrin -) 81 mg PO DAILY [facility] Last Admin: 06/20/17 10:06 Dose: 81 mg Calcium Acetate (Phoslo -) 1,334 mg PO TIDCM [facility] Last Admin: 06/20/17 11:53 Dose: 1,334 mg Carvedilol (Coreg -) 25 mg PO BID [facility] Last Admin: 06/20/17 10:06 Dose: 25 mg Clopidogrel Bisulfate (Plavix -) 75 mg PO DAILY [facility] Last Admin: 06/20/17 10:07 Dose: 75 mg Gabapentin (Neurontin -) 100 mg PO TID [facility] Last Admin: 06/20/17 06:25 Dose: 100 mg Guaifenesin (Diabetic Tussin Dm -) 10 ml PO QID [facility] Last Admin: 06/20/17 10:06 Dose: 10 ml Insulin Aspart (Novolog Vial Sliding Scale -) 1 vial SQ ACHS [facility] PRN Reason: Protocol Insulin Detemir (Levemir Vial) 20 units SQ HS [facility] Last Admin: 06/19/17 21:34 Dose: 20 units Insulin Detemir (Levemir Vial) 50 units SQ AM [facility] Last Admin: 06/20/17 06:28 Dose: 50 units Isosorbide Mononitrate (Imdur -) 30 mg PO DAILY [facility] Last Admin: 06/20/17 10:07 Dose: 30 mg Lisinopril (Prinivil) 20 mg PO DAILY [facility] Last Admin: 06/20/17 10:07 Dose: 20 mg Methylprednisolone Sodium Succinate (Solu-Medrol -) 40 mg IVPB BID [facility] Last Admin: 06/20/17 10:07 Dose: 40 mg Sevelamer Carbonate (Renvela -) 800 mg PO TIDCM [facility] Last Admin: 06/20/17 11:53 Dose: 800 mg - Objective Vital Signs: Vital Signs Temperature 98.1 F 06/20/17 05:49 Pulse Rate 83 06/20/17 05:49 Respiratory Rate 20 06/20/17 05:49 Blood Pressure 137/88 06/20/17 05:49 O2 Sat by Pulse Oximetry (%) 95 06/19/17 22:00 Constitutional: Yes: Well Nourished Eyes: Yes: EOM Intact HENT: Yes: Normocephalic Neck: Yes: Trachea Midline Respiratory: Yes: Cough, On Nasal O2, SOB on Exertion Gastrointestinal: Yes: Normal Bowel Sounds ...Rectal Exam: Yes: Deferred Musculoskeletal: Yes: Joint Swelling, Muscle Weakness Extremities: Yes: WNL Edema: Yes Edema: LLE: 1+, RLE: 1+ Neurological: Yes: Alert, Oriented Labs: CBC, BMP 06/16/17 09:20 06/17/17 21:45 INR, PTT INR 1.03 (0.82-1.09) 06/01/17 21:41 Problem List - Problems (1) CHF exacerbation Code(s): I50.9 - HEART FAILURE, UNSPECIFIED Qualifiers: Congestive heart failure type: unspecified congestive heart failure type Qualified Code(s): I50.9 - Heart failure, unspecified (2) Pneumonia Code(s): J18.9 - PNEUMONIA, UNSPECIFIED ORGANISM (3) Chronic renal insufficiency Code(s): N18.9 - CHRONIC KIDNEY DISEASE, UNSPECIFIED (4) ESRD (end stage renal disease) on dialysis Code(s): N18.6 - END STAGE RENAL DISEASE Z99.2 - DEPENDENCE ON RENAL DIALYSIS (5) End stage renal disease Code(s): N18.6 - END STAGE RENAL DISEASE (6) Type 2 diabetes mellitus with diabetic chronic kidney disease Code(s): E11.22 - TYPE 2 DIABETES MELLITUS W DIABETIC CHRONIC KIDNEY DISEASE Qualifiers: 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 Chronic kidney disease stage: on chronic dialysis Qualified Code(s): E11.22 - Type 2 diabetes mellitus with diabetic chronic kidney disease; N18.6 - End stage renal disease; 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; Z99.2 - Dependence on renal dialysis Assessment/Plan dm esrd hemodialysis pneumonia htn Current Active Problems CHF exacerbation (Acute) Diabetes (Acute) Laboratory Results - last 24 hr 06/17/17 06/19/17 06/19/17 21:19 12:34 16:50 POC Glucometer 408 177 374 06/19/17 06/20/17 06/20/17 21:32 06:25 11:15 POC Glucometer 292 212 230 Pneumonia (Acute) Type 2 diabetes mellitus with diabetic chronic kidney disease (Acute) Current Medications Generic Name Dose Route Start Last Admin Trade Name Jose L PRN Reason Stop Dose Admin Amlodipine Besylate 10 mg 06/15/17 10:00 06/20/17 10:07 Norvasc - PO 10 mg DAILY [facility] Administration Arformoterol Tartrate 1 amp 06/06/17 22:00 06/20/17 09:49 Brovana (Restricted To Pulmonology/Resp) - NEB 1 amp BID [facility] Administration Aspirin 81 mg 06/02/17 10:00 06/20/17 10:06 Ecotrin - PO 81 mg DAILY [facility] Administration Calcium Acetate 1,334 mg 06/04/17 12:00 06/20/17 11:53 Phoslo - PO 1,334 mg TIDCM [facility] Administration Carvedilol 25 mg 06/16/17 22:00 06/20/17 10:06 Coreg - PO 25 mg BID [facility] Administration Clopidogrel Bisulfate 75 mg 06/02/17 10:00 06/20/17 10:07 Plavix - PO 75 mg DAILY [facility] Administration Gabapentin 100 mg 06/02/17 14:00 06/20/17 06:25 Neurontin - PO 100 mg TID [facility] Administration Guaifenesin 10 ml 06/08/17 07:45 06/20/17 10:06 Diabetic Tussin Dm - PO 10 ml QID [facility] Administration Insulin Aspart 1 vial 06/20/17 12:05 Novolog Vial Sliding Scale - SQ ACHS [facility] Protocol Insulin Detemir 20 units 06/15/17 22:15 06/19/17 21:34 Levemir Vial SQ 20 units HS [facility] Administration Insulin Detemir 50 units 06/18/17 13:27 06/20/17 06:28 Levemir Vial SQ 50 units AM [facility] Administration Isosorbide Mononitrate 30 mg 06/02/17 10:00 06/20/17 10:07 Imdur - PO 30 mg DAILY [facility] Administration Lisinopril 20 mg 06/02/17 10:00 06/20/17 10:07 Prinivil PO 20 mg DAILY [facility] Administration Methylprednisolone Sodium Succinate 40 mg 06/19/17 22:00 06/20/17 10:07 Solu-Medrol - IVPB 40 mg BID [facility] Administration Sevelamer Carbonate 800 mg 06/06/17 17:30 06/20/17 11:53 Renvela - PO 800 mg TIDCM [facility] Administration
--- NOTE | 2017-06-20 15:26 | PN ---
Progress Note, Physician Chief Complaint: pulmonary awake,no distress,+lucio,less cough - Current Medication List Current Medications: Active Medications Amlodipine Besylate (Norvasc -) 10 mg PO DAILY [facility] Last Admin: 06/20/17 10:07 Dose: 10 mg Arformoterol Tartrate (Brovana (Restricted To Pulmonology/Resp) -) 1 amp NEB BID [facility] Last Admin: 06/20/17 09:49 Dose: 1 amp Aspirin (Ecotrin -) 81 mg PO DAILY [facility] Last Admin: 06/20/17 10:06 Dose: 81 mg Calcium Acetate (Phoslo -) 1,334 mg PO TIDCM [facility] Last Admin: 06/20/17 11:53 Dose: 1,334 mg Carvedilol (Coreg -) 25 mg PO BID [facility] Last Admin: 06/20/17 10:06 Dose: 25 mg Clopidogrel Bisulfate (Plavix -) 75 mg PO DAILY [facility] Last Admin: 06/20/17 10:07 Dose: 75 mg Gabapentin (Neurontin -) 100 mg PO TID [facility] Last Admin: 06/20/17 14:27 Dose: 100 mg Guaifenesin (Diabetic Tussin Dm -) 10 ml PO QID [facility] Last Admin: 06/20/17 14:27 Dose: 10 ml Insulin Aspart (Novolog Vial Sliding Scale -) 1 vial SQ [facility] PRN Reason: Protocol Insulin Detemir (Levemir Vial) 20 units SQ HS [facility] Last Admin: 06/19/17 21:34 Dose: 20 units Insulin Detemir (Levemir Vial) 50 units SQ AM [facility] Last Admin: 06/20/17 06:28 Dose: 50 units Isosorbide Mononitrate (Imdur -) 30 mg PO DAILY [facility] Last Admin: 06/20/17 10:07 Dose: 30 mg Lisinopril (Prinivil) 20 mg PO DAILY [facility] Last Admin: 06/20/17 10:07 Dose: 20 mg Methylprednisolone Sodium Succinate (Solu-Medrol -) 40 mg IVPB BID [facility] Last Admin: 06/20/17 10:07 Dose: 40 mg Sevelamer Carbonate (Renvela -) 800 mg PO TIDCM [facility] Last Admin: 06/20/17 11:53 Dose: 800 mg - Objective Vital Signs: Vital Signs Temperature 98.0 F 06/20/17 14:00 Pulse Rate 62 06/20/17 14:00 Respiratory Rate 20 06/20/17 14:00 Blood Pressure 118/62 06/20/17 14:00 O2 Sat by Pulse Oximetry (%) 95 06/20/17 09:00 Constitutional: Yes: Well Nourished, Calm Eyes: Yes: WNL HENT: Yes: WNL Neck: Yes: WNL Cardiovascular: Yes: Regular Rate and Rhythm, S1, S2 Respiratory: Yes: Rales (bilateral crackles) Gastrointestinal: Yes: Normal Bowel Sounds, Soft Extremities: Yes: WNL Edema: No Labs: CBC, BMP Assessment/Plan A/P Acute Hypoxic Respiratory Failure Bilateral Interstitial Infiltrates LV Diastolic Dysfunction ESRD on HD CAD HTN DM - steroids - HD per renal - glucose control while on systemic steroids - O2 to keep SpO2 >90% - DVT prophylaxis - chest x-ray am DR THOMAS
[2017-06-20] MEDS ORDERED: INSULIN (NOVOLOG) ASPART 100 UNITS/ML 10ML VIAL ONE (16:44)
--- NOTE | 2017-06-20 17:56 | PN ---
Progress Note, Physician History of Present Illness: Pt seen and examined at bedside. He complains of shortness of breath with ambulation. - Current Medication List Current Medications: Active Medications Amlodipine Besylate (Norvasc -) 10 mg PO DAILY [facility] Last Admin: 06/20/17 10:07 Dose: 10 mg Arformoterol Tartrate (Brovana (Restricted To Pulmonology/Resp) -) 1 amp NEB BID [facility] Last Admin: 06/20/17 09:49 Dose: 1 amp Aspirin (Ecotrin -) 81 mg PO DAILY [facility] Last Admin: 06/20/17 10:06 Dose: 81 mg Calcium Acetate (Phoslo -) 1,334 mg PO TIDCM [facility] Last Admin: 06/20/17 17:10 Dose: 1,334 mg Carvedilol (Coreg -) 25 mg PO BID [facility] Last Admin: 06/20/17 10:06 Dose: 25 mg Clopidogrel Bisulfate (Plavix -) 75 mg PO DAILY [facility] Last Admin: 06/20/17 10:07 Dose: 75 mg Gabapentin (Neurontin -) 100 mg PO TID [facility] Last Admin: 06/20/17 14:27 Dose: 100 mg Guaifenesin (Diabetic Tussin Dm -) 10 ml PO QID [facility] Last Admin: 06/20/17 17:11 Dose: 10 ml Insulin Aspart (Novolog Vial Sliding Scale -) [address] [facility] PRN Reason: Protocol Last Admin: 06/20/17 17:10 Dose: 10 units Insulin Detemir (Levemir Vial) 20 units SQ HS [facility] Last Admin: 06/19/17 21:34 Dose: 20 units Insulin Detemir (Levemir Vial) 50 units SQ AM [facility] Last Admin: 06/20/17 06:28 Dose: 50 units Isosorbide Mononitrate (Imdur -) 30 mg PO DAILY [facility] Last Admin: 06/20/17 10:07 Dose: 30 mg Lisinopril (Prinivil) 20 mg PO DAILY [facility] Last Admin: 06/20/17 10:07 Dose: 20 mg Methylprednisolone Sodium Succinate (Solu-Medrol -) 40 mg IVPB BID [facility] Last Admin: 06/20/17 10:07 Dose: 40 mg Sevelamer Carbonate (Renvela -) 800 mg PO TIDCM [facility] Last Admin: 06/20/17 17:10 Dose: 800 mg - Objective Vital Signs: Vital Signs Temperature 98.0 F 06/20/17 14:00 Pulse Rate 62 06/20/17 14:00 Respiratory Rate 20 06/20/17 14:00 Blood Pressure 118/62 06/20/17 14:00 O2 Sat by Pulse Oximetry (%) 95 06/20/17 09:00 Constitutional: Yes: Calm Eyes: Yes: Conjunctiva Clear HENT: Yes: Atraumatic Neck: Yes: Supple Cardiovascular: Yes: S1, S2 Respiratory: Yes: On Nasal O2, Wheezes Gastrointestinal: Yes: Normal Bowel Sounds, Soft Musculoskeletal: Yes: WNL Edema: No Neurological: Yes: Oriented Psychiatric: Yes: Oriented Labs: CBC, BMP 06/16/17 09:20 06/17/17 21:45 INR, PTT INR 1.03 (0.82-1.09) 06/01/17 21:41 Problem List - Problems (1) ESRD (end stage renal disease) on dialysis Code(s): N18.6 - END STAGE RENAL DISEASE Z99.2 - DEPENDENCE ON RENAL DIALYSIS Assessment/Plan Current Medications Generic Name Dose Route Start Last Admin Trade Name Freq PRN Reason Stop Dose Admin Amlodipine Besylate 10 mg 06/15/17 10:00 06/20/17 10:07 Norvasc - PO 10 mg DAILY [facility] Administration Arformoterol Tartrate 1 amp 06/06/17 22:00 06/20/17 09:49 Brovana (Restricted To Pulmonology/Resp) - NEB 1 amp BID [facility] Administration Aspirin 81 mg 06/02/17 10:00 06/20/17 10:06 Ecotrin - PO 81 mg DAILY [facility] Administration Calcium Acetate 1,334 mg 06/04/17 12:00 06/20/17 17:10 Phoslo - PO 1,334 mg TIDCM [facility] Administration Carvedilol 25 mg 06/16/17 22:00 06/20/17 10:06 Coreg - PO 25 mg BID [facility] Administration Clopidogrel Bisulfate 75 mg 06/02/17 10:00 06/20/17 10:07 Plavix - PO 75 mg DAILY [facility] Administration Gabapentin 100 mg 06/02/17 14:00 06/20/17 14:27 Neurontin - PO 100 mg TID [facility] Administration Guaifenesin 10 ml 06/08/17 07:45 06/20/17 17:11 Diabetic Tussin Dm - PO 10 ml QID [facility] Administration Insulin Aspart 1 vial 06/20/17 12:05 06/20/17 17:10 Novolog Vial Sliding Scale - SQ 10 units ACHS [facility] Administration Protocol Insulin Detemir 20 units 06/15/17 22:15 06/19/17 21:34 Levemir Vial SQ 20 units HS [facility] Administration Insulin Detemir 50 units 06/18/17 13:27 06/20/17 06:28 Levemir Vial SQ 50 units AM [facility] Administration Isosorbide Mononitrate 30 mg 06/02/17 10:00 06/20/17 10:07 Imdur - PO 30 mg DAILY [facility] Administration Lisinopril 20 mg 06/02/17 10:00 06/20/17 10:07 Prinivil PO 20 mg DAILY [facility] Administration Methylprednisolone Sodium Succinate 40 mg 06/19/17 22:00 06/20/17 10:07 Solu-Medrol - IVPB 40 mg BID [facility] Administration Sevelamer Carbonate 800 mg 06/06/17 17:30 06/20/17 17:10 Renvela - PO 800 mg TIDCM [facility] Administration Impression 1. ESRD 2. fluid overload 3. HTN 4. DM 5. anemia 6. hemoptysis 7. pneumonitis Plan - will arrange for HD in am - steroids per pulmonary - will need better glucose control - will order labs for am - cont current meds - will follow Dr Barbosa
--- NOTE | 2017-06-20 18:29 | PN ---
Progress Note, Physician Chief Complaint: Improving - Current Medication List Current Medications: Active Medications Amlodipine Besylate (Norvasc -) 10 mg PO DAILY [facility] Last Admin: 06/20/17 10:07 Dose: 10 mg Arformoterol Tartrate (Brovana (Restricted To Pulmonology/Resp) -) 1 amp NEB BID [facility] Last Admin: 06/20/17 09:49 Dose: 1 amp Aspirin (Ecotrin -) 81 mg PO DAILY [facility] Last Admin: 06/20/17 10:06 Dose: 81 mg Calcium Acetate (Phoslo -) 1,334 mg PO TIDCM [facility] Last Admin: 06/20/17 17:10 Dose: 1,334 mg Carvedilol (Coreg -) 25 mg PO BID [facility] Last Admin: 06/20/17 10:06 Dose: 25 mg Clopidogrel Bisulfate (Plavix -) 75 mg PO DAILY [facility] Last Admin: 06/20/17 10:07 Dose: 75 mg Epoetin Ishan (Epogen -) 5,000 units IVPUSH ONCE ONE Stop: 06/21/17 17:57 Gabapentin (Neurontin -) 100 mg PO TID [facility] Last Admin: 06/20/17 14:27 Dose: 100 mg Guaifenesin (Diabetic Tussin Dm -) 10 ml PO QID [facility] Last Admin: 06/20/17 17:11 Dose: 10 ml Heparin Sodium (Porcine) (Heparin -) 1,000 unit IVPUSH ONCE ONE Stop: 06/21/17 17:57 Insulin Aspart (Novolog Vial Sliding Scale -) 1 vial SQ [facility] PRN Reason: Protocol Last Admin: 06/20/17 17:10 Dose: 10 units Insulin Detemir (Levemir Vial) 20 units SQ HS [facility] Last Admin: 06/19/17 21:34 Dose: 20 units Insulin Detemir (Levemir Vial) 50 units SQ AM [facility] Last Admin: 06/20/17 06:28 Dose: 50 units Isosorbide Mononitrate (Imdur -) 30 mg PO DAILY [facility] Last Admin: 06/20/17 10:07 Dose: 30 mg Lisinopril (Prinivil) 20 mg PO DAILY [facility] Last Admin: 06/20/17 10:07 Dose: 20 mg Methylprednisolone Sodium Succinate (Solu-Medrol -) 40 mg IVPB BID [facility] Last Admin: 06/20/17 10:07 Dose: 40 mg Sevelamer Carbonate (Renvela -) 800 mg PO TIDCM [facility] Last Admin: 06/20/17 17:10 Dose: 800 mg - Objective Vital Signs: Vital Signs Temperature 98.0 F 06/20/17 14:00 Pulse Rate 62 06/20/17 14:00 Respiratory Rate 20 06/20/17 14:00 Blood Pressure 118/62 06/20/17 14:00 O2 Sat by Pulse Oximetry (%) 95 06/20/17 09:00 Constitutional: Yes: No Distress Neck: Yes: Supple Cardiovascular: Yes: Regular Rate and Rhythm, S1, S2 Respiratory: Yes: Regular, CTA Bilaterally Gastrointestinal: Yes: Normal Bowel Sounds, Soft Neurological: Yes: Alert, Oriented. No: Loss of Sensation ...Motor Strength: WNL Labs: CBC, BMP 06/16/17 09:20 06/17/17 21:45 INR, PTT INR 1.03 (0.82-1.09) 06/01/17 21:41 Problem List - Problems (1) Pneumonia Assessment/Plan: Abx. Steroids Code(s): J18.9 - PNEUMONIA, UNSPECIFIED ORGANISM (2) Type 2 diabetes mellitus with diabetic chronic kidney disease Assessment/Plan: Glucose control acceptable Code(s): E11.22 - TYPE 2 DIABETES MELLITUS W DIABETIC CHRONIC KIDNEY DISEASE Qualifiers: Diabetes mellitus halfway insulin use: with halfway use Chronic kidney disease stage: on chronic dialysis Qualified Code(s): E11.22 - Type 2 diabetes mellitus with diabetic chronic kidney disease
[2017-06-20] MEDS ORDERED: PT OWN MED DRAWER 7, Y5N ONE (22:03)
[2017-06-21] MEDS: INSULIN SLIDING SCALE (NOVOLOG) 1 VIAL SQ SCH ×4 (06:14→21:41)
[2017-06-21] MEDS: INSULIN DETEMIR 100 UNITS/ML MDV SQ SCH ×2 (06:15→21:41)
[2017-06-21] MEDS: GABAPENTIN 100 MG CAPSULE (FP) PO SCH ×3 (06:15→21:41)
[2017-06-21] MEDS: CALCIUM ACETATE 667 MG CAPSULE (FP) PO SCH ×3 (09:00→16:53)
[2017-06-21] MEDS: SEVELAMER CARBONATE 800 MG TAB (FP) PO SCH ×3 (09:00→16:53)
[2017-06-21] MEDS ORDERED: PT OWN MED DRAWER 7, Y5N ONE ×3 (09:12→21:34)
[2017-06-21] MEDS: guaiFENesin/D-M SUGAR-FREE/ACLHOL-FREE 118 ML BOTTLE PO SCH ×4 (10:00→21:48)
[2017-06-21 10:27] LABS: MCH 29.3 pg (25.7-33.7); MCHC 31.7 g/dl (32.0-35.9); MEAN CELL VOLUME 92.5 fl (80-96); MEAN PLT VOLUME 7.4 fl (7.5-11.1); PLATELET COUNT 244 K/MM3 (134-434); RDW 17.4 % (11.9-15.9); WHITE BLOOD COUNT 13.8 K/mm3 (4.0-10.0)
[2017-06-21] MEDS ORDERED: HEPARIN NA (PORCINE) 5,000 UNITS/ML 1ML VIAL IVPUSH ONE (10:45)
[2017-06-21 10:50] LABS: ANION GAP 15 (8-16); CALCIUM 8.3 mg/dL (8.5-10.1); CO2 22 mmol/L (21-32); GLUCOSE,RANDOM 191 mg/dL (74-106)
[2017-06-21] MEDS: ARFORMOTEROL TARTRATE 15 MCG/2 ML VIAL NEB SCH ×2 (11:05→22:53)
[2017-06-21 11:08] LABS: CREATININE 7.9 mg/dL (0.7-1.3)
[2017-06-21] MEDS ORDERED: EPOETIN ALFA 2,000 UNITS/1 ML VIAL IVPUSH ONE (12:00)
--- NOTE | 2017-06-21 13:43 | PN ---
Progress Note, Physician History of Present Illness: pulmonary alert,on dialysis,-resp distress. - Current Medication List Current Medications: Active Medications Amlodipine Besylate (Norvasc -) 10 mg PO DAILY [facility] Last Admin: 06/20/17 10:07 Dose: 10 mg Arformoterol Tartrate (Brovana (Restricted To Pulmonology/Resp) -) 1 amp NEB BID [facility] Last Admin: 06/21/17 11:05 Dose: Not Given Aspirin (Ecotrin -) 81 mg PO DAILY [facility] Last Admin: 06/20/17 10:06 Dose: 81 mg Calcium Acetate (Phoslo -) 1,334 mg PO TIDCM [facility] Last Admin: 06/21/17 09:00 Dose: Not Given Carvedilol (Coreg -) 25 mg PO BID [facility] Last Admin: 06/20/17 22:10 Dose: 25 mg Clopidogrel Bisulfate (Plavix -) 75 mg PO DAILY [facility] Last Admin: 06/20/17 10:07 Dose: 75 mg Gabapentin (Neurontin -) 100 mg PO TID [facility] Last Admin: 06/21/17 06:15 Dose: 100 mg Guaifenesin (Diabetic Tussin Dm -) 10 ml PO QID [facility] Last Admin: 06/20/17 22:09 Dose: 10 ml Insulin Aspart (Novolog Vial Sliding Scale -) 1 vial SQ [facility] PRN Reason: Protocol Last Admin: 06/21/17 06:14 Dose: Not Given Insulin Detemir (Levemir Vial) 20 units SQ HS [facility] Last Admin: 06/20/17 22:09 Dose: 20 units Insulin Detemir (Levemir Vial) 50 units SQ AM [facility] Last Admin: 06/21/17 06:15 Dose: 50 units Isosorbide Mononitrate (Imdur -) 30 mg PO DAILY [facility] Last Admin: 06/20/17 10:07 Dose: 30 mg Lisinopril (Prinivil) 20 mg PO DAILY [facility] Last Admin: 06/20/17 10:07 Dose: 20 mg Methylprednisolone Sodium Succinate (Solu-Medrol -) 40 mg IVPB BID [facility] Last Admin: 06/20/17 22:09 Dose: 40 mg Sevelamer Carbonate (Renvela -) 800 mg PO TIDCM [facility] Last Admin: 06/21/17 09:00 Dose: Not Given - Objective Vital Signs: Vital Signs Temperature 97.6 F 06/21/17 09:00 Pulse Rate 75 06/21/17 13:00 Respiratory Rate 18 06/21/17 13:00 Blood Pressure 137/62 06/21/17 13:00 O2 Sat by Pulse Oximetry (%) 95 06/20/17 09:00 Constitutional: Yes: Well Nourished, Calm Eyes: Yes: WNL HENT: Yes: WNL Neck: Yes: WNL Cardiovascular: Yes: Pulse Irregular, S1, S2 Respiratory: Yes: Rales (bilateral crackles) Gastrointestinal: Yes: Normal Bowel Sounds, Soft Extremities: Yes: WNL Edema: No Labs: CBC, BMP 06/21/17 09:10 06/21/17 09:10 INR, PTT INR 1.03 (0.82-1.09) 06/01/17 21:41 Assessment/Plan A/P Acute Hypoxic Respiratory Failure Bilateral Interstitial Infiltrates LV Diastolic Dysfunction ESRD on HD CAD HTN DM - steroid taper - HD per renal - glucose control while on systemic steroids - O2 to keep SpO2 >90% - DVT prophylaxis - chest x-ray am DR THOMAS
[2017-06-21] MEDS: CLOPIDOGREL BISULFATE 75 MG TABLET (FP) PO SCH (13:47)
[2017-06-21] MEDS: LISINOPRIL 20 MG TABLET (FP) PO SCH (13:47)
[2017-06-21] MEDS: ASPIRIN COATED 81 MG TABLET.EC PO SCH (13:47)
[2017-06-21] MEDS: amLODIPine BESYLATE 10 MG TABLET (FP) PO SCH (13:47)
[2017-06-21] MEDS: ISOSORBIDE MONONITRATE 30 MG TAB.SR.24H (FP) PO SCH (13:47)
[2017-06-21] MEDS: CARVEDILOL 25 MG TABLET (FP) PO SCH ×2 (13:47→21:41)
[2017-06-21] MEDS: methylPREDNISolone NA SUCC 40 MG/1 ML VIAL IVPB SCH ×2 (13:48→21:44)
--- NOTE | 2017-06-21 13:52 | PN ---
Progress Note, Physician History of Present Illness: Pt seen and examined at bedside. He is awake and alert. He is currently getting HD. - Current Medication List Current Medications: Active Medications Amlodipine Besylate (Norvasc -) 10 mg PO DAILY [facility] Last Admin: 06/21/17 13:47 Dose: 10 mg Arformoterol Tartrate (Brovana (Restricted To Pulmonology/Resp) -) 1 amp NEB BID [facility] Last Admin: 06/21/17 11:05 Dose: Not Given Aspirin (Ecotrin -) 81 mg PO DAILY [facility] Last Admin: 06/21/17 13:47 Dose: 81 mg Calcium Acetate (Phoslo -) 1,334 mg PO TIDCM [facility] Last Admin: 06/21/17 13:47 Dose: 1,334 mg Carvedilol (Coreg -) 25 mg PO BID [facility] Last Admin: 06/21/17 13:47 Dose: 25 mg Clopidogrel Bisulfate (Plavix -) 75 mg PO DAILY [facility] Last Admin: 06/21/17 13:47 Dose: 75 mg Gabapentin (Neurontin -) 100 mg PO TID [facility] Last Admin: 06/21/17 13:47 Dose: 100 mg Guaifenesin (Diabetic Tussin Dm -) 10 ml PO QID [facility] Last Admin: 06/21/17 13:48 Dose: Not Given Insulin Aspart (Novolog Vial Sliding Scale -) 1 vial SQ [facility] PRN Reason: Protocol Last Admin: 06/21/17 06:14 Dose: Not Given Insulin Detemir (Levemir Vial) 20 units SQ HS [facility] Last Admin: 06/20/17 22:09 Dose: 20 units Insulin Detemir (Levemir Vial) 50 units SQ AM [facility] Last Admin: 06/21/17 06:15 Dose: 50 units Isosorbide Mononitrate (Imdur -) 30 mg PO DAILY [facility] Last Admin: 06/21/17 13:47 Dose: 30 mg Lisinopril (Prinivil) 20 mg PO DAILY [facility] Last Admin: 06/21/17 13:47 Dose: 20 mg Methylprednisolone Sodium Succinate (Solu-Medrol -) 40 mg IVPB BID [facility] Last Admin: 06/21/17 13:48 Dose: 40 mg Sevelamer Carbonate (Renvela -) 800 mg PO TIDCM [facility] Last Admin: 06/21/17 13:47 Dose: 800 mg - Objective Vital Signs: Vital Signs Temperature 97.6 F 06/21/17 09:00 Pulse Rate 75 06/21/17 13:00 Respiratory Rate 18 06/21/17 13:00 Blood Pressure 137/62 06/21/17 13:00 O2 Sat by Pulse Oximetry (%) 95 06/20/17 09:00 Constitutional: Yes: Calm Eyes: Yes: Conjunctiva Clear HENT: Yes: Atraumatic Neck: Yes: Supple Cardiovascular: Yes: S1, S2 Respiratory: Yes: On Nasal O2 Gastrointestinal: Yes: Soft Genitourinary: Yes: WNL Musculoskeletal: Yes: WNL Edema: No Neurological: Yes: Oriented Psychiatric: Yes: Oriented Labs: CBC, BMP 06/21/17 09:10 06/21/17 09:10 INR, PTT INR 1.03 (0.82-1.09) 06/01/17 21:41 Problem List - Problems (1) ESRD (end stage renal disease) on dialysis Code(s): N18.6 - END STAGE RENAL DISEASE Z99.2 - DEPENDENCE ON RENAL DIALYSIS Assessment/Plan Current Medications Generic Name Dose Route Start Last Admin Trade Name Freq PRN Reason Stop Dose Admin Amlodipine Besylate 10 mg 06/15/17 10:00 06/21/17 13:47 Norvasc - PO 10 mg DAILY [facility] Administration Arformoterol Tartrate 1 amp 06/06/17 22:00 06/21/17 11:05 Brovana (Restricted To Pulmonology/Resp) - NEB Not Given BID [facility] Aspirin 81 mg 06/02/17 10:00 06/21/17 13:47 Ecotrin - PO 81 mg DAILY [facility] Administration Calcium Acetate 1,334 mg 06/04/17 12:00 06/21/17 13:47 Phoslo - PO 1,334 mg TIDCM [facility] Administration Carvedilol 25 mg 06/16/17 22:00 06/21/17 13:47 Coreg - PO 25 mg BID [facility] Administration Clopidogrel Bisulfate 75 mg 06/02/17 10:00 06/21/17 13:47 Plavix - PO 75 mg DAILY [facility] Administration Gabapentin 100 mg 06/02/17 14:00 06/21/17 13:47 Neurontin - PO 100 mg TID [facility] Administration Guaifenesin 10 ml 06/08/17 07:45 06/21/17 13:48 Diabetic Tussin Dm - PO Not Given QID [facility] Insulin Aspart 1 vial 06/20/17 12:05 06/21/17 06:14 Novolog Vial Sliding Scale - SQ Not Given ACHS [facility] Protocol Insulin Detemir 20 units 06/15/17 22:15 06/20/17 22:09 Levemir Vial SQ 20 units HS [facility] Administration Insulin Detemir 50 units 06/18/17 13:27 06/21/17 06:15 Levemir Vial SQ 50 units AM [facility] Administration Isosorbide Mononitrate 30 mg 06/02/17 10:00 06/21/17 13:47 Imdur - PO 30 mg DAILY [facility] Administration Lisinopril 20 mg 06/02/17 10:00 06/21/17 13:47 Prinivil PO 20 mg DAILY [facility] Administration Methylprednisolone Sodium Succinate 40 mg 06/19/17 22:00 06/21/17 13:48 Solu-Medrol - IVPB 40 mg BID [facility] Administration Sevelamer Carbonate 800 mg 06/06/17 17:30 06/21/17 13:47 Renvela - PO 800 mg TIDCM [facility] Administration Impression 1. ESRD 2. fluid overload 3. HTN 4. DM 5. anemia 6. hemoptysis 7. pneumonitis Plan - pt tolerating HD - about 3 liter removed so far, he will be finished with treatment in a few minutes - steroids per pulmonary - monitor glucose - cont current meds - will follow Dr Barbosa
[2017-06-21] MEDS ORDERED: INSULIN (NOVOLOG) ASPART 100 UNITS/ML 10ML VIAL ONE ×3 (13:56→20:37)
--- NOTE | 2017-06-21 16:29 | PN ---
Progress Note, Physician Chief Complaint: No new complaints - Current Medication List Current Medications: Active Medications Amlodipine Besylate (Norvasc -) 10 mg PO DAILY [facility] Last Admin: 06/21/17 13:47 Dose: 10 mg Arformoterol Tartrate (Brovana (Restricted To Pulmonology/Resp) -) 1 amp NEB BID [facility] Last Admin: 06/21/17 11:05 Dose: Not Given Aspirin (Ecotrin -) 81 mg PO DAILY [facility] Last Admin: 06/21/17 13:47 Dose: 81 mg Calcium Acetate (Phoslo -) 1,334 mg PO TIDCM [facility] Last Admin: 06/21/17 13:47 Dose: 1,334 mg Carvedilol (Coreg -) 25 mg PO BID [facility] Last Admin: 06/21/17 13:47 Dose: 25 mg Clopidogrel Bisulfate (Plavix -) 75 mg PO DAILY [facility] Last Admin: 06/21/17 13:47 Dose: 75 mg Gabapentin (Neurontin -) 100 mg PO TID [facility] Last Admin: 06/21/17 13:47 Dose: 100 mg Guaifenesin (Diabetic Tussin Dm -) 10 ml PO QID [facility] Last Admin: 06/21/17 13:48 Dose: Not Given Insulin Aspart (Novolog Vial Sliding Scale -) 1 vial SQ [facility] PRN Reason: Protocol Last Admin: 06/21/17 14:01 Dose: Not Given Insulin Detemir (Levemir Vial) 20 units SQ HS [facility] Last Admin: 06/20/17 22:09 Dose: 20 units Insulin Detemir (Levemir Vial) 50 units SQ AM [facility] Last Admin: 06/21/17 06:15 Dose: 50 units Isosorbide Mononitrate (Imdur -) 30 mg PO DAILY [facility] Last Admin: 06/21/17 13:47 Dose: 30 mg Lisinopril (Prinivil) 20 mg PO DAILY [facility] Last Admin: 06/21/17 13:47 Dose: 20 mg Methylprednisolone Sodium Succinate (Solu-Medrol -) 40 mg IVPB BID [facility] Last Admin: 06/21/17 13:48 Dose: 40 mg Sevelamer Carbonate (Renvela -) 800 mg PO TIDCM [facility] Last Admin: 06/21/17 13:47 Dose: 800 mg - Objective Vital Signs: Vital Signs Temperature 97.7 F 06/21/17 14:00 Pulse Rate 80 06/21/17 14:00 Respiratory Rate 20 06/21/17 14:00 Blood Pressure 147/92 06/21/17 14:00 O2 Sat by Pulse Oximetry (%) 95 06/21/17 10:00 Constitutional: Yes: No Distress Neck: Yes: Supple Cardiovascular: Yes: Regular Rate and Rhythm, S1, S2 Respiratory: Yes: CTA Bilaterally Gastrointestinal: Yes: Normal Bowel Sounds, Soft Neurological: Yes: Alert, Oriented. No: Loss of Sensation ...Motor Strength: WNL Labs: CBC, BMP 06/21/17 09:10 06/21/17 09:10 INR, PTT INR 1.03 (0.82-1.09) 06/01/17 21:41 Problem List - Problems (1) Pneumonia Assessment/Plan: Abx. Steroids Code(s): J18.9 - PNEUMONIA, UNSPECIFIED ORGANISM (2) Type 2 diabetes mellitus with diabetic chronic kidney disease Assessment/Plan: Glucose control acceptable Code(s): E11.22 - TYPE 2 DIABETES MELLITUS W DIABETIC CHRONIC KIDNEY DISEASE Qualifiers: Diabetes mellitus half-way insulin use: with child protection specialist use Chronic kidney disease stage: on chronic dialysis Qualified Code(s): E11.22 - Type 2 diabetes mellitus with diabetic chronic kidney disease
[2017-06-22] MEDS: GABAPENTIN 100 MG CAPSULE (FP) PO SCH ×3 (06:05→21:25)
[2017-06-22] MEDS: INSULIN SLIDING SCALE (NOVOLOG) 1 VIAL SQ SCH ×4 (06:34→21:27)
[2017-06-22] MEDS: INSULIN DETEMIR 100 UNITS/ML MDV SQ SCH ×2 (06:34→21:25)
[2017-06-22] MEDS: SEVELAMER CARBONATE 800 MG TAB (FP) PO SCH ×3 (07:44→17:03)
[2017-06-22] MEDS: CALCIUM ACETATE 667 MG CAPSULE (FP) PO SCH ×3 (07:44→17:03)
[2017-06-22] MEDS: ARFORMOTEROL TARTRATE 15 MCG/2 ML VIAL NEB SCH ×2 (10:00→22:34)
[2017-06-22] MEDS: methylPREDNISolone NA SUCC 40 MG/1 ML VIAL IVPB SCH ×2 (10:01→21:25)
[2017-06-22] MEDS: LISINOPRIL 20 MG TABLET (FP) PO SCH (10:02)
[2017-06-22] MEDS: ASPIRIN COATED 81 MG TABLET.EC PO SCH (10:02)
[2017-06-22] MEDS: CARVEDILOL 25 MG TABLET (FP) PO SCH ×2 (10:02→21:25)
[2017-06-22] MEDS: CLOPIDOGREL BISULFATE 75 MG TABLET (FP) PO SCH (10:02)
[2017-06-22] MEDS: ISOSORBIDE MONONITRATE 30 MG TAB.SR.24H (FP) PO SCH (10:02)
[2017-06-22] MEDS: amLODIPine BESYLATE 10 MG TABLET (FP) PO SCH (10:02)
[2017-06-22] MEDS ORDERED: IBUPROFEN 400 MG TABLET (FP) PO PRN (13:10)
[2017-06-22] MEDS: guaiFENesin/D-M SUGAR-FREE/ACLHOL-FREE 118 ML BOTTLE PO SCH ×4 (13:34→21:25)
--- NOTE | 2017-06-22 15:55 | PN ---
Progress Note, Physician History of Present Illness: pulmonary no change,+lucio. - Current Medication List Current Medications: Active Medications Amlodipine Besylate (Norvasc -) 10 mg PO DAILY [facility] Last Admin: 06/22/17 10:02 Dose: 10 mg Arformoterol Tartrate (Brovana (Restricted To Pulmonology/Resp) -) 1 amp NEB BID [facility] Last Admin: 06/22/17 10:00 Dose: 1 amp Aspirin (Ecotrin -) 81 mg PO DAILY [facility] Last Admin: 06/22/17 10:02 Dose: 81 mg Calcium Acetate (Phoslo -) 1,334 mg PO TIDCM [facility] Last Admin: 06/22/17 12:01 Dose: 1,334 mg Carvedilol (Coreg -) 25 mg PO BID [facility] Last Admin: 06/22/17 10:02 Dose: 25 mg Clopidogrel Bisulfate (Plavix -) 75 mg PO DAILY [facility] Last Admin: 06/22/17 10:02 Dose: 75 mg Gabapentin (Neurontin -) 100 mg PO TID [facility] Last Admin: 06/22/17 13:34 Dose: 100 mg Guaifenesin (Diabetic Tussin Dm -) 10 ml PO QID [facility] Last Admin: 06/22/17 13:34 Dose: 10 ml Ibuprofen (Motrin -) 400 mg PO TID PRN PRN Reason: PAIN Last Admin: 06/22/17 13:35 Dose: 400 mg Insulin Aspart (Novolog Vial Sliding Scale -) 1 vial SQ ACHS [facility] PRN Reason: Protocol Last Admin: 06/22/17 11:24 Dose: 7 units Insulin Detemir (Levemir Vial) 20 units SQ HS [facility] Last Admin: 06/21/17 21:41 Dose: 20 units Insulin Detemir (Levemir Vial) 50 units SQ AM [facility] Last Admin: 06/22/17 06:34 Dose: Not Given Isosorbide Mononitrate (Imdur -) 30 mg PO DAILY [facility] Last Admin: 06/22/17 10:02 Dose: 30 mg Lisinopril (Prinivil) 20 mg PO DAILY [facility] Last Admin: 06/22/17 10:02 Dose: 20 mg Methylprednisolone Sodium Succinate (Solu-Medrol -) 40 mg IVPB BID [facility] Last Admin: 06/22/17 10:01 Dose: 40 mg Sevelamer Carbonate (Renvela -) 800 mg PO TIDCM [facility] Last Admin: 06/22/17 12:00 Dose: 800 mg - Objective Vital Signs: Vital Signs Temperature 97.3 F L 06/22/17 14:00 Pulse Rate 60 06/22/17 14:09 Respiratory Rate 17 06/22/17 14:00 Blood Pressure 121/68 06/22/17 14:00 O2 Sat by Pulse Oximetry (%) 97 06/22/17 14:09 Constitutional: Yes: Well Nourished, Calm Eyes: Yes: WNL HENT: Yes: WNL Neck: Yes: WNL Cardiovascular: Yes: Regular Rate and Rhythm, S1, S2 Respiratory: Yes: Rales Gastrointestinal: Yes: Normal Bowel Sounds, Soft Extremities: Yes: WNL Edema: No Labs: CBC, BMP 06/21/17 09:10 06/21/17 09:10 INR, PTT INR 1.03 (0.82-1.09) 06/01/17 21:41 Assessment/Plan A/P Acute Hypoxic Respiratory Failure Bilateral Interstitial Infiltrates LV Diastolic Dysfunction ESRD on HD CAD HTN DM - steroid taper - HD per renal - glucose control while on systemic steroids - O2 to keep SpO2 >90% - DVT prophylaxis - chest x-ray am DR THOMAS
--- NOTE | 2017-06-22 16:03 | PN ---
Progress Note, Physician History of Present Illness: Pt seen and examined at bedside. He complains of shortness of breath on ambulation. - Current Medication List Current Medications: Active Medications Amlodipine Besylate (Norvasc -) 10 mg PO DAILY [facility] Last Admin: 06/22/17 10:02 Dose: 10 mg Arformoterol Tartrate (Brovana (Restricted To Pulmonology/Resp) -) 1 amp NEB BID [facility] Last Admin: 06/22/17 10:00 Dose: 1 amp Aspirin (Ecotrin -) 81 mg PO DAILY [facility] Last Admin: 06/22/17 10:02 Dose: 81 mg Calcium Acetate (Phoslo -) 1,334 mg PO TIDCM [facility] Last Admin: 06/22/17 12:01 Dose: 1,334 mg Carvedilol (Coreg -) 25 mg PO BID [facility] Last Admin: 06/22/17 10:02 Dose: 25 mg Clopidogrel Bisulfate (Plavix -) 75 mg PO DAILY [facility] Last Admin: 06/22/17 10:02 Dose: 75 mg Gabapentin (Neurontin -) 100 mg PO TID [facility] Last Admin: 06/22/17 13:34 Dose: 100 mg Guaifenesin (Diabetic Tussin Dm -) 10 ml PO QID [facility] Last Admin: 06/22/17 13:34 Dose: 10 ml Ibuprofen (Motrin -) 400 mg PO TID PRN PRN Reason: PAIN Last Admin: 06/22/17 13:35 Dose: 400 mg Insulin Aspart (Novolog Vial Sliding Scale -) 1 vial SQ ACHS [facility] PRN Reason: Protocol Last Admin: 06/22/17 11:24 Dose: 7 units Insulin Detemir (Levemir Vial) 20 units SQ HS [facility] Last Admin: 06/21/17 21:41 Dose: 20 units Insulin Detemir (Levemir Vial) 50 units SQ AM [facility] Last Admin: 06/22/17 06:34 Dose: Not Given Isosorbide Mononitrate (Imdur -) 30 mg PO DAILY [facility] Last Admin: 06/22/17 10:02 Dose: 30 mg Lisinopril (Prinivil) 20 mg PO DAILY [facility] Last Admin: 06/22/17 10:02 Dose: 20 mg Methylprednisolone Sodium Succinate (Solu-Medrol -) 40 mg IVPB BID [facility] Last Admin: 06/22/17 10:01 Dose: 40 mg Sevelamer Carbonate (Renvela -) 800 mg PO TIDCM [facility] Last Admin: 06/22/17 12:00 Dose: 800 mg - Objective Vital Signs: Vital Signs Temperature 97.3 F L 06/22/17 14:00 Pulse Rate 60 06/22/17 14:09 Respiratory Rate 17 06/22/17 14:00 Blood Pressure 121/68 06/22/17 14:00 O2 Sat by Pulse Oximetry (%) 97 06/22/17 14:09 Constitutional: Yes: Calm Eyes: Yes: Conjunctiva Clear HENT: Yes: Atraumatic Neck: Yes: Supple Cardiovascular: Yes: S1, S2 Respiratory: Yes: On Nasal O2 Gastrointestinal: Yes: Soft Genitourinary: Yes: WNL Musculoskeletal: Yes: WNL Edema: No Neurological: Yes: Oriented Psychiatric: Yes: Oriented Labs: CBC, BMP 06/21/17 09:10 06/21/17 09:10 INR, PTT INR 1.03 (0.82-1.09) 06/01/17 21:41 Problem List - Problems (1) ESRD (end stage renal disease) on dialysis Code(s): N18.6 - END STAGE RENAL DISEASE Z99.2 - DEPENDENCE ON RENAL DIALYSIS Assessment/Plan Current Medications Generic Name Dose Route Start Last Admin Trade Name Travisq PRN Reason Stop Dose Admin Amlodipine Besylate 10 mg 06/15/17 10:00 06/22/17 10:02 Norvasc - PO 10 mg DAILY [facility] Administration Arformoterol Tartrate 1 amp 06/06/17 22:00 06/22/17 10:00 Ced (Restricted To Pulmonology/Resp) - NEB 1 amp BID [facility] Administration Aspirin 81 mg 06/02/17 10:00 06/22/17 10:02 Ecotrin - PO 81 mg DAILY [facility] Administration Calcium Acetate 1,334 mg 06/04/17 12:00 06/22/17 12:01 Phoslo - PO 1,334 mg TIDCM [facility] Administration Carvedilol 25 mg 06/16/17 22:00 06/22/17 10:02 Coreg - PO 25 mg BID [facility] Administration Clopidogrel Bisulfate 75 mg 06/02/17 10:00 06/22/17 10:02 Plavix - PO 75 mg DAILY [facility] Administration Gabapentin 100 mg 06/02/17 14:00 06/22/17 13:34 Neurontin - PO 100 mg TID [facility] Administration Guaifenesin 10 ml 06/08/17 07:45 06/22/17 13:34 Diabetic Tussin Dm - PO 10 ml QID [facility] Administration Ibuprofen 400 mg 06/22/17 13:10 06/22/17 13:35 Motrin - PO 400 mg TID PRN Administration PAIN Insulin Aspart 1 vial 06/20/17 12:05 06/22/17 11:24 Novolog Vial Sliding Scale - SQ 7 units ACHS [facility] Administration Protocol Insulin Detemir 20 units 06/15/17 22:15 06/21/17 21:41 Levemir Vial SQ 20 units HS [facility] Administration Insulin Detemir 50 units 06/18/17 13:27 06/22/17 06:34 Levemir Vial SQ Not Given AM [facility] Isosorbide Mononitrate 30 mg 06/02/17 10:00 06/22/17 10:02 Imdur - PO 30 mg DAILY [facility] Administration Lisinopril 20 mg 06/02/17 10:00 06/22/17 10:02 Prinivil PO 20 mg DAILY [facility] Administration Methylprednisolone Sodium Succinate 40 mg 06/19/17 22:00 06/22/17 10:01 Solu-Medrol - IVPB 40 mg BID [facility] Administration Sevelamer Carbonate 800 mg 06/06/17 17:30 06/22/17 12:00 Renvela - PO 800 mg TIDCM [facility] Administration Impression 1. ESRD 2. fluid overload 3. HTN 4. DM 5. anemia 6. hemoptysis 7. pneumonitis Plan - HD in am - will order labs pre hd - cont epogen for anemia - steroids per pulmonary - monitor glucose - cont current meds - will follow Dr Barbosa
--- NOTE | 2017-06-22 17:33 | PN ---
Progress Note, Physician Chief Complaint: Left knee pain, constipation - Current Medication List Current Medications: Active Medications Amlodipine Besylate (Norvasc -) 10 mg PO DAILY [facility] Last Admin: 06/22/17 10:02 Dose: 10 mg Arformoterol Tartrate (Brovana (Restricted To Pulmonology/Resp) -) 1 amp NEB BID [facility] Last Admin: 06/22/17 10:00 Dose: 1 amp Aspirin (Ecotrin -) 81 mg PO DAILY [facility] Last Admin: 06/22/17 10:02 Dose: 81 mg Calcium Acetate (Phoslo -) 1,334 mg PO TIDCM [facility] Last Admin: 06/22/17 17:03 Dose: 1,334 mg Carvedilol (Coreg -) 25 mg PO BID [facility] Last Admin: 06/22/17 10:02 Dose: 25 mg Clopidogrel Bisulfate (Plavix -) 75 mg PO DAILY [facility] Last Admin: 06/22/17 10:02 Dose: 75 mg Epoetin Ishan (Epogen -) 6,000 units IVPUSH ONCE ONE Stop: 06/23/17 16:04 Gabapentin (Neurontin -) 100 mg PO TID [facility] Last Admin: 06/22/17 13:34 Dose: 100 mg Guaifenesin (Diabetic Tussin Dm -) 10 ml PO QID [facility] Last Admin: 06/22/17 17:05 Dose: 10 ml Heparin Sodium (Porcine) (Heparin -) 1,000 unit IVPUSH ONCE ONE Stop: 06/23/17 16:04 Ibuprofen (Motrin -) 400 mg PO TID PRN PRN Reason: PAIN Last Admin: 06/22/17 13:35 Dose: 400 mg Insulin Aspart (Novolog Vial Sliding Scale -) 1 vial SQ ACHS [facility] PRN Reason: Protocol Last Admin: 06/22/17 17:03 Dose: 9 units Insulin Detemir (Levemir Vial) 20 units SQ HS [facility] Last Admin: 06/21/17 21:41 Dose: 20 units Insulin Detemir (Levemir Vial) 50 units SQ AM [facility] Last Admin: 06/22/17 06:34 Dose: Not Given Isosorbide Mononitrate (Imdur -) 30 mg PO DAILY [facility] Last Admin: 06/22/17 10:02 Dose: 30 mg Lisinopril (Prinivil) 20 mg PO DAILY [facility] Last Admin: 06/22/17 10:02 Dose: 20 mg Methylprednisolone Sodium Succinate (Solu-Medrol -) 40 mg IVPB BID [facility] Last Admin: 06/22/17 10:01 Dose: 40 mg Sevelamer Carbonate (Renvela -) 800 mg PO TIDCM [facility] Last Admin: 06/22/17 17:03 Dose: 800 mg - Objective Vital Signs: Vital Signs Temperature 97.3 F L 06/22/17 14:00 Pulse Rate 60 06/22/17 14:09 Respiratory Rate 06/22/17 14:00 Blood Pressure 121/68 06/22/17 14:00 O2 Sat by Pulse Oximetry (%) 97 06/22/17 14:09 Constitutional: Yes: No Distress Neck: Yes: Supple Cardiovascular: Yes: Regular Rate and Rhythm, S1, S2 Respiratory: Yes: CTA Bilaterally Gastrointestinal: Yes: Normal Bowel Sounds, Soft Neurological: Yes: Alert, Oriented. No: Loss of Sensation ...Motor Strength: WNL Labs: CBC, BMP 06/21/17 09:10 06/21/17 09:10 INR, PTT INR 1.03 (0.82-1.09) 06/01/17 21:41 Problem List - Problems (1) Pneumonia Assessment/Plan: Abx. Steroids Code(s): J18.9 - PNEUMONIA, UNSPECIFIED ORGANISM (2) Type 2 diabetes mellitus with diabetic chronic kidney disease Assessment/Plan: Glucose control acceptable Code(s): E11.22 - TYPE 2 DIABETES MELLITUS W DIABETIC CHRONIC KIDNEY DISEASE Qualifiers: Diabetes mellitus intermediate designer insulin use: with intermediate designer use Chronic kidney disease stage: on chronic dialysis Qualified Code(s): E11.22 - Type 2 diabetes mellitus with diabetic chronic kidney disease (3) ESRD (end stage renal disease) on dialysis Assessment/Plan: HD as per renal Code(s): N18.6 - END STAGE RENAL DISEASE Z99.2 - DEPENDENCE ON RENAL DIALYSIS (4) Left anterior knee pain Assessment/Plan: Sudden pain today, not relieved with Motrin, will get X ray and start Percocet PRN Code(s): M25.562 - PAIN IN LEFT KNEE
[2017-06-22] MEDS: POLYETHYLENE GLYCOL 3350 119 GM BTL PO SCH (18:18)
[2017-06-22] MEDS: ACETAMINOPHEN 325 MG TABLET (FP) PO PRN (18:30)
[2017-06-22] MEDS: oxyCODONE HCL 5 MG TABLET PO PRN (18:32)
[2017-06-22] MEDS ORDERED: INSULIN (NOVOLOG) ASPART 100 UNITS/ML 10ML VIAL ONE (20:59)
[2017-06-22] MEDS ORDERED: PT OWN MED DRAWER 7, Y5N ONE (22:04)
[2017-06-23] MEDS: GABAPENTIN 100 MG CAPSULE (FP) PO SCH ×3 (05:26→21:46)
[2017-06-23] MEDS: INSULIN DETEMIR 100 UNITS/ML MDV SQ SCH ×2 (06:26→21:45)
[2017-06-23] MEDS: INSULIN SLIDING SCALE (NOVOLOG) 1 VIAL SQ SCH ×4 (06:27→21:46)
[2017-06-23] MEDS ORDERED: INSULIN (NOVOLOG) ASPART 100 UNITS/ML 10ML VIAL ONE (06:30)
[2017-06-23] MEDS: CALCIUM ACETATE 667 MG CAPSULE (FP) PO SCH ×3 (08:16→17:07)
[2017-06-23] MEDS: SEVELAMER CARBONATE 800 MG TAB (FP) PO SCH ×3 (08:17→17:07)
[2017-06-23] MEDS ORDERED: EPOETIN ALFA 3,000 UNIT/1 ML ML IVPUSH ONE (09:00)
[2017-06-23] MEDS ORDERED: HEPARIN NA (PORCINE) 5,000 UNITS/ML 1ML VIAL IVPUSH ONE (09:00)
[2017-06-23 10:05] LABS: ANION GAP 16 (8-16); CALCIUM 8.3 mg/dL (8.5-10.1); CO2 23 mmol/L (21-32)
[2017-06-23 10:10] LABS: MCH 29.8 pg (25.7-33.7); MCHC 32.1 g/dl (32.0-35.9); MEAN CELL VOLUME 92.9 fl (80-96); MEAN PLT VOLUME 7.5 fl (7.5-11.1); PLATELET COUNT 182 K/MM3 (134-434); RDW 18.1 % (11.9-15.9); WHITE BLOOD COUNT 8.4 K/mm3 (4.0-10.0)
[2017-06-23] MEDS: guaiFENesin/D-M SUGAR-FREE/ACLHOL-FREE 118 ML BOTTLE PO SCH ×4 (10:23→21:46)
[2017-06-23 10:39] LABS: CREATININE 7.6 mg/dL (0.7-1.3); GLUCOSE,RANDOM 302 mg/dL (74-106)
[2017-06-23] MEDS: ARFORMOTEROL TARTRATE 15 MCG/2 ML VIAL NEB SCH ×2 (13:30→22:10)
[2017-06-23] MEDS: methylPREDNISolone NA SUCC 40 MG/1 ML VIAL IVPB SCH ×2 (14:18→21:46)
[2017-06-23] MEDS: POLYETHYLENE GLYCOL 3350 119 GM BTL PO SCH (14:20)
[2017-06-23] MEDS: amLODIPine BESYLATE 10 MG TABLET (FP) PO SCH (14:20)
[2017-06-23] MEDS: CLOPIDOGREL BISULFATE 75 MG TABLET (FP) PO SCH (14:20)
[2017-06-23] MEDS: LISINOPRIL 20 MG TABLET (FP) PO SCH (14:20)
[2017-06-23] MEDS: ISOSORBIDE MONONITRATE 30 MG TAB.SR.24H (FP) PO SCH (14:20)
[2017-06-23] MEDS: ASPIRIN COATED 81 MG TABLET.EC PO SCH (14:20)
[2017-06-23] MEDS: CARVEDILOL 25 MG TABLET (FP) PO SCH ×2 (14:20→21:45)
--- NOTE | 2017-06-23 14:43 | PN ---
Progress Note, Physician History of Present Illness: Pt seen and examined at bedside. He tolerated HD. He still complains of SOB. - Current Medication List Current Medications: Active Medications Acetaminophen (Tylenol -) 325 mg PO Q6H PRN PRN Reason: PAIN LEVEL 6-10 Last Admin: 06/22/17 18:30 Dose: 325 mg Amlodipine Besylate (Norvasc -) 10 mg PO DAILY [facility] Last Admin: 06/23/17 14:20 Dose: 10 mg Arformoterol Tartrate (Brovana (Restricted To Pulmonology/Resp) -) 1 amp NEB BID [facility] Last Admin: 06/22/17 22:34 Dose: 1 amp Aspirin (Ecotrin -) 81 mg PO DAILY [facility] Last Admin: 06/23/17 14:20 Dose: 81 mg Calcium Acetate (Phoslo -) 1,334 mg PO TIDCM [facility] Last Admin: 06/23/17 14:20 Dose: 1,334 mg Carvedilol (Coreg -) 25 mg PO BID [facility] Last Admin: 06/23/17 14:20 Dose: 25 mg Clopidogrel Bisulfate (Plavix -) 75 mg PO DAILY [facility] Last Admin: 06/23/17 14:20 Dose: 75 mg Gabapentin (Neurontin -) 100 mg PO TID [facility] Last Admin: 06/23/17 14:19 Dose: 100 mg Guaifenesin (Diabetic Tussin Dm -) 10 ml PO QID [facility] Last Admin: 06/23/17 14:21 Dose: Not Given Insulin Aspart (Novolog Vial Sliding Scale -) 1 vial SQ ACHS [facility] PRN Reason: Protocol Last Admin: 06/23/17 14:21 Dose: 5 units Insulin Detemir (Levemir Vial) 20 units SQ HS [facility] Last Admin: 06/22/17 21:25 Dose: 20 units Insulin Detemir (Levemir Vial) 50 units SQ AM [facility] Last Admin: 06/23/17 06:26 Dose: 50 units Isosorbide Mononitrate (Imdur -) 30 mg PO DAILY [facility] Last Admin: 06/23/17 14:20 Dose: 30 mg Lisinopril (Prinivil) 20 mg PO DAILY [facility] Last Admin: 06/23/17 14:20 Dose: 20 mg Methylprednisolone Sodium Succinate (Solu-Medrol -) 40 mg IVPB BID [facility] Last Admin: 06/23/17 14:18 Dose: 40 mg Oxycodone HCl (Roxicodone -) 5 mg PO Q6H PRN PRN Reason: PAIN LEVEL 6-10 Last Admin: 06/22/17 18:32 Dose: 5 mg Polyethylene Glycol (Miralax (For Daily Use) -) 17 gm PO DAILY [facility] Last Admin: 06/23/17 14:20 Dose: 17 gm Sevelamer Carbonate (Renvela -) 800 mg PO TIDCM [facility] Last Admin: 06/23/17 14:19 Dose: 800 mg - Objective Vital Signs: Vital Signs Temperature 97.8 F 06/23/17 08:25 Pulse Rate 81 06/23/17 12:25 Respiratory Rate 16 06/23/17 12:25 Blood Pressure 151/88 06/23/17 12:25 O2 Sat by Pulse Oximetry (%) 96 06/23/17 08:00 Constitutional: Yes: Calm Eyes: Yes: Conjunctiva Clear HENT: Yes: Atraumatic Neck: Yes: Supple Cardiovascular: Yes: S1, S2 Respiratory: Yes: On Nasal O2, Wheezes Gastrointestinal: Yes: Soft Genitourinary: Yes: WNL Musculoskeletal: Yes: WNL Edema: No Neurological: Yes: Oriented Psychiatric: Yes: Oriented Labs: CBC, BMP 06/23/17 08:30 06/23/17 08:30 INR, PTT INR 1.03 (0.82-1.09) 06/01/17 21:41 Problem List - Problems (1) ESRD (end stage renal disease) on dialysis Code(s): N18.6 - END STAGE RENAL DISEASE Z99.2 - DEPENDENCE ON RENAL DIALYSIS Assessment/Plan Current Medications Generic Name Dose Route Start Last Admin Trade Name Freq PRN Reason Stop Dose Admin Acetaminophen 325 mg 06/22/17 18:22 06/22/17 18:30 Tylenol - PO 325 mg Q6H PRN Administration PAIN LEVEL 6-10 Amlodipine Besylate 10 mg 06/15/17 10:00 06/23/17 14:20 Norvasc - PO 10 mg DAILY [facility] Administration Arformoterol Tartrate 1 amp 06/06/17 22:00 06/22/17 22:34 Brovana (Restricted To Pulmonology/Resp) - NEB 1 amp BID [facility] Administration Aspirin 81 mg 06/02/17 10:00 06/23/17 14:20 Ecotrin - PO 81 mg DAILY [facility] Administration Calcium Acetate 1,334 mg 06/04/17 12:00 06/23/17 14:20 Phoslo - PO 1,334 mg TIDCM [facility] Administration Carvedilol 25 mg 06/16/17 22:00 06/23/17 14:20 Coreg - PO 25 mg BID [facility] Administration Clopidogrel Bisulfate 75 mg 06/02/17 10:00 06/23/17 14:20 Plavix - PO 75 mg DAILY [facility] Administration Gabapentin 100 mg 06/02/17 14:00 06/23/17 14:19 Neurontin - PO 100 mg TID [facility] Administration Guaifenesin 10 ml 06/08/17 07:45 06/23/17 14:21 Diabetic Tussin Dm - PO Not Given QID [facility] Insulin Aspart 1 vial 06/20/17 12:05 06/23/17 14:21 Novolog Vial Sliding Scale - SQ 5 units ACHS [facility] Administration Protocol Insulin Detemir 20 units 06/15/17 22:15 06/22/17 21:25 Levemir Vial SQ 20 units HS [facility] Administration Insulin Detemir 50 units 06/18/17 13:27 06/23/17 06:26 Levemir Vial SQ 50 units AM [facility] Administration Isosorbide Mononitrate 30 mg 06/02/17 10:00 06/23/17 14:20 Imdur - PO 30 mg DAILY [facility] Administration Lisinopril 20 mg 06/02/17 10:00 06/23/17 14:20 Prinivil PO 20 mg DAILY [facility] Administration Methylprednisolone Sodium Succinate 40 mg 06/19/17 22:00 06/23/17 14:18 Solu-Medrol - IVPB 40 mg BID [facility] Administration Oxycodone HCl 5 mg 06/22/17 18:22 06/22/17 18:32 Roxicodone - PO 5 mg Q6H PRN Administration PAIN LEVEL 6-10 Polyethylene Glycol 17 gm 06/22/17 17:45 06/23/17 14:20 Miralax (For Daily Use) - PO 17 gm DAILY [facility] Administration Sevelamer Carbonate 800 mg 06/06/17 17:30 06/23/17 14:19 Renvela - PO 800 mg TIDCM [facility] Administration Impression 1. ESRD 2. fluid overload 3. HTN 4. DM 5. anemia 6. hemoptysis 7. pneumonitis 8. hyperkalemia Plan - pt tolerated HD - low potassium diet - asked pt not to eat fruits and food brought to him from outside - cont epogen for anemia - steroids per pulmonary - cont current meds - will follow Dr Barbosa
--- NOTE | 2017-06-23 16:58 | PN ---
Progress Note, Physician History of Present Illness: pulmonary alert,nad,-sob at rest,+ lucio.O2 sat 94% on nasal cannula - Current Medication List Current Medications: Active Medications Acetaminophen (Tylenol -) 325 mg PO Q6H PRN PRN Reason: PAIN LEVEL 6-10 Last Admin: 06/22/17 18:30 Dose: 325 mg Amlodipine Besylate (Norvasc -) 10 mg PO DAILY [facility] Last Admin: 06/23/17 14:20 Dose: 10 mg Arformoterol Tartrate (Brovana (Restricted To Pulmonology/Resp) -) 1 amp NEB BID [facility] Last Admin: 06/23/17 13:30 Dose: 1 amp Aspirin (Ecotrin -) 81 mg PO DAILY [facility] Last Admin: 06/23/17 14:20 Dose: 81 mg Calcium Acetate (Phoslo -) 1,334 mg PO TIDCM [facility] Last Admin: 06/23/17 14:20 Dose: 1,334 mg Carvedilol (Coreg -) 25 mg PO BID [facility] Last Admin: 06/23/17 14:20 Dose: 25 mg Clopidogrel Bisulfate (Plavix -) 75 mg PO DAILY [facility] Last Admin: 06/23/17 14:20 Dose: 75 mg Gabapentin (Neurontin -) 100 mg PO TID [facility] Last Admin: 06/23/17 14:19 Dose: 100 mg Guaifenesin (Diabetic Tussin Dm -) 10 ml PO QID [facility] Last Admin: 06/23/17 14:21 Dose: Not Given Insulin Aspart (Novolog Vial Sliding Scale -) 1 vial SQ ACHS [facility] PRN Reason: Protocol Last Admin: 06/23/17 16:21 Dose: 7 units Insulin Detemir (Levemir Vial) 20 units SQ HS [facility] Last Admin: 06/22/17 21:25 Dose: 20 units Insulin Detemir (Levemir Vial) 50 units SQ AM [facility] Last Admin: 06/23/17 06:26 Dose: 50 units Isosorbide Mononitrate (Imdur -) 30 mg PO DAILY [facility] Last Admin: 06/23/17 14:20 Dose: 30 mg Lisinopril (Prinivil) 20 mg PO DAILY [facility] Last Admin: 06/23/17 14:20 Dose: 20 mg Methylprednisolone Sodium Succinate (Solu-Medrol -) 40 mg IVPB BID [facility] Last Admin: 06/23/17 14:18 Dose: 40 mg Oxycodone HCl (Roxicodone -) 5 mg PO Q6H PRN PRN Reason: PAIN LEVEL 6-10 Last Admin: 06/22/17 18:32 Dose: 5 mg Polyethylene Glycol (Miralax (For Daily Use) -) 17 gm PO DAILY [facility] Last Admin: 06/23/17 14:20 Dose: 17 gm Sevelamer Carbonate (Renvela -) 800 mg PO TIDCM [facility] Last Admin: 06/23/17 14:19 Dose: 800 mg - Objective Vital Signs: Vital Signs Temperature 97.8 F 06/23/17 15:18 Pulse Rate 84 06/23/17 15:18 Respiratory Rate 18 06/23/17 15:18 Blood Pressure 135/69 06/23/17 15:18 O2 Sat by Pulse Oximetry (%) 95 06/23/17 14:55 Constitutional: Yes: Well Nourished, Calm Eyes: Yes: WNL HENT: Yes: WNL Neck: Yes: WNL Cardiovascular: Yes: Regular Rate and Rhythm, S1, S2 Respiratory: Yes: Rales (LESS CRACKLES KELLI) Gastrointestinal: Yes: Normal Bowel Sounds, Soft Extremities: Yes: WNL Edema: No Labs: CBC, BMP 06/23/17 08:30 06/23/17 08:30 INR, PTT INR 1.03 (0.82-1.09) 06/01/17 21:41 - ....Imaging Chest X-ray: Report Reviewed, Image Reviewed (IMPROVING INFITRATES) Assessment/Plan A/P Acute Hypoxic Respiratory Failure Bilateral Interstitial Infiltrates LV Diastolic Dysfunction ESRD on HD CAD HTN DM - Prednisone 60mg po in am - HD per renal - glucose control while on systemic steroids - O2 to keep SpO2 >90% - DVT prophylaxis DR THOMAS
[2017-06-23] MEDS ORDERED: PT OWN MED DRAWER 7, Y5N ONE (17:05)
[2017-06-23] MEDS: ACETAMINOPHEN 325 MG TABLET (FP) PO PRN (17:53)
[2017-06-23] MEDS: oxyCODONE HCL 5 MG TABLET PO PRN (17:54)
--- NOTE | 2017-06-23 18:50 | PN ---
Progress Note, Physician Chief Complaint: No new complaints - Current Medication List Current Medications: Active Medications Acetaminophen (Tylenol -) 325 mg PO Q6H PRN PRN Reason: PAIN LEVEL 6-10 Last Admin: 06/23/17 17:53 Dose: 325 mg Amlodipine Besylate (Norvasc -) 10 mg PO DAILY [facility] Last Admin: 06/23/17 14:20 Dose: 10 mg Arformoterol Tartrate (Brovana (Restricted To Pulmonology/Resp) -) 1 amp NEB BID [facility] Last Admin: 06/23/17 13:30 Dose: 1 amp Aspirin (Ecotrin -) 81 mg PO DAILY [facility] Last Admin: 06/23/17 14:20 Dose: 81 mg Calcium Acetate (Phoslo -) 1,334 mg PO TIDCM [facility] Last Admin: 06/23/17 17:07 Dose: 1,334 mg Carvedilol (Coreg -) 25 mg PO BID [facility] Last Admin: 06/23/17 14:20 Dose: 25 mg Clopidogrel Bisulfate (Plavix -) 75 mg PO DAILY [facility] Last Admin: 06/23/17 14:20 Dose: 75 mg Gabapentin (Neurontin -) 100 mg PO TID [facility] Last Admin: 06/23/17 14:19 Dose: 100 mg Guaifenesin (Diabetic Tussin Dm -) 10 ml PO QID [facility] Last Admin: 06/23/17 17:06 Dose: 10 ml Insulin Aspart (Novolog Vial Sliding Scale -) 1 vial SQ ACHS [facility] PRN Reason: Protocol Last Admin: 06/23/17 16:21 Dose: 7 units Insulin Detemir (Levemir Vial) 20 units SQ HS [facility] Last Admin: 06/22/17 21:25 Dose: 20 units Insulin Detemir (Levemir Vial) 50 units SQ AM [facility] Last Admin: 06/23/17 06:26 Dose: 50 units Isosorbide Mononitrate (Imdur -) 30 mg PO DAILY [facility] Last Admin: 06/23/17 14:20 Dose: 30 mg Lisinopril (Prinivil) 20 mg PO DAILY [facility] Last Admin: 06/23/17 14:20 Dose: 20 mg Methylprednisolone Sodium Succinate (Solu-Medrol -) 40 mg IVPB BID [facility] Stop: 06/23/17 23:00 Last Admin: 06/23/17 14:18 Dose: 40 mg Oxycodone HCl (Roxicodone -) 5 mg PO Q6H PRN PRN Reason: PAIN LEVEL 6-10 Last Admin: 06/23/17 17:54 Dose: 5 mg Polyethylene Glycol (Miralax (For Daily Use) -) 17 gm PO DAILY [facility] Last Admin: 06/23/17 14:20 Dose: 17 gm Prednisone (Deltasone -) 60 mg PO DAILY [facility] Sevelamer Carbonate (Renvela -) 800 mg PO TIDCM [facility] Last Admin: 06/23/17 17:07 Dose: 800 mg - Objective Vital Signs: Vital Signs Temperature 99.3 F 06/23/17 17:45 Pulse Rate 84 06/23/17 17:45 Respiratory Rate 18 06/23/17 17:45 Blood Pressure 143/84 06/23/17 17:45 O2 Sat by Pulse Oximetry (%) 95 06/23/17 14:55 Constitutional: Yes: No Distress Neck: Yes: Supple Cardiovascular: Yes: Regular Rate and Rhythm, S1, S2 Respiratory: Yes: CTA Bilaterally Gastrointestinal: Yes: Normal Bowel Sounds, Soft Neurological: Yes: Alert, Oriented. No: Loss of Sensation ...Motor Strength: WNL Labs: CBC, BMP 06/23/17 08:30 06/23/17 08:30 INR, PTT INR 1.03 (0.82-1.09) 06/01/17 21:41 Problem List - Problems (1) Pneumonia Assessment/Plan: Abx. 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
[2017-06-24] MEDS ORDERED: INSULIN (NOVOLOG) ASPART 100 UNITS/ML 10ML VIAL ONE ×2 (06:04→07:16)
[2017-06-24] MEDS: INSULIN DETEMIR 100 UNITS/ML MDV SQ SCH ×2 (06:26→21:23)
[2017-06-24] MEDS: INSULIN SLIDING SCALE (NOVOLOG) 1 VIAL SQ SCH ×4 (06:26→21:23)
[2017-06-24] MEDS: GABAPENTIN 100 MG CAPSULE (FP) PO SCH ×3 (06:27→21:23)
[2017-06-24] MEDS: SEVELAMER CARBONATE 800 MG TAB (FP) PO SCH ×3 (07:52→18:37)
[2017-06-24] MEDS: CALCIUM ACETATE 667 MG CAPSULE (FP) PO SCH ×3 (07:52→18:37)
[2017-06-24] MEDS: ARFORMOTEROL TARTRATE 15 MCG/2 ML VIAL NEB SCH ×2 (09:32→22:45)
[2017-06-24] MEDS: predniSONE 20 MG TABLET (UD) PO SCH (09:47)
[2017-06-24] MEDS: amLODIPine BESYLATE 10 MG TABLET (FP) PO SCH (09:48)
[2017-06-24] MEDS: CARVEDILOL 25 MG TABLET (FP) PO SCH ×2 (09:48→21:23)
[2017-06-24] MEDS: CLOPIDOGREL BISULFATE 75 MG TABLET (FP) PO SCH (09:48)
[2017-06-24] MEDS: ASPIRIN COATED 81 MG TABLET.EC PO SCH (09:48)
[2017-06-24] MEDS: ISOSORBIDE MONONITRATE 30 MG TAB.SR.24H (FP) PO SCH (09:48)
[2017-06-24] MEDS: LISINOPRIL 20 MG TABLET (FP) PO SCH (09:48)
[2017-06-24] MEDS: POLYETHYLENE GLYCOL 3350 119 GM BTL PO SCH (09:49)
[2017-06-24] MEDS: guaiFENesin/D-M SUGAR-FREE/ACLHOL-FREE 118 ML BOTTLE PO SCH ×4 (11:54→21:23)
--- NOTE | 2017-06-24 12:15 | PN ---
Progress Note (short form) - Note Progress Note: OOB to chair. Breathing feels a little better, but still with GARCIA. No CP. Some dry cough. No hemoptysis. Intake & Output 06/21/17 06/22/17 06/23/17 06/24/17 23:59 23:59 23:59 23:59 Intake Total 620 1450 850 0 Output Total 450 Balance 620 1450 400 0 Weight 196 lb 7 oz 199 lb 199 lb 199 lb 14.4 oz Last Vital Signs Temp Pulse Resp BP Pulse Ox 97.7 F 76 18 153/66 99 06/24/17 06:00 06/24/17 10:00 06/24/17 10:00 06/24/17 10:00 06/23/17 22:00 Active Medications Acetaminophen (Tylenol -) 325 mg PO Q6H PRN PRN Reason: PAIN LEVEL 6-10 Last Admin: 06/23/17 17:53 Dose: 325 mg Amlodipine Besylate (Norvasc -) 10 mg PO DAILY [facility] Last Admin: 06/24/17 09:48 Dose: 10 mg Arformoterol Tartrate (Brovana (Restricted To Pulmonology/Resp) -) 1 amp NEB BID [facility] Last Admin: 06/24/17 09:32 Dose: 1 amp Aspirin (Ecotrin -) 81 mg PO DAILY [facility] Last Admin: 06/24/17 09:48 Dose: 81 mg Calcium Acetate (Phoslo -) 1,334 mg PO TIDCM [facility] Last Admin: 06/24/17 11:43 Dose: 1,334 mg Carvedilol (Coreg -) 25 mg PO BID [facility] Last Admin: 06/24/17 09:48 Dose: 25 mg Clopidogrel Bisulfate (Plavix -) 75 mg PO DAILY [facility] Last Admin: 06/24/17 09:48 Dose: 75 mg Gabapentin (Neurontin -) 100 mg PO TID [facility] Last Admin: 06/24/17 06:27 Dose: 100 mg Guaifenesin (Diabetic Tussin Dm -) 10 ml PO QID [facility] Last Admin: 06/24/17 11:54 Dose: Not Given Insulin Aspart (Novolog Vial Sliding Scale -) 1 vial SQ ACHS [facility] PRN Reason: Protocol Last Admin: 06/24/17 11:43 Dose: 7 units Insulin Detemir (Levemir Vial) 20 units SQ HS [facility] Last Admin: 06/23/17 21:45 Dose: 20 units Insulin Detemir (Levemir Vial) 50 units SQ AM [facility] Last Admin: 06/24/17 06:26 Dose: 50 units Isosorbide Mononitrate (Imdur -) 30 mg PO DAILY [facility] Last Admin: 06/24/17 09:48 Dose: 30 mg Lisinopril (Prinivil) 20 mg PO DAILY [facility] Last Admin: 06/24/17 09:48 Dose: 20 mg Oxycodone HCl (Roxicodone -) 5 mg PO Q6H PRN PRN Reason: PAIN LEVEL 6-10 Last Admin: 06/23/17 17:54 Dose: 5 mg Polyethylene Glycol (Miralax (For Daily Use) -) 17 gm PO DAILY [facility] Last Admin: 06/24/17 09:49 Dose: 17 gm Prednisone (Deltasone -) 60 mg PO DAILY [facility] Last Admin: 06/24/17 09:47 Dose: 60 mg Sevelamer Carbonate (Renvela -) 800 mg PO TIDCM [facility] Last Admin: 06/24/17 11:43 Dose: 800 mg Constitutional: Yes: Obese, NAD Eyes: Yes: WNL HENT: Yes: WNL Neck: Yes: WNL Cardiovascular: Yes: Regular Rate and Rhythm, S1, S2 Respiratory: Yes: Basilar Rales/crackles Gastrointestinal: Yes: Normal Bowel Sounds, Soft Extremities: Yes: WNL Edema: No Labs: Laboratory Results - last 24 hr 06/23/17 06/23/17 06/23/17 13:58 16:20 21:44 POC Glucometer 156 212 174 06/24/17 06/24/17 06:24 11:18 POC Glucometer 158 208 Assessment/Plan A/P Acute Hypoxic Respiratory Failure Bilateral Interstitial Infiltrates LV Diastolic Dysfunction ESRD on HD CAD HTN DM - Check BMP - Prednisone 60mg po in am - HD per renal - glucose control while on systemic steroids - O2 to keep SpO2 >90% - DVT prophylaxis - Ambulate as tolerated Dr Lucero Problem List - Problems (1) CHF exacerbation Code(s): I50.9 - HEART FAILURE, UNSPECIFIED Qualifiers: Congestive heart failure type: unspecified congestive heart failure type Qualified Code(s): I50.9 - Heart failure, unspecified (2) Diabetes Code(s): E11.9 - TYPE 2 DIABETES MELLITUS WITHOUT COMPLICATIONS (3) Pneumonia Code(s): J18.9 - PNEUMONIA, UNSPECIFIED ORGANISM (4) ESRD (end stage renal disease) on dialysis Code(s): N18.6 - END STAGE RENAL DISEASE Z99.2 - DEPENDENCE ON RENAL DIALYSIS (5) Hypertension Code(s): I10 - ESSENTIAL (PRIMARY) HYPERTENSION (6) Hemoptysis Code(s): R04.2 - HEMOPTYSIS
[2017-06-24 13:14] LABS: ANION GAP 9 (8-16); CALCIUM 8.7 mg/dL (8.5-10.1); CO2 31 mmol/L (21-32); CREATININE 6.1 mg/dL (0.7-1.3); GLUCOSE,RANDOM 227 mg/dL (74-106)
[2017-06-24] MEDS ORDERED: SODIUM POLYSTYRENE SULFONATE 15 GM/60 ML BOTTLE PO ONE (13:45)
--- NOTE | 2017-06-24 14:03 | PN ---
Progress Note, Physician Chief Complaint: No new complaints - Current Medication List Current Medications: Active Medications Acetaminophen (Tylenol -) 325 mg PO Q6H PRN PRN Reason: PAIN LEVEL 6-10 Last Admin: 06/23/17 17:53 Dose: 325 mg Amlodipine Besylate (Norvasc -) 10 mg PO DAILY [facility] Last Admin: 06/24/17 09:48 Dose: 10 mg Arformoterol Tartrate (Brovana (Restricted To Pulmonology/Resp) -) 1 amp NEB BID [facility] Last Admin: 06/24/17 09:32 Dose: 1 amp Aspirin (Ecotrin -) 81 mg PO DAILY [facility] Last Admin: 06/24/17 09:48 Dose: 81 mg Calcium Acetate (Phoslo -) 1,334 mg PO TIDCM [facility] Last Admin: 06/24/17 11:43 Dose: 1,334 mg Carvedilol (Coreg -) 25 mg PO BID [facility] Last Admin: 06/24/17 09:48 Dose: 25 mg Clopidogrel Bisulfate (Plavix -) 75 mg PO DAILY [facility] Last Admin: 06/24/17 09:48 Dose: 75 mg Gabapentin (Neurontin -) 100 mg PO TID [facility] Last Admin: 06/24/17 13:59 Dose: 100 mg Guaifenesin (Diabetic Tussin Dm -) 10 ml PO QID [facility] Last Admin: 06/24/17 13:59 Dose: 10 ml Insulin Aspart (Novolog Vial Sliding Scale -) 1 vial SQ ACHS [facility] PRN Reason: Protocol Last Admin: 06/24/17 11:43 Dose: 7 units Insulin Detemir (Levemir Vial) 20 units SQ HS [facility] Last Admin: 06/23/17 21:45 Dose: 20 units Insulin Detemir (Levemir Vial) 50 units SQ AM [facility] Last Admin: 06/24/17 06:26 Dose: 50 units Isosorbide Mononitrate (Imdur -) 30 mg PO DAILY [facility] Last Admin: 06/24/17 09:48 Dose: 30 mg Lisinopril (Prinivil) 20 mg PO DAILY [facility] Last Admin: 06/24/17 09:48 Dose: 20 mg Oxycodone HCl (Roxicodone -) 5 mg PO Q6H PRN PRN Reason: PAIN LEVEL 6-10 Last Admin: 06/23/17 17:54 Dose: 5 mg Polyethylene Glycol (Miralax (For Daily Use) -) 17 gm PO DAILY [facility] Last Admin: 06/24/17 09:49 Dose: 17 gm Prednisone (Deltasone -) 60 mg PO DAILY [facility] Last Admin: 06/24/17 09:47 Dose: 60 mg Sevelamer Carbonate (Renvela -) 800 mg PO TIDCM [facility] Last Admin: 06/24/17 11:43 Dose: 800 mg - Objective Vital Signs: Vital Signs Temperature 97.7 F 06/24/17 06:00 Pulse Rate 76 06/24/17 10:00 Respiratory Rate 18 06/24/17 10:00 Blood Pressure 153/66 06/24/17 10:00 O2 Sat by Pulse Oximetry (%) 99 06/23/17 22:00 Constitutional: Yes: No Distress Neck: Yes: Supple Cardiovascular: Yes: Regular Rate and Rhythm, S1, S2 Respiratory: Yes: CTA Bilaterally Gastrointestinal: Yes: Normal Bowel Sounds, Soft Neurological: Yes: Alert, Oriented. No: Loss of Sensation ...Motor Strength: WNL Labs: CBC, BMP 06/23/17 08:30 06/24/17 12:35 INR, PTT INR 1.03 (0.82-1.09) 06/01/17 21:41 Problem List - Problems (1) Pneumonia Assessment/Plan: Abx. 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
--- NOTE | 2017-06-24 14:44 | PN ---
Progress Note, Physician History of Present Illness: Pt seen and examined at bedside. He is awake and alert. He denies chest pain or palpitations. - Current Medication List Current Medications: Active Medications Acetaminophen (Tylenol -) 325 mg PO Q6H PRN PRN Reason: PAIN LEVEL 6-10 Last Admin: 06/23/17 17:53 Dose: 325 mg Amlodipine Besylate (Norvasc -) 10 mg PO DAILY [facility] Last Admin: 06/24/17 09:48 Dose: 10 mg Arformoterol Tartrate (Brovana (Restricted To Pulmonology/Resp) -) 1 amp NEB BID [facility] Last Admin: 06/24/17 09:32 Dose: 1 amp Aspirin (Ecotrin -) 81 mg PO DAILY [facility] Last Admin: 06/24/17 09:48 Dose: 81 mg Calcium Acetate (Phoslo -) 1,334 mg PO TIDCM [facility] Last Admin: 06/24/17 11:43 Dose: 1,334 mg Carvedilol (Coreg -) 25 mg PO BID [facility] Last Admin: 06/24/17 09:48 Dose: 25 mg Clopidogrel Bisulfate (Plavix -) 75 mg PO DAILY [facility] Last Admin: 06/24/17 09:48 Dose: 75 mg Gabapentin (Neurontin -) 100 mg PO TID [facility] Last Admin: 06/24/17 13:59 Dose: 100 mg Guaifenesin (Diabetic Tussin Dm -) 10 ml PO QID [facility] Last Admin: 06/24/17 13:59 Dose: 10 ml Insulin Aspart (Novolog Vial Sliding Scale -) 1 vial SQ ACHS [facility] PRN Reason: Protocol Last Admin: 06/24/17 11:43 Dose: 7 units Insulin Detemir (Levemir Vial) 20 units SQ HS [facility] Last Admin: 06/23/17 21:45 Dose: 20 units Insulin Detemir (Levemir Vial) 50 units SQ AM [facility] Last Admin: 06/24/17 06:26 Dose: 50 units Isosorbide Mononitrate (Imdur -) 30 mg PO DAILY [facility] Last Admin: 06/24/17 09:48 Dose: 30 mg Lisinopril (Prinivil) 20 mg PO DAILY [facility] Last Admin: 06/24/17 09:48 Dose: 20 mg Oxycodone HCl (Roxicodone -) 5 mg PO Q6H PRN PRN Reason: PAIN LEVEL 6-10 Last Admin: 06/23/17 17:54 Dose: 5 mg Polyethylene Glycol (Miralax (For Daily Use) -) 17 gm PO DAILY [facility] Last Admin: 06/24/17 09:49 Dose: 17 gm Prednisone (Deltasone -) 60 mg PO DAILY [facility] Last Admin: 06/24/17 09:47 Dose: 60 mg Sevelamer Carbonate (Renvela -) 800 mg PO TIDCM [facility] Last Admin: 06/24/17 11:43 Dose: 800 mg - Objective Vital Signs: Vital Signs Temperature 97.8 F 06/24/17 14:00 Pulse Rate 66 06/24/17 14:00 Respiratory Rate 17 06/24/17 14:00 Blood Pressure 140/80 06/24/17 14:00 O2 Sat by Pulse Oximetry (%) 99 06/23/17 22:00 Constitutional: Yes: Calm Eyes: Yes: Conjunctiva Clear HENT: Yes: Atraumatic Neck: Yes: Supple Cardiovascular: Yes: S1, S2 Respiratory: Yes: On Nasal O2, Wheezes Gastrointestinal: Yes: Soft Genitourinary: Yes: WNL Musculoskeletal: Yes: WNL Edema: No Neurological: Yes: Oriented Psychiatric: Yes: Oriented Labs: CBC, BMP 06/23/17 08:30 06/24/17 12:35 INR, PTT INR 1.03 (0.82-1.09) 06/01/17 21:41 Problem List - Problems (1) ESRD (end stage renal disease) on dialysis Code(s): N18.6 - END STAGE RENAL DISEASE Z99.2 - DEPENDENCE ON RENAL DIALYSIS Assessment/Plan Current Medications Generic Name Dose Route Start Last Admin Trade Name Freq PRN Reason Stop Dose Admin Acetaminophen 325 mg 06/22/17 18:22 06/23/17 17:53 Tylenol - PO 325 mg Q6H PRN Administration PAIN LEVEL 6-10 Amlodipine Besylate 10 mg 06/15/17 10:00 06/24/17 09:48 Norvasc - PO 10 mg DAILY [facility] Administration Arformoterol Tartrate 1 amp 06/06/17 22:00 06/24/17 09:32 Brovana (Restricted To Pulmonology/Resp) - NEB 1 amp BID [facility] Administration Aspirin 81 mg 06/02/17 10:00 06/24/17 09:48 Ecotrin - PO 81 mg DAILY [facility] Administration Calcium Acetate 1,334 mg 06/04/17 12:00 06/24/17 11:43 Phoslo - PO 1,334 mg TIDCM [facility] Administration Carvedilol 25 mg 06/16/17 22:00 06/24/17 09:48 Coreg - PO 25 mg BID [facility] Administration Clopidogrel Bisulfate 75 mg 06/02/17 10:00 06/24/17 09:48 Plavix - PO 75 mg DAILY [facility] Administration Gabapentin 100 mg 06/02/17 14:00 06/24/17 13:59 Neurontin - PO 100 mg TID [facility] Administration Guaifenesin 10 ml 06/08/17 07:45 06/24/17 13:59 Diabetic Tussin Dm - PO 10 ml QID [facility] Administration Insulin Aspart 1 vial 06/20/17 12:05 06/24/17 11:43 Novolog Vial Sliding Scale - SQ 7 units ACHS [facility] Administration Protocol Insulin Detemir 20 units 06/15/17 22:15 06/23/17 21:45 Levemir Vial SQ 20 units HS [facility] Administration Insulin Detemir 50 units 06/18/17 13:27 06/24/17 06:26 Levemir Vial SQ 50 units AM [facility] Administration Isosorbide Mononitrate 30 mg 06/02/17 10:00 06/24/17 09:48 Imdur - PO 30 mg DAILY [facility] Administration Lisinopril 20 mg 06/02/17 10:00 06/24/17 09:48 Prinivil PO 20 mg DAILY [facility] Administration Oxycodone HCl 5 mg 06/22/17 18:22 06/23/17 17:54 Roxicodone - PO 5 mg Q6H PRN Administration PAIN LEVEL 6-10 Polyethylene Glycol 17 gm 06/22/17 17:45 06/24/17 09:49 Miralax (For Daily Use) - PO 17 gm DAILY [facility] Administration Prednisone 60 mg 06/24/17 10:00 06/24/17 09:47 Deltasone - PO 60 mg DAILY [facility] Administration Sevelamer Carbonate 800 mg 06/06/17 17:30 06/24/17 11:43 Renvela - PO 800 mg TIDCM [facility] Administration Impression 1. ESRD 2. fluid overload 3. HTN 4. DM 5. anemia 6. hemoptysis 7. pneumonitis 8. hyperkalemia Plan - will arrange for dialysis today to treat hyperkalemia - check bmp post hd - may need vascular eval of fistula - low potassium diet, pt not compliant - asked pt not to eat fruits and food brought to him from outside - cont epogen for anemia - steroids per pulmonary Dr Barbosa
[2017-06-24] MEDS ORDERED: HEPARIN NA (PORCINE) 5,000 UNITS/ML 1ML VIAL IVPUSH ONE (15:15)
[2017-06-24 19:01] LABS: ANION GAP 7 (8-16); CALCIUM 8.1 mg/dL (8.5-10.1); CO2 33 mmol/L (21-32); CREATININE 2.7 mg/dL (0.7-1.3); GLUCOSE,RANDOM 176 mg/dL (74-106)
[2017-06-24] MEDS ORDERED: PT OWN MED DRAWER 7, Y5N ONE (22:22)
[2017-06-25] MEDS: GABAPENTIN 100 MG CAPSULE (FP) PO SCH ×3 (06:15→21:05)
[2017-06-25] MEDS: INSULIN DETEMIR 100 UNITS/ML MDV SQ SCH ×2 (06:15→21:06)
[2017-06-25] MEDS: INSULIN SLIDING SCALE (NOVOLOG) 1 VIAL SQ SCH ×5 (06:15→21:09)
[2017-06-25] MEDS ORDERED: INSULIN (NOVOLOG) ASPART 100 UNITS/ML 10ML VIAL ONE ×3 (06:32→20:58)
[2017-06-25] MEDS: SEVELAMER CARBONATE 800 MG TAB (FP) PO SCH ×3 (08:02→17:10)
[2017-06-25] MEDS: CALCIUM ACETATE 667 MG CAPSULE (FP) PO SCH ×3 (08:03→17:10)
[2017-06-25] MEDS: POLYETHYLENE GLYCOL 3350 119 GM BTL PO SCH (09:50)
[2017-06-25] MEDS: ASPIRIN COATED 81 MG TABLET.EC PO SCH (09:51)
[2017-06-25] MEDS: LISINOPRIL 20 MG TABLET (FP) PO SCH (09:51)
[2017-06-25] MEDS: CARVEDILOL 25 MG TABLET (FP) PO SCH ×2 (09:51→21:05)
[2017-06-25] MEDS: predniSONE 20 MG TABLET (UD) PO SCH (09:51)
[2017-06-25] MEDS: CLOPIDOGREL BISULFATE 75 MG TABLET (FP) PO SCH (09:51)
[2017-06-25] MEDS: amLODIPine BESYLATE 10 MG TABLET (FP) PO SCH (09:51)
[2017-06-25] MEDS: guaiFENesin/D-M SUGAR-FREE/ACLHOL-FREE 118 ML BOTTLE PO SCH ×4 (09:51→21:06)
[2017-06-25] MEDS: ISOSORBIDE MONONITRATE 30 MG TAB.SR.24H (FP) PO SCH (09:51)
[2017-06-25] MEDS: ARFORMOTEROL TARTRATE 15 MCG/2 ML VIAL NEB SCH ×2 (11:00→22:16)
--- NOTE | 2017-06-25 12:28 | PN ---
Progress Note (short form) - Note Progress Note: OOB to chair. Feels about the same today. Still with some GARCIA. No CP. Some dry cough. No hemoptysis. Intake & Output 06/22/17 06/23/17 06/24/17 06/25/17 23:59 23:59 23:59 23:59 Intake Total 4772 970 0231 0 Output Total 450 Balance 9176 216 9465 0 Weight 199 lb 199 lb 199 lb 14.4 oz 203 lb 6.4 oz Last Vital Signs Temp Pulse Resp BP Pulse Ox 98.2 F 78 22 154/73 94 L 06/25/17 05:30 06/25/17 11:28 06/25/17 05:30 06/25/17 05:30 06/25/17 11:28 Active Medications Acetaminophen (Tylenol -) 325 mg PO Q6H PRN PRN Reason: PAIN LEVEL 6-10 Last Admin: 06/23/17 17:53 Dose: 325 mg Amlodipine Besylate (Norvasc -) 10 mg PO DAILY [facility] Last Admin: 06/25/17 09:51 Dose: 10 mg Arformoterol Tartrate (Brovana (Restricted To Pulmonology/Resp) -) 1 amp NEB BID [facility] Last Admin: 06/25/17 11:00 Dose: 1 amp Aspirin (Ecotrin -) 81 mg PO DAILY [facility] Last Admin: 06/25/17 09:51 Dose: 81 mg Calcium Acetate (Phoslo -) 1,334 mg PO TIDCM [facility] Last Admin: 06/25/17 11:33 Dose: 1,334 mg Carvedilol (Coreg -) 25 mg PO BID [facility] Last Admin: 06/25/17 09:51 Dose: 25 mg Clopidogrel Bisulfate (Plavix -) 75 mg PO DAILY [facility] Last Admin: 06/25/17 09:51 Dose: 75 mg Gabapentin (Neurontin -) 100 mg PO TID [facility] Last Admin: 06/25/17 06:15 Dose: 100 mg Guaifenesin (Diabetic Tussin Dm -) 10 ml PO QID [facility] Last Admin: 06/25/17 09:51 Dose: 10 ml Insulin Aspart (Novolog Vial Sliding Scale -) 1 vial SQ [facility] PRN Reason: Protocol Last Admin: 06/25/17 11:25 Dose: Not Given Insulin Detemir (Levemir Vial) 20 units SQ HS [facility] Last Admin: 06/24/17 21:23 Dose: 20 units Insulin Detemir (Levemir Vial) 50 units SQ AM [facility] Last Admin: 06/25/17 06:15 Dose: 50 units Isosorbide Mononitrate (Imdur -) 30 mg PO DAILY [facility] Last Admin: 06/25/17 09:51 Dose: 30 mg Lisinopril (Prinivil) 20 mg PO DAILY [facility] Last Admin: 06/25/17 09:51 Dose: 20 mg Oxycodone HCl (Roxicodone -) 5 mg PO Q6H PRN PRN Reason: PAIN LEVEL 6-10 Last Admin: 06/23/17 17:54 Dose: 5 mg Polyethylene Glycol (Miralax (For Daily Use) -) 17 gm PO DAILY [facility] Last Admin: 06/25/17 09:50 Dose: 17 gm Prednisone (Deltasone -) 60 mg PO DAILY [facility] Last Admin: 06/25/17 09:51 Dose: 60 mg Sevelamer Carbonate (Renvela -) 800 mg PO TIDCM [facility] Last Admin: 06/25/17 11:33 Dose: 800 mg Constitutional: Yes: Obese, NAD Eyes: Yes: WNL HENT: Yes: WNL Neck: Yes: WNL Cardiovascular: Yes: Regular Rate and Rhythm, S1, S2 Respiratory: Yes: Basilar Rales/crackles Gastrointestinal: Yes: Normal Bowel Sounds, Soft Extremities: Yes: WNL Edema: No Labs: Laboratory Results - last 24 hr 06/24/17 06/24/17 06/24/17 12:35 18:10 21:21 Sodium 135 L 140 Potassium 6.2 H* 3.6 D Chloride 95 L 100 Carbon Dioxide 31 D 33 H Anion Gap 9 7 L BUN 82 H D 34 H D Creatinine 6.1 H 2.7 H D POC Glucometer 218 Random Glucose 227 H D 176 H D Calcium 8.7 8.1 L 06/25/17 06/25/17 06:14 11:15 Sodium Potassium Chloride Carbon Dioxide Anion Gap BUN Creatinine POC Glucometer 140 97 Random Glucose Calcium Assessment/Plan A/P Acute Hypoxic Respiratory Failure Bilateral Interstitial Infiltrates LV Diastolic Dysfunction ESRD on HD CAD HTN DM - Check BMP - Prednisone taper - HD per renal - glucose control - O2 to keep SpO2 >90% - DVT prophylaxis - Ambulate as tolerated Dr Lucero Problem List - Problems (1) CHF exacerbation Code(s): I50.9 - HEART FAILURE, UNSPECIFIED Qualifiers: Congestive heart failure type: unspecified congestive heart failure type Qualified Code(s): I50.9 - Heart failure, unspecified (2) Diabetes Code(s): E11.9 - TYPE 2 DIABETES MELLITUS WITHOUT COMPLICATIONS (3) Pneumonia Code(s): J18.9 - PNEUMONIA, UNSPECIFIED ORGANISM (4) ESRD (end stage renal disease) on dialysis Code(s): N18.6 - END STAGE RENAL DISEASE Z99.2 - DEPENDENCE ON RENAL DIALYSIS (5) Hypertension Code(s): I10 - ESSENTIAL (PRIMARY) HYPERTENSION (6) Hemoptysis Code(s): R04.2 - HEMOPTYSIS
--- NOTE | 2017-06-25 16:55 | PN ---
Progress Note, Physician History of Present Illness: Pt seen and examined at bedside. He is awake and alert. He feels that his sob is improving. - Current Medication List Current Medications: Active Medications Acetaminophen (Tylenol -) 325 mg PO Q6H PRN PRN Reason: PAIN LEVEL 6-10 Last Admin: 06/23/17 17:53 Dose: 325 mg Amlodipine Besylate (Norvasc -) 10 mg PO DAILY [facility] Last Admin: 06/25/17 09:51 Dose: 10 mg Arformoterol Tartrate (Brovana (Restricted To Pulmonology/Resp) -) 1 amp NEB BID [facility] Last Admin: 06/25/17 11:00 Dose: 1 amp Aspirin (Ecotrin -) 81 mg PO DAILY [facility] Last Admin: 06/25/17 09:51 Dose: 81 mg Calcium Acetate (Phoslo -) 1,334 mg PO TIDCM [facility] Last Admin: 06/25/17 11:33 Dose: 1,334 mg Carvedilol (Coreg -) 25 mg PO BID [facility] Last Admin: 06/25/17 09:51 Dose: 25 mg Clopidogrel Bisulfate (Plavix -) 75 mg PO DAILY [facility] Last Admin: 06/25/17 09:51 Dose: 75 mg Gabapentin (Neurontin -) 100 mg PO TID [facility] Last Admin: 06/25/17 14:12 Dose: 100 mg Guaifenesin (Diabetic Tussin Dm -) 10 ml PO QID [facility] Last Admin: 06/25/17 14:12 Dose: Not Given Insulin Aspart (Novolog Vial Sliding Scale -) 1 vial SQ ACHS [facility] PRN Reason: Protocol Last Admin: 06/25/17 11:25 Dose: Not Given Insulin Detemir (Levemir Vial) 20 units SQ HS [facility] Last Admin: 06/24/17 21:23 Dose: 20 units Insulin Detemir (Levemir Vial) 50 units SQ AM [facility] Last Admin: 06/25/17 06:15 Dose: 50 units Isosorbide Mononitrate (Imdur -) 30 mg PO DAILY [facility] Last Admin: 06/25/17 09:51 Dose: 30 mg Lisinopril (Prinivil) 20 mg PO DAILY [facility] Last Admin: 06/25/17 09:51 Dose: 20 mg Oxycodone HCl (Roxicodone -) 5 mg PO Q6H PRN PRN Reason: PAIN LEVEL 6-10 Last Admin: 06/23/17 17:54 Dose: 5 mg Polyethylene Glycol (Miralax (For Daily Use) -) 17 gm PO DAILY [facility] Last Admin: 06/25/17 09:50 Dose: 17 gm Prednisone (Deltasone -) 50 mg PO DAILY [facility] Sevelamer Carbonate (Renvela -) 800 mg PO TIDCM [facility] Last Admin: 06/25/17 11:33 Dose: 800 mg - Objective Vital Signs: Vital Signs Temperature 97.6 F 06/25/17 14:00 Pulse Rate 71 06/25/17 14:00 Respiratory Rate 18 06/25/17 14:00 Blood Pressure 127/63 06/25/17 14:00 O2 Sat by Pulse Oximetry (%) 94 L 06/25/17 11:28 Constitutional: Yes: Calm Eyes: Yes: Conjunctiva Clear HENT: Yes: Atraumatic Cardiovascular: Yes: S1, S2 Respiratory: Yes: CTA Bilaterally Gastrointestinal: Yes: Soft Genitourinary: Yes: WNL Edema: No Neurological: Yes: Oriented Psychiatric: Yes: Oriented Labs: CBC, BMP 06/23/17 08:30 06/24/17 18:10 INR, PTT INR 1.03 (0.82-1.09) 06/01/17 21:41 Problem List - Problems (1) ESRD (end stage renal disease) on dialysis Code(s): N18.6 - END STAGE RENAL DISEASE Z99.2 - DEPENDENCE ON RENAL DIALYSIS Assessment/Plan Current Medications Generic Name Dose Route Start Last Admin Trade Name Freq PRN Reason Stop Dose Admin Acetaminophen 325 mg 06/22/17 18:22 06/23/17 17:53 Tylenol - PO 325 mg Q6H PRN Administration PAIN LEVEL 6-10 Amlodipine Besylate 10 mg 06/15/17 10:00 06/25/17 09:51 Norvasc - PO 10 mg DAILY [facility] Administration Arformoterol Tartrate 1 amp 06/06/17 22:00 06/25/17 11:00 Brovana (Restricted To Pulmonology/Resp) - NEB 1 amp BID [facility] Administration Aspirin 81 mg 06/02/17 10:00 06/25/17 09:51 Ecotrin - PO 81 mg DAILY [facility] Administration Calcium Acetate 1,334 mg 06/04/17 12:00 06/25/17 11:33 Phoslo - PO 1,334 mg TIDCM [facility] Administration Carvedilol 25 mg 06/16/17 22:00 06/25/17 09:51 Coreg - PO 25 mg BID [facility] Administration Clopidogrel Bisulfate 75 mg 06/02/17 10:00 06/25/17 09:51 Plavix - PO 75 mg DAILY [facility] Administration Gabapentin 100 mg 06/02/17 14:00 06/25/17 14:12 Neurontin - PO 100 mg TID [facility] Administration Guaifenesin 10 ml 06/08/17 07:45 06/25/17 14:12 Diabetic Tussin Dm - PO Not Given QID [facility] Insulin Aspart 1 vial 06/20/17 12:05 06/25/17 11:25 Novolog Vial Sliding Scale - SQ Not Given ACHS [facility] Protocol Insulin Detemir 20 units 06/15/17 22:15 06/24/17 21:23 Levemir Vial SQ 20 units HS [facility] Administration Insulin Detemir 50 units 06/18/17 13:27 06/25/17 06:15 Levemir Vial SQ 50 units AM [facility] Administration Isosorbide Mononitrate 30 mg 06/02/17 10:00 06/25/17 09:51 Imdur - PO 30 mg DAILY [facility] Administration Lisinopril 20 mg 06/02/17 10:00 06/25/17 09:51 Prinivil PO 20 mg DAILY [facility] Administration Oxycodone HCl 5 mg 06/22/17 18:22 06/23/17 17:54 Roxicodone - PO 5 mg Q6H PRN Administration PAIN LEVEL 6-10 Polyethylene Glycol 17 gm 06/22/17 17:45 06/25/17 09:50 Miralax (For Daily Use) - PO 17 gm DAILY [facility] Administration Prednisone 50 mg 06/26/17 10:00 Deltasone - PO DAILY [facility] Sevelamer Carbonate 800 mg 06/06/17 17:30 06/25/17 11:33 Renvela - PO 800 mg TIDCM [facility] Administration Impression 1. ESRD 2. fluid overload 3. HTN 4. DM 5. anemia 6. hemoptysis 7. pneumonitis 8. hyperkalemia Plan - HD in am - will order pre hd albs - will change hd time to 4 hours - low potassium diet, pt not compliant - asked pt not to eat fruits and food brought to him from outside - cont epogen for anemia - steroids per pulmonary Dr Barbosa
[2017-06-25] MEDS: ACETAMINOPHEN 325 MG TABLET (FP) PO PRN (18:24)
[2017-06-25] MEDS: oxyCODONE HCL 5 MG TABLET PO PRN (18:24)
--- NOTE | 2017-06-25 18:47 | PN ---
Progress Note, Physician Chief Complaint: No new complaints - Current Medication List Current Medications: Active Medications Acetaminophen (Tylenol -) 325 mg PO Q6H PRN PRN Reason: PAIN LEVEL 6-10 Last Admin: 06/25/17 18:24 Dose: 325 mg Amlodipine Besylate (Norvasc -) 10 mg PO DAILY [facility] Last Admin: 06/25/17 09:51 Dose: 10 mg Arformoterol Tartrate (Brovana (Restricted To Pulmonology/Resp) -) 1 amp NEB BID [facility] Last Admin: 06/25/17 11:00 Dose: 1 amp Aspirin (Ecotrin -) 81 mg PO DAILY [facility] Last Admin: 06/25/17 09:51 Dose: 81 mg Calcium Acetate (Phoslo -) 1,334 mg PO TIDCM [facility] Last Admin: 06/25/17 17:10 Dose: 1,334 mg Carvedilol (Coreg -) 25 mg PO BID [facility] Last Admin: 06/25/17 09:51 Dose: 25 mg Clopidogrel Bisulfate (Plavix -) 75 mg PO DAILY [facility] Last Admin: 06/25/17 09:51 Dose: 75 mg Epoetin Ishan (Epogen -) 6,000 units IVPUSH ONCE ONE Stop: 06/26/17 16:56 Gabapentin (Neurontin -) 100 mg PO TID [facility] Last Admin: 06/25/17 14:12 Dose: 100 mg Guaifenesin (Diabetic Tussin Dm -) 10 ml PO QID [facility] Last Admin: 06/25/17 17:09 Dose: 10 ml Heparin Sodium (Porcine) (Heparin -) 1,000 unit IVPUSH ONCE ONE Stop: 06/26/17 16:56 Insulin Aspart (Novolog Vial Sliding Scale -) 1 vial SQ ACHS [facility] PRN Reason: Protocol Last Admin: 06/25/17 17:10 Dose: 4 units Insulin Detemir (Levemir Vial) 20 units SQ HS [facility] Last Admin: 06/24/17 21:23 Dose: 20 units Insulin Detemir (Levemir Vial) 50 units SQ AM [facility] Last Admin: 06/25/17 06:15 Dose: 50 units Isosorbide Mononitrate (Imdur -) 30 mg PO DAILY [facility] Last Admin: 06/25/17 09:51 Dose: 30 mg Lisinopril (Prinivil) 20 mg PO DAILY [facility] Last Admin: 06/25/17 09:51 Dose: 20 mg Polyethylene Glycol (Miralax (For Daily Use) -) 17 gm PO DAILY [facility] Last Admin: 06/25/17 09:50 Dose: 17 gm Prednisone (Deltasone -) 50 mg PO DAILY [facility] Sevelamer Carbonate (Renvela -) 800 mg PO TIDCM [facility] Last Admin: 06/25/17 17:10 Dose: 800 mg - Objective Vital Signs: Vital Signs Temperature 97.5 F L 06/25/17 18:21 Pulse Rate 86 06/25/17 18:21 Respiratory Rate 20 06/25/17 18:21 Blood Pressure 155/93 06/25/17 18:21 O2 Sat by Pulse Oximetry (%) 94 L 06/25/17 11:28 Constitutional: Yes: No Distress Neck: Yes: Supple Cardiovascular: Yes: Regular Rate and Rhythm, S1, S2 Respiratory: Yes: CTA Bilaterally Gastrointestinal: Yes: Normal Bowel Sounds, Soft Neurological: Yes: Alert, Oriented. No: Loss of Sensation ...Motor Strength: WNL Labs: CBC, BMP 06/23/17 08:30 06/24/17 18:10 INR, PTT INR 1.03 (0.82-1.09) 06/01/17 21:41 Problem List - Problems (1) Pneumonia Assessment/Plan: Abx. Steroids Code(s): J18.9 - PNEUMONIA, UNSPECIFIED ORGANISM (2) Type 2 diabetes mellitus with diabetic chronic kidney disease Assessment/Plan: Glucose control acceptable Code(s): E11.22 - TYPE 2 DIABETES MELLITUS W DIABETIC CHRONIC KIDNEY DISEASE Qualifiers: Diabetes mellitus pressure test operator insulin use: with pressure test operator use Chronic kidney disease stage: on chronic dialysis Qualified Code(s): E11.22 - Type 2 diabetes mellitus with diabetic chronic kidney disease (3) ESRD (end stage renal disease) on dialysis Code(s): N18.6 - END STAGE RENAL DISEASE Z99.2 - DEPENDENCE ON RENAL DIALYSIS
[2017-06-26] MEDS: GABAPENTIN 100 MG CAPSULE (FP) PO SCH ×3 (05:44→21:39)
[2017-06-26] MEDS: ACETAMINOPHEN 325 MG TABLET (FP) PO PRN (05:46)
[2017-06-26] MEDS: oxyCODONE HCL 5 MG TABLET PO PRN (05:46)
[2017-06-26] MEDS ORDERED: INSULIN (NOVOLOG) ASPART 100 UNITS/ML 10ML VIAL ONE (06:39)
[2017-06-26] MEDS: INSULIN SLIDING SCALE (NOVOLOG) 1 VIAL SQ SCH ×4 (06:43→21:38)
[2017-06-26] MEDS: INSULIN DETEMIR 100 UNITS/ML MDV SQ SCH ×2 (06:43→21:38)
[2017-06-26] MEDS: SEVELAMER CARBONATE 800 MG TAB (FP) PO SCH ×3 (07:52→17:55)
[2017-06-26] MEDS: CALCIUM ACETATE 667 MG CAPSULE (FP) PO SCH ×3 (07:52→17:55)
[2017-06-26] MEDS: POLYETHYLENE GLYCOL 3350 119 GM BTL PO SCH (09:00)
[2017-06-26] MEDS: guaiFENesin/D-M SUGAR-FREE/ACLHOL-FREE 118 ML BOTTLE PO SCH ×4 (10:00→21:40)
[2017-06-26 10:40] LABS: MCH 30.1 pg (25.7-33.7); MCHC 32.4 g/dl (32.0-35.9); MEAN PLT VOLUME 7.4 fl (7.5-11.1); PLATELET COUNT 170 K/MM3 (134-434); RDW 18.5 % (11.9-15.9); WHITE BLOOD COUNT 11.6 K/mm3 (4.0-10.0)
--- NOTE | 2017-06-26 10:59 | PN ---
Progress Note (short form) - Note Progress Note: PULMONARY Seen while on HD. Breathing continues to slowly improve. + cough with white sputum. No fevers or chills. Last Vital Signs Temp Pulse Resp BP Pulse Ox 98.4 F 80 18 141/86 94 L 06/26/17 09:40 06/26/17 10:15 06/26/17 10:15 06/26/17 10:15 06/25/17 22:00 Gen: NAD at rest Heart: RRR Lung: bibasilar rales Abd: soft, nontender Ext: no edema CBC, BMP 06/26/17 09:45 Active Medications Acetaminophen (Tylenol -) 325 mg PO Q6H PRN PRN Reason: PAIN LEVEL 6-10 Last Admin: 06/26/17 05:46 Dose: 325 mg Amlodipine Besylate (Norvasc -) 10 mg PO DAILY [facility] Last Admin: 06/25/17 09:51 Dose: 10 mg Arformoterol Tartrate (Brovana (Restricted To Pulmonology/Resp) -) 1 amp NEB BID [facility] Last Admin: 06/25/17 22:16 Dose: 1 amp Aspirin (Ecotrin -) 81 mg PO DAILY [facility] Last Admin: 06/25/17 09:51 Dose: 81 mg Calcium Acetate (Phoslo -) 1,334 mg PO TIDCM [facility] Last Admin: 06/26/17 07:52 Dose: 1,334 mg Carvedilol (Coreg -) 25 mg PO BID [facility] Last Admin: 06/25/17 21:05 Dose: 25 mg Clopidogrel Bisulfate (Plavix -) 75 mg PO DAILY [facility] Last Admin: 06/25/17 09:51 Dose: 75 mg Epoetin Ishan (Procrit -) 6,000 unit IVPUSH ONCE ONE Stop: 06/26/17 11:31 Gabapentin (Neurontin -) 100 mg PO TID [facility] Last Admin: 06/26/17 05:44 Dose: 100 mg Guaifenesin (Diabetic Tussin Dm -) 10 ml PO QID [facility] Last Admin: 06/25/17 21:06 Dose: Not Given Heparin Sodium (Porcine) (Heparin -) 1,000 unit IVPUSH ONCE ONE Stop: 06/26/17 11:01 Insulin Aspart (Novolog Vial Sliding Scale -) 1 vial SQ ACHS [facility] PRN Reason: Protocol Last Admin: 06/26/17 06:43 Dose: 5 units Insulin Detemir (Levemir Vial) 20 units SQ HS [facility] Last Admin: 06/25/17 21:06 Dose: 20 units Insulin Detemir (Levemir Vial) 50 units SQ AM [facility] Last Admin: 06/26/17 06:43 Dose: 50 units Isosorbide Mononitrate (Imdur -) 30 mg PO DAILY [facility] Last Admin: 06/25/17 09:51 Dose: 30 mg Lisinopril (Prinivil) 20 mg PO DAILY [facility] Last Admin: 06/25/17 09:51 Dose: 20 mg Oxycodone HCl (Roxicodone -) 5 mg PO Q6H PRN PRN Reason: PAIN LEVEL 6-10 Last Admin: 06/26/17 05:46 Dose: 5 mg Polyethylene Glycol (Miralax (For Daily Use) -) 17 gm PO DAILY [facility] Last Admin: 06/25/17 09:50 Dose: 17 gm Prednisone (Deltasone -) 50 mg PO DAILY [facility] Sevelamer Carbonate (Renvela -) 800 mg PO TIDCM [facility] Last Admin: 06/26/17 07:52 Dose: 800 mg A/P Acute Hypoxic Respiratory Failure Bilateral Interstitial Infiltrates LV Diastolic Dysfunction ESRD on HD CAD HTN DM - prednisone taper - completed empiric antibiotics - HD per renal - glucose control while on systemic steroids - O2 to keep SpO2 >90%, check ambulatory SpO2 on room air to assess for home O2 - DVT prophylaxis
[2017-06-26] MEDS ORDERED: HEPARIN NA (PORCINE) 5,000 UNITS/ML 1ML VIAL IVPUSH ONE (11:00)
[2017-06-26 11:04] LABS: ALBUMIN 2.4 g/dl (3.4-5.0); ANION GAP 10 (8-16); CALCIUM 8.2 mg/dL (8.5-10.1); CO2 27 mmol/L (21-32); CREATININE 6.8 mg/dL (0.7-1.3); GLUCOSE,RANDOM 108 mg/dL (74-106); SGOT/AST 33 U/L (15-37); SGPT/ALT 75 U/L (12-78)
[2017-06-26 11:05] LABS: ALK PHOS 92 U/L (45-117); BILIRUBIN,TOTAL 0.3 mg/dL (0.2-1.0); TOT PROT 4.7 g/dl (6.4-8.2)
[2017-06-26] MEDS: ARFORMOTEROL TARTRATE 15 MCG/2 ML VIAL NEB SCH ×2 (11:22→22:02)
[2017-06-26] MEDS ORDERED: EPOETIN ALFA 3,000 UNIT/1 ML ML IVPUSH ONE (11:30)
--- NOTE | 2017-06-26 14:57 | PN ---
Progress Note, Physician History of Present Illness: Pt seen and examined at bedside. He is awake and alert. He is currently getting HD. - Current Medication List Current Medications: Active Medications Acetaminophen (Tylenol -) 325 mg PO Q6H PRN PRN Reason: PAIN LEVEL 6-10 Last Admin: 06/26/17 05:46 Dose: 325 mg Amlodipine Besylate (Norvasc -) 10 mg PO DAILY [facility] Last Admin: 06/25/17 09:51 Dose: 10 mg Arformoterol Tartrate (Brovana (Restricted To Pulmonology/Resp) -) 1 amp NEB BID [facility] Last Admin: 06/26/17 11:22 Dose: Not Given Aspirin (Ecotrin -) 81 mg PO DAILY [facility] Last Admin: 06/25/17 09:51 Dose: 81 mg Calcium Acetate (Phoslo -) 1,334 mg PO TIDCM [facility] Last Admin: 06/26/17 07:52 Dose: 1,334 mg Carvedilol (Coreg -) 25 mg PO BID [facility] Last Admin: 06/25/17 21:05 Dose: 25 mg Clopidogrel Bisulfate (Plavix -) 75 mg PO DAILY [facility] Last Admin: 06/25/17 09:51 Dose: 75 mg Gabapentin (Neurontin -) 100 mg PO TID [facility] Last Admin: 06/26/17 05:44 Dose: 100 mg Guaifenesin (Diabetic Tussin Dm -) 10 ml PO QID [facility] Last Admin: 06/25/17 21:06 Dose: Not Given Insulin Aspart (Novolog Vial Sliding Scale -) 1 vial SQ ACHS [facility] PRN Reason: Protocol Last Admin: 06/26/17 06:43 Dose: 5 units Insulin Detemir (Levemir Vial) 20 units SQ HS [facility] Last Admin: 06/25/17 21:06 Dose: 20 units Insulin Detemir (Levemir Vial) 50 units SQ AM [facility] Last Admin: 06/26/17 06:43 Dose: 50 units Isosorbide Mononitrate (Imdur -) 30 mg PO DAILY [facility] Last Admin: 06/25/17 09:51 Dose: 30 mg Lisinopril (Prinivil) 20 mg PO DAILY [facility] Last Admin: 06/25/17 09:51 Dose: 20 mg Oxycodone HCl (Roxicodone -) 5 mg PO Q6H PRN PRN Reason: PAIN LEVEL 6-10 Last Admin: 06/26/17 05:46 Dose: 5 mg Polyethylene Glycol (Miralax (For Daily Use) -) 17 gm PO DAILY [facility] Last Admin: 06/25/17 09:50 Dose: 17 gm Prednisone (Deltasone -) 50 mg PO DAILY [facility] Sevelamer Carbonate (Renvela -) 800 mg PO TIDCM [facility] Last Admin: 06/26/17 07:52 Dose: 800 mg - Objective Vital Signs: Vital Signs Temperature 98.4 F 06/26/17 09:40 Pulse Rate 75 06/26/17 13:50 Respiratory Rate 18 06/26/17 13:50 Blood Pressure 141/85 06/26/17 13:50 O2 Sat by Pulse Oximetry (%) 94 L 06/25/17 22:00 Constitutional: Yes: Calm Eyes: Yes: Conjunctiva Clear HENT: Yes: Atraumatic Neck: Yes: Supple Cardiovascular: Yes: S1, S2 Respiratory: Yes: On Nasal O2, Wheezes Gastrointestinal: Yes: Normal Bowel Sounds, Soft Genitourinary: Yes: WNL Musculoskeletal: Yes: WNL Edema: No Neurological: Yes: Oriented Psychiatric: Yes: Oriented Labs: CBC, BMP 06/26/17 09:45 06/26/17 09:45 INR, PTT INR 1.03 (0.82-1.09) 06/01/17 21:41 Problem List - Problems (1) ESRD (end stage renal disease) on dialysis Code(s): N18.6 - END STAGE RENAL DISEASE Z99.2 - DEPENDENCE ON RENAL DIALYSIS Assessment/Plan Current Medications Generic Name Dose Route Start Last Admin Trade Name Jose L PRN Reason Stop Dose Admin Acetaminophen 325 mg 06/22/17 18:22 06/26/17 05:46 Tylenol - PO 325 mg Q6H PRN Administration PAIN LEVEL 6-10 Amlodipine Besylate 10 mg 06/15/17 10:00 06/25/17 09:51 Norvasc - PO 10 mg DAILY [facility] Administration Arformoterol Tartrate 1 amp 06/06/17 22:00 06/26/17 11:22 Brovana (Restricted To Pulmonology/Resp) - NEB Not Given BID [facility] Aspirin 81 mg 06/02/17 10:00 06/25/17 09:51 Ecotrin - PO 81 mg DAILY [facility] Administration Calcium Acetate 1,334 mg 06/04/17 12:00 06/26/17 07:52 Phoslo - PO 1,334 mg TIDCM [facility] Administration Carvedilol 25 mg 06/16/17 22:00 06/25/17 21:05 Coreg - PO 25 mg BID [facility] Administration Clopidogrel Bisulfate 75 mg 06/02/17 10:00 06/25/17 09:51 Plavix - PO 75 mg DAILY [facility] Administration Gabapentin 100 mg 06/02/17 14:00 06/26/17 05:44 Neurontin - PO 100 mg TID [facility] Administration Guaifenesin 10 ml 06/08/17 07:45 06/25/17 21:06 Diabetic Tussin Dm - PO Not Given QID [facility] Insulin Aspart 1 vial 06/20/17 12:05 06/26/17 06:43 Novolog Vial Sliding Scale - SQ 5 units ACHS [facility] Administration Protocol Insulin Detemir 20 units 06/15/17 22:15 06/25/17 21:06 Levemir Vial SQ 20 units HS [facility] Administration Insulin Detemir 50 units 06/18/17 13:27 06/26/17 06:43 Levemir Vial SQ 50 units AM [facility] Administration Isosorbide Mononitrate 30 mg 06/02/17 10:00 06/25/17 09:51 Imdur - PO 30 mg DAILY [facility] Administration Lisinopril 20 mg 06/02/17 10:00 06/25/17 09:51 Prinivil PO 20 mg DAILY [facility] Administration Oxycodone HCl 5 mg 06/25/17 23:16 06/26/17 05:46 Roxicodone - PO 5 mg Q6H PRN Administration PAIN LEVEL 6-10 Polyethylene Glycol 17 gm 06/22/17 17:45 06/25/17 09:50 Miralax (For Daily Use) - PO 17 gm DAILY [facility] Administration Prednisone 50 mg 06/26/17 10:00 Deltasone - PO DAILY [facility] Sevelamer Carbonate 800 mg 06/06/17 17:30 06/26/17 07:52 Renvela - PO 800 mg TIDCM [facility] Administration Impression 1. ESRD 2. fluid overload 3. HTN 4. DM 5. anemia 6. hemoptysis 7. pneumonitis 8. hyperkalemia Plan - HD today - time increased - discussed low potassium diet - steroid taper per pulmonary - cont epogen for anemia Dr Barbosa
[2017-06-26] MEDS: predniSONE 20 MG TABLET (UD) PO SCH (15:16)
[2017-06-26] MEDS: CARVEDILOL 25 MG TABLET (FP) PO SCH ×2 (15:16→21:40)
[2017-06-26] MEDS: ISOSORBIDE MONONITRATE 30 MG TAB.SR.24H (FP) PO SCH (15:17)
[2017-06-26] MEDS: CLOPIDOGREL BISULFATE 75 MG TABLET (FP) PO SCH (15:17)
[2017-06-26] MEDS: ASPIRIN COATED 81 MG TABLET.EC PO SCH (15:17)
[2017-06-26] MEDS: amLODIPine BESYLATE 10 MG TABLET (FP) PO SCH (15:17)
[2017-06-26] MEDS: LISINOPRIL 20 MG TABLET (FP) PO SCH (15:17)
[2017-06-26] MEDS ORDERED: PT OWN MED DRAWER 7, Y5N ONE ×2 (17:54→21:32)
--- NOTE | 2017-06-26 20:19 | PN ---
Progress Note, Physician Chief Complaint: No new complaints - Current Medication List Current Medications: Active Medications Acetaminophen (Tylenol -) 325 mg PO Q6H PRN PRN Reason: PAIN LEVEL 6-10 Last Admin: 06/26/17 05:46 Dose: 325 mg Amlodipine Besylate (Norvasc -) 10 mg PO DAILY [facility] Last Admin: 06/26/17 15:17 Dose: 10 mg Arformoterol Tartrate (Brovana (Restricted To Pulmonology/Resp) -) 1 amp NEB BID [facility] Last Admin: 06/26/17 11:22 Dose: Not Given Aspirin (Ecotrin -) 81 mg PO DAILY [facility] Last Admin: 06/26/17 15:17 Dose: 81 mg Calcium Acetate (Phoslo -) 1,334 mg PO TIDCM [facility] Last Admin: 06/26/17 17:55 Dose: 1,334 mg Carvedilol (Coreg -) 25 mg PO BID [facility] Last Admin: 06/26/17 15:16 Dose: 25 mg Clopidogrel Bisulfate (Plavix -) 75 mg PO DAILY [facility] Last Admin: 06/26/17 15:17 Dose: 75 mg Gabapentin (Neurontin -) 100 mg PO TID [facility] Last Admin: 06/26/17 15:26 Dose: 100 mg Guaifenesin (Diabetic Tussin Dm -) 10 ml PO QID [facility] Last Admin: 06/26/17 17:00 Dose: Not Given Insulin Aspart (Novolog Vial Sliding Scale -) 1 vial SQ ACHS [facility] PRN Reason: Protocol Last Admin: 06/26/17 17:54 Dose: Not Given Insulin Detemir (Levemir Vial) 20 units SQ HS [facility] Last Admin: 06/25/17 21:06 Dose: 20 units Insulin Detemir (Levemir Vial) 50 units SQ AM [facility] Last Admin: 06/26/17 06:43 Dose: 50 units Isosorbide Mononitrate (Imdur -) 30 mg PO DAILY [facility] Last Admin: 06/26/17 15:17 Dose: 30 mg Lisinopril (Prinivil) 20 mg PO DAILY [facility] Last Admin: 06/26/17 15:17 Dose: 20 mg Oxycodone HCl (Roxicodone -) 5 mg PO Q6H PRN PRN Reason: PAIN LEVEL 6-10 Last Admin: 06/26/17 05:46 Dose: 5 mg Polyethylene Glycol (Miralax (For Daily Use) -) 17 gm PO DAILY [facility] Last Admin: 06/26/17 09:00 Dose: Not Given Prednisone (Deltasone -) 50 mg PO DAILY [facility] Last Admin: 06/26/17 15:16 Dose: 50 mg Sevelamer Carbonate (Renvela -) 800 mg PO TIDCM [facility] Last Admin: 06/26/17 17:55 Dose: 800 mg - Objective Vital Signs: Vital Signs Temperature 97.6 F 06/26/17 15:01 Pulse Rate 85 06/26/17 15:01 Respiratory Rate 18 06/26/17 13:50 Blood Pressure 145/71 06/26/17 15:01 O2 Sat by Pulse Oximetry (%) 94 L 06/26/17 10:00 Constitutional: Yes: No Distress Neck: Yes: Supple Cardiovascular: Yes: Regular Rate and Rhythm, S1, S2 Respiratory: Yes: CTA Bilaterally Gastrointestinal: Yes: Normal Bowel Sounds, Soft Neurological: Yes: Alert, Oriented. No: Loss of Sensation ...Motor Strength: WNL Labs: CBC, BMP 06/26/17 09:45 06/26/17 09:45 INR, PTT INR 1.03 (0.82-1.09) 06/01/17 21:41 Problem List - Problems (1) Pneumonia Assessment/Plan: Abx. Steroids Code(s): J18.9 - PNEUMONIA, UNSPECIFIED ORGANISM (2) Type 2 diabetes mellitus with diabetic chronic kidney disease Code(s): E11.22 - TYPE 2 DIABETES MELLITUS W DIABETIC CHRONIC KIDNEY DISEASE Qualifiers: Diabetes mellitus detention insulin use: with rn long term care use Chronic kidney disease stage: on chronic dialysis Qualified Code(s): E11.22 - Type 2 diabetes mellitus with diabetic chronic kidney disease (3) ESRD (end stage renal disease) on dialysis Assessment/Plan: HD as per renal Code(s): N18.6 - END STAGE RENAL DISEASE Z99.2 - DEPENDENCE ON RENAL DIALYSIS
[2017-06-27] MEDS: INSULIN DETEMIR 100 UNITS/ML MDV SQ SCH ×2 (06:12→21:24)
[2017-06-27] MEDS: GABAPENTIN 100 MG CAPSULE (FP) PO SCH ×3 (06:12→21:25)
[2017-06-27] MEDS: INSULIN SLIDING SCALE (NOVOLOG) 1 VIAL SQ SCH ×4 (06:12→21:28)
[2017-06-27] MEDS ORDERED: INSULIN (NOVOLOG) ASPART 100 UNITS/ML 10ML VIAL ONE ×2 (06:34→10:40)
[2017-06-27] MEDS: SEVELAMER CARBONATE 800 MG TAB (FP) PO SCH ×3 (08:06→16:49)
[2017-06-27] MEDS: CALCIUM ACETATE 667 MG CAPSULE (FP) PO SCH ×3 (08:06→16:50)
[2017-06-27] MEDS: CARVEDILOL 25 MG TABLET (FP) PO SCH ×2 (10:09→21:25)
[2017-06-27] MEDS: ISOSORBIDE MONONITRATE 30 MG TAB.SR.24H (FP) PO SCH (10:09)
[2017-06-27] MEDS: amLODIPine BESYLATE 10 MG TABLET (FP) PO SCH (10:09)
[2017-06-27] MEDS: LISINOPRIL 20 MG TABLET (FP) PO SCH (10:09)
[2017-06-27] MEDS: CLOPIDOGREL BISULFATE 75 MG TABLET (FP) PO SCH (10:09)
[2017-06-27] MEDS: ASPIRIN COATED 81 MG TABLET.EC PO SCH (10:09)
[2017-06-27] MEDS: predniSONE 20 MG TABLET (UD) PO SCH (10:10)
[2017-06-27] MEDS: POLYETHYLENE GLYCOL 3350 119 GM BTL PO SCH (10:17)
--- NOTE | 2017-06-27 10:31 | PN ---
Progress Note (short form) - Note Progress Note: PULMONARY More short of breath today and with increased leg swelling. + cough with white sputum. No fevers or chills. Saturating 69% on room air. Last Vital Signs Temp Pulse Resp BP Pulse Ox 97.1 F L 89 20 130/83 95 06/27/17 09:00 06/27/17 09:00 06/27/17 09:00 06/27/17 09:00 06/26/17 22:00 Gen: more tachypneic Heart: RRR Lung: bibasilar rales Abd: soft, nontender Ext: + edema CBC, BMP 06/26/17 09:45 06/26/17 09:45 Active Medications Acetaminophen (Tylenol -) 325 mg PO Q6H PRN PRN Reason: PAIN LEVEL 6-10 Last Admin: 06/26/17 05:46 Dose: 325 mg Amlodipine Besylate (Norvasc -) 10 mg PO DAILY [facility] Last Admin: 06/27/17 10:09 Dose: 10 mg Arformoterol Tartrate (Brovana (Restricted To Pulmonology/Resp) -) 1 amp NEB BID [facility] Last Admin: 06/26/17 22:02 Dose: 1 amp Aspirin (Ecotrin -) 81 mg PO DAILY [facility] Last Admin: 06/27/17 10:09 Dose: 81 mg Calcium Acetate (Phoslo -) 1,334 mg PO TIDCM [facility] Last Admin: 06/27/17 08:06 Dose: 1,334 mg Carvedilol (Coreg -) 25 mg PO BID [facility] Last Admin: 06/27/17 10:09 Dose: 25 mg Clopidogrel Bisulfate (Plavix -) 75 mg PO DAILY [facility] Last Admin: 06/27/17 10:09 Dose: 75 mg Gabapentin (Neurontin -) 100 mg PO TID [facility] Last Admin: 06/27/17 06:12 Dose: 100 mg Guaifenesin (Diabetic Tussin Dm -) 10 ml PO QID [facility] Last Admin: 06/26/17 21:40 Dose: Not Given Insulin Aspart (Novolog Vial Sliding Scale -) 1 vial SQ ACHS [facility] PRN Reason: Protocol Last Admin: 06/27/17 06:12 Dose: Not Given Insulin Detemir (Levemir Vial) 20 units SQ HS [facility] Last Admin: 06/26/17 21:38 Dose: 20 units Insulin Detemir (Levemir Vial) 50 units SQ AM [facility] Last Admin: 06/27/17 06:12 Dose: Not Given Isosorbide Mononitrate (Imdur -) 30 mg PO DAILY [facility] Last Admin: 06/27/17 10:09 Dose: 30 mg Lisinopril (Prinivil) 20 mg PO DAILY [facility] Last Admin: 06/27/17 10:09 Dose: 20 mg Oxycodone HCl (Roxicodone -) 5 mg PO Q6H PRN PRN Reason: PAIN LEVEL 6-10 Last Admin: 06/26/17 05:46 Dose: 5 mg Polyethylene Glycol (Miralax (For Daily Use) -) 17 gm PO DAILY [facility] Last Admin: 06/27/17 10:17 Dose: 17 gm Prednisone (Deltasone -) 50 mg PO DAILY [facility] Last Admin: 06/27/17 10:10 Dose: 50 mg Sevelamer Carbonate (Renvela -) 800 mg PO TIDCM [facility] Last Admin: 06/27/17 08:06 Dose: 800 mg A/P Acute Hypoxic Respiratory Failure Bilateral Interstitial Infiltrates LV Diastolic Dysfunction ESRD on HD CAD HTN DM - continue prednisone - completed empiric antibiotics - HD per renal - glucose control while on systemic steroids - O2 to keep SpO2 >90% - will need home O2 - DVT prophylaxis
[2017-06-27] MEDS: guaiFENesin/D-M SUGAR-FREE/ACLHOL-FREE 118 ML BOTTLE PO SCH ×4 (11:25→21:25)
[2017-06-27] MEDS: ARFORMOTEROL TARTRATE 15 MCG/2 ML VIAL NEB SCH ×2 (12:21→21:25)
--- NOTE | 2017-06-27 15:31 | PN ---
Progress Note, Physician History of Present Illness: Pt seen and examined at bedside. He is awake and alert. - Current Medication List Current Medications: Active Medications Acetaminophen (Tylenol -) 325 mg PO Q6H PRN PRN Reason: PAIN LEVEL 6-10 Last Admin: 06/26/17 05:46 Dose: 325 mg Amlodipine Besylate (Norvasc -) 10 mg PO DAILY [facility] Last Admin: 06/27/17 10:09 Dose: 10 mg Arformoterol Tartrate (Brovana (Restricted To Pulmonology/Resp) -) 1 amp NEB BID [facility] Last Admin: 06/27/17 12:21 Dose: 1 amp Aspirin (Ecotrin -) 81 mg PO DAILY [facility] Last Admin: 06/27/17 10:09 Dose: 81 mg Calcium Acetate (Phoslo -) 1,334 mg PO TIDCM [facility] Last Admin: 06/27/17 08:06 Dose: 1,334 mg Carvedilol (Coreg -) 25 mg PO BID [facility] Last Admin: 06/27/17 10:09 Dose: 25 mg Clopidogrel Bisulfate (Plavix -) 75 mg PO DAILY [facility] Last Admin: 06/27/17 10:09 Dose: 75 mg Gabapentin (Neurontin -) 100 mg PO TID [facility] Last Admin: 06/27/17 06:12 Dose: 100 mg Guaifenesin (Diabetic Tussin Dm -) 10 ml PO QID [facility] Last Admin: 06/27/17 11:25 Dose: 10 ml Insulin Aspart (Novolog Vial Sliding Scale -) 1 vial SQ ACHS [facility] PRN Reason: Protocol Last Admin: 06/27/17 11:26 Dose: 5 units Insulin Detemir (Levemir Vial) 20 units SQ HS [facility] Last Admin: 06/26/17 21:38 Dose: 20 units Insulin Detemir (Levemir Vial) 50 units SQ AM [facility] Last Admin: 06/27/17 06:12 Dose: Not Given Isosorbide Mononitrate (Imdur -) 30 mg PO DAILY [facility] Last Admin: 06/27/17 10:09 Dose: 30 mg Lisinopril (Prinivil) 20 mg PO DAILY [facility] Last Admin: 06/27/17 10:09 Dose: 20 mg Oxycodone HCl (Roxicodone -) 5 mg PO Q6H PRN PRN Reason: PAIN LEVEL 6-10 Last Admin: 06/26/17 05:46 Dose: 5 mg Polyethylene Glycol (Miralax (For Daily Use) -) 17 gm PO DAILY [facility] Last Admin: 06/27/17 10:17 Dose: 17 gm Prednisone (Deltasone -) 50 mg PO DAILY [facility] Last Admin: 06/27/17 10:10 Dose: 50 mg Sevelamer Carbonate (Renvela -) 800 mg PO TIDCM [facility] Last Admin: 06/27/17 08:06 Dose: 800 mg - Objective Vital Signs: Vital Signs Temperature 97.6 F 06/27/17 15:11 Pulse Rate 90 06/27/17 15:11 Respiratory Rate 20 06/27/17 09:00 Blood Pressure 122/77 06/27/17 15:11 O2 Sat by Pulse Oximetry (%) 95 06/26/17 22:00 Constitutional: Yes: Calm Eyes: Yes: Conjunctiva Clear HENT: Yes: Atraumatic Neck: Yes: Supple Cardiovascular: Yes: S1, S2 Respiratory: Yes: On Nasal O2, Wheezes Gastrointestinal: Yes: Soft Genitourinary: Yes: WNL Musculoskeletal: Yes: WNL Edema: No Neurological: Yes: Oriented Psychiatric: Yes: Oriented Labs: CBC, BMP 06/26/17 09:45 06/26/17 09:45 INR, PTT INR 1.03 (0.82-1.09) 06/01/17 21:41 Problem List - Problems (1) ESRD (end stage renal disease) on dialysis Code(s): N18.6 - END STAGE RENAL DISEASE Z99.2 - DEPENDENCE ON RENAL DIALYSIS Assessment/Plan Current Medications Generic Name Dose Route Start Last Admin Trade Name Jose L PRN Reason Stop Dose Admin Acetaminophen 325 mg 06/22/17 18:22 06/26/17 05:46 Tylenol - PO 325 mg Q6H PRN Administration PAIN LEVEL 6-10 Amlodipine Besylate 10 mg 06/15/17 10:00 06/27/17 10:09 Norvasc - PO 10 mg DAILY [facility] Administration Arformoterol Tartrate 1 amp 06/06/17 22:00 06/27/17 12:21 Brovana (Restricted To Pulmonology/Resp) - NEB 1 amp BID [facility] Administration Aspirin 81 mg 06/02/17 10:00 06/27/17 10:09 Ecotrin - PO 81 mg DAILY [facility] Administration Calcium Acetate 1,334 mg 06/04/17 12:00 06/27/17 08:06 Phoslo - PO 1,334 mg TIDCM [facility] Administration Carvedilol 25 mg 06/16/17 22:00 06/27/17 10:09 Coreg - PO 25 mg BID [facility] Administration Clopidogrel Bisulfate 75 mg 06/02/17 10:00 06/27/17 10:09 Plavix - PO 75 mg DAILY [facility] Administration Gabapentin 100 mg 06/02/17 14:00 06/27/17 06:12 Neurontin - PO 100 mg TID [facility] Administration Guaifenesin 10 ml 06/08/17 07:45 06/27/17 11:25 Diabetic Tussin Dm - PO 10 ml QID [facility] Administration Insulin Aspart 1 vial 06/20/17 12:05 06/27/17 11:26 Novolog Vial Sliding Scale - SQ 5 units ACHS [facility] Administration Protocol Insulin Detemir 20 units 06/15/17 22:15 06/26/17 21:38 Levemir Vial SQ 20 units HS [facility] Administration Insulin Detemir 50 units 06/18/17 13:27 06/27/17 06:12 Levemir Vial SQ Not Given AM [facility] Isosorbide Mononitrate 30 mg 06/02/17 10:00 06/27/17 10:09 Imdur - PO 30 mg DAILY [facility] Administration Lisinopril 20 mg 06/02/17 10:00 06/27/17 10:09 Prinivil PO 20 mg DAILY [facility] Administration Oxycodone HCl 5 mg 06/25/17 23:16 06/26/17 05:46 Roxicodone - PO 5 mg Q6H PRN Administration PAIN LEVEL 6-10 Polyethylene Glycol 17 gm 06/22/17 17:45 06/27/17 10:17 Miralax (For Daily Use) - PO 17 gm DAILY [facility] Administration Prednisone 50 mg 06/26/17 10:00 06/27/17 10:10 Deltasone - PO 50 mg DAILY [facility] Administration Sevelamer Carbonate 800 mg 06/06/17 17:30 06/27/17 08:06 Renvela - PO 800 mg TIDCM [facility] Administration Impression 1. ESRD 2. fluid overload 3. HTN 4. DM 5. anemia 6. hemoptysis 7. pneumonitis 8. hyperkalemia Plan - will arrange for HD tomorrow - treatment time increased to 4 hours - epogen for anemia - steroids per pulmonary Dr Barbosa
--- NOTE | 2017-06-27 17:27 | PN ---
Progress Note, Physician Chief Complaint: No new complaints - Current Medication List Current Medications: Active Medications Acetaminophen (Tylenol -) 325 mg PO Q6H PRN PRN Reason: PAIN LEVEL 6-10 Last Admin: 06/26/17 05:46 Dose: 325 mg Amlodipine Besylate (Norvasc -) 10 mg PO DAILY [facility] Last Admin: 06/27/17 10:09 Dose: 10 mg Arformoterol Tartrate (Brovana (Restricted To Pulmonology/Resp) -) 1 amp NEB BID [facility] Last Admin: 06/27/17 12:21 Dose: 1 amp Aspirin (Ecotrin -) 81 mg PO DAILY [facility] Last Admin: 06/27/17 10:09 Dose: 81 mg Calcium Acetate (Phoslo -) 1,334 mg PO TIDCM [facility] Last Admin: 06/27/17 16:50 Dose: 1,334 mg Carvedilol (Coreg -) 25 mg PO BID [facility] Last Admin: 06/27/17 10:09 Dose: 25 mg Clopidogrel Bisulfate (Plavix -) 75 mg PO DAILY [facility] Last Admin: 06/27/17 10:09 Dose: 75 mg Epoetin Ishan (Epogen -) 7,000 units IVPUSH ONCE ONE Stop: 06/28/17 15:32 Gabapentin (Neurontin -) 100 mg PO TID [facility] Last Admin: 06/27/17 15:00 Dose: 100 mg Guaifenesin (Diabetic Tussin Dm -) 10 ml PO QID [facility] Last Admin: 06/27/17 16:49 Dose: 10 ml Heparin Sodium (Porcine) (Heparin -) 1,000 unit IVPUSH ONCE ONE Stop: 06/28/17 15:32 Insulin Aspart (Novolog Vial Sliding Scale -) 1 vial SQ ACHS [facility] PRN Reason: Protocol Last Admin: 06/27/17 16:50 Dose: 12 units Insulin Detemir (Levemir Vial) 20 units SQ HS [facility] Last Admin: 06/26/17 21:38 Dose: 20 units Insulin Detemir (Levemir Vial) 50 units SQ AM [facility] Last Admin: 06/27/17 06:12 Dose: Not Given Isosorbide Mononitrate (Imdur -) 30 mg PO DAILY [facility] Last Admin: 06/27/17 10:09 Dose: 30 mg Lisinopril (Prinivil) 20 mg PO DAILY [facility] Last Admin: 06/27/17 10:09 Dose: 20 mg Oxycodone HCl (Roxicodone -) 5 mg PO Q6H PRN PRN Reason: PAIN LEVEL 6-10 Last Admin: 06/26/17 05:46 Dose: 5 mg Polyethylene Glycol (Miralax (For Daily Use) -) 17 gm PO DAILY [facility] Last Admin: 06/27/17 10:17 Dose: 17 gm Prednisone (Deltasone -) 50 mg PO DAILY [facility] Last Admin: 06/27/17 10:10 Dose: 50 mg Sevelamer Carbonate (Renvela -) 800 mg PO TIDCM [facility] Last Admin: 06/27/17 16:49 Dose: 800 mg - Objective Vital Signs: Vital Signs Temperature 97.6 F 06/27/17 15:11 Pulse Rate 90 06/27/17 15:11 Respiratory Rate 20 06/27/17 09:00 Blood Pressure 122/77 06/27/17 15:11 O2 Sat by Pulse Oximetry (%) 95 06/26/17 22:00 Constitutional: Yes: No Distress Neck: Yes: Supple Cardiovascular: Yes: Regular Rate and Rhythm, S1, S2 Respiratory: Yes: CTA Bilaterally Gastrointestinal: Yes: Normal Bowel Sounds, Soft Neurological: Yes: Alert, Oriented. No: Loss of Sensation ...Motor Strength: WNL Labs: CBC, BMP 06/26/17 09:45 06/26/17 09:45 INR, PTT INR 1.03 (0.82-1.09) 06/01/17 21:41 Problem List - Problems (1) Pneumonia Assessment/Plan: Abx. 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
[2017-06-27] MEDS ORDERED: PT OWN MED DRAWER 7, Y5N ONE (21:15)
[2017-06-27] MEDS: oxyCODONE HCL 5 MG TABLET PO PRN (23:29)
[2017-06-27] MEDS: ACETAMINOPHEN 325 MG TABLET (FP) PO PRN (23:29)
[2017-06-27] MEDS ORDERED: INSULIN DETEMIR 100 UNITS/ML MDV SQ SCH (23:38)
--- NOTE | 2017-06-27 23:43 | PN ---
Progress Note (short form) - Note Progress Note: hyperglycemia/insulin ressistant pneumonia,respiratory difficulty dyspnea on steroids Current Active Problems CHF exacerbation (Acute) Diabetes (Acute) Hemoptysis (Acute) Left anterior knee pain (Acute) Pneumonia (Acute) Type 2 diabetes mellitus with diabetic chronic kidney disease (Acute) Laboratory Results - last 24 hr 06/27/17 06/27/17 06/27/17 06:11 11:29 16:42 POC Glucometer 76 173 356 06/27/17 21:23 POC Glucometer 341 plan; Current Medications Generic Name Dose Route Start Last Admin Trade Name Freq PRN Reason Stop Dose Admin Acetaminophen 325 mg 06/22/17 18:22 06/27/17 23:29 Tylenol - PO 325 mg Q6H PRN Administration PAIN LEVEL 6-10 Amlodipine Besylate 10 mg 06/15/17 10:00 06/27/17 10:09 Norvasc - PO 10 mg DAILY [facility] Administration Arformoterol Tartrate 1 amp 06/06/17 22:00 06/27/17 21:25 Brovana (Restricted To Pulmonology/Resp) - NEB 1 amp BID [facility] Administration Aspirin 81 mg 06/02/17 10:00 06/27/17 10:09 Ecotrin - PO 81 mg DAILY [facility] Administration Calcium Acetate 1,334 mg 06/04/17 12:00 06/27/17 16:50 Phoslo - PO 1,334 mg TIDCM [facility] Administration Carvedilol 25 mg 06/16/17 22:00 06/27/17 21:25 Coreg - PO 25 mg BID [facility] Administration Clopidogrel Bisulfate 75 mg 06/02/17 10:00 06/27/17 10:09 Plavix - PO 75 mg DAILY [facility] Administration Epoetin Ishan 7,000 units 06/28/17 15:31 Epogen - IVPUSH 06/28/17 15:32 ONCE ONE Gabapentin 100 mg 06/02/17 14:00 06/27/17 21:25 Neurontin - PO 100 mg TID [facility] Administration Guaifenesin 10 ml 06/08/17 07:45 06/27/17 21:25 Diabetic Tussin Dm - PO 10 ml QID [facility] Administration Heparin Sodium (Porcine) 1,000 unit 06/28/17 15:31 IVPUSH 06/28/17 15:32 ONCE ONE Insulin Aspart 1 vial 06/27/17 23:39 Novolog Vial Sliding Scale - SQ ACHS [facility] Protocol Insulin Detemir 50 units 06/18/17 13:27 06/27/17 06:12 Levemir Vial SQ Not Given AM [facility] Insulin Detemir 30 units 06/27/17 23:38 Levemir Vial SQ HS [facility] Isosorbide Mononitrate 30 mg 06/02/17 10:00 06/27/17 10:09 Imdur - PO 30 mg DAILY [facility] Administration Lisinopril 20 mg 06/02/17 10:00 06/27/17 10:09 Prinivil PO 20 mg DAILY [facility] Administration Oxycodone HCl 5 mg 06/25/17 23:16 06/27/17 23:29 Roxicodone - PO 5 mg Q6H PRN Administration PAIN LEVEL 6-10 Polyethylene Glycol 17 gm 06/22/17 17:45 06/27/17 10:17 Miralax (For Daily Use) - PO 17 gm DAILY [facility] Administration Prednisone 50 mg 06/26/17 10:00 06/27/17 10:10 Deltasone - PO 50 mg DAILY [facility] Administration Sevelamer Carbonate 800 mg 06/06/17 17:30 06/27/17 16:49 Renvela - PO 800 mg TIDCM [facility] Administration plan: titrate dose of insulin and coverage as steroids are tapered Problem List - Problems (1) CHF exacerbation Code(s): I50.9 - HEART FAILURE, UNSPECIFIED Qualifiers: Congestive heart failure type: unspecified congestive heart failure type Qualified Code(s): I50.9 - Heart failure, unspecified (2) Pneumonia Code(s): J18.9 - PNEUMONIA, UNSPECIFIED ORGANISM (3) Chronic renal insufficiency Code(s): N18.9 - CHRONIC KIDNEY DISEASE, UNSPECIFIED (4) ESRD (end stage renal disease) on dialysis Code(s): N18.6 - END STAGE RENAL DISEASE Z99.2 - DEPENDENCE ON RENAL DIALYSIS (5) End stage renal disease Code(s): N18.6 - END STAGE RENAL DISEASE (6) Type 2 diabetes mellitus with diabetic chronic kidney disease Code(s): E11.22 - TYPE 2 DIABETES MELLITUS W DIABETIC CHRONIC KIDNEY DISEASE Qualifiers: Diabetes mellitus usp insulin use: with usp use Chronic kidney disease stage: on chronic dialysis Qualified Code(s): E11.22 - Type 2 diabetes mellitus with diabetic chronic kidney disease
[2017-06-28] MEDS: INSULIN SLIDING SCALE (NOVOLOG) 1 VIAL SQ SCH ×4 (06:21→21:51)
[2017-06-28] MEDS: INSULIN DETEMIR 100 UNITS/ML MDV SQ SCH (06:21)
[2017-06-28] MEDS: GABAPENTIN 100 MG CAPSULE (FP) PO SCH ×3 (06:22→23:37)
[2017-06-28] MEDS ORDERED: INSULIN (NOVOLOG) ASPART 100 UNITS/ML 10ML VIAL ONE (06:33)
[2017-06-28] MEDS: CALCIUM ACETATE 667 MG CAPSULE (FP) PO SCH ×3 (08:00→17:01)
[2017-06-28] MEDS: SEVELAMER CARBONATE 800 MG TAB (FP) PO SCH ×3 (08:00→17:01)
[2017-06-28] MEDS: oxyCODONE HCL 5 MG TABLET PO PRN ×2 (08:34→17:03)
[2017-06-28] MEDS: ACETAMINOPHEN 325 MG TABLET (FP) PO PRN ×2 (08:35→17:05)
[2017-06-28] MEDS ORDERED: HEPARIN NA (PORCINE) 5,000 UNITS/ML 1ML VIAL IVPUSH ONE (09:15)
[2017-06-28] MEDS ORDERED: EPOETIN ALFA 10,000 UNIT/1 ML VIAL IVPUSH ONE (09:15)
[2017-06-28 09:25] LABS: MCH 29.8 pg (25.7-33.7); MCHC 31.8 g/dl (32.0-35.9); MEAN CELL VOLUME 93.8 fl (80-96); MEAN PLT VOLUME 7.2 fl (7.5-11.1); PLATELET COUNT 118 K/MM3 (134-434); RDW 19.5 % (11.9-15.9); WHITE BLOOD COUNT 12.6 K/mm3 (4.0-10.0)
[2017-06-28 09:55] LABS: ANION GAP 15 (8-16); CALCIUM 8.5 mg/dL (8.5-10.1); CO2 22 mmol/L (21-32); CREATININE 6.6 mg/dL (0.7-1.3); GLUCOSE,RANDOM 104 mg/dL (74-106)
[2017-06-28] MEDS: LISINOPRIL 20 MG TABLET (FP) PO SCH (10:00)
[2017-06-28] MEDS: ASPIRIN COATED 81 MG TABLET.EC PO SCH (10:00)
[2017-06-28] MEDS: ISOSORBIDE MONONITRATE 30 MG TAB.SR.24H (FP) PO SCH (10:00)
[2017-06-28] MEDS: CLOPIDOGREL BISULFATE 75 MG TABLET (FP) PO SCH (10:00)
[2017-06-28] MEDS: POLYETHYLENE GLYCOL 3350 119 GM BTL PO SCH (10:00)
[2017-06-28] MEDS: CARVEDILOL 25 MG TABLET (FP) PO SCH ×2 (10:00→23:37)
[2017-06-28] MEDS: predniSONE 20 MG TABLET (UD) PO SCH (10:00)
[2017-06-28] MEDS: amLODIPine BESYLATE 10 MG TABLET (FP) PO SCH (10:00)
--- NOTE | 2017-06-28 10:48 | PN ---
Progress Note (short form) - Note Progress Note: last seen two weeks ago, since then more dyspneic, hypoxic down to 60s on room air mostly dry cough, with minimal white phlegm Vital Signs Period Temp Pulse Resp BP Sys/Blanca Pulse Ox Last 24 Hr 97.3 F-98.4 F 53-90 20-20 115-150/64-86 95-95 Abnormal Lab Results 06/28/17 06/28/17 09:00 09:00 WBC 12.6 H RBC 2.92 L Hgb 8.7 L Hct 27.4 L MCHC 31.8 L RDW 19.5 H Plt Count 118 L D MPV 7.2 L Potassium 5.2 H Creatinine 6.6 H S1S2 RRR Lungs cta anteriorly abd soft NT +++pitting edema aaox3 nonfocal seen at HD spoke to pt via [employer] Imp 67 yo M admitted for dyspnea and cough Pneumonia/interstitial infiltrates finished 10 days of empiric abx-ceftriaxone/ azythropmycin TB AFB x3 negative off of isolation at this point ESRD on HD since 2014 IDDM CAD with stents HTN Gout OA Plan has been on oral steroids for 3 weeks now HD today nebulizer treatment O2 repeat chest CT thoracic surgical evaluation for VATS, tissue sample
--- NOTE | 2017-06-28 10:51 | PN ---
Progress Note (short form) - Note Progress Note: PULMONARY Clinically unchanged, still dyspneic with exertion and hypoxia. + cough with white sputum. No fevers or chills. Last Vital Signs Temp Pulse Resp BP Pulse Ox 97.3 F L 74 20 131/81 95 06/28/17 08:40 06/28/17 10:00 06/28/17 10:00 06/28/17 10:00 06/27/17 22:00 Gen: tachypneic with exertion Heart: RRR Lung: bibasilar rales Abd: soft, nontender Ext: + edema CBC, BMP 06/28/17 09:00 06/28/17 09:00 Active Medications Acetaminophen (Tylenol -) 325 mg PO Q6H PRN PRN Reason: PAIN LEVEL 6-10 Last Admin: 06/28/17 08:35 Dose: 325 mg Amlodipine Besylate (Norvasc -) 10 mg PO DAILY [facility] Last Admin: 06/27/17 10:09 Dose: 10 mg Arformoterol Tartrate (Brovana (Restricted To Pulmonology/Resp) -) 1 amp NEB BID [facility] Last Admin: 06/27/17 21:25 Dose: 1 amp Aspirin (Ecotrin -) 81 mg PO DAILY [facility] Last Admin: 06/27/17 10:09 Dose: 81 mg Calcium Acetate (Phoslo -) 1,334 mg PO TIDCM [facility] Last Admin: 06/27/17 16:50 Dose: 1,334 mg Carvedilol (Coreg -) 25 mg PO BID [facility] Last Admin: 06/27/17 21:25 Dose: 25 mg Clopidogrel Bisulfate (Plavix -) 75 mg PO DAILY [facility] Last Admin: 06/27/17 10:09 Dose: 75 mg Gabapentin (Neurontin -) 100 mg PO TID [facility] Last Admin: 06/28/17 06:22 Dose: 100 mg Guaifenesin (Diabetic Tussin Dm -) 10 ml PO QID [facility] Last Admin: 06/27/17 21:25 Dose: 10 ml Insulin Aspart (Novolog Vial Sliding Scale -) 1 vial SQ ACHS [facility] PRN Reason: Protocol Last Admin: 06/28/17 06:21 Dose: 7 units Insulin Detemir (Levemir Vial) 50 units SQ AM [facility] Last Admin: 06/28/17 06:21 Dose: 50 units Insulin Detemir (Levemir Vial) 30 units SQ [facility] Isosorbide Mononitrate (Imdur -) 30 mg PO DAILY [facility] Last Admin: 06/27/17 10:09 Dose: 30 mg Lisinopril (Prinivil) 20 mg PO DAILY [facility] Last Admin: 06/27/17 10:09 Dose: 20 mg Oxycodone HCl (Roxicodone -) 5 mg PO Q6H PRN PRN Reason: PAIN LEVEL 6-10 Last Admin: 06/28/17 08:34 Dose: 5 mg Polyethylene Glycol (Miralax (For Daily Use) -) 17 gm PO DAILY [facility] Last Admin: 06/27/17 10:17 Dose: 17 gm Prednisone (Deltasone -) 50 mg PO DAILY [facility] Last Admin: 06/27/17 10:10 Dose: 50 mg Sevelamer Carbonate (Renvela -) 800 mg PO TIDCM [facility] Last Admin: 06/27/17 16:49 Dose: 800 mg A/P Acute Hypoxic Respiratory Failure Bilateral Interstitial Infiltrates LV Diastolic Dysfunction ESRD on HD CAD HTN DM - suspect an interstitial lung process/acute pneumonitis of unclear etiology without significant improvement despite prolonged steroid course - would consult thoracic surgery for possible VATS/wedge biopsy - repeat CT chest noncontrast - hold plavix for possible biopsy - continue prednisone for now - completed empiric antibiotics - HD per renal - glucose control while on systemic steroids - O2 to keep SpO2 >90% - will need home O2 - DVT prophylaxis
[2017-06-28] MEDS: ARFORMOTEROL TARTRATE 15 MCG/2 ML VIAL NEB SCH ×3 (11:13→21:59)
--- NOTE | 2017-06-28 13:27 | PN ---
Progress Note, Physician History of Present Illness: Pt seen and examined at bedside. He tolerated HD today. He does not feel that his breathing has changed much. - Current Medication List Current Medications: Active Medications Acetaminophen (Tylenol -) 325 mg PO Q6H PRN PRN Reason: PAIN LEVEL 6-10 Last Admin: 06/28/17 08:35 Dose: 325 mg Amlodipine Besylate (Norvasc -) 10 mg PO DAILY [facility] Last Admin: 06/27/17 10:09 Dose: 10 mg Arformoterol Tartrate (Brovana (Restricted To Pulmonology/Resp) -) 1 amp NEB BID [facility] Last Admin: 06/28/17 11:13 Dose: Not Given Aspirin (Ecotrin -) 81 mg PO DAILY [facility] Last Admin: 06/27/17 10:09 Dose: 81 mg Calcium Acetate (Phoslo -) 1,334 mg PO TIDCM [facility] Last Admin: 06/27/17 16:50 Dose: 1,334 mg Carvedilol (Coreg -) 25 mg PO BID [facility] Last Admin: 06/27/17 21:25 Dose: 25 mg Clopidogrel Bisulfate (Plavix -) 75 mg PO DAILY [facility] Last Admin: 06/27/17 10:09 Dose: 75 mg Gabapentin (Neurontin -) 100 mg PO TID [facility] Last Admin: 06/28/17 06:22 Dose: 100 mg Guaifenesin (Diabetic Tussin Dm -) 10 ml PO QID [facility] Last Admin: 06/27/17 21:25 Dose: 10 ml Insulin Aspart (Novolog Vial Sliding Scale -) 1 vial SQ ACHS [facility] PRN Reason: Protocol Last Admin: 06/28/17 06:21 Dose: 7 units Insulin Detemir (Levemir Vial) 50 units SQ AM [facility] Last Admin: 06/28/17 06:21 Dose: 50 units Insulin Detemir (Levemir Vial) 30 units SQ HS [facility] Isosorbide Mononitrate (Imdur -) 30 mg PO DAILY [facility] Last Admin: 06/27/17 10:09 Dose: 30 mg Lisinopril (Prinivil) 20 mg PO DAILY [facility] Last Admin: 06/27/17 10:09 Dose: 20 mg Oxycodone HCl (Roxicodone -) 5 mg PO Q6H PRN PRN Reason: PAIN LEVEL 6-10 Last Admin: 06/28/17 08:34 Dose: 5 mg Polyethylene Glycol (Miralax (For Daily Use) -) 17 gm PO DAILY [facility] Last Admin: 06/27/17 10:17 Dose: 17 gm Prednisone (Deltasone -) 50 mg PO DAILY [facility] Last Admin: 06/27/17 10:10 Dose: 50 mg Sevelamer Carbonate (Renvela -) 800 mg PO TIDCM [facility] Last Admin: 06/27/17 16:49 Dose: 800 mg - Objective Vital Signs: Vital Signs Temperature 97.0 F L 06/28/17 13:17 Pulse Rate 78 06/28/17 13:17 Respiratory Rate 18 06/28/17 13:17 Blood Pressure 150/98 06/28/17 13:17 O2 Sat by Pulse Oximetry (%) 95 06/27/17 22:00 Constitutional: Yes: Calm Eyes: Yes: Conjunctiva Clear HENT: Yes: Atraumatic Neck: Yes: Supple Cardiovascular: Yes: S1, S2 Respiratory: Yes: On Nasal O2 Gastrointestinal: Yes: Soft Genitourinary: Yes: WNL Musculoskeletal: Yes: WNL Edema: No Neurological: Yes: Oriented Psychiatric: Yes: Oriented Labs: CBC, BMP 06/28/17 09:00 06/28/17 09:00 INR, PTT INR 1.03 (0.82-1.09) 06/01/17 21:41 Problem List - Problems (1) ESRD (end stage renal disease) on dialysis Code(s): N18.6 - END STAGE RENAL DISEASE Z99.2 - DEPENDENCE ON RENAL DIALYSIS Assessment/Plan Current Medications Generic Name Dose Route Start Last Admin Trade Name Jose L PRN Reason Stop Dose Admin Acetaminophen 325 mg 06/22/17 18:22 06/28/17 08:35 Tylenol - PO 325 mg Q6H PRN Administration PAIN LEVEL 6-10 Amlodipine Besylate 10 mg 06/15/17 10:00 06/27/17 10:09 Norvasc - PO 10 mg DAILY [facility] Administration Arformoterol Tartrate 1 amp 06/06/17 22:00 06/28/17 11:13 Brovana (Restricted To Pulmonology/Resp) - NEB Not Given BID [facility] Aspirin 81 mg 06/02/17 10:00 06/27/17 10:09 Ecotrin - PO 81 mg DAILY [facility] Administration Calcium Acetate 1,334 mg 06/04/17 12:00 06/27/17 16:50 Phoslo - PO 1,334 mg TIDCM [facility] Administration Carvedilol 25 mg 06/16/17 22:00 06/27/17 21:25 Coreg - PO 25 mg BID [facility] Administration Clopidogrel Bisulfate 75 mg 06/02/17 10:00 06/27/17 10:09 Plavix - PO 75 mg DAILY [facility] Administration Gabapentin 100 mg 06/02/17 14:00 06/28/17 06:22 Neurontin - PO 100 mg TID [facility] Administration Guaifenesin 10 ml 06/08/17 07:45 06/27/17 21:25 Diabetic Tussin Dm - PO 10 ml QID [facility] Administration Insulin Aspart 1 vial 06/27/17 23:39 06/28/17 06:21 Novolog Vial Sliding Scale - SQ 7 units ACHS [facility] Administration Protocol Insulin Detemir 50 units 06/18/17 13:27 06/28/17 06:21 Levemir Vial SQ 50 units AM [facility] Administration Insulin Detemir 30 units 06/27/17 23:38 Levemir Vial SQ HS [facility] Isosorbide Mononitrate 30 mg 06/02/17 10:00 06/27/17 10:09 Imdur - PO 30 mg DAILY [facility] Administration Lisinopril 20 mg 06/02/17 10:00 06/27/17 10:09 Prinivil PO 20 mg DAILY [facility] Administration Oxycodone HCl 5 mg 06/25/17 23:16 06/28/17 08:34 Roxicodone - PO 5 mg Q6H PRN Administration PAIN LEVEL 6-10 Polyethylene Glycol 17 gm 06/22/17 17:45 06/27/17 10:17 Miralax (For Daily Use) - PO 17 gm DAILY [facility] Administration Prednisone 50 mg 06/26/17 10:00 06/27/17 10:10 Deltasone - PO 50 mg DAILY [facility] Administration Sevelamer Carbonate 800 mg 06/06/17 17:30 06/27/17 16:49 Renvela - PO 800 mg TIDCM [facility] Administration Impression 1. ESRD 2. fluid overload 3. HTN 4. DM 5. anemia 6. hemoptysis 7. pneumonitis 8. hyperkalemia Plan - pt tolerated HD today - removed about 4 liters so far - pulmonary follow up - epogen for anemia - steroids per pulmonary Dr Barbosa
[2017-06-28] MEDS: guaiFENesin/D-M SUGAR-FREE/ACLHOL-FREE 118 ML BOTTLE PO SCH ×4 (14:11→22:00)
[2017-06-28 14:12] LABS: CREATININE 2.3 mg/dL (0.7-1.3)
[2017-06-28] MEDS ORDERED: PT OWN MED DRAWER 7, Y5N ONE (14:18)
[2017-06-28] MEDS ORDERED: DEXTROSE 50%-WATER - 25 GM/50 ML VIAL IVPUSH ONE (19:36)
[2017-06-28] MEDS ORDERED: DEXTROSE 50%-WATER 50 ML DISP.SYRIN ONE (19:37)
--- NOTE | 2017-06-28 19:39 | HOSP ---
Subjective - Review of Symptoms Subjective: Paged by nursing staff at 19:37 about pt becoming diaphoretic, dizzy, and experiencing some blurriness. BGM revealed glucose of 30. Pt denies any CP, palpitations, increased shortness of breath. Pt currently alert and on VM for current hospital course management. General: Yes: Malaise HEENT: Yes: Visual Changes Physical Examination Vital Signs: Vital Signs Temperature 98.3 F 06/28/17 14:45 Pulse Rate 79 06/28/17 14:45 Respiratory Rate 18 06/28/17 13:17 Blood Pressure 140/93 06/28/17 14:45 O2 Sat by Pulse Oximetry (%) 91 L 06/28/17 09:00 Constitutional: Yes: Calm, Diaphoresis Eyes: Yes: Conjunctiva Clear, EOM Intact, PERRL Cardiovascular: Yes: Regular Rate and Rhythm. No: Murmur Respiratory: Yes: Regular, On Venti-Mask. No: SOB Neurological: Yes: Alert, Oriented Psychiatric: Yes: Alert, Oriented Labs: CBC, BMP 06/28/17 09:00 06/28/17 12:45 Hospitalist Encounter Assessment: Hypoglycemia --D50 amp x1 given --Recheck BGM in 30 min to 1hr's time --Will obtain EKG due to suspcious symptoms, however doubt there is any acute ACS or cardiac pathology occurring.
[2017-06-28] MEDS ORDERED: predniSONE 10 MG TABLET (UD) PO ONE (23:15)
[2017-06-29] MEDS ORDERED: INSULIN DETEMIR 100 UNITS/ML MDV SQ SCH ×2 (00:04→00:05)
--- NOTE | 2017-06-29 00:13 | PN ---
Progress Note (short form) - Note Progress Note: sp hypoglycemia likely not eating this morning dm on steroids pneumonia esrd hd Abnormal Lab Results 06/28/17 06/28/17 06/28/17 09:00 09:00 12:45 WBC 12.6 H RBC 2.92 L Hgb 8.7 L Hct 27.4 L MCHC 31.8 L RDW 19.5 H Plt Count 118 L D MPV 7.2 L Potassium 5.2 H BUN 108 H* 36 H D Creatinine 6.6 H 2.3 H D plan:Lower doses of levemir 25 units am bgm qid novolog dose adjusted Problem List - Problems (1) CHF exacerbation Code(s): I50.9 - HEART FAILURE, UNSPECIFIED Qualifiers: Congestive heart failure type: unspecified congestive heart failure type Qualified Code(s): I50.9 - Heart failure, unspecified (2) Pneumonia Code(s): J18.9 - PNEUMONIA, UNSPECIFIED ORGANISM (3) Chronic renal insufficiency Code(s): N18.9 - CHRONIC KIDNEY DISEASE, UNSPECIFIED (4) ESRD (end stage renal disease) on dialysis Code(s): N18.6 - END STAGE RENAL DISEASE Z99.2 - DEPENDENCE ON RENAL DIALYSIS (5) End stage renal disease Code(s): N18.6 - END STAGE RENAL DISEASE (6) Type 2 diabetes mellitus with diabetic chronic kidney disease Code(s): E11.22 - TYPE 2 DIABETES MELLITUS W DIABETIC CHRONIC KIDNEY DISEASE Qualifiers: Diabetes mellitus termite treater insulin use: with residential use Chronic kidney disease stage: on chronic dialysis Qualified Code(s): E11.22 - Type 2 diabetes mellitus with diabetic chronic kidney disease
--- NOTE | 2017-06-29 06:16 | HOSP ---
Subjective - Review of Symptoms Subjective: Paged at 05:45h about pt developing chest pain radiating to both arms, increased work of breathing, and diaphoresis. Evaluated at bedside with patient still on VM 40%. Pt stated chest pain subsided, however he still had a hard time breathing. O2 sat obtained revealing 82% spO2. Changed patient to NRB mask and obtained an EKG, and blood glucose level SpO2 increased to 93% BGM - 200's EKG revealed no significant change from previous with the only abnormality being an inverted T-wave in Lead III only without ST changes. Pt did not receive yesterday's steroid dose. Received dialysis yesterday for fluid overload. While on NRB, pt's work of breathing improved and pt became more calm. Physical Examination Vital Signs: Vital Signs Temperature 98.2 F 06/29/17 06:00 Pulse Rate 94 H 06/29/17 06:00 Respiratory Rate 20 06/29/17 06:00 Blood Pressure 188/90 06/29/17 06:00 O2 Sat by Pulse Oximetry (%) 91 L 06/28/17 22:00 Constitutional: Yes: Diaphoresis, Moderate Distress Eyes: Yes: Conjunctiva Clear, EOM Intact, PERRL Neck: Yes: Trachea Midline Cardiovascular: Yes: Regular Rate and Rhythm Respiratory: Yes: Rales (rales throughout), SOB, Tachypnea. No: Accessory Muscle Use Edema: Yes (3+ on lower extremities) Neurological: Yes: Alert, Oriented Psychiatric: Yes: Alert, Oriented Labs: CBC, BMP 06/28/17 09:00 06/28/17 12:45 Hospitalist Encounter Assessment: Due to improvement of pt with NRB will continue and defer to primary team's judgement on airway management --Most likely episode of severe orthopnea due to fluid overload --Keep head of bed elevated at 30* for now to avoid repeat episodes --Morning dose of Prednisone expected soon which will help improve with bronchodilation --Will obtain Troponin I due to extensive cardiac history, CP, and diaphoresis --Chest pain most likely due to hypoxia and increased work of breathing, however must r/o any elevation in myocardial enzymes
[2017-06-29] MEDS: GABAPENTIN 100 MG CAPSULE (FP) PO SCH ×2 (06:40→15:47)
[2017-06-29] MEDS: INSULIN SLIDING SCALE (NOVOLOG) 1 VIAL SQ SCH ×2 (06:44→12:09)
[2017-06-29] MEDS: CALCIUM ACETATE 667 MG CAPSULE (FP) PO SCH ×3 (07:59→17:17)
[2017-06-29] MEDS: SEVELAMER CARBONATE 800 MG TAB (FP) PO SCH ×3 (07:59→17:17)
[2017-06-29] MEDS: oxyCODONE HCL 5 MG TABLET PO PRN (08:03)
[2017-06-29] MEDS: ACETAMINOPHEN 325 MG TABLET (FP) PO PRN (08:04)
--- NOTE | 2017-06-29 08:04 | PN ---
Progress Note (short form) - Note Progress Note: repeatedly hypoglycemic overnight-did not receive prednisone yesterday, had poor appetite this am had chest pain radiating to bilateral arms, increased while turning in bed hypoxic, progressively, gradually requiring more oxygen s/p HD yesterday, removed 4 L Vital Signs Period Temp Pulse Resp BP Sys/Blanca Pulse Ox Last 24 Hr 97.0 F-98.4 F 53-94 18-20 103-188/62-104 90-91 S1S2 RRR Lungs coarse basal rales, no wheezing, no rhonchi abd soft NT ++pitting edema aaox3 nonfocal on 100% NRB Imp 67 yo M admitted for dyspnea and cough-likely interstitial lung ds. Pneumonia/interstitial infiltrates finished 10 days of empiric abx-ceftriaxone/ azythropmycin, without improvement TB AFB x3 negative off of isolation at this point ESRD on HD since 2014 IDDM CAD with stents-ASA, PLavix held yesterday pending thoracic surgical eval for VATS for diagnosis HTN Gout OA continue empiric oral steroids as per pulmonary nebulizer treatment O2 repeat chest CT results are pendning, done last night cardiac f/up troponins ordered thoracic surgical evaluation for VATS, tissue sample GI/DVT prophylaxis insulin has been lowered to avoid further hypoglycemia
[2017-06-29] MEDS ORDERED: HEPARIN NA (PORCINE) 5,000 UNITS/ML 1ML VIAL SQ SCH (10:00)
[2017-06-29] MEDS ORDERED: RANITIDINE HCL 150 MG TABLET (FP) PO SCH (10:00)
[2017-06-29] MEDS: ARFORMOTEROL TARTRATE 15 MCG/2 ML VIAL NEB SCH (10:30)
[2017-06-29] MEDS: POLYETHYLENE GLYCOL 3350 119 GM BTL PO SCH (10:55)
[2017-06-29] MEDS: ISOSORBIDE MONONITRATE 30 MG TAB.SR.24H (FP) PO SCH (10:55)
[2017-06-29] MEDS: CARVEDILOL 25 MG TABLET (FP) PO SCH (10:55)
[2017-06-29] MEDS: predniSONE 20 MG TABLET (UD) PO SCH (10:55)
[2017-06-29] MEDS: amLODIPine BESYLATE 10 MG TABLET (FP) PO SCH (10:55)
[2017-06-29] MEDS: LISINOPRIL 20 MG TABLET (FP) PO SCH (10:55)
--- NOTE | 2017-06-29 10:59 | EKG ---
Test Reason : Blood Pressure : / mmHG Vent. Rate : 075 BPM Atrial Rate : 075 BPM P-R Int : 136 ms QRS Dur : 096 ms QT Int : 372 ms P-R-T Axes : 032 000 043 degrees QTc Int : 415 ms NORMAL SINUS RHYTHM NORMAL ECG WHEN COMPARED WITH ECG OF 01-JUN-2017 21:30, PREMATURE ATRIAL COMPLEXES ARE NO LONGER PRESENT Confirmed by LILLY OSBORN MD ([id number]) on 06/29/2017 10:59:43 AM Referred By: Confirmed By:LILLY OSBORN MD
[2017-06-29] MEDS: guaiFENesin/D-M SUGAR-FREE/ACLHOL-FREE 118 ML BOTTLE PO SCH ×3 (11:00→17:17)
--- NOTE | 2017-06-29 11:00 | PN ---
Progress Note (short form) - Note Progress Note: Progress Note, Physician Chief Complaint: sob History of Present Illness: overnight pt has resp distress, chest tightness. cxr done this am with chf. currently no further cp but still sob. no palps, dizzy, loc ex-cigs - Current Medication List Current Medications Generic Name Dose Route Start Last Admin Trade Name Freq PRN Reason Stop Dose Admin Acetaminophen 325 mg 06/22/17 18:22 06/29/17 08:04 Tylenol - PO 325 mg Q6H PRN Administration PAIN LEVEL 6-10 Amlodipine Besylate 10 mg 06/15/17 10:00 06/29/17 10:55 Norvasc - PO 10 mg DAILY [facility] Administration Arformoterol Tartrate 1 amp 06/06/17 22:00 06/28/17 21:59 Brovana (Restricted To Pulmonology/Resp) - NEB 1 amp BID [facility] Administration Aspirin 81 mg 06/02/17 10:00 06/28/17 10:00 Ecotrin - PO Not Given DAILY [facility] Calcium Acetate 1,334 mg 06/04/17 12:00 06/29/17 07:59 Phoslo - PO 1,334 mg TIDCM [facility] Administration Carvedilol 25 mg 06/16/17 22:00 06/29/17 10:55 Coreg - PO 25 mg BID [facility] Administration Clopidogrel Bisulfate 75 mg 06/02/17 10:00 06/28/17 10:00 Plavix - PO Not Given DAILY [facility] Furosemide 80 mg 06/29/17 10:58 Lasix Injection - IVPUSH 06/29/17 10:59 ONCE ONE Gabapentin 100 mg 06/02/17 14:00 06/29/17 06:40 Neurontin - PO 100 mg TID [facility] Administration Guaifenesin 10 ml 06/08/17 07:45 06/29/17 11:00 Diabetic Tussin Dm - PO Not Given QID [facility] Heparin Sodium (Porcine) 5,000 unit 06/29/17 10:00 06/29/17 10:55 Heparin - SQ 5,000 unit BID [facility] Administration Insulin Aspart 1 vial 06/29/17 00:05 06/29/17 06:44 Novolog Vial Sliding Scale - SQ Not Given ACHS [facility] Protocol Insulin Detemir 25 units 06/29/17 00:05 06/29/17 06:42 Levemir Vial SQ Not Given AM [facility] Isosorbide Mononitrate 30 mg 06/02/17 10:00 06/29/17 10:55 Imdur - PO 30 mg DAILY [facility] Administration Lisinopril 20 mg 06/02/17 10:00 06/29/17 10:55 Prinivil PO 20 mg DAILY [facility] Administration Oxycodone HCl 5 mg 06/25/17 23:16 06/29/17 08:03 Roxicodone - PO 5 mg Q6H PRN Administration PAIN LEVEL 6-10 Polyethylene Glycol 17 gm 06/22/17 17:45 06/29/17 10:55 Miralax (For Daily Use) - PO Not Given DAILY [facility] Prednisone 50 mg 06/26/17 10:00 06/29/17 10:55 Deltasone - PO 50 mg DAILY [facility] Administration Ranitidine HCl 150 mg 06/29/17 10:00 06/29/17 10:55 Zantac - PO 150 mg DAILY [facility] Administration Sevelamer Carbonate 800 mg 06/06/17 17:30 06/29/17 07:59 Renvela - PO 800 mg TIDCM [facility] Administration - Objective Vital Signs: Vital Signs Period Temp Pulse Resp BP Sys/Blanca Pulse Ox Last 24 Hr 97.0 F-98.3 F 63-94 18-20 103-188/62-104 91-91 Constitutional: Yes: Well Nourished, No Distress, Calm Cardiovascular: Yes: Regular Rate and Rhythm, JVD (probable), S1, S2. No: Gallop, Murmur Respiratory: Yes: b/l rhonchi, nl eff. No: Accessory Muscle Use, Rales, Wheezes Extremities: No: Cold Edema: 2+ le edema bl Neurological: Yes: Alert, Oriented Psychiatric: No: Agitated no jaundice diaphoresis Labs: Laboratory Last Values WBC 12.6 K/mm3 (4.0-10.0) H 06/28/17 09:00 RBC 2.92 M/mm3 (4.00-5.60) L 06/28/17 09:00 Hgb 8.7 GM/dL (11.7-16.9) L 06/28/17 09:00 Hct 27.4 % (35.4-49) L 06/28/17 09:00 MCV 93.8 fl (80-96) 06/28/17 09:00 MCH 29.8 pg (25.7-33.7) 06/28/17 09:00 MCHC 31.8 g/dl (32.0-35.9) L 06/28/17 09:00 RDW 19.5 % (11.9-15.9) H 06/28/17 09:00 Plt Count 118 K/MM3 (134-434) L D 06/28/17 09:00 MPV 7.2 fl (7.5-11.1) L 06/28/17 09:00 Neutrophils % 90.6 % (42.8-82.8) H 06/07/17 05:40 Lymphocytes % 6.7 % (8-40) L D 06/07/17 05:40 Monocytes % 2.5 % (3.8-10.2) L 06/07/17 05:40 Eosinophils % 0.0 % (0-4.5) D 06/07/17 05:40 Basophils % 0.2 % (0-2.0) 06/07/17 05:40 ESR > 130 mm/hr (0-20) H 06/03/17 07:40 INR 1.03 (0.82-1.09) 06/01/17 21:41 PTT (Actin FS) 28.8 SECONDS (26.9-34.4) 06/01/17 21:41 Sodium 138 mmol/L (136-145) 06/28/17 09:00 Potassium 5.2 mmol/L (3.5-5.1) H 06/28/17 09:00 Chloride 101 mmol/L (98-107) 06/28/17 09:00 Carbon Dioxide 22 mmol/L (21-32) 06/28/17 09:00 Anion Gap 15 (8-16) 06/28/17 09:00 BUN 36 mg/dL (7-18) H D 06/28/17 12:45 Creatinine 2.3 mg/dL (0.7-1.3) H D 06/28/17 12:45 Creat Clearance w eGFR 8.21 (>60) 06/26/17 09:45 POC Glucometer 255 UNITS (()) 06/29/17 09:54 Random Glucose 104 mg/dL (74-106) 06/28/17 09:00 Hemoglobin A1c % 9.7 % (4.8-6.0) H 06/03/17 09:25 Lactic Acid 1.2 mmol/L (0.4-2.0) 06/01/17 21:41 Calcium 8.5 mg/dL (8.5-10.1) 06/28/17 09:00 Phosphorus 6.1 mg/dL (2.5-4.9) H 06/07/17 05:40 Magnesium 2.4 mg/dL (1.8-2.4) 06/03/17 09:25 Total Bilirubin 0.3 mg/dL (0.2-1.0) D 06/26/17 09:45 AST 33 U/L (15-37) D 06/26/17 09:45 ALT 75 U/L (12-78) D 06/26/17 09:45 Alkaline Phosphatase 92 U/L (45-117) 06/26/17 09:45 Creatine Kinase 46 IU/L (39-308) 06/02/17 12:15 Troponin I 0.27 ng/ml (0.00-0.05) H D 06/29/17 06:00 C-Reactive Protein 2.8 MG/DL (0.00-0.3) H 06/03/17 07:40 B-Natriuretic Peptide 72094.94 pg/ml (5-125) H 06/01/17 21:41 Total Protein 4.7 g/dl (6.4-8.2) L 06/26/17 09:45 Albumin 2.4 g/dl (3.4-5.0) L 06/26/17 09:45 c-ANCA <1:20 titer (Neg:<1:20) 06/06/17 05:35 Proteinase 3 (PR3) <3.5 U/mL (0.0-3.5) 06/06/17 05:35 p-ANCA <1:20 titer (Neg:<1:20) 06/06/17 05:35 Atypical p-ANCA <1:20 titer (Neg:<1:20) 06/06/17 05:35 Myeloperoxidase Ab <9.0 U/mL (0.0-9.0) 06/06/17 05:35 Hep A IgM Ab Confirm Negative (Negative) 06/02/17 12:15 Hepatitis A Ab Total Positive (Negative) H 06/02/17 12:15 Hep Bs Antigen Negative (Negative) 06/02/17 12:15 Hep Bs Antibody Reactive (.) 06/02/17 12:15 Hep B Core Total Ab Negative (Negative) 06/02/17 12:15 Hepatitis C Antibody <0.1 s/co ratio (0.0-0.9) 06/02/17 12:15 HIV 1&2 Antibody Screen Negative 06/03/17 07:40 HIV P24 Antigen Negative 06/03/17 07:40 Echo 05/29 (here): mild LVE, low-nl LVEF; nl RV; mild AI/MR/TR mibi 10/2012: nl mpi ecg 06/01/17: no ischemic changes ecg 06/28/17: sr, nl intervals, no ischemic changes a/p: 67 m hx esrd on hd, dm, cad s/p remote mi/pci (10+yrs ago), sent by pmd for possible pna. pna: -abx per pmd, ID, pulm sob, acute diastolic chf: -overnight with resp distress. stat cxr reviewed and shows congestion and pt has significant vol overload on exam as well, wt is up -d/w renal and will try to do more frequent hd/uf to remove volume. For now will give 80 iv lasix. elevated trop: -borderline trop elevation, no ecg changes -likely related to chf and not acs, cont to trend ce's for now esrd: -cont HD per renal as above cp, cad s/p remote mi/pci: -as above -cont home kylah, bb, imdur, dapt -not on statin--defer to outpt automation clerk htn: -cont current meds, HD for vol removal to help with htn as well
--- NOTE | 2017-06-29 11:18 | PN ---
Progress Note (short form) - Note Progress Note: PULMONARY Overnight events noted, Still with dyspnea at rest. Last Vital Signs Temp Pulse Resp BP Pulse Ox 98.3 F 63 20 115/69 91 L 06/29/17 09:00 06/29/17 09:00 06/29/17 09:00 06/29/17 09:00 06/28/17 22:00 Gen: tachypneic with exertion Heart: RRR Lung: bibasilar rales Abd: soft, nontender Ext: + edema CBC, BMP 06/28/17 09:00 06/28/17 12:45 Active Medications Acetaminophen (Tylenol -) 325 mg PO Q6H PRN PRN Reason: PAIN LEVEL 6-10 Last Admin: 06/29/17 08:04 Dose: 325 mg Amlodipine Besylate (Norvasc -) 10 mg PO DAILY [facility] Last Admin: 06/29/17 10:55 Dose: 10 mg Arformoterol Tartrate (Brovana (Restricted To Pulmonology/Resp) -) 1 amp NEB BID [facility] Last Admin: 06/28/17 21:59 Dose: 1 amp Aspirin (Ecotrin -) 81 mg PO DAILY [facility] Last Admin: 06/28/17 10:00 Dose: Not Given Calcium Acetate (Phoslo -) 1,334 mg PO TIDCM [facility] Last Admin: 06/29/17 07:59 Dose: 1,334 mg Carvedilol (Coreg -) 25 mg PO BID [facility] Last Admin: 06/29/17 10:55 Dose: 25 mg Clopidogrel Bisulfate (Plavix -) 75 mg PO DAILY [facility] Last Admin: 06/28/17 10:00 Dose: Not Given Furosemide (Lasix Injection -) 80 mg IVPUSH ONCE ONE Stop: 06/29/17 10:59 Gabapentin (Neurontin -) 100 mg PO TID [facility] Last Admin: 06/29/17 06:40 Dose: 100 mg Guaifenesin (Diabetic Tussin Dm -) 10 ml PO QID [facility] Last Admin: 06/29/17 11:00 Dose: Not Given Heparin Sodium (Porcine) (Heparin -) 5,000 unit SQ BID [facility] Last Admin: 06/29/17 10:55 Dose: 5,000 unit Insulin Aspart (Novolog Vial Sliding Scale -) 1 vial SQ ACHS [facility] PRN Reason: Protocol Last Admin: 06/29/17 06:44 Dose: Not Given Insulin Detemir (Levemir Vial) 25 units SQ AM [facility] Last Admin: 06/29/17 06:42 Dose: Not Given Isosorbide Mononitrate (Imdur -) 30 mg PO DAILY [facility] Last Admin: 06/29/17 10:55 Dose: 30 mg Lisinopril (Prinivil) 20 mg PO DAILY [facility] Last Admin: 06/29/17 10:55 Dose: 20 mg Oxycodone HCl (Roxicodone -) 5 mg PO Q6H PRN PRN Reason: PAIN LEVEL 6-10 Last Admin: 06/29/17 08:03 Dose: 5 mg Polyethylene Glycol (Miralax (For Daily Use) -) 17 gm PO DAILY [facility] Last Admin: 06/29/17 10:55 Dose: Not Given Prednisone (Deltasone -) 50 mg PO DAILY [facility] Last Admin: 06/29/17 10:55 Dose: 50 mg Ranitidine HCl (Zantac -) 150 mg PO DAILY [facility] Last Admin: 06/29/17 10:55 Dose: 150 mg Sevelamer Carbonate (Renvela -) 800 mg PO TIDCM [facility] Last Admin: 06/29/17 07:59 Dose: 800 mg A/P Acute Hypoxic Respiratory Failure Bilateral Interstitial Infiltrates LV Diastolic Dysfunction ESRD on HD CAD HTN DM - suspect an interstitial lung process/acute pneumonitis of unclear etiology without significant improvement despite prolonged steroid course - thoracic surgery evaluation for possible VATS/wedge biopsy - hold plavix for possible biopsy - will place back on IV medrol - completed empiric antibiotics - HD per renal - glucose control while on systemic steroids - O2 to keep SpO2 >90% - will need home O2 - DVT prophylaxis - prognosis guarded
[2017-06-29] MEDS ORDERED: FUROSEMIDE 40 MG/4 ML INJECTABLE VIAL IVPUSH ONE (12:00)
[2017-06-29] MEDS ORDERED: FUROSEMIDE 40 MG/4 ML INJECTABLE VIAL IVPB ONE (12:10)
[2017-06-29] MEDS: methylPREDNISolone NA SUCC 125 MG/2 ML VIAL IVPB SCH ×2 (12:38→17:16)
[2017-06-29 13:31] LABS: TROPONIN I 0.3 ng/ml (0.00-0.05)
--- NOTE | 2017-06-29 13:59 | RAPID ---
Physical Examination Vital Signs: Vital Signs Temperature 98.3 F 06/29/17 09:00 Pulse Rate 63 06/29/17 09:00 Respiratory Rate 20 06/29/17 09:00 Blood Pressure 115/69 06/29/17 09:00 O2 Sat by Pulse Oximetry (%) 91 L 06/28/17 22:00 Labs: CBC, BMP 06/28/17 09:00 06/28/17 12:45 Rapid Response - Rapid Response Assessment: 67 y.o. M with PMH of HTN, DM, ESRD, HLD, [place], gout who presented to the ED from his PCP office with report of SOB. As per nurse, patient was found unresponsive and Code 99 was called at 13:38. Medical team responded. Patient was unresponsive and pulseless and rhythm was asystole. CPR was initiated and conducted as per ACLS protocol. Patient was intubated by anasthesiologist. Weak pulse returned at 13:48. CPR resumed at 13:55. Pulse returned at 14:00 with a rhythm of normal sinus with ST elevation. Patient transferred to ICU. Total Duration was 20 minutes until ROSC. Post CPR- patient's BP was 207/83 and HR of 91. Drugs given: Epinephrine x3, calcium gluconate, amiodarone loading dose and drip Intubation was required Result of code: ROSC Family was notified. Primary team notified GET CBC, CMP, EKG, CXR, LIPID PROFILE, ABG, CARDIOLOGY CONSULT, MAGNESIUM, PHOSPHORUS, CARDIAC PROFILE
[2017-06-29] MEDS ORDERED: AMIODARONE HCL INJECTION 450 MG in DEXTROSE 5%-WATER - 241 ML IVPB SCH ×2 (14:15→20:15)
[2017-06-29] MEDS ORDERED: PROPOFOL 100 ML IVPB SCH (14:15)
[2017-06-29] MEDS ORDERED: MAGNESIUM SULF 50% (8.12 MEQ/2 ML-1 GM VIAL) IVPB ONE (15:04)
--- NOTE | 2017-06-29 15:08 | PROC ---
Central Line Insertion Indication: Poor Venous Access, Vasopressor Risks and Benefits Explained: No Consent on Chart: No Central Line: Triple Lumen Catheter Anesthesia: 1% Lidocaine Sterile Technique: Yes Ultrasound Guided Assistance: Yes Position: Right Femoral Post Insertion: Yes: Other (verified with ultrasound ) Sterile Dressing Applied: Yes
[2017-06-29 15:48] LABS: MCH 30.3 pg (25.7-33.7); MCHC 31.2 g/dl (32.0-35.9); MEAN CELL VOLUME 97.2 fl (80-96); MEAN PLT VOLUME 7.7 fl (7.5-11.1); PLATELET COUNT 93 K/MM3 (134-434); RDW 20.5 % (11.9-15.9); WHITE BLOOD COUNT 10.3 K/mm3 (4.0-10.0)
[2017-06-29 15:57] LABS: ALBUMIN 2.2 g/dl (3.4-5.0); ANION GAP 14 (8-16); BILIRUBIN,TOTAL 0.9 mg/dL (0.2-1.0); CALCIUM 8.9 mg/dL (8.5-10.1); CO2 26 mmol/L (21-32); CREATININE 6.1 mg/dL (0.7-1.3); GLUCOSE,RANDOM 298 mg/dL (74-106); MAGNESIUM 2.3 mg/dL (1.8-2.4); SGOT/AST 153 U/L (15-37); SGPT/ALT 253 U/L (12-78); TOT PROT 4.6 g/dl (6.4-8.2)
[2017-06-29 15:58] LABS: ALK PHOS 178 U/L (45-117)
[2017-06-29 16:00] LABS: TROPONIN I 0.33 ng/ml (0.00-0.05)
[2017-06-29 16:24] LABS: ARTERIAL BLD GAS O2 SATURATION 95.6 % (90-98.9); ARTERIAL BLOOD GAS BASE EXCESS -0.2 meq/l (-2-2); ARTERIAL BLOOD GAS HCO3 24.8 meq/L (22-26); ARTERIAL BLOOD GAS PO2 82.1 mmHg (80-100); ARTERIAL BLOOD GAS pH 7.36 (7.35-7.45)
[2017-06-29 16:25] LABS: ALLENS TEST POSITIVE; ART PUNCT SITE RIGHT BRACHIAL; LPM/O2% 100%; MECH. VENT. Y; PT. ON O2? YES; TYPE OF O2 VENT; VENT RATE 16; VT/PRESS 450
[2017-06-29 16:28] LABS: INR 1.03 (0.82-1.09); PROTHROMBIN TIME (PATIENT) 11.3 SEC (9.98-11.88)
--- NOTE | 2017-06-29 16:41 | PN ---
Progress Note, Physician History of Present Illness: Pt seen and examined at bedside. He had a cardiac arrest earlier today and is now intubated. He was shocked 3 times. - Current Medication List Current Medications: Active Medications Acetaminophen (Tylenol -) 325 mg PO Q6H PRN PRN Reason: PAIN LEVEL 6-10 Last Admin: 06/29/17 08:04 Dose: 325 mg Amlodipine Besylate (Norvasc -) 10 mg PO DAILY [facility] Last Admin: 06/29/17 10:55 Dose: 10 mg Arformoterol Tartrate (Brovana (Restricted To Pulmonology/Resp) -) 1 amp NEB BID [facility] Last Admin: 06/29/17 10:30 Dose: 1 amp Aspirin (Ecotrin -) 81 mg PO DAILY [facility] Last Admin: 06/28/17 10:00 Dose: Not Given Calcium Acetate (Phoslo -) 1,334 mg PO TIDCM [facility] Last Admin: 06/29/17 12:38 Dose: 1,334 mg Carvedilol (Coreg -) 25 mg PO BID [facility] Last Admin: 06/29/17 10:55 Dose: 25 mg Clopidogrel Bisulfate (Plavix -) 75 mg PO DAILY [facility] Last Admin: 06/28/17 10:00 Dose: Not Given Gabapentin (Neurontin -) 100 mg PO TID [facility] Last Admin: 06/29/17 15:47 Dose: Not Given Guaifenesin (Diabetic Tussin Dm -) 10 ml PO QID [facility] Last Admin: 06/29/17 15:47 Dose: Not Given Heparin Sodium (Porcine) (Heparin -) 5,000 unit SQ BID [facility] Last Admin: 06/29/17 10:55 Dose: 5,000 unit Amiodarone HCl 450 mg/ (Dextrose) 250 mls @ 33.33 mls/hr IVPB TITR [facility]; 1 MG/ MIN PRN Reason: Protocol Stop: 06/29/17 20:14 Last Admin: 06/29/17 14:15 Dose: 33.33 mls/hr Amiodarone HCl 450 mg/ (Dextrose) 250 mls @ 16.66 mls/hr IVPB TITR [facility]; 0.5 MG/ MIN PRN Reason: Protocol Stop: 06/30/17 14:14 Propofol (Diprivan -) 100 mls @ 2.972 mls/hr IVPB TITR [facility]; 5 MCG/KG/MIN PRN Reason: Protocol Last Admin: 06/29/17 14:15 Dose: 2.972 mls/hr Insulin Aspart (Novolog Vial Sliding Scale -) 1 vial SQ ACHS [facility] PRN Reason: Protocol Last Admin: 06/29/17 12:09 Dose: 5 units Insulin Detemir (Levemir Vial) 25 units SQ AM [facility] Last Admin: 06/29/17 06:42 Dose: Not Given Isosorbide Mononitrate (Imdur -) 30 mg PO DAILY [facility] Last Admin: 06/29/17 10:55 Dose: 30 mg Lisinopril (Prinivil) 20 mg PO DAILY [facility] Last Admin: 06/29/17 10:55 Dose: 20 mg Methylprednisolone Sodium Succinate (Solu-Medrol -) 80 mg IVPB Q8H-IV [facility] Last Admin: 06/29/17 12:38 Dose: Not Given Oxycodone HCl (Roxicodone -) 5 mg PO Q6H PRN PRN Reason: PAIN LEVEL 6-10 Last Admin: 06/29/17 08:03 Dose: 5 mg Polyethylene Glycol (Miralax (For Daily Use) -) 17 gm PO DAILY [facility] Last Admin: 06/29/17 10:55 Dose: Not Given Ranitidine HCl (Zantac -) 150 mg PO DAILY [facility] Last Admin: 06/29/17 10:55 Dose: 150 mg Sevelamer Carbonate (Renvela -) 800 mg PO TIDCM [facility] Last Admin: 06/29/17 12:38 Dose: 800 mg - Objective Vital Signs: Vital Signs Temperature 98.3 F 06/29/17 09:00 Pulse Rate 54 L 06/29/17 14:32 Respiratory Rate 06/29/17 13:40 Blood Pressure 115/69 06/29/17 09:00 O2 Sat by Pulse Oximetry (%) 100 06/29/17 14:32 Constitutional: Yes: Calm Eyes: Yes: Conjunctiva Clear Cardiovascular: Yes: Bradycardia, S1, S2 Respiratory: Yes: Mechanically Ventilated Gastrointestinal: Yes: Soft, Abdomen, Obese Genitourinary: Yes: Incontinence Musculoskeletal: Yes: Muscle Weakness Edema: Yes Edema: LLE: 2+, RLE: 2+ Neurological: Yes: Lethargy Labs: CBC, BMP 06/29/17 15:22 06/29/17 15:22 INR, PTT INR 1.03 (0.82-1.09) 06/01/17 21:41 - ....Imaging Chest X-ray: Report Reviewed Problem List - Problems (1) ESRD (end stage renal disease) on dialysis Code(s): N18.6 - END STAGE RENAL DISEASE Z99.2 - DEPENDENCE ON RENAL DIALYSIS Assessment/Plan Current Medications Generic Name Dose Route Start Last Admin Trade Name Freq PRN Reason Stop Dose Admin Acetaminophen 325 mg 06/22/17 18:22 06/29/17 08:04 Tylenol - PO 325 mg Q6H PRN Administration PAIN LEVEL 6-10 Amlodipine Besylate 10 mg 06/15/17 10:00 06/29/17 10:55 Norvasc - PO 10 mg DAILY [facility] Administration Arformoterol Tartrate 1 amp 06/06/17 22:00 06/29/17 10:30 Brovana (Restricted To Pulmonology/Resp) - NEB 1 amp BID [facility] Administration Aspirin 81 mg 06/02/17 10:00 06/28/17 10:00 Ecotrin - PO Not Given DAILY [facility] Calcium Acetate 1,334 mg 06/04/17 12:00 06/29/17 12:38 Phoslo - PO 1,334 mg TIDCM [facility] Administration Carvedilol 25 mg 06/16/17 22:00 06/29/17 10:55 Coreg - PO 25 mg BID [facility] Administration Clopidogrel Bisulfate 75 mg 06/02/17 10:00 06/28/17 10:00 Plavix - PO Not Given DAILY [facility] Gabapentin 100 mg 06/02/17 14:00 06/29/17 15:47 Neurontin - PO Not Given TID [facility] Guaifenesin 10 ml 06/08/17 07:45 06/29/17 15:47 Diabetic Tussin Dm - PO Not Given QID [facility] Heparin Sodium (Porcine) 5,000 unit 06/29/17 10:00 06/29/17 10:55 Heparin - SQ 5,000 unit BID [facility] Administration Amiodarone HCl 450 mg/ 250 mls @ 33.33 mls/hr 06/29/17 14:15 06/29/17 14:15 Dextrose IVPB 06/29/17 20:14 33.33 mls/hr TITR [facility] Administration Protocol 1 MG/MIN Amiodarone HCl 450 mg/ 250 mls @ 16.66 mls/hr 06/29/17 20:15 Dextrose IVPB 06/30/17 14:14 TITR [facility] Protocol 0.5 MG/MIN Propofol 100 mls @ 2.972 mls/hr 06/29/17 14:15 06/29/17 14:15 Diprivan - IVPB 2.972 mls/hr TITR [facility] Administration Protocol 5 MCG/KG/MIN Insulin Aspart 1 vial 06/29/17 00:05 06/29/17 12:09 Novolog Vial Sliding Scale - SQ 5 units ACHS [facility] Administration Protocol Insulin Detemir 25 units 06/29/17 00:05 06/29/17 06:42 Levemir Vial SQ Not Given AM [facility] Isosorbide Mononitrate 30 mg 06/02/17 10:00 06/29/17 10:55 Imdur - PO 30 mg DAILY [facility] Administration Lisinopril 20 mg 06/02/17 10:00 06/29/17 10:55 Prinivil PO 20 mg DAILY [facility] Administration Methylprednisolone Sodium Succinate 80 mg 06/29/17 12:00 06/29/17 12:38 Solu-Medrol - IVPB Not Given Q8H-IV [facility] Oxycodone HCl 5 mg 06/25/17 23:16 06/29/17 08:03 Roxicodone - PO 5 mg Q6H PRN Administration PAIN LEVEL 6-10 Polyethylene Glycol 17 gm 06/22/17 17:45 06/29/17 10:55 Miralax (For Daily Use) - PO Not Given DAILY [facility] Ranitidine HCl 150 mg 06/29/17 10:00 06/29/17 10:55 Zantac - PO 150 mg DAILY [facility] Administration Sevelamer Carbonate 800 mg 06/06/17 17:30 06/29/17 12:38 Renvela - PO 800 mg TIDCM [facility] Administration Impression 1. ESRD 2. fluid overload 3. HTN 4. DM 5. anemia 6. hemoptysis 7. pneumonitis 8. hyperkalemia 9. cardiac arrest Plan - spoke to family at length and they do not want anymore HD therapy - repeat labs after cardiac arrest reveal hyperkalemia - discussed with ICU team - steroids per pulmonary - monitor in ICU - vent support - family are discussing further GOC Dr Barbosa
[2017-06-29 17:21] LABS: PHOSPHOROUS 8.7 mg/dL (2.5-4.9)
--- NOTE | 2017-06-29 17:47 | PN ---
Progress Note, Physician - Current Medication List Current Medications: Active Medications Acetaminophen (Tylenol -) 325 mg PO Q6H PRN PRN Reason: PAIN LEVEL 6-10 Last Admin: 06/29/17 08:04 Dose: 325 mg Amlodipine Besylate (Norvasc -) 10 mg PO DAILY [facility] Last Admin: 06/29/17 10:55 Dose: 10 mg Arformoterol Tartrate (Brovana (Restricted To Pulmonology/Resp) -) 1 amp NEB BID [facility] Last Admin: 06/29/17 10:30 Dose: 1 amp Aspirin (Ecotrin -) 81 mg PO DAILY [facility] Last Admin: 06/28/17 10:00 Dose: Not Given Calcium Acetate (Phoslo -) 1,334 mg PO TIDCM [facility] Last Admin: 06/29/17 17:17 Dose: Not Given Carvedilol (Coreg -) 25 mg PO BID [facility] Last Admin: 06/29/17 10:55 Dose: 25 mg Clopidogrel Bisulfate (Plavix -) 75 mg PO DAILY [facility] Last Admin: 06/28/17 10:00 Dose: Not Given Gabapentin (Neurontin -) 100 mg PO TID [facility] Last Admin: 06/29/17 15:47 Dose: Not Given Guaifenesin (Diabetic Tussin Dm -) 10 ml PO QID [facility] Last Admin: 06/29/17 17:17 Dose: Not Given Heparin Sodium (Porcine) (Heparin -) 5,000 unit SQ BID [facility] Last Admin: 06/29/17 10:55 Dose: 5,000 unit Amiodarone HCl 450 mg/ (Dextrose) 250 mls @ 33.33 mls/hr IVPB TITR [facility]; 1 MG/ MIN PRN Reason: Protocol Stop: 06/29/17 20:14 Last Admin: 06/29/17 14:15 Dose: 33.33 mls/hr Amiodarone HCl 450 mg/ (Dextrose) 250 mls @ 16.66 mls/hr IVPB TITR [facility]; 0.5 MG/ MIN PRN Reason: Protocol Stop: 06/30/17 14:14 Propofol (Diprivan -) 100 mls @ 2.972 mls/hr IVPB TITR [facility]; 5 MCG/KG/MIN PRN Reason: Protocol Last Admin: 06/29/17 14:15 Dose: 2.972 mls/hr Insulin Aspart (Novolog Vial Sliding Scale -) 1 vial SQ ACHS [facility] PRN Reason: Protocol Last Admin: 06/29/17 12:09 Dose: 5 units Insulin Detemir (Levemir Vial) 25 units SQ AM [facility] Last Admin: 06/29/17 06:42 Dose: Not Given Isosorbide Mononitrate (Imdur -) 30 mg PO DAILY [facility] Last Admin: 06/29/17 10:55 Dose: 30 mg Lisinopril (Prinivil) 20 mg PO DAILY [facility] Last Admin: 06/29/17 10:55 Dose: 20 mg Methylprednisolone Sodium Succinate (Solu-Medrol -) 80 mg IVPB Q8H-IV [facility] Last Admin: 06/29/17 17:16 Dose: 80 mg Oxycodone HCl (Roxicodone -) 5 mg PO Q6H PRN PRN Reason: PAIN LEVEL 6-10 Last Admin: 06/29/17 08:03 Dose: 5 mg Polyethylene Glycol (Miralax (For Daily Use) -) 17 gm PO DAILY [facility] Last Admin: 06/29/17 10:55 Dose: Not Given Ranitidine HCl (Zantac -) 150 mg PO DAILY [facility] Last Admin: 06/29/17 10:55 Dose: 150 mg Sevelamer Carbonate (Renvela -) 800 mg PO TIDCM [facility] Last Admin: 06/29/17 17:17 Dose: Not Given - Objective Vital Signs: Vital Signs Temperature 98.3 F 06/29/17 09:00 Pulse Rate 54 L 06/29/17 14:32 Respiratory Rate 26 H 06/29/17 16:30 Blood Pressure 115/69 06/29/17 09:00 O2 Sat by Pulse Oximetry (%) 100 06/29/17 14:32 Labs: CBC, BMP 06/29/17 15:22 06/29/17 15:22 INR, PTT INR 1.03 (0.82-1.09) 06/29/17 15:22 Assessment/Plan Patient coded in [address] [place] [address], was intubated and transferred in the ICU for further management. Family signed DNR , no dialysis and no lab draws. Paper attached in the chart. Plan of care explained to the patients family. They verbalized understanding.
[2017-06-29 18:22] VITALS: BP 47/33; PULSE 85; TEMP 97.2
--- NOTE | 2017-06-29 18:33 | HOSP ---
Physical Examination Vital Signs: Vital Signs Temperature 97.2 F L 06/29/17 18:10 Pulse Rate 85 06/29/17 18:10 Respiratory Rate 18 06/29/17 18:10 Blood Pressure 47/33 06/29/17 18:10 O2 Sat by Pulse Oximetry (%) 100 06/29/17 14:32 Labs: CBC, BMP 06/29/17 15:22 06/29/17 15:22 Hospitalist Encounter Assessment: Patient's blood pressure was 42/29 mmHg at 6:18 pm today. Discussed with the family members, they didn't want any aggressive management, no pressors, no lab draws. They wanted him on Morphine drip. Even before starting morphine drip, patient went into asystole. Pupils were fixed and dilated, there was no gag reflex, no corneal reflex. pronounced at 6:25pm. Family members at bed side. Called Dr. Bender service, awaiting a call back. Dr. Lucero informed. RN to inform Cristóbal. Visit type - Emergency Visit Emergency Visit: Yes ED Registration Date: 06/02/17 Care time: The patient presented to the Emergency Department on the above date and was hospitalized for further evaluation of their emergent condition. - New Patient This patient is new to me today: Yes Date on this admission: 06/29/17 - Critical Care Critical Care patient: Yes Total Critical Care Time (in minutes): 35 Critical Care Statement: The care of this patient involved high complexity decision making to prevent further life threatening deterioration of the patient 's condition and/or to evaluate & treat vital organ system(s) failure or risk of failure.
[2017-06-29 21:22] LABS: PLATELET COMMENT2 NO CLUMPING NOTED; PLATELET COMMENT3 NO CLOTTING DETECTED
[2017-06-29 21:23] LABS: ANISOCYTOSIS 1+; HYPOCHROMIA 1+; PLATELET ESTIMATE DECREASED
[2017-06-30 00:31] LABS: ACTIVATED PTT 18.1 SECONDS (26.9-34.4)
--- NOTE | 2017-06-30 07:54 | DS ---
Physical Examination Labs: CBC, BMP 06/29/17 15:22 06/29/17 15:22 Discharge Summary Reason For Visit: CHF EXACERBATION Hospital Course: 67 yo pt with h/o CAD, ESRD, IDDM admitted for progressively worsening dyspnea over the past month with mostly dry cough. On admission pt has bilateral diffuse infiltrates and pleural effusion, was started on iv ceftriaxone and zithromax for presumtive CAP and steroids, has had HD repeatedly for fluid removal. Was placed on isolation while awaiting sputum cultures for AFB-which were negative x3. sputum and blood cultures remained negative. Completed 10 day abx course without improvement, in fact pt was gradually deteriorating with increased O2 requirement and worsening interstitial infiltrates on CT. Requested evaluation for tissue biopsy to r/o interstitial lung ds and steroids were increased. Patient became unresponsive in asystole on 06.29.17, after resuscitation transiently regained pulse and blood pressure, but condition remained unstable with very poor prognosis. Family requested palliative care evaluation and DNR, patient 4 hours later. . Condition: Guarded - Instructions Referrals: Brittany Bender MD [Primary Care Provider] - Disposition: - Home Medications Comprehensive Discharge Medication List: Ambulatory Orders Unobtainable [Unobtainable] 11/28/16
--- NOTE | 2017-06-30 10:27 | EKG ---
Test Reason : Blood Pressure : / mmHG Vent. Rate : 083 BPM Atrial Rate : 220 BPM P-R Int : 000 ms QRS Dur : 102 ms QT Int : 356 ms P-R-T Axes : 000 019 015 degrees QTc Int : 418 ms ATRIAL FIBRILLATION ABNORMAL ECG WHEN COMPARED WITH ECG OF 28-JUN-2017 19:57, ATRIAL FIBRILLATION HAS REPLACED SINUS RHYTHM Confirmed by NIKKO SCHNEIDER MD ([id number]) on 06/30/2017 10:26:24 AM Referred By: REGINO HURLEY Confirmed By:NIKKO SCHNEIDER MD
== END 2017-06-29 20:34 | disposition expired | DRG 208 ==
LOC: JER 19:22 → JERBED 06-02 00:58 → UNDOADMIN 06-02 01:12 → J4W 06-02 03:19 → J6S 06-12 18:26 → JICU 06-29 14:02
PROVIDERS: ADMIT Internal Medicine; ATTEND Internal Medicine
PROC: 5A1D60Z (ICD-10-PCS; 2017-06-28)
PROC: 5A1935Z Respiratory Ventilation, Less than 24 Consecutive Hours (ICD-10-PCS; principal; 2017-06-29)
PROC: 0BH17EZ Insertion of Endotracheal Airway into Trachea, Via Natural or Artificial Opening (ICD-10-PCS; 2017-06-29)
PROC: 05HM33Z Insertion of Infusion Device into Right Internal Jugular Vein, Percutaneous Approach (ICD-10-PCS; 2017-06-29)
PROC: 5A12012 Performance of Cardiac Output, Single, Manual (ICD-10-PCS; 2017-06-29)
DX: J18.9 Pneumonia, unspecified organism (principal); N18.6 End stage renal disease; I50.31 Acute diastolic (congestive) heart failure; J96.01 Acute respiratory failure with hypoxia; I13.2 Hypertensive heart and chronic kidney disease with heart failure and with stage 5 chronic kidney disease, or end stage renal disease; R04.2 Hemoptysis; E11.22 Type 2 diabetes mellitus with diabetic chronic kidney disease; Z99.2 Dependence on renal dialysis; Z79.4 Long term (current) use of insulin; E78.5 Hyperlipidemia, unspecified; M10.9 Gout, unspecified; I25.10 Atherosclerotic heart disease of native coronary artery without angina pectoris; Z98.61 Coronary angioplasty status; R07.9 Chest pain, unspecified; M19.90 Unspecified osteoarthritis, unspecified site; E87.70 Fluid overload, unspecified; D64.9 Anemia, unspecified; E87.5 Hyperkalemia; M25.562 Pain in left knee; D72.829 Elevated white blood cell count, unspecified; I25.2 Old myocardial infarction; Z87.891 Personal history of nicotine dependence; E83.51 Hypocalcemia; J45.909 Unspecified asthma, uncomplicated
CPT/HCPCS: 31500; 36415; 36600; 71010-TC; 71020-TC; 71250-TC; 73560-TC-LT; 80048; 80053; 82550; 82565; 82803; 82947; 83036; 83520; 83605; 83735; 83880; 84100; 84484; 84520; 85025; 85027; 85610; 85651; 85730; 86140; 86256; 86480; 86704; 86706; 86708; 86713; 86738; 86803; 87040; 87070; 87116; 87205; 87206; 87340; 87389; 87556; 87899; 93005; 93010; 93306-TC; 94002; 94010; 94640; 94761; 97116-GP; 97162-GP; 99284-25; J0885; J1644